=== PATIENT | female | born 1945 | race Caucasian/White ===

== ENCOUNTER 2019-05-21 12:37 | Outpatient (CLI) | payer MEDICARE, SELFPAY ==
--- NOTE | ~2019-05-21 | MMUS_ITS ---
EXAMINATION: MM diagnostic sera RT w ravin, US breast RT limited HISTORY: Right breast mass follow-up, ultrasound guided biopsy performed on 02/16/2019 demonstrated an intraductal papilloma of the right breast. TECHNIQUE: Craniocaudal, mediolateral, and mediolateral oblique 3-D tomosynthesis images of the right breast were performed and synthetic 2-D images were generated. CAD analysis was submitted and interp reted. High resolution limited right breast ultrasound was performed. COMPARISON: 02/04/2019, 01/07/2018, 01/01/2018, 12/31/2016 BREAST PARENCHYMAL COMPOSITION: The breasts are almost entirely fatty. FINDINGS: MAMMOGRAPHIC FINDINGS: There is a stable 6 mm round, circumscribed, equal density mass in the anterior third of the breast a t the 3:00 location 7 cm from the nipple with an associated biopsy marker. There has been no suspicio us interval change. ULTRASOUND: There is a stable 6 mm round, hypoechoic, circumscribed mass with internal vascularity and no posteri or features corresponding to the mammographic finding. IMPRESSION: 1. Stable right breast mass corresponding to the previously biopsied intraductal papilloma. 2. Recommend routine screening mammography and appropriate clinical follow-up. BI-RADS Category 2: Benign finding(s). Reviewed, dictated and finalized at location A. IMPRESSION: 1. Stable right breast mass corresponding to the previously biopsied intraducta l papilloma. 2. Recommend routine screening mammography and appropriate clinical follow-up. BI-RADS Category 2: Benign finding(s).
--- NOTE | ~2019-05-21 | DEXA_ITS ---
Bone Density Report Name: Yokasta Clinton Age: 73 Sex: Female Ethnicity: White Date of : 1945 Indication: postmenopausal; height loss; Referring Provider: Bushra Poole Study: Bone densitometry was performed. Exam Date: May 21, 2019 Accession number: [id number] Bone Density: Region BMD T-score Z-score Classification AP Spine (L1, L2) 1.025 0.4 2.7 Normal World Health Organization criteria for BMD impression classify patients as: Normal (T-score at or above -1.0), Osteopenia (T-score between -1.0 and -2.5), or Osteoporosis (T-score at or below -2.5). Clinical Information Provided by Patient: Has used the following medications: Vitamin D Patient maximum height was 65.5 Menopause Age: 52 Drinks caffeinated beverages Onset of menses at age 10 Number of children 0 Impression: The patient has normal bone mass. Discussion: LOW RISK OF FRACTURE; BONE DENSITY IS WELL ABOVE THE MINIMUM DESIRABLE LEVEL AND ABOVE AVERAGE FOR AGE AND SEX AT ALL SKELETAL SITES TESTED. This person's bone density is above expected limits for age and sex. This is rarely clinically significant, but should be pursued if there are significant musculoskeletal complaints. The patient should follow a healthful lifestyle (good nutrition with adequate calcium and vitamin D, and appropriate weight-bearing exercise). Follow-Up: Consider repeating this study in 5 years or sooner if there is some new clinical indication. Reported by: [facility] on 05/21/2019 1:25:00 PM. Reviewed, dictated and finalized at location ALinda NELSON
== END 2019-05-21 12:38 | disposition home or self-care (01) ==
PROVIDERS: PCP Family Medicine; Visit Provider Family Medicine
DX: R92.8 Other abnormal and inconclusive findings on diagnostic imaging of breast (principal); Z78.0 Asymptomatic menopausal state
CPT/HCPCS: 76642; 77061; 77065; 77080; G0279

== ENCOUNTER 2019-11-10 12:32 | Outpatient (CLI) | payer MEDICARE, SELFPAY ==
--- NOTE | ~2019-11-10 | XR_ITS ---
EXAMINATION: XR lg joint inject/asp w image DATE: 11/10/2019 13:46 INDICATION: Left shoulder pain. TECHNIQUE: A time-out was performed to verify the patient's name, date of , and procedure to b e performed. The procedure including the risks, benefits, and alternatives was discussed with the pat ient. Risks discussed included bleeding and infection. The patient understood the risks and agreed to proceed. The skin overlying the left glenohumeral joint was prepped and draped in usual sterile fas hion. Anesthetic was administered with 1% lidocaine subcutaneously. A 22 G needle was advanced unde r fluoroscopic guidance into the joint. Injection of 1 mL of Omnipaque 240 confirmed intra-articular position of the needle. Subsequently, injectate consisting of 3 mL 0.25% bupivacaine and 1.5 mL 10 mg/mL Kenalog was instilled. The needle was removed and the entry site was cleaned and dressed. The re were no immediate complications. Fluoroscopy exposure time was 0.1 minutes. The total number of im ages was 2. FINDINGS: Real-time fluoroscopy demonstrates the needle in the left glenohumeral joint. Patient's cruz n prior to procedure:05/18. Patient's pain following the procedure: 03/20. IMPRESSION: 1. Left glenohumeral joint injection of local anesthetic and steroid with decrease in the patient's p resenting pain. Reviewed, dictated and finalized at location A. IMPRESSION: 1. Left glenohumeral joint injection of local anesthetic and steroid with decre ase in the patient's presenting pain.
--- NOTE | ~2019-11-10 | XR_ITS ---
EXAMINATION: XR lumbar spine 2-3V DATE: 11/10/2019 13:44 INDICATION: Lumbar radiculopathy. TECHNIQUE: 3 views of lumbar spine were obtained. COMPARISON: None. FINDINGS: There is 10 degrees levoscoliosis of lumbar spine. Vertebral body heights are normal. There is moderately decreased disc height at T12-L1, L1-L2, and L4-L5 and severely decreased disc height a t L2-L3, L3-L4, and L5-S1. There is multilevel severe facet joint osteoarthritis. There are bilateral total hip arthroplasties. Surgical clips in the right upper quadrant are likely from cholecystectomy . IMPRESSION: 1. Severe lumbar spondylosis. 2. Lumbar levoscoliosis. Reviewed, dictated and finalized at location A.
== END 2019-11-10 12:33 | disposition home or self-care (01) ==
PROVIDERS: PCP Family Medicine; Visit Provider Orthopaedic Surgery
DX: M25.512 Pain in left shoulder (principal); M47.896 Other spondylosis, lumbar region
CPT/HCPCS: 20610; 72100; 77002; J3301; Q9966

== ENCOUNTER 2019-11-18 13:16 | Outpatient (CLI) | payer MEDICARE, SELFPAY ==
--- NOTE | ~2019-11-18 | CT_ITS ---
EXAMINATION: CT lumbar spine wo [facility] EXAM DATE: 11/18/2019 14:04 INDICATION: Lumbar radiculopathy. TECHNIQUE: Spiral CT of the lumbar spine was performed without contrast. Axial, coronal and sagittal images were reviewed. The dose-length product (DLP) for this examination was 1250.67 mGy-cm. The exposure was tailored according to patient size (auto mA exposure control), and iterative reconstruct ion (ASIR) was used as additional dose reduction technique. Correlation was made with lumbar spine MR I from 11/04/2009. FINDINGS: There is mild lumbar levoscoliosis. Moderate to severe disc disease L1-L4 and at L5-S1, wit h vacuum disc phenomenon at these levels. There is mild to moderate L4-5 disc disease with 3 mm anter olisthesis. The vertebral bodies are otherwise aligned. No spondylolysis. There are no osteoblastic o r osteolytic lesions identified. No evidence of sacral insufficiency fracture. Bilateral hip replacem ents. There is right adrenal gland 12 mm adenoma. Level by level evaluation: T12-L1: There is a mild diffuse disc bulge. Facet arthropathy: None. Neural foraminal stenosis: Mild to moderate left. Central canal stenosis: No stenosis. L1-L2: There is a mild to moderate diffuse disc bulge. Facet arthropathy: Mild. Neural foraminal stenosis: Mild to moderate bilateral. Central canal stenosis: Mild to moderate. L2-L3: There is a moderate diffuse disc bulge. Facet arthropathy: Mild to moderate. Neural foraminal stenosis: Moderate right, mild left. Central canal stenosis: Moderate. L3-L4: There is a moderate diffuse disc bulge. Facet arthropathy: Mild to moderate. Neural foraminal stenosis: Moderate right, mild left. Central canal stenosis: Moderate. L4-L5: There is a mild diffuse disc bulge. Facet arthropathy: Severe. Neural foraminal stenosis: Mild bilateral. Central canal stenosis: Mild to moderate. L5-S1: There is a mild to moderate diffuse disc bulge. Facet arthropathy: Severe left, mild to moderate right. Neural foraminal stenosis: Moderate to severe left, moderate right. Central canal stenosis: Mild. Correlating with MRI from 2009, there is been significant interval progression in spondylosis. IMPRESSION: 1. Moderate to severe lumbar disc disease. 2. Multilevel neural foraminal stenosis, left L5-S1 level probably most narrowed on exam followed by right L2-3 and L3-4 Reviewed, dictated and finalized at location A. IMPRESSION: 1. Moderate to severe lumbar disc disease. 2. Multilevel neural foraminal stenosis, left L5-S1 level probably most narrow ed on exam followed by right L2-3 and L3-4
== END 2019-11-18 13:17 | disposition home or self-care (01) ==
PROVIDERS: PCP Family Medicine; Visit Provider Family Medicine
DX: M48.061 Spinal stenosis, lumbar region without neurogenic claudication (principal)
CPT/HCPCS: 72131

== ENCOUNTER 2019-11-23 11:44 | Outpatient (CLI) | payer MEDICARE, SELFPAY ==
[2019-11-23 12:04] LABS: Basophils Percent Auto 0.2 % (0.2-1.2); Eosinophils Absolute Auto 0.1 K/mm3 (0-0.3); Eosinophils Percent Auto 1.7 % (0-4.4); Hematocrit 48.6 % (37.0-47.0); Hemoglobin 14.8 g/dL (12.0-15.0); Immature Granulocyte Absolute 0.01 K/mm3 (0.00-0.031); Immature Granulocyte Percent A 0.2 % (0-0.5); Lymphocytes Percent Auto 19.7 % (18.3-44.2); Mean Corpuscular HGB Conc 30.5 g/dl (32-36); Mean Corpuscular Hemoglobin 30.2 pg (26-34); Mean Corpuscular Volume 99.2 fl (80-100); Mean Platelet Volume 10.5 fl (7.4-10.4); Monocytes Absolute Auto 0.5 K/mm3 (0.1-0.6); Neutrophils Absolute Auto 4.6 K/mm3 (1.3-6.7); Neutrophils Percent Auto 70.2 % (45.5-73.1); Platelet Count Result 222 k/mm3 (150-375); White Blood Count 6.6 K/mm3 (4.5-10.0)
[2019-11-23 12:15] LABS: Alanine Aminotransferase 16 U/L (4-35); Alkaline Phosphatase 67 U/L (38-126); Anion Gap 3 mmol/L (8-16); Aspartate Amino Transferase 21 U/L (14-36); Bilirubin,Total 0.4 mg/dL (0.2-1.3); Blood Urea Nitrogen 14 mg/dL (7-17); Calcium 9.3 mg/dL (8.4-10.2); Carbon Dioxide 34 mmol/L (22-30); Chloride 102 mmol/L (98-107); Cholesterol 240 mg/dL (0-200); Estimated Glomerular Filt Rate > 60; Glucose 95 mg/dL (65-105); HDL Direct 52 mg/dL; Potassium 4.2 mmol/L (3.4-5.0); Sodium 139 mmol/L (137-145); Triglycerides 176 mg/dL (<150)
[2019-11-23 12:26] LABS: LDL Cholesterol Direct 148 mg/dL
[2019-11-23 12:42] LABS: Thyroid Stimulating Hormone 0.659 uIU/mL (0.465-4.680)
== END 2019-11-23 11:45 | disposition home or self-care (01) ==
PROVIDERS: PCP Family Medicine; Visit Provider Family Medicine
DX: E78.5 Hyperlipidemia, unspecified (principal); I10 Essential (primary) hypertension; Z13.0 Encounter for screening for diseases of the blood and blood-forming organs and certain disorders involving the immune mechanism
CPT/HCPCS: 36415; 80053; 80061; 84443; 85025

== ENCOUNTER 2019-12-22 14:37 | Outpatient (CLI) | payer MEDICARE, SELFPAY ==
--- NOTE | ~2019-12-22 | CT_ITS ---
EXAMINATION: CT abdomen pelvis wo con DATE: 12/22/2019 15:00 INDICATION: Abdominal wall hernia TECHNIQUE: Computed tomography (CT) of the abdomen and pelvis was performed without intravenous contr ast. The dose-length product (DLP) was 1482.35 mGy-cm. Automated exposure control and iterative recon struction technique were employed. COMPARISON: 01/25/2012 FINDINGS: Minimal dependent atelectasis is present in the lung bases. The heart size is normal. The g allbladder is surgically absent. The liver, spleen, and pancreas are normal. There are stable bilater al adrenal masses, consistent with adenomas. Peripelvic cysts are noted in the otherwise normal kidne ys. No pathologically enlarged abdominal or pelvic lymph nodes are identified. There is no free intra peritoneal gas or evidence of bowel obstruction. The appendix is normal. There are changes of bilater al hip arthroplasty. There is a large umbilical hernia containing fat. There is a moderate-sized epig astric hernia just to the right of midline located approximately 15 cm above the umbilicus and 8.5 cm below the xiphoid. A second smaller epigastric hernia containing fat is seen approximately 3 cm caud al to the larger hernia. There is severe lumbar spondylosis. IMPRESSION: 1. Fat-containing epigastric and umbilical hernias as described above. Reviewed, dictated and finalized at location A.
== END 2019-12-22 14:38 | disposition home or self-care (01) ==
PROVIDERS: PCP Family Medicine; Visit Provider Surgery
DX: K42.9 Umbilical hernia without obstruction or gangrene (principal)
CPT/HCPCS: 74176

== ENCOUNTER 2020-06-21 13:32 | Outpatient (CLI) | payer MEDICARE, SELFPAY ==
[2020-06-21 14:11] LABS: Alveolar/Arterial O2 Gradient 24.6 mmHg; Base Excess ABG 4.8 mEq/l (+/-2.0); Carboxyhemoglobin 0.3 % THb (0-2.0); Fractional Inspired Oxygen 21 %; Methemoglobin ABG 0.1 %THb (0-1.5); Oxygen Content ABG 15.4 %vol (16.0-22.0); Oxygen Saturation ABG 91.1 % (95.0-100.0); Oxyhemoglobin 90.5 % THb (90.0-100.0); PCO2 ABG 52.8 mmHg (35.0-45.0); PO2 ABG 61.9 mmHg (80.0-100.0); PO2 FiO2 Ratio Arterial Blood 2.95 %; Reduced Hemoglobin 9.1 %THb (0-5.0); Total Hemoglobin 12.1 g/dL (12.0-18.0); pH ABG 7.386 (7.350-7.450)
[2020-06-21 14:12] LABS: Device ROOM AIR; Modified Allen's Test Pass; Site Drawn LEFT RADIAL
[2020-06-21 14:30] VITALS: O2SAT 93
[2020-06-21 14:35] VITALS: O2SAT 87
[2020-06-21 14:36] VITALS: O2SAT 87
[2020-06-21 14:38] VITALS: O2SAT 93
[2020-06-21 14:45] VITALS: O2SAT 95
--- NOTE | 2020-06-21 15:05 | HOMEO2EVAL ---
Evaluation was performed at [facility] Home Oxygen Evaluation RC: Home Oxygen (O2) Evaluation Start: 06/21/20 15:02 Freq: Status: Active Protocol: RPE Activity Type Activity Date Activity User E-Sign Co-Sign Detail Recorded Client Recorded Date Recorded By Document 06/21/20 14:30 RENATO [email or web address] 06/21/20 15:04 RENATO Document 06/21/20 14:35 RENATO [email or web address] 06/21/20 15:04 RENATO Document 06/21/20 14:36 RENATO [email or web address] 06/21/20 15:04 RENATO Document 06/21/20 14:38 RENATO [email or web address] 06/21/20 15:04 RENATO Document 06/21/20 14:45 RENATO [email or web address] 06/21/20 15:04 RENATO 06/21/20 06/21/20 06/21/20 14:30 14:35 14:36 Home O2 Evaluation Test Phase Resting Exercise Exercise Oxygen Delivery Room Air Room Air Nasal Cannula Oxygen Flow Rate (L/min) 1 Pulse Oximetry (90-100 %) 93 87 L 87 L Ambulation Distance (feet) Home Oxygen Evaluation Comments Treatment Charges O2 Evaluation - Outpatient 06/21/20 06/21/20 14:38 14:45 Home O2 Evaluation Test Phase Exercise Resting Oxygen Delivery Nasal Cannula Room Air Oxygen Flow Rate (L/min) 2 Pulse Oximetry (90-100 %) 93 95 Ambulation Distance (feet) 300 Home Oxygen Evaluation Comments PT WALKED FOR 6 MINUTES. PT REQUIRES 2 L O2 WITH EXERTION. Treatment Charges
--- NOTE | 2020-06-21 15:05 | PCRCNOTE ---
HOME O2 EVAL FAXED TO OFFICE STAFF, INFORMED PT OFFICE WILL CONTACT HER FOR DME/HOME O2 SET UP
--- NOTE | 2020-06-21 16:08 | P.PCNPFT_ITS ---
PFT Interpretation This is a pulmonary function test with pre and post-bronchodilator spirometry, plethysmography and diffusing capacity. The test was performed and results interpreted in accordance with the 2019 and 2005 ATS/ERS Task Force guidelines respectively using the Global Lung Function Initiative-2012 reference equations. Patient demonstrated good effort and c ooperation. Reproducibility criteria were met. The quality of the pre bronchodilator spirometry maneuver was Grade A and post bronchodilator spirometry maneuver was Grade A. Findings: Spirometry: There is decreased maximal expiratory airflow at low lung volumes with a mildly concave expiratory flow tracing. The pre bronchodilator FVC is 2.46 L, 92% predicted. The pre bronchodilator FEV1 is 1.66 L, 81% predicted. The FEV1: FVC ratio is 68%. The post bronchodilator FVC is 2.25 L, representing a 9% decrease. The post bronchodilator FEV1 is 1.67 L, representing 1% increase. Plethysmography: The total lung capacity is 4.02 L, 79% predicted. The functional residual capacity is 2.11 L, 72% predicted. The residual volume is 1.56 L, 68% predicted. Diffusing capacity: The absolute diffusion capacity is 14.4, 72% predicted. The diffusing capacity corrected for alveolar volume is 3.94, 94% predicted. Impression: There is a mild obstructive abnormality with a normal FEV1 and wit hout significant improvement after inhaling a single dose of albuterol. The lung volumes are normal. The diffusing capacity is normal. There are no prior studies for comparison PFT Procedure Performed PFT Procedure Performed Spirometry with Pre/Post Bronchodilator Plethysmography (Lung Vol) Diffusing Cap (DLCO)
== END 2020-06-21 13:33 | disposition home or self-care (01) ==
PROVIDERS: PCP Family Medicine; Visit Provider Nurse Practitioner Family
DX: J44.9 Chronic obstructive pulmonary disease, unspecified (principal)
CPT/HCPCS: 36600; 82375; 82805; 83050; 94060; 94618; 94726; 94729

== ENCOUNTER 2021-08-14 11:53 | Outpatient (CLI) | payer MEDICARE, SELFPAY ==
--- NOTE | ~2021-08-14 | XR_ITS ---
XR shoulder RT min 2V 08/14/2021 14:19 Indication: Right shoulder pain Procedure: 4 views right shoulder Comparison: 10/17/2018 Findings: There has been progression of polyarticular osteoarthritis of the right shoulder, severe at the glenohumeral joint with near complete loss of joint space and prominent marginal osteophytosis. Osteopenia. No acute fracture or traumatic malalignment. No significant soft tissue abnormality. Impression: 1: Progression of polyarticular osteoarthritis of the right shoulder. Reviewed, dictated and finalized at location B. Impression: 1: Progression of polyarticular osteoarthritis of the right shoulder.
--- NOTE | ~2021-08-14 | XR_ITS ---
XR shoulder LT min 2V 08/14/2021 14:18 Indication: Left shoulder pain Procedure: 4 views left shoulder Comparison: 10/17/2018 Findings: There is is polyarticular osteoarthritis, severe at the glenohumeral joint. No acute fractu re or traumatic malalignment. Surrounding osseous structures and soft tissues are unremarkable. No fo reign bodies. Impression: 1: Progression of polyarticular osteoarthritis of the left shoulder, severe at the glenohumeral joint . Reviewed, dictated and finalized at location B. Impression: 1: Progression of polyarticular osteoarthritis of the left shoulder, severe at the glenohumeral joint.
[2021-08-14 13:26] LABS: Hematocrit 44.2 % (37.0-47.0); Hemoglobin 12.6 g/dL (12.0-15.0); Mean Corpuscular HGB Conc 28.5 g/dl (32-36); Mean Corpuscular Hemoglobin 28.8 pg (26-34); Mean Corpuscular Volume 101.1 fl (80-100); Mean Platelet Volume 10.2 fl (7.4-10.4); Platelet Count Result 225 k/mm3 (150-375); Red Blood Count 4.37 M/mm3 (4.2-5.4); Red Cell Distribution Width 15.7 % (11.5-14.5); White Blood Count 6.1 K/mm3 (4.5-10.0)
[2021-08-14 13:42] LABS: Alanine Aminotransferase 13 U/L (6-35); Alkaline Phosphatase 69 U/L (38-126); Anion Gap 1 mmol/L (8-16); Aspartate Amino Transferase 19 U/L (14-36); Bilirubin,Total 0.5 mg/dL (0.2-1.3); Blood Urea Nitrogen 19 mg/dL (7-17); Calcium 9.2 mg/dL (8.4-10.2); Carbon Dioxide 37 mmol/L (22-30); Chloride 100 mmol/L (98-107); Cholesterol 146 mg/dL (0-200); Estimated Glomerular Filt Rate > 60; Glucose 84 mg/dL (65-110); HDL Direct 53 mg/dL; Potassium 4.6 mmol/L (3.4-5.0); Sodium 138 mmol/L (137-145); Triglycerides 158 mg/dL (<150)
[2021-08-14 13:45] LABS: Hemoglobin A1C 5.4 % (<5.7)
[2021-08-14 13:53] LABS: LDL Cholesterol Direct 66 mg/dL
[2021-08-14 14:20] LABS: Thyroid Stimulating Hormone Reflex 0.859 uIU/mL (0.465-4.68)
== END 2021-08-14 11:54 | disposition home or self-care (01) ==
PROVIDERS: PCP Family Medicine; Visit Provider Family Medicine
DX: E78.5 Hyperlipidemia, unspecified (principal); I10 Essential (primary) hypertension; R73.9 Hyperglycemia, unspecified; J44.9 Chronic obstructive pulmonary disease, unspecified; M19.012 Primary osteoarthritis, left shoulder; M19.011 Primary osteoarthritis, right shoulder
CPT/HCPCS: 36415; 73030; 80053; 80061; 83036; 84443; 85027

== ENCOUNTER 2021-09-27 07:31 | Outpatient (CLI) | payer MEDICARE, SELFPAY ==
--- NOTE | 2021-10-18 11:26 | WPDSLEEPSTUD ---
Sleep Study Date of Study: 09/27/21 Ordering Provider: ERI Sheth Interpreting Physician: Margie Iraheta MD Sleep Study Type: Split Polysomnogram Height: 1.63 m Weight: 108.862 kg Body Mass Index: 41.1 Neck Circumference (inches): 18 [place]: 4 Reason for Sleep Study History of obstructive sleep apnea, had hypoxia after hiatal hernia repair required oxygen and BiPAP * 2016 titration, optimal pressure 18 * January 24, 2012 ApneaLink home sleep test, apnea-hypopnea index 23, snoring, oxygen desaturation index 26 Sleep History Eloisa peterson in her is a 75-year-old woman who has a history of obstructive sleep apnea syndrome and difficulty with PAP therapy in the past. In 2020 she had a hiatal hernia repair with postop hypoxemia requiring oxygen and BiPAP. She had difficulty tolerating the BiPAP. She needs to have a colonoscopy however there was concerns that she needs to have follow-up regarding her shortness of breath, hypoxemia and untreated sleep apnea first. She had a home oxygen evaluation June 2020 showing that she required 2 L with exertion but she never this home. She has COPD, now is being treated. She does not awaken from sleep feeling short of breath. She does not awaken at night with heartburn, belching or coughing. She occasionally snores but not loudly enough that others complain about it she occasionally has trouble sleeping with a cold. She rarely wakes up gasping for breath at night. She frequently has breathing problems at night. She frequently sweats excessively at night. She does not notice her heart pounding or beating irregularly night. She occasionally falls asleep during the day but never involuntarily and never while driving. She does not have loss of muscle tone with strong emotion. She does not have daytime difficulties due to excessive sleepiness. She does not feel paralyzed on waking or falling asleep. She does not have vivid dreamlike scenes upon awakening or falling asleep. She does not feel afraid to go to sleep. She does not have nightmares. She does not remember dreams. She denies having racing thoughts. She does not feel sad, depressed or anxious. She rarely has muscular tension. She occasionally notices parts of her body jerking. She occasionally kicks at night. She occasionally has crawling and aching feelings in her legs. She occasionally has leg pain at night. She does not have morning jaw pain. She does not grind her teeth at night. She frequently has bothered by pain during the day. She occasionally is awakened by pain at night. She occasionally wakes up feeling stiff in the morning with sore achy muscles and pain in the neck and spine. She has fatigue, headaches and dizziness. Normal bedtime is between 11:30 p.m. and midnight, taking 10 minutes to fall asleep, typically waking 2-3 times during the night to urinate. She wakes the morning by 7:00 a.m.. Her weekend schedule is the same. She estimates getting between 6 hours and 8 hours of sleep at night. She takes naps in the afternoon or evening. A short nap lasting 10 or 15 minutes may be refreshing. She is usually drowsy in the morning for 1 hour. Habits: Never smoked tobacco. She consumes caffeine 3 cups a day. She does not use alcohol or recreational drugs. [facility] Past Medical History Medical History Arthritis of shoulder region, left Arthritis of shoulder region, right Complication of surgery Constipation COPD (chronic obstructive pulmonary disease) Diarrhea Essential hypertension FH: bilateral hip replacements FH: cholecystectomy Heart murmur Hernia History of anesthesia problem History of claustrophobia History of dental problems MIKKI (obstructive sleep apnea) Rotator cuff tear arthropathy of left shoulder SOB (shortness of breath) on exertion Umbilical hernia without obstruction and without gangrene Wears glasses Surgical History Surgical His
[2021-10-18 14:33] VITALS: BMI 41.1
== END 2021-09-28 07:36 | disposition home or self-care (01) ==
LOC: ANHCSM 07:32
PROVIDERS: PCP Family Medicine; Visit Provider Physician Assistant
DX: G47.33 Obstructive sleep apnea (adult) (pediatric) (principal)
CPT/HCPCS: 95811

== ENCOUNTER 2021-09-29 12:14 | Outpatient (CLI) | payer MEDICARE, SELFPAY ==
--- NOTE | ~2021-09-29 | XR_ITS ---
XR chest 2V 09/29/2021 13:17 Indication: Dyspnea with exertion Procedure: 2 view chest Comparison: 09/12/2006 Findings: Shallow inspiration.. There is linear bibasilar infiltrates which may represent atelectasis or developing pneumonia. No significant effusion, edema or pneumothorax. There is bilateral osteoart hritis of the glenohumeral joints. No acute osseous abnormality. Impression: 1: Linear bibasilar infiltrates which may represent atelectasis or developing pneumonia. Reviewed, dictated and finalized at location A. Impression: 1: Linear bibasilar infiltrates which may represent atelectasis or developing p neumonia.
[2021-09-29 12:30] VITALS: PULSE 84; O2SAT 90
[2021-09-29 12:35] VITALS: PULSE 94; O2SAT 87
[2021-09-29 12:40] VITALS: PULSE 99; O2SAT 88
[2021-09-29 12:45] VITALS: PULSE 100; O2SAT 91
[2021-09-29 13:00] VITALS: PULSE 85; O2SAT 90
--- NOTE | 2021-09-29 13:04 | HOMEO2EVAL ---
Evaluation was performed at [facility] Home Oxygen Evaluation RC: Home Oxygen (O2) Evaluation Start: 09/29/21 13:02 Freq: Status: Active Protocol: RPE Activity Type Activity Date Activity User E-sign Co-sign Detail Recorded Client Recorded Date Recorded By Document 09/29/21 12:30 DJO [email or web address] 09/29/21 13:04 DJO Document 09/29/21 12:35 DJO [email or web address] 09/29/21 13:04 DJO Document 09/29/21 12:40 DJO [email or web address] 09/29/21 13:04 DJO Document 09/29/21 12:45 DJO [email or web address] 09/29/21 13:04 DJO Document 09/29/21 13:00 DJO [email or web address] 09/29/21 13:04 DJO 09/29/21 09/29/21 09/29/21 12:30 12:35 12:40 Home O2 Evaluation Test Phase Resting Exercise Exercise Oxygen Delivery Room Air Room Air Nasal Cannula Oxygen Flow Rate (L/min) 1 Pulse Oximetry (90-100 %) 90 87 L 88 L Pulse Rate (60-100 beats/min) 84 94 99 Activity Tolerance Ambulation Distance (feet) Ambulation Distance (meters) Treatment Charges O2 Evaluation - Outpatient 09/29/21 09/29/21 12:45 13:00 Home O2 Evaluation Test Phase Exercise Resting Oxygen Delivery Nasal Cannula Room Air Oxygen Flow Rate (L/min) 2 Pulse Oximetry (90-100 %) 91 90 Pulse Rate (60-100 beats/min) 100 85 Activity Tolerance Good Ambulation Distance (feet) 500 Ambulation Distance (meters) 152.39 Treatment Charges
== END 2021-09-29 12:15 | disposition home or self-care (01) ==
PROVIDERS: PCP Family Medicine; Visit Provider Physician Assistant
DX: Z01.818 Encounter for other preprocedural examination (principal); R09.02 Hypoxemia; R06.00 Dyspnea, unspecified
CPT/HCPCS: 71046; 94618

== ENCOUNTER 2021-10-06 15:06 | Outpatient (CLI) | payer MEDICARE, SELFPAY ==
--- NOTE | ~2021-10-06 | MM_ITS ---
EXAMINATION: MM screening sera BI w ravin HISTORY: Screening mammogram TECHNIQUE: Craniocaudal and mediolateral oblique 3-D tomosynthesis images were obtained and synthetic 2-D images were generated. CAD analysis was submitted and interpreted. COMPARISON: 05/21/2019 diagnostic right mammogram and limited right breast ultrasound examination 02/26/2019 ultrasound right breast biopsy 02/04/2019 diagnostic bilateral mammogram and limited right breast ultrasound BREAST PARENCHYMAL COMPOSITION: There are scattered areas of fibroglandular density. FINDINGS: There is a biopsy marker of the anterior lower inner right breast; history of prior reporte dly benign right breast biopsy. Scattered bilateral benign calcifications are noted. Stable asymmetry in the posterior outer mid right breast. There is no evidence of suspicious mass, c alcification, or architectural distortion to suggest malignancy in either breast. There has been no s uspicious interval change. IMPRESSION: 1. No mammographic evidence of malignancy. 2. Recommend routine screening mammography in one year. BI-RADS Category 2: Benign finding(s). Reviewed, dictated and finalized at location B.
== END 2021-10-06 15:07 | disposition home or self-care (01) ==
LOC: ANHIMG 15:08
PROVIDERS: PCP Family Medicine; Visit Provider Family Medicine
DX: Z12.31 Encounter for screening mammogram for malignant neoplasm of breast (principal)
CPT/HCPCS: 77063; 77067

== ENCOUNTER 2022-04-27 12:51 | Inpatient (IN) | payer MEDICARE, SELFPAY ==
[2022-04-27] VITALS (18 sets, daily range): BP systolic 86–125; BP diastolic 52–70; PULSE 99–114; RESP 16–21; TEMP 36.2–36.4; O2SAT 82–98; BMI 38.2
--- NOTE | ~2022-04-27 | CT_ITS ---
EXAMINATION: CT abdomen pelvis w con DATE: 04/27/2022 17:23 INDICATION: GI bleed. Abdominal pain. TECHNIQUE: Computed tomography (CT) of the abdomen and pelvis was performed with 100 cc Omnipaque 350 intravenous contrast. The dose-length product was 1493.34 mGy-cm. Automated exposure control and iterative reconstruction technique were employed. COMPARISON: CT dated 12/22/2019. FINDINGS: There are changes of lower abdominal ventral hernia repair. There is overlying soft tissue infiltration anterior to the lower abdominal musculature, likely sequela of previous surgery. There a re multiple supraumbilical fat-containing hernias. There is bibasilar airspace disease, most likely atelectasis/scarring, although pneumonia not exclude d. Heart size normal. No significant pleural or pericardial effusion. Status post cholecystectomy. The liver, spleen, pancreas, are unremarkable. There are small bilateral low-density nodules of the adrenal glands, largest in the left measuring 2.2 cm, unchanged, most lik timi benign adenomas. There are bilateral parapelvic cysts. Nonobstructive bowel gas pattern. No abnor mal pelvic masses or fluid collections. There are bilateral hip arthroplasties. Severe lumbar spondyl osis. IMPRESSION: 1. Bibasilar airspace disease may represent atelectasis/scarring or pneumonia. 2: There is evidence of lower abdominal wall hernia repair with postoperative change in the overlying subcutaneous tissues. There are multiple supraumbilical fat-containing hernias. Reviewed, dictated and finalized at location A. GE PAINTER HELPER IMPRESSION: 1. Bibasilar airspace disease may represent atelectasis/scarring or pneumonia. 2: There is evidence of lower abdominal wall hernia repair with postoperative c hange in the overlying subcutaneous tissues. There are multiple supraumbilical fat-containing hernias.
--- NOTE | ~2022-04-27 | XR_ITS ---
XR chest 1V portable 04/28/2022 10:55 Indication: Hypoxia. Lethargy. Procedure: AP portable chest Comparison: 09/29/2021 Findings: Shallow inspiration. Stable cardiomediastinal silhouette. Bibasilar infiltrates may represe nt atelectasis and/or pneumonia. No significant effusion or pneumothorax. No acute osseous abnormalit y. Impression: 1: Bibasilar infiltrates may represent atelectasis and/or pneumonia. Reviewed, dictated and finalized at location A. R CONSULTANT Impression: 1: Bibasilar infiltrates may represent atelectasis and/or pneumonia.
[2022-04-27 13:11] LABS: Basophils Percent Auto 0.1 % (0.2-1.2); Eosinophils Percent Auto 0.1 % (0-4.4); Hemoglobin 13.1 g/dL (12.0-15.0); Immature Granulocyte Absolute 0.03 K/mm3 (0.00-0.031); Immature Granulocyte Percent A 0.3 % (0-0.5); Lymphocytes Absolute Auto 1.13 K/mm3 (0.9-3.2); Lymphocytes Percent Auto 11.2 % (18.3-44.2); Mean Corpuscular HGB Conc 29.1 g/dl (32-36); Mean Corpuscular Hemoglobin 29.6 pg (26-34); Mean Corpuscular Volume 101.8 fl (80-100); Mean Platelet Volume 10.8 fl (7.4-10.4); Monocytes Absolute Auto 0.4 K/mm3 (0.1-0.6); Monocytes Percent Auto 3.6 % (2.6-8.5); Neutrophils Absolute Auto 8.5 K/mm3 (1.3-6.7); Neutrophils Percent Auto 84.7 % (45.5-73.1); Platelet Count Result 214 k/mm3 (150-375); Red Blood Count 4.42 M/mm3 (4.2-5.4); Red Cell Distribution Width 14.6 % (11.5-14.5); White Blood Count 10.1 K/mm3 (4.5-10.0)
[2022-04-27 13:20] LABS: Potassium 5.1 mmol/L (3.4-5.0); Prothrombin Time 12.8 Seconds (11.1-14.7)
[2022-04-27 13:21] LABS: Partial Thromboplastin Time 23.8 SECONDS (22.3-36.8)
[2022-04-27 13:24] LABS: Alanine Aminotransferase 17 U/L (6-35); Albumin Level 3.6 g/dL (3.5-5.1); Alkaline Phosphatase 46 U/L (38-126); Anion Gap 1 mmol/L (8-16); Aspartate Amino Transferase 18 U/L (14-36); Bilirubin,Total 0.6 mg/dL (0.2-1.3); Blood Urea Nitrogen 61 mg/dL (7-17); Carbon Dioxide 34 mmol/L (22-30); Chloride 101 mmol/L (98-107); Estimated CRCL calculation 60 ml/min; Estimated Glomerular Filt Rate > 60; Glucose 124 mg/dL (65-110); Sodium 136 mmol/L (137-145)
[2022-04-27] MEDS: ONDANSETRON INJ 4 MG/2 ML VIAL IV PUSH (16:35)
[2022-04-27] MEDS: SODIUM CHLORIDE 0.9% IV 1,000 ML 999 ML IV CONT (16:35)
[2022-04-27] MEDS: PANTOPRAZOLE SODIUM IV 40 MG VIAL 80 MG IV PUSH (16:35)
--- NOTE | 2022-04-27 16:54 | ED.GIBLEED ---
HPI - GI Bleed General Chief complaint: GI Bleed Stated complaint: gi bleed Time Seen by Provider: 04/27/22 15:58 History of Present Illness HPI Narrative: Patient is a 76-year-old female with a history of Related Data Home Medications Medication Instructions Recorded Confirmed acetaminophen 650 mg 650 mg PO Q8H 04/01/19 10/31/21 tablet,extended release (Tylenol 8 Hour) aspirin 81 mg tablet,delayed 81 mg PO DAILY 04/01/19 10/31/21 release pitavastatin calcium 2 mg tablet 2 mg PO QPM 06/30/20 10/31/21 (Livalo) cholecalciferol (vitamin D3) PO DAILY 09/18/21 10/31/21 diphenhydramine HCl 25 mg capsule 25 mg PO QHS PRN 09/18/21 10/31/21 (Benadryl) hydrocodone 5 mg-acetaminophen 325 1 tablet PO Q8H PRN pain 09/18/21 10/31/21 mg tablet Allergies Allergy/AdvReac Type Severity Reaction Status Date / Time pravastatin Allergy Severe Diarrhea Verified 04/16/22 14:36 atorvastatin Allergy Unknown unknown Verified 04/16/22 14:36 inositol Allergy Unknown unkown Verified 04/16/22 14:36 niacin Allergy Unknown Unknown Verified 04/16/22 14:36 niacinamide Allergy Unknown unknown Verified 04/16/22 14:36 NSAIDS (Non-Steroidal Allergy Unknown GI bleed Verified 04/16/22 14:36 Anti-Inflamma PMFSH Past Medical History Medical History Arthritis of shoulder region, left Arthritis of shoulder region, right Cervical arthritis Complication of surgery Constipation COPD (chronic obstructive pulmonary disease) Diarrhea Essential hypertension FH: bilateral hip replacements FH: cholecystectomy Heart murmur Hernia History of anesthesia problem History of claustrophobia History of dental problems Neck pain MIKKI (obstructive sleep apnea) Rotator cuff tear arthropathy of left shoulder SOB (shortness of breath) on exertion Umbilical hernia without obstruction and without gangrene Wears glasses Surgical History Surgical History H/O cosmetic surgery Abdominoplasty Mar 2020 History of hernia surgery x2 Mar 2020 History of hip replacement Left Hip Mar 2001 Right Hip Nov 2005 History of lumpectomy Right breast 1993 Hx of cholecystectomy Nov 2017 Family History Family History Father Heart attack Cancer Sibling Diabetes mellitus Cancer Hypertension Sibling Cancer Brain cancer Other Arthritis Social History Social History Smoking status: Never smoker Second hand tobacco smoke exposure: Yes Alcohol intake: never Substance use: never Substance use type: does not use Living arrangements: alone Occupation/Education: retired Gender identity (if verbalized by the patient): Female Spiritual care concerns: No Agree to blood products: Yes Exam Narrative: GENERAL: Well-appearing, well-nourished, and in no acute distress. HEAD: Normocephalic, atraumatic. EYES: PERRLA and EOMI. ENT: Nares clear, no rhinorrhea or epistaxis. Mucous membranes moist. NECK: Supple. CHEST: Diminished breath sounds bilaterally with mild scattered wheezing HEART: Regular rate and rhythm. ABDOMEN: Soft, nontender, nondistended, normal active bowel sounds. Rectal exam with maroon stool that is Hemoccult positive EXTREMITIES: Normal range of motion. No edema. SKIN: Warm, dry, no rash. NEURO: No focal deficits. Alert and oriented x3. PSYCH: Normal mood and affect. Course Vital Signs Vital signs: Vital Signs Temperature 97.6 F 04/27/22 12:53 Pulse Rate 99 04/27/22 12:53 Respiratory Rate 16 04/27/22 12:53 Blood Pressure 125/60 04/27/22 12:53 Pulse Oximetry 94 04/27/22 12:53 Oxygen Delivery Room Air 04/27/22 12:53 Temperature 97.6 F 04/27/22 12:53 Pulse Rate 106 H 04/27/22 16:49 Respiratory Rate 18 04/27/22 16:49 Blood Pressure 103/65 04/27/22 16:49
[2022-04-27 17:09] LABS: Hematocrit 41.1 % (37.0-47.0); Hemoglobin 12.1 g/dL (12.0-15.0)
--- NOTE | 2022-04-27 18:14 | PM.IMHP ---
H&P: HPI History of Present Illness Date/Time: 04/27/22 18:14 Chief Complaint: GI bleed Narrative: This is a 76-year-old female patient who stated she had been up all night with diarrhea. She stated that initially her stools were a dark color almost black and then she noticed more blood and her stools this morning. She stated she just feels worn out and weak. She does take a daily aspirin but is not on any anticoagulation. Her initial hemoglobin was 13.1 and then it came down to 12.1 and then 12.3. She did complain of some mid abdominal tenderness and a CT was performed. The CT of the abdomen was read asBibasilar airspace disease may represent atelectasis/scarring or pneumonia. 2: There is evidence of lower abdominal wall hernia repair with postoperative change in the overlying subcutaneous tissues. There are multiple supraumbilical fat-containing hernias. GI has been consulted. The patient was given Zofran Protonix and IV fluids in the emergency room. Her sodium was 136 and potassium 5.1. BUN 61. The patient stated that she has oxygen at home but rarely ever uses it. She also has sleep apnea but does not use a CPAP machine. The patient does have a history of COPD. The patient is currently on 3 L per nasal cannula at this time. The patient is being admitted to observation status on the date of service of 04/27/2022 Review of Systems Review of Systems: All systems reviewed & are unremarkable except as noted in HPI and below Constitutional: Constitutional: Reports as per HPI and Reports no additional constitutional complaints Eyes: Eyes: Reports as per HPI and Reports no additional eye complaints ENT: Reports system reviewed and no additional complaints, except as documented and Reports Normal hearing present Cardiovascular: Cardiovascular: Reports no additional cardiovascular complaints Respiratory: Respiratory: Reports no additional respiratory complaints and Reports no additional respiratory complaints Gastrointestinal: Gastrointestinal: Reports as per HPI and Reports no additional gastrointestinal complaints Musculoskeletal: Musculoskeletal: Reports no additional musculoskeletal complaints Integumentary/Breasts: Skin/Breast: Reports system reviewed and no additional complaints, except as docu and Reports as per HPI Neurologic: Reports system reviewed and no additional complaints, except as documented, Reports as per HPI and Reports Normal hearing present Psychiatric: Psychiatric: Reports no additional psychiatric complaints and Reports as per HPI Endocrine: Endocrine: Reports no additional endocrine complaints Hematologic/Lymphatic: Hematologic/Lymphatic: Reports no additional hematologic/lymphatic complaints Allergic/Immunologic: Allergic/Immunologic: Reports no additional allergic/immunologic complaints [facility] Past Medical History Medical History (Updated 04/27/22 @ 22:22 by Starr Lopez NP) Arthritis of shoulder region, left Arthritis of shoulder region, right Cervical arthritis Colon polyps Complication of surgery Constipation COPD (chronic obstructive pulmonary disease) Diarrhea Essential hypertension FH: bilateral hip replacements FH: cholecystectomy Heart murmur Hernia History of anesthesia problem History of claustrophobia History of dental problems Neck pain MIKKI (obstructive sleep apnea) Does not use a CPAP Rotator cuff tear arthropathy of left shoulder SOB (shortness of breath) on exertion Umbilical hernia without obstruction and without gangrene Wears glasses Surgical History Surgical History (Updated 04/27/22 @ 22:22 by Starr Lopez NP) H/O cosmetic surgery Abdominoplasty Mar 2020 H/O rectal polypectomy History of hernia surgery x2 Mar 2020 History of hip replacement Left Hip Mar 2001 Right Hip Nov 2005 History of lumpectomy Right breast 1993 Hx of cholecystectomy Nov 2017 Family History Family History Fath
[2022-04-27 19:53] LABS: Hematocrit 41.8 % (37.0-47.0); Hemoglobin 12.3 g/dL (12.0-15.0)
[2022-04-28] VITALS (22 sets, daily range): BP systolic 102–119; BP diastolic 40–63; PULSE 72–101; RESP 18–28; TEMP 36.6–37.3; O2SAT 91–100
[2022-04-28] MEDS: SODIUM CHLORIDE 0.9% IV 1,000 ML 100 ML IV CONT ×2 (01:43→15:32)
--- NOTE | 2022-04-28 02:45 | PC.NURSE ---
Spoke with Dr. Amaya about patient having urinary frequency and foul urine. New orders received for UA with reflex.
[2022-04-28 03:13] LABS: Appearance Urine Slightly Cloudy (Clear); Bilirubin Urine Negative (Negative); Blood Urine Trace-lysed (Negative); Color Urine Yellow (Yellow); Glucose Urine UA Negative (Negative); Ketones Urine Negative (Negative); Leukocyte Esterase Ur 1+ LEU/UL (Negative); Nitrate Urine Negative (Negative); Protein Urine Negative (Negative); Specific Grav Ur 1.015 (1.001-1.035); Urobilinogen Urine 0.2 mg/dL (<2.0); pH Urine 5.5 (5.0-9.0)
[2022-04-28 03:21] LABS: Mucus Urine Rare /lpf; Squamous Epithelial Cell Urine Few /hpf (Few); WBC Urine 31-50 /hpf
[2022-04-28 03:24] LABS: Add Urine Microscopic? YES
--- NOTE | 2022-04-28 05:43 | PC.NURSE ---
patient c/o nausea. Spoke with Dr. Amaya to switch zofran to PO since patient unable get IV access. Dr. Amaya says okay to order po zofran.
[2022-04-28 05:53] LABS: Basophils Percent Auto 0.1 % (0.2-1.2); Eosinophils Percent Auto 0.1 % (0-4.4); Hematocrit 39.2 % (37.0-47.0); Hemoglobin 11.2 g/dL (12.0-15.0); Immature Granulocyte Absolute 0.04 K/mm3 (0.00-0.031); Immature Granulocyte Percent A 0.4 % (0-0.5); Lymphocytes Absolute Auto 1.29 K/mm3 (0.9-3.2); Mean Corpuscular HGB Conc 28.6 g/dl (32-36); Mean Corpuscular Hemoglobin 29.2 pg (26-34); Mean Corpuscular Volume 102.3 fl (80-100); Mean Platelet Volume 10.4 fl (7.4-10.4); Monocytes Absolute Auto 0.6 K/mm3 (0.1-0.6); Monocytes Percent Auto 6.1 % (2.6-8.5); Neutrophils Percent Auto 80.3 % (45.5-73.1); Platelet Count Result 216 k/mm3 (150-375); Red Blood Count 3.83 M/mm3 (4.2-5.4); Red Cell Distribution Width 14.7 % (11.5-14.5)
[2022-04-28 06:05] LABS: Alanine Aminotransferase 14 U/L (6-35); Albumin Level 3.3 g/dL (3.5-5.1); Alkaline Phosphatase 43 U/L (38-126); Anion Gap -1 mmol/L (8-16); Aspartate Amino Transferase 18 U/L (14-36); Bilirubin,Total 0.4 mg/dL (0.2-1.3); Blood Urea Nitrogen 63 mg/dL (7-17); Calcium 8.9 mg/dL (8.4-10.2); Carbon Dioxide 34 mmol/L (22-30); Chloride 103 mmol/L (98-107); Estimated CRCL calculation 66 ml/min; Estimated Glomerular Filt Rate > 60; Glucose 115 mg/dL (65-110); Magnesium 2.2 mg/dL (1.6-2.3); Potassium 4.7 mmol/L (3.4-5.0); Sodium 136 mmol/L (137-145)
[2022-04-28 06:09] LABS: Lactic Acid Reflex 0.9 mmol/L (0.7-2.0)
[2022-04-28 07:00] LABS: Thyroid Stimulating Hormone Reflex 0.633 uIU/mL (0.465-4.68)
--- NOTE | 2022-04-28 09:15 | WPDGICN ---
Assessment and Plan Assessment and plan (1) GI bleed: Code(s): K92.2 - Gastrointestinal hemorrhage, unspecified Status: Acute Assessment and Plan: she states that the black stools began on . There was a little red mixed with it. She probably has upper gastrointestinal bleed given the fact that she does take meloxicam. Also the BUN was quite elevated at 61. Creatinine 0.7 she has been started on pantoprazole. I will schedule her for EGD and colonoscopy. Hemoglobin has dropped from 13.1-11.2 (2) COPD (chronic obstructive pulmonary disease): Code(s): J44.9 - Chronic obstructive pulmonary disease, unspecified Status: Acute Assessment and Plan: she has chronic lung disease and also MIKKI. She has had CPAP ordered but does not use it. She states that she does not smoke (3) MIKKI (obstructive sleep apnea): Code(s): G47.33 - Obstructive sleep apnea (adult) (pediatric) Status: Acute Assessment and Plan: has CPAP but does not use it. She is breathing fairly comfortable now lying in bed but is sleepy (4) Bilateral shoulder pain: Code(s): M25.511 - Pain in right shoulder; M25.512 - Pain in left shoulder Status: Acute Assessment and Plan: she has arthritis which bothers quite a bit in her shoulders but also in other areas. She is on allopurinol as well as meloxicam (5) BMI 38.0-38.9,adult: Code(s): Z68.38 - Body mass index [BMI] 38.0-38.9, adult Status: Acute (6) Ventral hernia: Code(s): K43.9 - Ventral hernia without obstruction or gangrene Status: Acute Assessment and Plan: small supra umbilical midline hernia, not Plan I will let her eat today and then begin a prep for colonoscopy tomorrow, to do EGD and colonoscopy on Saturday morning. I discussed the procedures with her. Discussed the preps. I explained the risks such as bleeding or perforation or the possible need for surgery to correct complication. I also told her that with her comorbidities that there is a risk of cardiopulmonary complications. GI Consult Note Consult date/time: 04/28/22 09:15 HPI: Sharona Clinton is a 76 year old female present to the emergency room last evening with a history of having had black somewhat tarry stools for the last couple of days. She denies having had abdominal pain but states that she is uncomfortable in the lower left side of her abdomen at this time. With some her stool there was reddish material at the edge. She has never had an ulcer before to her knowledge. She does take meloxicam daily for her arthritis she is also on aspirin 81 mg per day. It appears that she saw a physician in [facility] last year for consideration of a colonoscopy. Was deferred because of her COPD and never did get scheduled. She has a CPAP at home, but does not use it. She is sleepy this morning but states that she is not short of breath. Review of Systems Review of Systems: All systems reviewed & are unremarkable except as noted in HPI and below PMFSH Past Medical History Medical History Arthritis of shoulder region, left Arthritis of shoulder region, right Cervical arthritis Colon polyps Complication of surgery Constipation COPD (chronic obstructive pulmonary disease) Diarrhea Essential hypertension FH: bilateral hip replacements FH: cholecystectomy Heart murmur Hernia History of anesthesia problem History of claustrophobia History of dental problems Neck pain MIKKI (obstructive sleep apnea) Does not use a CPAP Rotator cuff tear arthropathy of left shoulder SOB (shortness of breath) on exertion Umbilical hernia without obstruction and without gangrene Wears glasses Surgical History Surgical History H/O cosmetic surgery Abdominoplasty Mar 2020 H/O rectal polypectomy History of hernia surgery x2 Ja
[2022-04-28] MEDS: PANTOPRAZOLE SODIUM IV 40 MG VIAL IV PUSH (09:55)
--- NOTE | 2022-04-28 10:03 | PC.NURSE ---
no IV access upon shift change, several nurses attempted IV start on machinist 2nd shift, aware, 739 I attempted to start IV access 2 unsuccessful attempts, 949 I was able to obtain IV, IVFs restarted and meds administered as ordered
[2022-04-28] MEDS: UMECLIDINIUM/VILANTEROL 62.5-25 MCG ELLIPTA 1 PUFF INHALATION (10:19)
[2022-04-28 11:12] LABS: Alveolar/Arterial O2 Gradient 43.4 mmHg; Base Excess ABG 3.9 mEq/l (+/-2.0); Fractional Inspired Oxygen 28 %; HCO3 ABG 33.3 mEq/l (22.0-26.0); Oxygen Content ABG 14.9 %vol (16.0-22.0); Oxyhemoglobin 88.9 % THb (90.0-100.0); PO2 ABG 63.6 mmHg (80.0-100.0); PO2 FiO2 Ratio Arterial Blood 2.27 %; Total Hemoglobin 11.9 g/dL (12.0-18.0)
[2022-04-28 11:17] LABS: pH ABG 7.245 (7.350-7.450)
[2022-04-28 11:18] LABS: PCO2 ABG 78.5 mmHg (35.0-45.0)
[2022-04-28 11:19] LABS: Device NASAL CANNULA; Oxygen Saturation ABG 87.5 % (95.0-100.0); Site Drawn LEFT BRACHIAL
--- NOTE | 2022-04-28 11:37 | P.PNIM_ITS ---
Progress Note: A&P Assessment and Plan (1) Acute respiratory failure with hypoxia and hypercapnia: Code(s): J96.01 - Acute respiratory failure with hypoxia; J96.02 - Acute respiratory failure with hypercapnia Status: Acute Assessment and Plan: Patient hypoxic on presentation at 85% and was placed on 3 L supplemental O2 * CT of the abdomen/pelvis demonstrated bibasilar airspace disease which may represent atelectasis versus pneumonia * CXR today also revealed bibasilar infiltrates * patient noted to be extremely lethargic, therefore a stat ABG was completed which demonstrated respiratory acidosis with markedly elevated pCO2 at 78.5 * Suspect patient has degree of chronic hypercapnic respiratory failure secondary to untreated sleep apnea. Review of prior ABG from 06/21/2020 demonstrates pCO2 to be 52.8, this is likely closer to the patient's baseline * Begin BiPAP with setting of 12/6 and rate of 16. Repeat ABG 1 hour after initiation of BiPAP to assess for improvement * patient will be transitioned to IMU * appreciate pulmonology consultation * pneumonia seems less likely at this time. Patient without leukocytosis or fever, no complaints of respiratory symptoms. will hold on antibiotics and continue to monitor respiratory status * no evidence of acute COPD exacerbation * continue with supplemental O2 as needed to maintain adequate O2 sats 92% or above (2) GI bleed: Code(s): K92.2 - Gastrointestinal hemorrhage, unspecified Status: Acute Assessment and Plan: patient presented with dark black stools ongoing for 2 days. BUN elevated to 63 * appreciate gastroenterology consultation * patient does take aspirin and meloxicam daily. Both on hold at this time * continue Protonix 40 mg IV daily * clear liquid diet * planning for EGD and colonoscopy. Will need to hold off until respiratory status is more stable (3) Acute blood loss anemia: Code(s): D62 - Acute posthemorrhagic anemia Status: Acute Assessment and Plan: hemoglobin within normal limits on presentation at 13.1. Declined to 11.2 today * secondary to GI bleeding as above * trend H&H q.6 hours * transfuse as needed to maintain hemoglobin >7 or if patient becomes symptomatic (4) MIKKI (obstructive sleep apnea): Code(s): G47.33 - Obstructive sleep apnea (adult) (pediatric) Status: Chronic Assessment and Plan: untreated sleep apnea * patient refuses CPAP * begin BiPAP as above * when patient is more alert, will need to have a discussion regarding importance of compliance with CPAP (5) COPD (chronic obstructive pulmonary disease): Code(s): J44.9 - Chronic obstructive pulmonary disease, unspecified Status: Chronic Assessment and Plan: does not appear to be in acute exacerbation at this time * continue with maintenance inhalers * albuterol inhaler as needed (6) Essential hypertension: Code(s): I10 - Essential (primary) hypertension Status: Acute Assessment and Plan: blood pressures reviewed and are stable, however soft in the 110s systolic * lisinopril and furosemide on hold at this time * monitor blood pressure trends Plan case discussed with supervising physician Time Spent With Patient Time: 65 minutes Time with patient: Greater than 35 minutes Subjective Date/time seen: 04/28/22 11:37 Interval history: date of service: 04/28/2022 Sharona Clinton is a 76-year-old female with a history of
--- NOTE | 2022-04-28 11:37 | PM.IMPN ---
Progress Note: A&P Assessment and Plan (1) Acute respiratory failure with hypoxia and hypercapnia: Code(s): J96.01 - Acute respiratory failure with hypoxia; J96.02 - Acute respiratory failure with hypercapnia Status: Acute Assessment and Plan: Patient hypoxic on presentation at 85% and was placed on [address] of the abdomen/pelvis demonstrated bibasilar airspace disease which may represent atelectasis versus pneumonia CXR today also revealed bibasilar infiltrates patient noted to be extremely lethargic, therefore a stat ABG was completed which demonstrated respiratory acidosis with markedly elevated pCO2 at 78.5 Suspect patient has degree of chronic hypercapnic respiratory failure secondary to untreated sleep apnea. Review of prior ABG from 06/21/2020 demonstrates pCO2 to be 52.8, this is likely closer to the patient's baseline Begin BiPAP with setting of 12/6 and rate of 16. Repeat ABG 1 hour after initiation of BiPAP to assess for improvement patient will be transitioned to IMU appreciate pulmonology consultation pneumonia seems less likely at this time. Patient without leukocytosis or fever, no complaints of respiratory symptoms. will hold on antibiotics and continue to monitor respiratory status no evidence of acute COPD exacerbation continue with supplemental O2 as needed to maintain adequate O2 sats 92% or above (2) GI bleed: Code(s): K92.2 - Gastrointestinal hemorrhage, unspecified Status: Acute Assessment and Plan: patient presented with dark black stools ongoing for 2 days. BUN elevated to 63 appreciate gastroenterology consultation patient does take aspirin and meloxicam daily. Both on hold at this time continue Protonix 40 mg IV daily clear liquid diet planning for EGD and colonoscopy. Will need to hold off until respiratory status is more stable (3) Acute blood loss anemia: Code(s): D62 - Acute posthemorrhagic anemia Status: Acute Assessment and Plan: hemoglobin within normal limits on presentation at 13.1. Declined to 11.2 today secondary to GI bleeding as above trend H&H q.6 hours transfuse as needed to maintain hemoglobin >7 or if patient becomes symptomatic (4) MIKKI (obstructive sleep apnea): Code(s): G47.33 - Obstructive sleep apnea (adult) (pediatric) Status: Chronic Assessment and Plan: untreated sleep apnea patient refuses CPAP begin BiPAP as above when patient is more alert, will need to have a discussion regarding importance of compliance with CPAP (5) COPD (chronic obstructive pulmonary disease): Code(s): J44.9 - Chronic obstructive pulmonary disease, unspecified Status: Chronic Assessment and Plan: does not appear to be in acute exacerbation at this time continue with maintenance inhalers albuterol inhaler as needed (6) Essential hypertension: Code(s): I10 - Essential (primary) hypertension Status: Acute Assessment and Plan: blood pressures reviewed and are stable, however soft in the 110s systolic lisinopril and furosemide on hold at this time monitor blood pressure trends Plan case discussed with supervising physician Time Spent With Patient Time: 65 minutes Time with patient: Greater than 35 minutes Subjective Date/time seen: 04/28/22 11:37 Interval history: date of service: 04/28/2022 Sharona Clinton is a 76-year-old female with a history of COPD, hypertension, untreated obstructive sleep apnea, and several other comorbidities who is seen in follow-up for acute GI bleed. I received a call from the nurse this morning with concerns the patient was extremely lethargic. I then went to evaluate the patient who was poorly arousable. She would grunt to firm physical stimuli and occasionally to loud verbal stimuli but did not wake up or open her eyes on my evaluation. Ordered stat ABG. At the time
--- NOTE | 2022-04-28 12:20 | PC.NURSE ---
report called to Hollie RN in IMU about pending transfer, reviewed plan of care
--- NOTE | 2022-04-28 12:44 | PC.NURSE ---
pt transferred to IMU via bed, belongings verified with pt, comfortable and awake, reviewed plan of care with pt
[2022-04-28 15:41] LABS: Alveolar/Arterial O2 Gradient 175.6 mmHg; Base Excess ABG 5.8 mEq/l (+/-2.0); Carboxyhemoglobin 0.3 % THb (0-2.0); Fractional Inspired Oxygen 45 %; Methemoglobin ABG 0.2 %THb (0-1.5); Oxygen Content ABG 15.6 %vol (16.0-22.0); Oxygen Saturation ABG 97.1 % (95.0-100.0); Oxyhemoglobin 96.5 % THb (90.0-100.0); PCO2 ABG 47.5 mmHg (35.0-45.0); PO2 ABG 91.2 mmHg (80.0-100.0); PO2 FiO2 Ratio Arterial Blood 2.03 %; Total Hemoglobin 11.4 g/dL (12.0-18.0); pH ABG 7.432 (7.350-7.450)
[2022-04-28 15:42] LABS: Device NON-INVASIVE VENT; Site Drawn LEFT BRACHIAL
[2022-04-28 15:43] LABS: Non-Invasive Expiratory Pressure 6 CMH2O; Non-Invasive Inspiratory Pressure 16 CMH2O; Non-Invasive Vent Rate 20 /MIN
[2022-04-28 22:11] LABS: Hematocrit 33.8 % (37.0-47.0); Hemoglobin 9.8 g/dL (12.0-15.0)
[2022-04-29] VITALS (22 sets, daily range): BP systolic 115–139; BP diastolic 44–66; PULSE 63–80; RESP 16–24; TEMP 36.4–36.9; O2SAT 92–100
[2022-04-29] MEDS: SODIUM CHLORIDE 0.9% IV 1,000 ML 100 ML IV CONT ×2 (00:58→12:14)
[2022-04-29] MEDS: CENTRAL LINE FLUSH 10 ML IV PUSH ×3 (05:32→21:12)
[2022-04-29] MEDS: MENTHOL 10% / METHYL SALICYLATE 15% 57 GM TUBE 1 APPLIC TOPICAL (05:32)
[2022-04-29] MEDS: CENTRAL LINE FLUSH 20 ML IV PUSH (05:32)
[2022-04-29 05:48] LABS: Hematocrit 30.5 % (37.0-47.0); Hemoglobin 8.8 g/dL (12.0-15.0); Mean Corpuscular HGB Conc 28.9 g/dl (32-36); Mean Corpuscular Hemoglobin 29.1 pg (26-34); Mean Platelet Volume 10.2 fl (7.4-10.4); Platelet Count Result 160 k/mm3 (150-375); Red Blood Count 3.02 M/mm3 (4.2-5.4); Red Cell Distribution Width 14.7 % (11.5-14.5); White Blood Count 5.9 K/mm3 (4.5-10.0)
[2022-04-29 06:01] LABS: Potassium 3.8 mmol/L (3.4-5.0)
[2022-04-29 06:13] LABS: Alanine Aminotransferase 13 U/L (6-35); Albumin Level 2.7 g/dL (3.5-5.1); Alkaline Phosphatase 39 U/L (38-126); Anion Gap 1 mmol/L (8-16); Aspartate Amino Transferase 15 U/L (14-36); Bilirubin,Total 0.5 mg/dL (0.2-1.3); Blood Urea Nitrogen 36 mg/dL (7-17); Calcium 8.2 mg/dL (8.4-10.2); Carbon Dioxide 32 mmol/L (22-30); Chloride 108 mmol/L (98-107); Estimated CRCL calculation 76 ml/min; Estimated Glomerular Filt Rate > 60; Glucose 91 mg/dL (65-110); Sodium 141 mmol/L (137-145)
[2022-04-29] MEDS: UMECLIDINIUM/VILANTEROL 62.5-25 MCG ELLIPTA 1 PUFF INHALATION (09:11)
[2022-04-29 10:54] LABS: Hematocrit 30.2 % (37.0-47.0); Hemoglobin 8.7 g/dL (12.0-15.0)
[2022-04-29] MEDS: PANTOPRAZOLE SODIUM IV 40 MG VIAL IV PUSH (12:13)
--- NOTE | 2022-04-29 15:18 | P.PNIM_ITS ---
Progress Note: A&P Assessment and Plan (1) Acute respiratory failure with hypoxia and hypercapnia: Code(s): J96.01 - Acute respiratory failure with hypoxia; J96.02 - Acute respiratory failure with hypercapnia Status: Acute Assessment and Plan: Patient hypoxic on presentation at 85% and was placed on 3 L supplemental O2 * CT of the abdomen/pelvis demonstrated bibasilar airspace disease which may represent atelectasis versus pneumonia which was also evident on CXR * 04/28 patient noted to be extremely lethargic, therefore a stat ABG was completed which demonstrated respiratory acidosis with markedly elevated pCO2 at 78.5 * Suspect patient has degree of chronic hypercapnic respiratory failure secondary to untreated sleep apnea. Review of prior ABG from 06/21/2020 demonstrates pCO2 to be 52.8, this is likely closer to the patient's baseline * patient was started on BiPAP given hypercapnia with significant improvement. Repeat ABG with normalized pH and improved pCO2 to 47.5 * patient currently on Airvo and maintaining adequate O2 sats * wean daytime oxygen as tolerated. Continue with BiPAP for sleep and naps * appreciate pulmonology recommendations * pneumonia seems less likely. Patient without leukocytosis or fever, no complaints of respiratory symptoms. will hold on antibiotics and continue to monitor respiratory status * no evidence of acute COPD exacerbation * continue with supplemental O2 as needed to maintain adequate O2 sats 92% or above * patient does admit that she has home oxygen which she uses as needed, states she is using was add 1-2 L about 1-2 times per week when she feels short of breath (2) GI bleed: Code(s): K92.2 - Gastrointestinal hemorrhage, unspecified Status: Acute Assessment and Plan: patient presented with dark black stools ongoing for 2 days. BUN elevated to 63 * appreciate gastroenterology consultation * patient does take aspirin and meloxicam daily. Both on hold at this time * continue Protonix 40 mg IV daily * clear liquid diet * planning for EGD and colonoscopy. timing will be dependent based on respiratory status (3) Acute blood loss anemia: Code(s): D62 - Acute posthemorrhagic anemia Status: Acute Assessment and Plan: hemoglobin within normal limits on presentation at 13.1 with steady decline, now down to 8.7 today. * secondary to GI bleeding as above * trend H&H q.6 hours * transfuse as needed to maintain hemoglobin >7 or if patient becomes symptomatic (4) MIKKI (obstructive sleep apnea): Code(s): G47.33 - Obstructive sleep apnea (adult) (pediatric) Status: Chronic Assessment and Plan: untreated sleep apnea * patient refuses CPAP * continue BiPAP as above * patient will need to be started on appropriate home treatment for MIKKI in order to prevent persistent hypercapnic respiratory failure (5) COPD (chronic obstructive pulmonary disease): Code(s): J44.9 - Chronic obstructive pulmonary disease, unspecified Status: Chronic Assessment and Plan: does not appear to be in acute exacerbation at this time * continue with maintenance inhalers * albuterol inhaler as needed (6) Essential hypertension: Code(s): I10 - Essential (primary) hypertension Status: Acute Assessment and Plan: blood pressures reviewed and are stable, however soft in the 110s systolic * lisinopril and furosemide on hold at this time * monitor blood pressure trends Subjective Date/time seen:
--- NOTE | 2022-04-29 15:18 | PM.IMPN ---
Progress Note: A&P Assessment and Plan (1) Acute respiratory failure with hypoxia and hypercapnia: Code(s): J96.01 - Acute respiratory failure with hypoxia; J96.02 - Acute respiratory failure with hypercapnia Status: Acute Assessment and Plan: Patient hypoxic on presentation at 85% and was placed on [address] of the abdomen/pelvis demonstrated bibasilar airspace disease which may represent atelectasis versus pneumonia which was also evident on CXR 04/28 patient noted to be extremely lethargic, therefore a stat ABG was completed which demonstrated respiratory acidosis with markedly elevated pCO2 at 78.5 Suspect patient has degree of chronic hypercapnic respiratory failure secondary to untreated sleep apnea. Review of prior ABG from 06/21/2020 demonstrates pCO2 to be 52.8, this is likely closer to the patient's baseline patient was started on BiPAP given hypercapnia with significant improvement. Repeat ABG with normalized pH and improved pCO2 to 47.5 patient currently on Airvo and maintaining adequate O2 sats wean daytime oxygen as tolerated. Continue with BiPAP for sleep and naps appreciate pulmonology recommendations pneumonia seems less likely. Patient without leukocytosis or fever, no complaints of respiratory symptoms. will hold on antibiotics and continue to monitor respiratory status no evidence of acute COPD exacerbation continue with supplemental O2 as needed to maintain adequate O2 sats 92% or above patient does admit that she has home oxygen which she uses as needed, states she is using was add 1-2 L about 1-2 times per week when she feels short of breath (2) GI bleed: Code(s): K92.2 - Gastrointestinal hemorrhage, unspecified Status: Acute Assessment and Plan: patient presented with dark black stools ongoing for 2 days. BUN elevated to 63 appreciate gastroenterology consultation patient does take aspirin and meloxicam daily. Both on hold at this time continue Protonix 40 mg IV daily clear liquid diet planning for EGD and colonoscopy. timing will be dependent based on respiratory status (3) Acute blood loss anemia: Code(s): D62 - Acute posthemorrhagic anemia Status: Acute Assessment and Plan: hemoglobin within normal limits on presentation at 13.1 with steady decline, now down to 8.7 today. secondary to GI bleeding as above trend H&H q.6 hours transfuse as needed to maintain hemoglobin >7 or if patient becomes symptomatic (4) MIKKI (obstructive sleep apnea): Code(s): G47.33 - Obstructive sleep apnea (adult) (pediatric) Status: Chronic Assessment and Plan: untreated sleep apnea patient refuses CPAP continue BiPAP as above patient will need to be started on appropriate home treatment for MIKKI in order to prevent persistent hypercapnic respiratory failure (5) COPD (chronic obstructive pulmonary disease): Code(s): J44.9 - Chronic obstructive pulmonary disease, unspecified Status: Chronic Assessment and Plan: does not appear to be in acute exacerbation at this time continue with maintenance inhalers albuterol inhaler as needed (6) Essential hypertension: Code(s): I10 - Essential (primary) hypertension Status: Acute Assessment and Plan: blood pressures reviewed and are stable, however soft in the 110s systolic lisinopril and furosemide on hold at this time monitor blood pressure trends Subjective Date/time seen: 04/29/22 15:18 Interval history: date of service: 04/29/2022 Sharona Clinton is a 76-year-old female with a history of COPD, hypertension, untreated obstructive sleep apnea, and several other comorbidities who is seen in follow-up for acute GI bleed acute hypoxic and hypercapnic respiratory failure. Patient is much more alert today and able to participate in conversation. She denies shortness of breath. No wheezing.
[2022-04-29 18:48] LABS: Hematocrit 30.1 % (37.0-47.0); Hemoglobin 8.7 g/dL (12.0-15.0)
[2022-04-29 23:42] LABS: Hematocrit 31.2 % (37.0-47.0)
[2022-04-30] VITALS (16 sets, daily range): BP systolic 122–147; BP diastolic 49–93; PULSE 63–75; RESP 20–24; TEMP 36.4–36.8; O2SAT 91–100
[2022-04-30] MEDS: CENTRAL LINE FLUSH 10 ML IV PUSH ×3 (04:23→20:51)
[2022-04-30 05:37] LABS: Anion Gap -2 mmol/L (8-16); Blood Urea Nitrogen 15 mg/dL (7-17); Calcium 8.4 mg/dL (8.4-10.2); Carbon Dioxide 34 mmol/L (22-30); Chloride 105 mmol/L (98-107); Estimated CRCL calculation 89 ml/min; Estimated Glomerular Filt Rate > 60; Glucose 91 mg/dL (65-110); Potassium 3.7 mmol/L (3.4-5.0); Sodium 137 mmol/L (137-145)
[2022-04-30 05:41] LABS: Hemoglobin 9.5 g/dL (12.0-15.0); Mean Corpuscular HGB Conc 28.8 g/dl (32-36); Mean Corpuscular Volume 104.1 fl (80-100); Mean Platelet Volume 10.6 fl (7.4-10.4); Platelet Count Result 154 k/mm3 (150-375); Red Blood Count 3.17 M/mm3 (4.2-5.4); Red Cell Distribution Width 14.7 % (11.5-14.5); White Blood Count 5.8 K/mm3 (4.5-10.0)
[2022-04-30] MEDS: MENTHOL 10% / METHYL SALICYLATE 15% 57 GM TUBE 1 APPLIC TOPICAL (08:29)
[2022-04-30] MEDS: PANTOPRAZOLE SODIUM IV 40 MG VIAL IV PUSH (08:29)
[2022-04-30] MEDS: UMECLIDINIUM/VILANTEROL 62.5-25 MCG ELLIPTA 1 PUFF INHALATION (09:16)
--- NOTE | 2022-04-30 13:18 | P.PNIM_ITS ---
Progress Note: A&P Assessment and Plan (1) Acute respiratory failure with hypoxia and hypercapnia: Code(s): J96.01 - Acute respiratory failure with hypoxia; J96.02 - Acute respiratory failure with hypercapnia Status: Acute Assessment and Plan: Patient hypoxic on presentation at 85% and was placed on 3 L supplemental O2 * CT of the abdomen/pelvis demonstrated bibasilar airspace disease which may represent atelectasis versus pneumonia which was also evident on CXR * 04/28 patient noted to be extremely lethargic, therefore a stat ABG was completed which demonstrated respiratory acidosis with markedly elevated pCO2 at 78.5 * Suspect patient has degree of chronic hypercapnic respiratory failure secondary to untreated sleep apnea. Review of prior ABG from 06/21/2020 demonstrates pCO2 to be 52.8, this is likely closer to the patient's baseline * Patient was started on BiPAP on 04/28 given hypercapnia with significant improvement. Repeat ABG with normalized pH and improved pCO2 to 47.5 * Transitioned to Airvo and now maintaining adequate O2 sats on venturi mask at 15L * wean daytime oxygen as tolerated. Continue with BiPAP for sleep and naps * appreciate pulmonology recommendations * pneumonia seems less likely. Patient without leukocytosis or fever, no complaints of respiratory symptoms. will hold on antibiotics and continue to monitor respiratory status * no evidence of acute COPD exacerbation * continue with supplemental O2 as needed to maintain adequate O2 sats 92% or above * patient does admit that she has home oxygen which she uses as needed, states she uses 1-2 L about 1-2 times per week when she feels short of breath (2) GI bleed: Code(s): K92.2 - Gastrointestinal hemorrhage, unspecified Status: Acute Assessment and Plan: patient presented with dark black stools ongoing for 2 days. BUN elevated to 63 * appreciate gastroenterology consultation * patient does take aspirin and meloxicam daily. Both on hold at this time * continue Protonix 40 mg IV daily * regular diet * planning for EGD and colonoscopy. timing will be dependent based on respiratory status. Hopefully given her improvement can proceed in the next couple days (3) Acute blood loss anemia: Code(s): D62 - Acute posthemorrhagic anemia Status: Acute Assessment and Plan: hemoglobin within normal limits on presentation at 13.1 with steady decline down to 8.7 * secondary to GI bleeding as above * H&H remaining stable at this time with hemoglobin 9.5 this morning * Will check repeat H&H this evening to ensure remaining stable * transfuse as needed to maintain hemoglobin >7 or if patient becomes symptomatic (4) MIKKI (obstructive sleep apnea): Code(s): G47.33 - Obstructive sleep apnea (adult) (pediatric) Status: Chronic Assessment and Plan: untreated sleep apnea * patient refuses CPAP * continue BiPAP as above * patient will need to be started on appropriate home treatment for MIKKI in order to prevent persistent hypercapnic respiratory failure resulting in mental status changes (5) COPD (chronic obstructive pulmonary disease): Code(s): J44.9 - Chronic obstructive pulmonary disease, unspecified Status: Chronic Assessment and Plan: does not appear to be in acute exacerbation at this time * continue with maintenance inhalers * albuterol inhaler as needed (6) Essential hypertension: Code(s): I10 - Essential (primary) hypertension Status: Acute Assessment and Plan:
--- NOTE | 2022-04-30 13:18 | PM.IMPN ---
Progress Note: A&P Assessment and Plan (1) Acute respiratory failure with hypoxia and hypercapnia: Code(s): J96.01 - Acute respiratory failure with hypoxia; J96.02 - Acute respiratory failure with hypercapnia Status: Acute Assessment and Plan: Patient hypoxic on presentation at 85% and was placed on [address] of the abdomen/pelvis demonstrated bibasilar airspace disease which may represent atelectasis versus pneumonia which was also evident on CXR 04/28 patient noted to be extremely lethargic, therefore a stat ABG was completed which demonstrated respiratory acidosis with markedly elevated pCO2 at 78.5 Suspect patient has degree of chronic hypercapnic respiratory failure secondary to untreated sleep apnea. Review of prior ABG from 06/21/2020 demonstrates pCO2 to be 52.8, this is likely closer to the patient's baseline Patient was started on BiPAP on 04/28 given hypercapnia with significant improvement. Repeat ABG with normalized pH and improved pCO2 to 47.5 Transitioned to Airvo and now maintaining adequate O2 sats on venturi mask at 15L wean daytime oxygen as tolerated. Continue with BiPAP for sleep and naps appreciate pulmonology recommendations pneumonia seems less likely. Patient without leukocytosis or fever, no complaints of respiratory symptoms. will hold on antibiotics and continue to monitor respiratory status no evidence of acute COPD exacerbation continue with supplemental O2 as needed to maintain adequate O2 sats 92% or above patient does admit that she has home oxygen which she uses as needed, states she uses 1-2 L about 1-2 times per week when she feels short of breath (2) GI bleed: Code(s): K92.2 - Gastrointestinal hemorrhage, unspecified Status: Acute Assessment and Plan: patient presented with dark black stools ongoing for 2 days. BUN elevated to 63 appreciate gastroenterology consultation patient does take aspirin and meloxicam daily. Both on hold at this time continue Protonix 40 mg IV daily regular diet planning for EGD and colonoscopy. timing will be dependent based on respiratory status. Hopefully given her improvement can proceed in the next couple days (3) Acute blood loss anemia: Code(s): D62 - Acute posthemorrhagic anemia Status: Acute Assessment and Plan: hemoglobin within normal limits on presentation at 13.1 with steady decline down to 8.7 secondary to GI bleeding as above H&H remaining stable at this time with hemoglobin 9.5 this morning Will check repeat H&H this evening to ensure remaining stable transfuse as needed to maintain hemoglobin >7 or if patient becomes symptomatic (4) MIKKI (obstructive sleep apnea): Code(s): G47.33 - Obstructive sleep apnea (adult) (pediatric) Status: Chronic Assessment and Plan: untreated sleep apnea patient refuses CPAP continue BiPAP as above patient will need to be started on appropriate home treatment for MIKKI in order to prevent persistent hypercapnic respiratory failure resulting in mental status changes (5) COPD (chronic obstructive pulmonary disease): Code(s): J44.9 - Chronic obstructive pulmonary disease, unspecified Status: Chronic Assessment and Plan: does not appear to be in acute exacerbation at this time continue with maintenance inhalers albuterol inhaler as needed (6) Essential hypertension: Code(s): I10 - Essential (primary) hypertension Status: Acute Assessment and Plan: blood pressures reviewed and been somewhat soft. Improving today with last BP 142/64 lisinopril and furosemide on hold due to soft BP. Resume when appropriate monitor blood pressure trends Subjective Date/time seen: 04/30/22 13:18 Interval history: Date of service: 04/30/2022 Sharona Clinton is a 76-year-old female with a history of COPD, hypertension, untreated obstructive sleep apnea, an
--- NOTE | 2022-04-30 13:24 | PM.CNPUL ---
Assessment and Plan Assessment and plan (1) Acute on chronic respiratory failure with hypoxia and hypercapnia: Code(s): J96.21 - Acute and chronic respiratory failure with hypoxia; J96.22 - Acute and chronic respiratory failure with hypercapnia Status: Acute Assessment and Plan: Initial ABG 04/28 showed acute and chronic hypoxemic hypercapnic respiratory failure with partial metabolic compensation. She had an elevated bicarbonate consistent with a chronic respiratory acidosis and kidneys trying to keep up. She had improved ventilation with BiPAP. She is a candidate for NPPV however she has not wanted to use CPAP or O2 which were prescribed with her split night study September 2021. I am ordering incentive spirometry and Cornet vibratory valve to help with atelectasis and clearing secretions. She may have had some aspiration during the vomiting episode. She reports mild intermittent problems with swallowing liquids over the last several months. (2) [place] (dyspnea on exertion): Code(s): R06.00 - Dyspnea, unspecified Status: Acute Assessment and Plan: She has a long history of dyspnea on exertion, and it is not cardiac by her software manager's notes. Her software manager did encourage her to use O2. She had a pulmonary function study 06/21/2020 with a mild obstructive abnormality with a normal FEV1 and without significant improvement after inhaling a single dose of albuterol. The lung volumes are normal. The diffusing capacity is normal. She has not noticed benefit from albuterol, has used this very few times. Some of her dyspnea may be deconditioning, and she has mild aortic stenosis. She had no pulmonary hypertension on echo in 2020. Might be time to re-evaluate, or see if her software manager has a more current one. (3) MIKKI (obstructive sleep apnea): Code(s): G47.33 - Obstructive sleep apnea (adult) (pediatric) Status: Chronic Assessment and Plan: She has severe obstructive sleep apnea, did not want to use PAP therapy. She has oxygen at home which she also does not want to use. Not using PAP her choice. She has expressed interest in Inspire, hypoglossal nerve stimulator, HNS, which is surgically implanted, an alternative to PAP, and for people who cannot tolerate PAP. The patient really has not failed CPAP because she has never actually used CPAP. Her BMI is 38, and BMI above 35 is an exclusion criteria. She could lose weight to get her BMI below 35, then have an evaluation to see if she has the proper type of airway to benefit from the HNS. This involves having anesthesia to evaluate the airway, to exclude complete concentric collapse of the at the level of the velopharynx or soft palate. (4) COPD (chronic obstructive pulmonary disease): Code(s): J44.9 - Chronic obstructive pulmonary disease, unspecified Status: Chronic Assessment and Plan: PFT shows a mild obstructive ventilatory defect, mainly in the small airways, no response to bronchodilator. She has a chest CT showing centrilobular emphysema, reported in a note by her primary care doctor at [facility]. Multiple CT scans of Abdomen-pelvis and one CTA here at [place] show Bibasilar atelectasis right greater than left. This is not a new finding. Her hypoxemia is new, or newer. She does have O2 at home, not using it. I agree with Jeronimo, 2 long acting bronchodilators, pulmonary hygiene, Cornet to assist with clearing secretions, incentive spirometry and p.r.n. short-acting bronchodilator. History of Present Illness History of Present Illness Consult date: 04/30/22 Requesting physician: Kenyatta Kimball PA-C Chief complaint: Hypercapnic hypoxemic respiratory monet
--- NOTE | 2022-04-30 17:22 | WPDGIPROGNO ---
Progress Note: A&P Assessment and Plan (1) GI bleed: Code(s): K92.2 - Gastrointestinal hemorrhage, unspecified Status: Acute Assessment and Plan: she states that the black stools began on . There was a little red mixed with it. She probably has upper gastrointestinal bleed given the fact that she does take meloxicam. Also the BUN was quite elevated at 61. Creatinine 0.7 she has been started on pantoprazole. I will schedule her for EGD and colonoscopy. Hemoglobin has dropped from 13.1-11.2 , then 8.7. It is little higher today. There is no evidence here in hospital of bleeding, although she had black stools at home for several days the drop her BUN from 60s to 15 suggest that it was a gastrointestinal bleed (2) COPD (chronic obstructive pulmonary disease): Code(s): J44.9 - Chronic obstructive pulmonary disease, unspecified Status: Chronic Assessment and Plan: she has chronic lung disease and also MIKKI. She has had CPAP ordered but does not use it. She states that she does not smoke her oxygen saturation had dropped to 85%. Today she is at 92% (3) MIKKI (obstructive sleep apnea): Code(s): G47.33 - Obstructive sleep apnea (adult) (pediatric) Status: Chronic Assessment and Plan: has CPAP but does not use it. She is breathing fairly comfortable now lying in bed but is sleepy (4) Bilateral shoulder pain: Code(s): M25.511 - Pain in right shoulder; M25.512 - Pain in left shoulder Status: Acute Assessment and Plan: she has arthritis which bothers quite a bit in her shoulders but also in other areas. She is on allopurinol as well as meloxicam (5) BMI 38.0-38.9,adult: Code(s): Z68.38 - Body mass index [BMI] 38.0-38.9, adult Status: Acute (6) Ventral hernia: Code(s): K43.9 - Ventral hernia without obstruction or gangrene Status: Acute Assessment and Plan: small supra umbilical midline hernia, not Plan I will let her eat today and then begin a prep for colonoscopy tomorrow, to do EGD and colonoscopy on Saturday morning. I discussed the procedures with her. Discussed the preps. I explained the risks such as bleeding or perforation or the possible need for surgery to correct complication. I also told her that with her comorbidities that there is a risk of cardiopulmonary complications. 04/30/2022 it appears that she will be able to proceed with a bowel prep tomorrow. We will wait and see what her pulmonary status is In the morning before actually scheduling it in beginning her prep. discussed her case with Kenyatta Kimball. Subjective Date/time seen: 04/30/22 17:22 she is much more alert today than she was the other day. I believe that she is supposed to be on home O2 but does not use it. She was seen today by Pulmonary. Hopefully we can start her prep tomorrow for colonoscopy and EGD to be done on Saturday. There was concern about possible pneumonia based on CT scan but because there is no fever or leukocytosis she probably does not have active pneumonia. Exam Const: General: alert Nutritional Appearance: obese Orientation/consciousness: patient oriented x3 Resp: Auscultation: clear to auscultation bilaterally Cardio: Rhythm: regular rhythm GI: Inspection: Pannus present and obesity GI Palp: Yes Soft to palpation, No Tenderness to palpation present (GI), Yes No hepatosplenomegaly present and No Ascites present Auscultation: normal bowel sounds Neuro: General: patient oriented x3 Objective Data Vital Signs Vital Signs: Vital Signs - 24 hr 04/29/22 18:00 04/29/22 20:00 04/29/22 20:00 Temperature 36.7 C Pulse Rate 73 73 71 Respiratory Rate 20 Blood Pressure 139/53 L Pulse Oximetry 97 Oxygen Delivery Oxygen Flow Rate Fraction of Inspired Oxygen 04/29/22 20:00 04/29/22 22:00 04/29/22 23:36 Temperature Pulse Rate 71 76 72 Respiratory Rate 20 Blood Pressu
[2022-04-30 18:27] LABS: Hemoglobin 9.7 g/dL (12.0-15.0)
[2022-04-30] MEDS: FLUTICASONE PROPIONATE 0.05% NA SPR 16 GM BTL (*BKC) 1 SPRAY NASAL (20:50)
[2022-05-01] VITALS (18 sets, daily range): BP systolic 116–143; BP diastolic 49–90; PULSE 66–97; RESP 14–26; TEMP 36.3–37.2; O2SAT 90–98
[2022-05-01 05:11] LABS: Hematocrit 32.5 % (37.0-47.0); Hemoglobin 9.5 g/dL (12.0-15.0); Mean Corpuscular HGB Conc 29.2 g/dl (32-36); Mean Corpuscular Hemoglobin 29.2 pg (26-34); Mean Platelet Volume 10.2 fl (7.4-10.4); Platelet Count Result 152 k/mm3 (150-375); Red Blood Count 3.25 M/mm3 (4.2-5.4); Red Cell Distribution Width 14.5 % (11.5-14.5); White Blood Count 5.9 K/mm3 (4.5-10.0)
[2022-05-01] MEDS: CENTRAL LINE FLUSH 10 ML IV PUSH ×3 (05:23→20:10)
[2022-05-01 05:30] LABS: Anion Gap -3 mmol/L (8-16); Blood Urea Nitrogen 10 mg/dL (7-17); Calcium 8.6 mg/dL (8.4-10.2); Carbon Dioxide 37 mmol/L (22-30); Chloride 106 mmol/L (98-107); Estimated CRCL calculation 89 ml/min; Estimated Glomerular Filt Rate > 60; Glucose 97 mg/dL (65-110); Potassium 3.7 mmol/L (3.4-5.0); Sodium 140 mmol/L (137-145)
[2022-05-01] MEDS: UMECLIDINIUM/VILANTEROL 62.5-25 MCG ELLIPTA 1 PUFF INHALATION (08:24)
[2022-05-01] MEDS: LORATADINE 10 MG TABLET PO (09:42)
[2022-05-01] MEDS: PANTOPRAZOLE SODIUM IV 40 MG VIAL IV PUSH (09:42)
[2022-05-01] MEDS: FLUTICASONE PROPIONATE 0.05% NA SPR 16 GM BTL (*BKC) 1 SPRAY NASAL ×2 (09:42→20:10)
--- NOTE | 2022-05-01 14:02 | P.PNIM_ITS ---
Progress Note: A&P Assessment and Plan (1) Acute respiratory failure with hypoxia and hypercapnia: Code(s): J96.01 - Acute respiratory failure with hypoxia; J96.02 - Acute respiratory failure with hypercapnia Status: Acute Assessment and Plan: Patient hypoxic on presentation at 85% and was placed on 3 L supplemental O2 * CT of the abdomen/pelvis demonstrated bibasilar airspace disease which may represent atelectasis versus pneumonia which was also evident on CXR * 04/28 patient noted to be extremely lethargic, therefore a stat ABG was completed which demonstrated respiratory acidosis with markedly elevated pCO2 at 78.5 * Suspect patient has degree of chronic hypercapnic respiratory failure secondary to untreated sleep apnea. Review of prior ABG from 06/21/2020 demonstrates pCO2 to be 52.8, this is likely closer to the patient's baseline * Patient was started on BiPAP on 04/28 given hypercapnia with significant improvement. Repeat ABG with normalized pH and improved pCO2 to 47.5 * Transitioned to Airvo and now maintaining adequate O2 sats on venturi mask at 10L * wean daytime oxygen as tolerated. Continue with BiPAP for sleep and naps * appreciate pulmonology recommendations * patient is a candidate for NPPV however patient is hesitant to initiate any of these therapies * continue with incentive spirometry and Cornet valve * no pneumonia or COPD exacerbation * continue with supplemental O2 as needed to maintain adequate O2 sats 92% or above * patient does admit that she has home oxygen which she uses as needed, states she uses 1-2 L about 1-2 times per week when she feels short of breath (2) GI bleed: Code(s): K92.2 - Gastrointestinal hemorrhage, unspecified Status: Acute Assessment and Plan: patient presented with dark black stools ongoing for 2 days. BUN elevated to 63 * appreciate gastroenterology consultation * patient does take aspirin and meloxicam daily. Both on hold at this time * continue Protonix 40 mg IV daily * regular diet * planning for EGD and colonoscopy tomorrow (3) Acute blood loss anemia: Code(s): D62 - Acute posthemorrhagic anemia Status: Acute Assessment and Plan: hemoglobin within normal limits on presentation at 13.1 with steady decline down to 8.7 * secondary to GI bleeding as above * H&H remaining stable at this time with hemoglobin 9.5 this morning * transfuse as needed to maintain hemoglobin >7 or if patient becomes symptomatic (4) MIKKI (obstructive sleep apnea): Code(s): G47.33 - Obstructive sleep apnea (adult) (pediatric) Status: Chronic Assessment and Plan: untreated sleep apnea * patient refuses CPAP * continue BiPAP as above * patient will need to be started on appropriate home treatment for MIKKI in order to prevent persistent hypercapnic respiratory failure resulting in mental status changes (5) COPD (chronic obstructive pulmonary disease): Code(s): J44.9 - Chronic obstructive pulmonary disease, unspecified Status: Chronic Assessment and Plan: not in acute exacerbation * continue with maintenance inhalers * albuterol inhaler as needed (6) Essential hypertension: Code(s): I10 - Essential (primary) hypertension Status: Acute Assessment and Plan: blood pressures reviewed and been somewhat soft. remaining stable at this time. * lisinopril and furosemide on hold due to soft BP. Resume when appropriate * monitor blood pressure trends Subjective Date/time seen:
--- NOTE | 2022-05-01 14:02 | PM.IMPN ---
Progress Note: A&P Assessment and Plan (1) Acute respiratory failure with hypoxia and hypercapnia: Code(s): J96.01 - Acute respiratory failure with hypoxia; J96.02 - Acute respiratory failure with hypercapnia Status: Acute Assessment and Plan: Patient hypoxic on presentation at 85% and was placed on [address] of the abdomen/pelvis demonstrated bibasilar airspace disease which may represent atelectasis versus pneumonia which was also evident on CXR 04/28 patient noted to be extremely lethargic, therefore a stat ABG was completed which demonstrated respiratory acidosis with markedly elevated pCO2 at 78.5 Suspect patient has degree of chronic hypercapnic respiratory failure secondary to untreated sleep apnea. Review of prior ABG from 06/21/2020 demonstrates pCO2 to be 52.8, this is likely closer to the patient's baseline Patient was started on BiPAP on 04/28 given hypercapnia with significant improvement. Repeat ABG with normalized pH and improved pCO2 to 47.5 Transitioned to Airvo and now maintaining adequate O2 sats on venturi mask at 10L wean daytime oxygen as tolerated. Continue with BiPAP for sleep and naps appreciate pulmonology recommendations patient is a candidate for NPPV however patient is hesitant to initiate any of these therapies continue with incentive spirometry and Cornet valve no pneumonia or COPD exacerbation continue with supplemental O2 as needed to maintain adequate O2 sats 92% or above patient does admit that she has home oxygen which she uses as needed, states she uses 1-2 L about 1-2 times per week when she feels short of breath (2) GI bleed: Code(s): K92.2 - Gastrointestinal hemorrhage, unspecified Status: Acute Assessment and Plan: patient presented with dark black stools ongoing for 2 days. BUN elevated to 63 appreciate gastroenterology consultation patient does take aspirin and meloxicam daily. Both on hold at this time continue Protonix 40 mg IV daily regular diet planning for EGD and colonoscopy tomorrow (3) Acute blood loss anemia: Code(s): D62 - Acute posthemorrhagic anemia Status: Acute Assessment and Plan: hemoglobin within normal limits on presentation at 13.1 with steady decline down to 8.7 secondary to GI bleeding as above H&H remaining stable at this time with hemoglobin 9.5 this morning transfuse as needed to maintain hemoglobin >7 or if patient becomes symptomatic (4) MIKKI (obstructive sleep apnea): Code(s): G47.33 - Obstructive sleep apnea (adult) (pediatric) Status: Chronic Assessment and Plan: untreated sleep apnea patient refuses CPAP continue BiPAP as above patient will need to be started on appropriate home treatment for MIKKI in order to prevent persistent hypercapnic respiratory failure resulting in mental status changes (5) COPD (chronic obstructive pulmonary disease): Code(s): J44.9 - Chronic obstructive pulmonary disease, unspecified Status: Chronic Assessment and Plan: not in acute exacerbation continue with maintenance inhalers albuterol inhaler as needed (6) Essential hypertension: Code(s): I10 - Essential (primary) hypertension Status: Acute Assessment and Plan: blood pressures reviewed and been somewhat soft. remaining stable at this time. lisinopril and furosemide on hold due to soft BP. Resume when appropriate monitor blood pressure trends Subjective Date/time seen: 05/01/22 14:02 Interval history: Date of service: 05/01/2022 Sharona Clinton is a 76-year-old female with a history of COPD, hypertension, untreated obstructive sleep apnea, and several other comorbidities who is seen in follow-up for acute GI bleed and acute hypoxic and hypercapnic respiratory failure. patient is a bit more drowsy today. States that she did not sleep well last night and is feeling tired today. Repor
[2022-05-01] MEDS: polyethylene glycoL 3350 238 GM BOTTLE PO (15:20)
[2022-05-01] MEDS: BISACODYL 5 MG TABLET EC 10 MG PO ×2 (15:20→20:10)
[2022-05-01 23:21] LABS: Glucose Point of Care 105 mg/dl (65-105)
[2022-05-02] VITALS (18 sets, daily range): BP systolic 100–142; BP diastolic 51–81; PULSE 66–82; RESP 16–20; TEMP 36–37; O2SAT 94–98
--- NOTE | 2022-05-02 | ECHO_ITS ---
Patient Info Name: Sharona Clinton Age: 76 years : 1945 Gender: Female Ht: 64 in Wt: 222 lbs BSA: 2.18 m2 HR: 65 bpm BP: 142 / 81 mmHg Heart Rhythm: Sinus Rhythm Technical Quality: Fair Exam Date: 05/02/2022 4:14 PM Exam Location: [facility] Card Pulmonary Patient Status: Inpatient Admit Date: 04/29/2022 Staff Ordering Physician: Adelita James APRN [employer] Associate: Tammy Cooper RDCS Attending Provider: Kenyatta Kimball PA-C Referring Physician: Jacob HYMAN; Exam Type: CA echo doppler color flow Study Info Indications R06.02 - Shortness of breath Complete two-dimensional, color flow and Doppler transthoracic echocardiogram is performed. Summary 1. Complete two-dimensional, color flow and Doppler transthoracic echocardiogram is performed. 2. Left ventricular chamber dimension is normal. 3. Left ventricular systolic function is normal, estimated at 60-65%. 4. The left ventricular diastolic function is abnormal. 5. E/e' 10 is mildly elevated. 6. Left atrial chamber dimension is mildly enlarged. 7. The aortic valve is not well visualized. Cannot determine number of aortic valve leaflets. 8. There is moderate aortic valve sclerosis. 9. There is mild aortic valve stenosis with a peak velocity of 285 cm/s, mean gradient of 20 mmHg, and aortic valve area of 1.9 cm2. 10. The mitral valve has moderately calcified annulus. 11. No pulmonary hypertension, estimated pulmonary arterial systolic pressure is 36 mmHg. 12. There is trivial pericardial effusion. Left Ventricle E/e' 10 is mildly elevated. Left ventricular chamber dimension is normal. Left ventricular systolic function is normal, estimated at 60-65%. The left ventricular diastolic function is abnormal. Right Ventricle Right ventricular systolic function is normal and with normal TAPSE 27 cm. Right ventricular chamber dimension is normal. Left Atria Left atrial chamber dimension is mildly enlarged. Right Atria Right atrial chamber dimension is normal. Aortic Valve The aortic valve is not well visualized. Cannot determine number of aortic valve leaflets. There is moderate aortic valve sclerosis. There is mild aortic valve stenosis with a peak velocity of 285 cm/s, mean gradient of 20 mmHg, and aortic valve area of 1.9 cm2. There is no aortic valve regurgitation. Pulmonic Valve There is no pulmonic regurgitation. Mitral Valve The mitral valve has moderately calcified annulus. There is no mitral valve stenosis. There is no mitral valve regurgitation. Tricuspid Valve There is no tricuspid valve regurgitation. No pulmonary hypertension, estimated pulmonary arterial systolic pressure is 36 mmHg. Pericardium/Pleural There is trivial pericardial effusion. Inferior Vena Cava Normal inferior vena cava with >50% collapse upon inspiration consistent with normal right atrial pressure, 5 mmHg. Aorta The aortic root size at the sinus of Valsalva is normal. Left Ventricular Outflow Tract Name Value Normal LVOT 2D LVOT Diameter 2.0 cm LVOT Doppler LVOT Peak Gradient 9 mmHg LVOT Mean Gradien
[2022-05-02] MEDS: BISACODYL 5 MG TABLET EC 10 MG PO (04:41)
[2022-05-02] MEDS: CENTRAL LINE FLUSH 10 ML IV PUSH ×3 (04:42→21:30)
[2022-05-02 05:09] LABS: Hematocrit 32.8 % (37.0-47.0); Hemoglobin 9.7 g/dL (12.0-15.0); Mean Corpuscular HGB Conc 29.6 g/dl (32-36); Mean Corpuscular Hemoglobin 30.1 pg (26-34); Mean Corpuscular Volume 101.9 fl (80-100); Mean Platelet Volume 10.4 fl (7.4-10.4); Platelet Count Result 173 k/mm3 (150-375); Red Blood Count 3.22 M/mm3 (4.2-5.4); Red Cell Distribution Width 14.5 % (11.5-14.5); White Blood Count 5.7 K/mm3 (4.5-10.0)
[2022-05-02 05:17] LABS: Anion Gap 0 mmol/L (8-16); Blood Urea Nitrogen 7 mg/dL (7-17); Calcium 8.7 mg/dL (8.4-10.2); Carbon Dioxide 37 mmol/L (22-30); Chloride 103 mmol/L (98-107); Estimated CRCL calculation 89 ml/min; Estimated Glomerular Filt Rate > 60; Glucose 96 mg/dL (65-110); Potassium 3.7 mmol/L (3.4-5.0); Sodium 140 mmol/L (137-145)
--- NOTE | 2022-05-02 07:52 | P.PNIM_ITS ---
Progress Note: A&P Assessment and Plan (1) Acute respiratory failure with hypoxia and hypercapnia: Code(s): J96.01 - Acute respiratory failure with hypoxia; J96.02 - Acute respiratory failure with hypercapnia Status: Acute Assessment and Plan: Patient hypoxic on presentation at 85% and was placed on 3 L supplemental O2. Patient reportedly uses 1-2 liters of O2 at home 1-2 times per week prior to admission. * CT of the abdomen/pelvis demonstrated bibasilar airspace disease which may represent atelectasis versus pneumonia which was also evident on CXR * 04/28 patient noted to be extremely lethargic and ABG demonstrated respiratory acidosis with pH 7.2 markedly elevated pCO2 at 78.5, PaO2 63.6, bicarb elevated at 33 suggesting some chronic component to hypercapnia (06/21/2020 pCO2 52.8) * Patient was started on BiPAP on 04/28. Repeat ABG with normalized pH and improved pCO2 to 47.5 * Transitioned to Airvo and titrating supplemental oxygen to SpO2 greater than 90% * Encouraged biPAP for sleep and naps * Pulmonology consulted and appreciate recommendations * Continue with incentive spirometry and Cornet valve * Will check Transthoracic echocardiogram to evaluate for pulmonary hypertension. None noted on 2020 Echo (2) GI bleed: Qualifiers: GI bleed type/associated pathology: unspecified gastrointestinal hemorrhage type Qualified Code(s): K92.2 - Gastrointestinal hemorrhage, unspecified Code(s): K92.2 - Gastrointestinal hemorrhage, unspecified Status: Acute Assessment and Plan: Patient presented with dark black stools ongoing for 2 days prior to admission. BUN elevated to 63 * GI consulted and appreciate recommendations. * Hold aspirin and meloxicam. * Trend H/H. H/H has been stable for the past 48 hours. * continue Protonix 40 mg IV daily * Awaiting EGD and colonoscopy (3) Acute blood loss anemia: Code(s): D62 - Acute posthemorrhagic anemia Status: Acute Assessment and Plan: hemoglobin within normal limits on presentation at 13.1 with steady decline down to 8.7 * secondary to GI bleeding as above * transfuse as needed to maintain hemoglobin >7 or if patient becomes symptomatic (4) MIKKI (obstructive sleep apnea): Code(s): G47.33 - Obstructive sleep apnea (adult) (pediatric) Status: Chronic Assessment and Plan: untreated sleep apnea * patient refuses CPAP * she is intermittently compliant with BiPAP this admission. * She endorses not wearing it last night due to nasal congestion. Start saline nasal spray. (5) COPD (chronic obstructive pulmonary disease): Code(s): J44.9 - Chronic obstructive pulmonary disease, unspecified Status: Chronic Assessment and Plan: not in acute exacerbation. No wheezing noted on exam. * continue Anoro maintenance inhaler for LAMA/LABA coverage. * albuterol inhaler as needed (6) Essential hypertension: Code(s): I10 - Essential (primary) hypertension Status: Acute Assessment and Plan: blood pressures reviewed and SBP 118-142 * Resume lisinopril and furosemide. * Monitor vitals per unit routines. Plan CODE STATUS: DNR Disposition: undetermined. Consult PT/OT and start to mobilize Time Spent With Patient Time: 40 minutes Subjective Date/time seen: 05/02/22 07:52 Patient is 76-year-old female with COPD hypertension, obstructive sleep apnea noncompliant with CPAP, colon polyps and arthritis. She presented to the
--- NOTE | 2022-05-02 07:52 | PM.IMPN ---
Progress Note: A&P Assessment and Plan (1) Acute respiratory failure with hypoxia and hypercapnia: Code(s): J96.01 - Acute respiratory failure with hypoxia; J96.02 - Acute respiratory failure with hypercapnia Status: Acute Assessment and Plan: Patient hypoxic on presentation at 85% and was placed on 3 L supplemental O2. Patient reportedly uses 1-2 liters of O2 at home 1-2 times per week prior to admission. CT of the abdomen/pelvis demonstrated bibasilar airspace disease which may represent atelectasis versus pneumonia which was also evident on CXR 04/28 patient noted to be extremely lethargic and ABG demonstrated respiratory acidosis with pH 7.2 markedly elevated pCO2 at 78.5, PaO2 63.6, bicarb elevated at 33 suggesting some chronic component to hypercapnia (06/21/2020 pCO2 52.8) Patient was started on BiPAP on 04/28. Repeat ABG with normalized pH and improved pCO2 to 47.5 Transitioned to Airvo and titrating supplemental oxygen to SpO2 greater than 90% Encouraged biPAP for sleep and naps Pulmonology consulted and appreciate recommendations Continue with incentive spirometry and Cornet valve Will check Transthoracic echocardiogram to evaluate for pulmonary hypertension. None noted on 2020 Echo (2) GI bleed: Qualifiers: GI bleed type/associated pathology: unspecified gastrointestinal hemorrhage type Qualified Code(s): K92.2 - Gastrointestinal hemorrhage, unspecified Code(s): K92.2 - Gastrointestinal hemorrhage, unspecified Status: Acute Assessment and Plan: Patient presented with dark black stools ongoing for 2 days prior to admission. BUN elevated to 63 GI consulted and appreciate recommendations. Hold aspirin and meloxicam. Trend H/H. H/H has been stable for the past 48 hours. continue Protonix 40 mg IV daily Awaiting EGD and colonoscopy (3) Acute blood loss anemia: Code(s): D62 - Acute posthemorrhagic anemia Status: Acute Assessment and Plan: hemoglobin within normal limits on presentation at 13.1 with steady decline down to 8.7 secondary to GI bleeding as above transfuse as needed to maintain hemoglobin >7 or if patient becomes symptomatic (4) MIKKI (obstructive sleep apnea): Code(s): G47.33 - Obstructive sleep apnea (adult) (pediatric) Status: Chronic Assessment and Plan: untreated sleep apnea patient refuses CPAP she is intermittently compliant with BiPAP this admission. She endorses not wearing it last night due to nasal congestion. Start saline nasal spray. (5) COPD (chronic obstructive pulmonary disease): Code(s): J44.9 - Chronic obstructive pulmonary disease, unspecified Status: Chronic Assessment and Plan: not in acute exacerbation. No wheezing noted on exam. continue Anoro maintenance inhaler for LAMA/LABA coverage. albuterol inhaler as needed (6) Essential hypertension: Code(s): I10 - Essential (primary) hypertension Status: Acute Assessment and Plan: blood pressures reviewed and SBP 118-142 Resume lisinopril and furosemide. Monitor vitals per unit routines. Plan CODE STATUS: DNR Disposition: undetermined. Consult PT/OT and start to mobilize Time Spent With Patient Time: 40 minutes Subjective Date/time seen: 05/02/22 07:52 Patient is 76-year-old female with COPD hypertension, obstructive sleep apnea noncompliant with CPAP, colon polyps and arthritis. She presented to the hospital with complaints of black/bloody loose stool. Hemoglobin was 13.1 on admission when she was admitted for GI evaluation. During her hospital stay patient was noted to have decreased mental status and acute on chronic hypoxic and hypercapnic respiratory failure. Patient found lying in bed. She c/o nasal congestion and reports she did not use NIPPV last night due to this nasal congestion. Stool was not cleared this morning and colonoscopy
[2022-05-02] MEDS: UMECLIDINIUM/VILANTEROL 62.5-25 MCG ELLIPTA 1 PUFF INHALATION (08:41)
[2022-05-02] MEDS: FLUTICASONE PROPIONATE 0.05% NA SPR 16 GM BTL (*BKC) 1 SPRAY NASAL ×2 (09:01→21:30)
[2022-05-02] MEDS: PANTOPRAZOLE SODIUM IV 40 MG VIAL IV PUSH (09:01)
[2022-05-02] MEDS: LORATADINE 10 MG TABLET PO (09:01)
[2022-05-02] MEDS: polyethylene glycoL 3350 238 GM BOTTLE PO (15:03)
[2022-05-03] VITALS (18 sets, daily range): BP systolic 97–138; BP diastolic 40–68; PULSE 54–85; RESP 18–29; TEMP 36–37.7; O2SAT 20–97
[2022-05-03 07:22] LABS: Basophils Percent Auto 0.1 % (0.2-1.2); Eosinophils Absolute Auto 0.2 K/mm3 (0-0.3); Eosinophils Percent Auto 2.3 % (0-4.4); Hematocrit 35.5 % (37.0-47.0); Hemoglobin 10.4 g/dL (12.0-15.0); Immature Granulocyte Absolute 0.02 K/mm3 (0.00-0.031); Immature Granulocyte Percent A 0.3 % (0-0.5); Lymphocytes Absolute Auto 1.03 K/mm3 (0.9-3.2); Lymphocytes Percent Auto 14.2 % (18.3-44.2); Mean Corpuscular HGB Conc 29.3 g/dl (32-36); Mean Corpuscular Hemoglobin 29.7 pg (26-34); Mean Corpuscular Volume 101.4 fl (80-100); Mean Platelet Volume 9.8 fl (7.4-10.4); Monocytes Absolute Auto 0.8 K/mm3 (0.1-0.6); Monocytes Percent Auto 10.6 % (2.6-8.5); Neutrophils Absolute Auto 5.2 K/mm3 (1.3-6.7); Neutrophils Percent Auto 72.5 % (45.5-73.1); Platelet Count Result 191 k/mm3 (150-375); Red Cell Distribution Width 14.6 % (11.5-14.5); White Blood Count 7.2 K/mm3 (4.5-10.0)
[2022-05-03 07:34] LABS: Alanine Aminotransferase 14 U/L (6-35); Albumin Level 3.2 g/dL (3.5-5.1); Alkaline Phosphatase 58 U/L (38-126); Anion Gap -1 mmol/L (8-16); Aspartate Amino Transferase 14 U/L (14-36); Bilirubin,Total 0.4 mg/dL (0.2-1.3); Blood Urea Nitrogen 6 mg/dL (7-17); Calcium 8.9 mg/dL (8.4-10.2); Carbon Dioxide 39 mmol/L (22-30); Chloride 99 mmol/L (98-107); Estimated CRCL calculation 76 ml/min; Estimated Glomerular Filt Rate > 60; Glucose 99 mg/dL (65-110); Potassium 3.5 mmol/L (3.4-5.0); Sodium 137 mmol/L (137-145)
--- NOTE | 2022-05-03 08:27 | P.PNIM_ITS ---
Progress Note: A&P Assessment and Plan (1) Acute respiratory failure with hypoxia and hypercapnia: Code(s): J96.01 - Acute respiratory failure with hypoxia; J96.02 - Acute respiratory failure with hypercapnia Status: Acute Assessment and Plan: Patient hypoxic on presentation at 85% and was placed on 3 L supplemental O2. Patient reportedly uses 1-2 liters of O2 at home 1-2 times per week prior to admission. * CT of the abdomen/pelvis demonstrated bibasilar airspace disease which may represent atelectasis versus pneumonia which was also evident on CXR * 04/28 patient noted to be extremely lethargic and ABG demonstrated respiratory acidosis with pH 7.2 markedly elevated pCO2 at 78.5, PaO2 63.6, bicarb elevated at 33 suggesting some chronic component to hypercapnia (06/21/2020 pCO2 52.8) * Patient was started on BiPAP on 04/28. Repeat ABG with normalized pH and improved pCO2 to 47.5 * Transitioned to Airvo and titrating supplemental oxygen to SpO2 greater than 90% * Encouraged biPAP for sleep and naps * Pulmonology consulted and appreciate recommendations * Continue with incentive spirometry and Cornet valve * Transthoracic echocardiogram without pulmonary hypertension noted. * No leukocytosis or sputum color changes to suggest pneumonia, no wheezing on exam to indicate need for systemic steroids. No overt s/s hypervolemia. (2) GI bleed: Qualifiers: GI bleed type/associated pathology: unspecified gastrointestinal hemorrhage type Qualified Code(s): K92.2 - Gastrointestinal hemorrhage, unspecified Code(s): K92.2 - Gastrointestinal hemorrhage, unspecified Status: Acute Assessment and Plan: Patient presented with dark black stools ongoing for 2 days prior to admission. BUN elevated to 63 * GI consulted and appreciate recommendations. * Hold aspirin and meloxicam. * Trend H/H. H/H has been stable for the past 48 hours. * continue Protonix 40 mg IV daily * 05/03/22 EGD- shows non-erosive reflux disease, single cratered, deep benign ulcer with clean base noted. Biopsy obtained for KORY testing and colonoscopy- shows 6 mm sessile polyp with cold forcep polypectomy performed, small internal hemorrhoids also noted. (3) Acute blood loss anemia: Code(s): D62 - Acute posthemorrhagic anemia Status: Acute Assessment and Plan: hemoglobin within normal limits on presentation at 13.1 with steady decline down to 8.7 * secondary to GI bleeding as above * transfuse as needed to maintain hemoglobin >7 or if patient becomes symptomatic (4) MIKKI (obstructive sleep apnea): Code(s): G47.33 - Obstructive sleep apnea (adult) (pediatric) Status: Chronic Assessment and Plan: untreated sleep apnea * patient continues to refuse CPAP or overnight BiPAP. * She endorses not wearing it last night due to nasal congestion. Started saline nasal spray. * Patient would like to pursue hypoglossal nerve stimulation, which is unavailable at our facility. (5) COPD (chronic obstructive pulmonary disease): Qualifiers: COPD type: unspecified COPD Qualified Code(s): J44.9 - Chronic obstructive pulmonary disease, unspecified Code(s): J44.9 - Chronic obstructive pulmonary disease, unspecified Status: Chronic Assessment and Plan: not in acute exacerbation. No wheezing noted on exam. * continue Anoro maintenance inhaler for LAMA/LABA coverage. * albuterol inhaler as needed (6) Essential hypertension: Code(s): I10 - Essential (primary) hypertension St
--- NOTE | 2022-05-03 08:27 | PM.IMPN ---
Progress Note: A&P Assessment and Plan (1) Acute respiratory failure with hypoxia and hypercapnia: Code(s): J96.01 - Acute respiratory failure with hypoxia; J96.02 - Acute respiratory failure with hypercapnia Status: Acute Assessment and Plan: Patient hypoxic on presentation at 85% and was placed on 3 L supplemental O2. Patient reportedly uses 1-2 liters of O2 at home 1-2 times per week prior to admission. CT of the abdomen/pelvis demonstrated bibasilar airspace disease which may represent atelectasis versus pneumonia which was also evident on CXR 04/28 patient noted to be extremely lethargic and ABG demonstrated respiratory acidosis with pH 7.2 markedly elevated pCO2 at 78.5, PaO2 63.6, bicarb elevated at 33 suggesting some chronic component to hypercapnia (06/21/2020 pCO2 52.8) Patient was started on BiPAP on 04/28. Repeat ABG with normalized pH and improved pCO2 to 47.5 Transitioned to Airvo and titrating supplemental oxygen to SpO2 greater than 90% Encouraged biPAP for sleep and naps Pulmonology consulted and appreciate recommendations Continue with incentive spirometry and Cornet valve Transthoracic echocardiogram without pulmonary hypertension noted. No leukocytosis or sputum color changes to suggest pneumonia, no wheezing on exam to indicate need for systemic steroids. No overt s/s hypervolemia. (2) GI bleed: Qualifiers: GI bleed type/associated pathology: unspecified gastrointestinal hemorrhage type Qualified Code(s): K92.2 - Gastrointestinal hemorrhage, unspecified Code(s): K92.2 - Gastrointestinal hemorrhage, unspecified Status: Acute Assessment and Plan: Patient presented with dark black stools ongoing for 2 days prior to admission. BUN elevated to 63 GI consulted and appreciate recommendations. Hold aspirin and meloxicam. Trend H/H. H/H has been stable for the past 48 hours. continue Protonix 40 mg IV daily 05/03/22 EGD- shows non-erosive reflux disease, single cratered, deep benign ulcer with clean base noted. Biopsy obtained for KORY testing and colonoscopy- shows 6 mm sessile polyp with cold forcep polypectomy performed, small internal hemorrhoids also noted. (3) Acute blood loss anemia: Code(s): D62 - Acute posthemorrhagic anemia Status: Acute Assessment and Plan: hemoglobin within normal limits on presentation at 13.1 with steady decline down to 8.7 secondary to GI bleeding as above transfuse as needed to maintain hemoglobin >7 or if patient becomes symptomatic (4) MIKKI (obstructive sleep apnea): Code(s): G47.33 - Obstructive sleep apnea (adult) (pediatric) Status: Chronic Assessment and Plan: untreated sleep apnea patient continues to refuse CPAP or overnight BiPAP. She endorses not wearing it last night due to nasal congestion. Started saline nasal spray. Patient would like to pursue hypoglossal nerve stimulation, which is unavailable at our facility. (5) COPD (chronic obstructive pulmonary disease): Qualifiers: COPD type: unspecified COPD Qualified Code(s): J44.9 - Chronic obstructive pulmonary disease, unspecified Code(s): J44.9 - Chronic obstructive pulmonary disease, unspecified Status: Chronic Assessment and Plan: not in acute exacerbation. No wheezing noted on exam. continue Anoro maintenance inhaler for LAMA/LABA coverage. albuterol inhaler as needed (6) Essential hypertension: Code(s): I10 - Essential (primary) hypertension Status: Chronic Assessment and Plan: blood pressures reviewed and SBP 118-142 Resume lisinopril and furosemide. Monitor vitals per unit routines. Plan CODE STATUS: DNR Disposition: undetermined. Consult PT/OT and start to mobilize Subjective Date/time seen: 05/03/22 08:27 Interval history: Patient is 76-year-old female with COPD hypertension, obstructive sleep apne
[2022-05-03] MEDS: FLUTICASONE PROPIONATE 0.05% NA SPR 16 GM BTL (*BKC) 1 SPRAY NASAL ×2 (09:14→21:01)
[2022-05-03] MEDS: PANTOPRAZOLE SODIUM IV 40 MG VIAL IV PUSH (09:15)
[2022-05-03] MEDS: lisinopriL 20 MG TABLET 40 MG PO (09:16)
[2022-05-03] MEDS: FUROSEMIDE 20 MG TABLET PO (09:16)
[2022-05-03] MEDS: CENTRAL LINE FLUSH 10 ML IV PUSH ×3 (09:17→21:01)
[2022-05-03] MEDS: UMECLIDINIUM/VILANTEROL 62.5-25 MCG ELLIPTA 1 PUFF INHALATION (10:05)
[2022-05-03] MEDS: LORATADINE 10 MG TABLET PO (12:02)
[2022-05-03] MEDS: LACTATED RINGERS 1,000 ML 150 ML IV CONT (12:33)
--- NOTE | 2022-05-03 13:10 | SUR.OPER ---
EGD start 1305 end 1307 Colon start 1313 end 1329
[2022-05-03] MEDS: SIMETHICONE ORAL SUSPENSION 20 MG/0.3 ML 30 ML BOTTLE 0.6 ML PO (13:25)
[2022-05-03] MEDS: POTASSIUM CHLORIDE 20 MEQ TABLET.ER PO (14:37)
--- NOTE | 2022-05-03 16:41 | PM.PNPUL ---
Progress Note: A&P Assessment and Plan (1) Acute on chronic respiratory failure with hypoxia and hypercapnia: Code(s): J96.21 - Acute and chronic respiratory failure with hypoxia; J96.22 - Acute and chronic respiratory failure with hypercapnia Status: Acute Assessment and Plan: Initial ABG 04/28 showed acute and chronic hypoxemic hypercapnic respiratory failure with partial metabolic compensation. She had an elevated bicarbonate consistent with a chronic respiratory acidosis and kidneys trying to keep up. She had improved ventilation with BiPAP. She is a candidate for NPPV however she has not wanted to use CPAP or O2 which were prescribed with her split night study September 2021. She improved with incentive spirometry and Cornet vibratory valve to help with atelectasis and clearing secretions. She reports mild intermittent problems with swallowing liquids over the last several months. 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 Her [employer] airport did encourage her to use O2. She had a pulmonary function study 06/21/2020 with a mild obstructive abnormality with a normal FEV1 and without significant improvement after inhaling a single dose of albuterol. The lung volumes are normal. The diffusing capacity is normal. She has not noticed benefit from albuterol, has used this very few times. Some of her dyspnea may be deconditioning, and she has mild aortic stenosis. She had no pulmonary hypertension on echo in 2020. Might be time to re-evaluate, or see if her [employer] has a more current one. (3) MIKKI (obstructive sleep apnea): Code(s): G47.33 - Obstructive sleep apnea (adult) (pediatric) Status: Chronic Assessment and Plan: She has severe obstructive sleep apnea, did not want to use PAP therapy. She has oxygen at home which she also does not want to use. Not using PAP her choice. She has expressed interest in Inspire, hypoglossal nerve stimulator, HNS, which is surgically implanted, an alternative to PAP, and for people who cannot tolerate PAP. The patient really has not failed CPAP because she has never actually used CPAP. Her BMI is 38, and BMI above 35 is an exclusion criteria. She could lose weight to get her BMI below 35, then have an evaluation to see if she has the proper type of airway to benefit from the HNS. This involves having anesthesia to evaluate the airway, to exclude complete concentric collapse of the at the level of the velopharynx or soft palate. (4) COPD (chronic obstructive pulmonary disease): Qualifiers: COPD type: unspecified COPD Qualified Code(s): J44.9 - Chronic obstructive pulmonary disease, unspecified Code(s): J44.9 - Chronic obstructive pulmonary disease, unspecified Status: Chronic Assessment and Plan: PFT shows a mild obstructive ventilatory defect, mainly in the small airways, no response to bronchodilator. She has a chest CT showing centrilobular emphysema, reported in a note by her primary care doctor at [facility]. Multiple CT scans of Abdomen-pelvis and one CTA here at [facility] show Bibasilar atelectasis right greater than left. This is not a new finding. Her hypoxemia is new, or newer. She does have O2 at home, not using it. I agree with Jeronimo, 2 long acting bronchodilators, pulmonary hygiene, Cornet to assist with clearing secretions, incentive spirometry and p.r.n. short-acting bronchodilator. Plan She wants to go home, does not want O2
[2022-05-03] MEDS: ACETAMINOPHEN 325 MG TABLET 650 MG PO (21:00)
[2022-05-03] MEDS: TOLNAFTATE 1% POWDER 45 GM BTL 1 APPLIC TOPICAL (21:01)
--- NOTE | 2022-05-03 22:06 | PC.NURSE ---
Pt transferred from IMU to 2nd Medical Room 137 @[id number].
--- NOTE | 2022-05-03 22:06 | PC.NURSE ---
This patient, Sharona Clinton, was transferred to [[id number]] on 05/03/22 at 2145. Personal belongings sent with patient. Report given to [ARTHUR Mcelroy]. Appropriate documentation sent with patient.
[2022-05-04] VITALS (7 sets, daily range): BP systolic 100–120; BP diastolic 44–53; PULSE 69–75; RESP 17–20; TEMP 36.3–36.6; O2SAT 95–100
[2022-05-04] MEDS: ACETAMINOPHEN 325 MG TABLET 650 MG PO ×2 (03:16→09:56)
[2022-05-04] MEDS: CENTRAL LINE FLUSH 10 ML IV PUSH ×3 (05:17→20:37)
[2022-05-04 07:56] LABS: Hematocrit 32.3 % (37.0-47.0); Hemoglobin 9.6 g/dL (12.0-15.0); Mean Corpuscular HGB Conc 29.7 g/dl (32-36); Mean Corpuscular Hemoglobin 30.2 pg (26-34); Mean Corpuscular Volume 101.6 fl (80-100); Mean Platelet Volume 10.3 fl (7.4-10.4); Platelet Count Result 189 k/mm3 (150-375); Red Blood Count 3.18 M/mm3 (4.2-5.4); Red Cell Distribution Width 14.5 % (11.5-14.5); White Blood Count 7.2 K/mm3 (4.5-10.0)
[2022-05-04 08:10] LABS: Blood Urea Nitrogen 11 mg/dL (7-17); Calcium 8.6 mg/dL (8.4-10.2); Carbon Dioxide > 40 mmol/L (22-30); Chloride 97 mmol/L (98-107); Estimated CRCL calculation 89 ml/min; Estimated Glomerular Filt Rate > 60; Glucose 99 mg/dL (65-110); Potassium 3.4 mmol/L (3.4-5.0); Sodium 138 mmol/L (137-145)
[2022-05-04] MEDS: POTASSIUM CHLORIDE 20 MEQ TABLET.ER PO (08:43)
[2022-05-04] MEDS: lisinopriL 20 MG TABLET 40 MG PO (08:44)
[2022-05-04] MEDS: FUROSEMIDE 20 MG TABLET PO (08:44)
[2022-05-04] MEDS: FLUTICASONE PROPIONATE 0.05% NA SPR 16 GM BTL (*BKC) 1 SPRAY NASAL ×2 (08:44→20:36)
[2022-05-04] MEDS: TOLNAFTATE 1% POWDER 45 GM BTL 1 APPLIC TOPICAL ×2 (08:44→20:37)
[2022-05-04] MEDS: PANTOPRAZOLE SODIUM IV 40 MG VIAL IV PUSH (08:45)
[2022-05-04] MEDS: LORATADINE 10 MG TABLET PO (08:58)
[2022-05-04] MEDS: ONDANSETRON INJ 4 MG/2 ML VIAL IV PUSH (11:09)
[2022-05-04] MEDS: MENTHOL 10% / METHYL SALICYLATE 15% 57 GM TUBE 1 APPLIC TOPICAL (11:12)
[2022-05-04] MEDS: UMECLIDINIUM/VILANTEROL 62.5-25 MCG ELLIPTA 1 PUFF INHALATION (13:50)
--- NOTE | 2022-05-04 13:52 | PM.PNPUL ---
Progress Note: A&P Assessment and Plan (1) Acute on chronic respiratory failure with hypoxia and hypercapnia: Code(s): J96.21 - Acute and chronic respiratory failure with hypoxia; J96.22 - Acute and chronic respiratory failure with hypercapnia Status: Acute Assessment and Plan: Initial ABG 04/28 showed acute and chronic hypoxemic hypercapnic respiratory failure with partial metabolic compensation. She had an elevated bicarbonate consistent with a chronic respiratory acidosis and kidneys trying to keep up. She had improved ventilation with BiPAP. She is a candidate for NPPV however she has not wanted to use CPAP or O2 which were prescribed with her split night study September 2021. She improved with incentive spirometry and Cornet vibratory valve to help with atelectasis and clearing secretions. She reports mild intermittent problems with swallowing liquids over the last several months. 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 Her canal tender did encourage her to use O2. She had a pulmonary function study 06/21/2020 with a mild obstructive abnormality with a normal FEV1 and without significant improvement after inhaling a single dose of albuterol. The lung volumes are normal. The diffusing capacity is normal. She has not noticed benefit from albuterol, has used this very few times. Some of her dyspnea may be deconditioning, and she has mild aortic stenosis. She had no pulmonary hypertension on echo in 2020. Might be time to re-evaluate, or see if her canal tender has a more current one. (3) MIKKI (obstructive sleep apnea): Code(s): G47.33 - Obstructive sleep apnea (adult) (pediatric) Status: Chronic Assessment and Plan: She has severe obstructive sleep apnea, did not want to use PAP therapy. She has oxygen at home which she also does not want to use. Not using PAP her choice. She has expressed interest in Inspire, hypoglossal nerve stimulator, HNS, which is surgically implanted, an alternative to PAP, and for people who cannot tolerate PAP. The patient really has not failed CPAP because she has never actually used CPAP. Her BMI is 38, and BMI above 35 is an exclusion criteria. She could lose weight to get her BMI below 35, then have an evaluation to see if she has the proper type of airway to benefit from the HNS. This involves having anesthesia to evaluate the airway, to exclude complete concentric collapse of the at the level of the velopharynx or soft palate. (4) COPD (chronic obstructive pulmonary disease): Qualifiers: COPD type: unspecified COPD Qualified Code(s): J44.9 - Chronic obstructive pulmonary disease, unspecified Code(s): J44.9 - Chronic obstructive pulmonary disease, unspecified Status: Chronic Assessment and Plan: PFT shows a mild obstructive ventilatory defect, mainly in the small airways, no response to bronchodilator. She has a chest CT showing centrilobular emphysema, reported in a note by her primary care doctor at [facility]. Multiple CT scans of Abdomen-pelvis and one CTA here at [place] show Bibasilar atelectasis right greater than left. This is not a new finding. Her hypoxemia is new, or newer. She does have O2 at home, not using it. I agree with Jeronimo, 2 long acting bronchodilators, pulmonary hygiene, Cornet to assist with clearing secretions, incentive spirometry and p.r.n. short-acting bronchodilator. Plan She wants to go home, does not want O2
--- NOTE | 2022-05-04 15:51 | P.PNIM_ITS ---
Progress Note: A&P Assessment and Plan (1) Acute respiratory failure with hypoxia and hypercapnia: Code(s): J96.01 - Acute respiratory failure with hypoxia; J96.02 - Acute respiratory failure with hypercapnia Status: Acute Assessment and Plan: Patient hypoxic on presentation at 85% and was placed on 3 L supplemental O2. Patient reportedly uses 1-2 liters of O2 at home 1-2 times per week prior to admission. * CT of the abdomen/pelvis demonstrated bibasilar airspace disease which may represent atelectasis versus pneumonia which was also evident on CXR * 04/28 patient noted to be extremely lethargic and ABG demonstrated respiratory acidosis with pH 7.2 markedly elevated pCO2 at 78.5, PaO2 63.6, bicarb elevated at 33 suggesting some chronic component to hypercapnia (06/21/2020 pCO2 52.8) * Patient was started on BiPAP on 04/28. Repeat ABG with normalized pH and improved pCO2 to 47.5 * Transitioned to Airvo and titrating supplemental oxygen to SpO2 greater than 90% * Encouraged biPAP for sleep and naps- patient will not wear * Pulmonology consulted and appreciate recommendations * Continue with incentive spirometry and Cornet valve * Transthoracic echocardiogram without pulmonary hypertension noted. * No leukocytosis or sputum color changes to suggest pneumonia, no wheezing on exam to indicate need for systemic steroids. No overt s/s hypervolemia. * Appears at baseline now. (2) GI bleed: Qualifiers: GI bleed type/associated pathology: unspecified gastrointestinal hemorrhage type Qualified Code(s): K92.2 - Gastrointestinal hemorrhage, unspecified Code(s): K92.2 - Gastrointestinal hemorrhage, unspecified Status: Acute Assessment and Plan: Patient presented with dark black stools ongoing for 2 days prior to admission. BUN elevated to 63 * GI consulted and appreciate recommendations. * Hold aspirin and meloxicam. * Trend H/H. H/H has been stable for the past 48 hours. * continue Protonix 40 mg IV daily * 05/03/22 EGD- shows non-erosive reflux disease, single cratered, deep benign ulcer with clean base noted. Biopsy obtained for KORY testing and colonoscopy- shows 6 mm sessile polyp with cold forcep polypectomy performed, small internal hemorrhoids also noted. (3) Acute blood loss anemia: Code(s): D62 - Acute posthemorrhagic anemia Status: Acute Assessment and Plan: hemoglobin within normal limits on presentation at 13.1 with steady decline down to 8.7 * secondary to GI bleeding as above * transfuse as needed to maintain hemoglobin >7 or if patient becomes symptomatic * Stable Hgb 9.6 today. (4) MIKKI (obstructive sleep apnea): Code(s): G47.33 - Obstructive sleep apnea (adult) (pediatric) Status: Chronic Assessment and Plan: untreated sleep apnea * patient continues to refuse CPAP or overnight BiPAP. * She endorses not wearing it last night due to nasal congestion. Started saline nasal spray. * Patient would like to pursue hypoglossal nerve stimulation, which is unavailable at our facility. * Apnea monitor overnight on 6L NC or simple mask (5) COPD (chronic obstructive pulmonary disease): Qualifiers: COPD type: unspecified COPD Qualified Code(s): J44.9 - Chronic obstructive pulmonary disease, unspecified Code(s): J44.9 - Chronic obstructive pulmonary disease, unspecified Status: Chronic Assessment and Plan: not in acute exacerbation. No wheezing noted on exam. * continue Anoro maintenance inhaler for LAMA/LABA coverage. * albuterol
--- NOTE | 2022-05-04 15:51 | PM.IMPN ---
Progress Note: A&P Assessment and Plan (1) Acute respiratory failure with hypoxia and hypercapnia: Code(s): J96.01 - Acute respiratory failure with hypoxia; J96.02 - Acute respiratory failure with hypercapnia Status: Acute Assessment and Plan: Patient hypoxic on presentation at 85% and was placed on 3 L supplemental O2. Patient reportedly uses 1-2 liters of O2 at home 1-2 times per week prior to admission. CT of the abdomen/pelvis demonstrated bibasilar airspace disease which may represent atelectasis versus pneumonia which was also evident on CXR 04/28 patient noted to be extremely lethargic and ABG demonstrated respiratory acidosis with pH 7.2 markedly elevated pCO2 at 78.5, PaO2 63.6, bicarb elevated at 33 suggesting some chronic component to hypercapnia (06/21/2020 pCO2 52.8) Patient was started on BiPAP on 04/28. Repeat ABG with normalized pH and improved pCO2 to 47.5 Transitioned to Airvo and titrating supplemental oxygen to SpO2 greater than 90% Encouraged biPAP for sleep and naps- patient will not wear Pulmonology consulted and appreciate recommendations Continue with incentive spirometry and Cornet valve Transthoracic echocardiogram without pulmonary hypertension noted. No leukocytosis or sputum color changes to suggest pneumonia, no wheezing on exam to indicate need for systemic steroids. No overt s/s hypervolemia. Appears at baseline now. (2) GI bleed: Qualifiers: GI bleed type/associated pathology: unspecified gastrointestinal hemorrhage type Qualified Code(s): K92.2 - Gastrointestinal hemorrhage, unspecified Code(s): K92.2 - Gastrointestinal hemorrhage, unspecified Status: Acute Assessment and Plan: Patient presented with dark black stools ongoing for 2 days prior to admission. BUN elevated to 63 GI consulted and appreciate recommendations. Hold aspirin and meloxicam. Trend H/H. H/H has been stable for the past 48 hours. continue Protonix 40 mg IV daily 05/03/22 EGD- shows non-erosive reflux disease, single cratered, deep benign ulcer with clean base noted. Biopsy obtained for KORY testing and colonoscopy- shows 6 mm sessile polyp with cold forcep polypectomy performed, small internal hemorrhoids also noted. (3) Acute blood loss anemia: Code(s): D62 - Acute posthemorrhagic anemia Status: Acute Assessment and Plan: hemoglobin within normal limits on presentation at 13.1 with steady decline down to 8.7 secondary to GI bleeding as above transfuse as needed to maintain hemoglobin >7 or if patient becomes symptomatic Stable Hgb 9.6 today. (4) MIKKI (obstructive sleep apnea): Code(s): G47.33 - Obstructive sleep apnea (adult) (pediatric) Status: Chronic Assessment and Plan: untreated sleep apnea patient continues to refuse CPAP or overnight BiPAP. She endorses not wearing it last night due to nasal congestion. Started saline nasal spray. Patient would like to pursue hypoglossal nerve stimulation, which is unavailable at our facility. Apnea monitor overnight on 6L NC or simple mask (5) COPD (chronic obstructive pulmonary disease): Qualifiers: COPD type: unspecified COPD Qualified Code(s): J44.9 - Chronic obstructive pulmonary disease, unspecified Code(s): J44.9 - Chronic obstructive pulmonary disease, unspecified Status: Chronic Assessment and Plan: not in acute exacerbation. No wheezing noted on exam. continue Anoro maintenance inhaler for LAMA/LABA coverage. albuterol inhaler as needed (6) Essential hypertension: Code(s): I10 - Essential (primary) hypertension Status: Chronic Assessment and Plan: blood pressures reviewed and SBP 118-142 Resume lisinopril and furosemide. Monitor vitals per unit routines. Plan CODE STATUS: DNR Disposition: Plan to discharge home when respiratory status stable. Subjective Da
--- NOTE | 2022-05-04 17:45 | WPDANESPN ---
Anes - Prog Note Post-Op Date/Time: 05/04/22 17:45 Vital Signs: Last Vital Signs Temp 36.4 C L 05/04/22 14:21 Pulse 73 05/04/22 14:21 Resp 17 05/04/22 14:21 BP 115/48 L 05/04/22 14:21 Pulse Ox 95 05/04/22 14:21 O2 Del Method High Flow Nasal Cannula 05/04/22 13:50 O2 Flow Rate 4 05/04/22 13:50 FiO2 52 05/03/22 20:00 Pain Score (VAS): 0 I/O: Intake & Output 05/04/22 05/04/22 05/04/22 07:59 15:59 23:59 Intake Total 100 720 Balance 100 720 Laboratory Tests 05/04/22 07:42 05/04/22 07:42 05/04/22 05/04/22 07:42 07:42 WBC 7.2 RBC 3.18 L Hgb 9.6 L Hct 32.3 L MCV 101.6 H MCH 30.2 MCHC 29.7 L RDW 14.5 Plt Count 189 MPV 10.3 Sodium 138 Potassium 3.4 Chloride 97 L Carbon Dioxide > 40 H Anion Gap BUN 11 D Creatinine 0.50 L Estim Creat Clear Calc 89 Estimated GFR > 60 Glucose 99 Calcium 8.6 Magnesium 2.0 Patient Feedback: Patient satisfied with anesthetic care.
[2022-05-04] MEDS: PANTOPRAZOLE 40 MG TABLET PO (20:37)
[2022-05-05] MEDS: ACETAMINOPHEN 325 MG TABLET 650 MG PO ×2 (02:27→09:06)
[2022-05-05 03:00] VITALS: O2SAT 94
[2022-05-05 05:43] LABS: Potassium 3.8 mmol/L (3.4-5.0)
[2022-05-05 06:00] VITALS: BP 102/43; PULSE 73; RESP 21; TEMP 36.4; O2SAT 100
[2022-05-05] MEDS: CENTRAL LINE FLUSH 10 ML IV PUSH (06:33)
[2022-05-05 08:00] VITALS: O2SAT 100
[2022-05-05] MEDS: UMECLIDINIUM/VILANTEROL 62.5-25 MCG ELLIPTA 1 PUFF INHALATION (08:12)
--- NOTE | 2022-05-05 08:54 | P.DS_ITS ---
DS: Admitting Diagnosis Discharge Date 05/05/2022 Admitting Diagnosis GI bleed Hyperlipidemia Dyspnea, unspecified Chronic obstructive pulmonary disease, unspecified Essential (primary) hypertension DS: Discharge Diagnosis Discharge Diagnosis (1) Acute on chronic respiratory failure with hypoxia and hypercapnia: Code(s): J96.21 - Acute and chronic respiratory failure with hypoxia; J96.22 - Acute and chronic respiratory failure with hypercapnia Status: Acute Assessment and Plan: Patient hypoxic on presentation at 85% and was placed on 3 L supplemental O2.? Patient reportedly uses 1-2 liters of O2 at home 1-2 times per week prior to admission.? * CT of the abdomen/pelvis demonstrated bibasilar airspace disease which may represent atelectasis versus pneumonia which was also evident on CXR * 04/28 patient noted to be extremely lethargic and ABG demonstrated respiratory acidosis with pH 7.2 markedly elevated pCO2 at 78.5, PaO2 63.6, bicarb elevated at 33 suggesting some chronic component to hypercapnia (06/21/2020 pCO2 52.8) * Patient was started on BiPAP on 04/28.? Repeat ABG with normalized pH and improved pCO2 to 47.5 * Transitioned to Airvo and titrating supplemental oxygen to SpO2 greater than 90% * Encouraged biPAP for sleep and naps- patient will not wear * Pulmonology consulted and appreciate recommendations * Treated with incentive spirometry and Cornet valve * Transthoracic echocardiogram without pulmonary hypertension noted.? * No leukocytosis or sputum color changes to suggest pneumonia, no wheezing on exam to indicate need for systemic steroids. No overt s/s hypervolemia.? * Appears at baseline now.? * Apnea link overnight on 6L NC showed minimal desaturation.? (2) Gastritis: Code(s): K29.70 - Gastritis, unspecified, without bleeding Status: Acute Assessment and Plan: As above. Continued PPI. (3) GI bleed: Qualifiers: GI bleed type/associated pathology: unspecified gastrointestinal hemorrhage type Qualified Code(s): K92.2 - Gastrointestinal hemorrhage, unspecified Code(s): K92.2 - Gastrointestinal hemorrhage, unspecified Status: Acute Assessment and Plan: Patient presented with dark black stools ongoing for 2 days prior to admission. BUN elevated to 63 * GI consulted and appreciate recommendations. * Hold aspirin and meloxicam. * Trend H/H. H/H has been stable for the past 48 hours. * continue Protonix 40 mg IV daily * 05/03/22 EGD- shows non-erosive reflux disease, single cratered, deep benign ulcer with clean base noted. Biopsy obtained for KORY testing and colonoscopy- shows 6 mm sessile polyp with cold forcep polypectomy performed, small internal hemorrhoids also noted. (4) Acute blood loss anemia: Code(s): D62 - Acute posthemorrhagic anemia Status: Acute Assessment and Plan: hemoglobin within normal limits on presentation at 13.1 with steady decline down to 8.7 * secondary to GI bleeding as above * transfuse as needed to maintain hemoglobin >7 or if patient becomes symptomatic * Stable Hgb 9.6 on discharge. (5) MIKKI (obstructive sleep apnea): Code(s): G47.33 - Obstructive sleep apnea (adult) (pediatric) Status: Chronic Assessment and Plan: untreated sleep apnea * patient continues to refuse CPAP or overnight BiPAP. * She endorses not wearing due to nasal congestion initially. Started saline nasal spray. Later continued to report she could not tolerate any type of mask to utilize bipap * Patient would lik
--- NOTE | 2022-05-05 08:54 | PM.DS ---
DS: Admitting Diagnosis Discharge Date 05/05/2022 Admitting Diagnosis GI bleed Hyperlipidemia Dyspnea, unspecified Chronic obstructive pulmonary disease, unspecified Essential (primary) hypertension DS: Discharge Diagnosis Discharge Diagnosis (1) Acute on chronic respiratory failure with hypoxia and hypercapnia: Code(s): J96.21 - Acute and chronic respiratory failure with hypoxia; J96.22 - Acute and chronic respiratory failure with hypercapnia Status: Acute Assessment and Plan: Patient hypoxic on presentation at 85% and was placed on 3 L supplemental O2.? Patient reportedly uses 1-2 liters of O2 at home 1-2 times per week prior to admission.? CT of the abdomen/pelvis demonstrated bibasilar airspace disease which may represent atelectasis versus pneumonia which was also evident on CXR 04/28 patient noted to be extremely lethargic and ABG demonstrated respiratory acidosis with pH 7.2 markedly elevated pCO2 at 78.5, PaO2 63.6, bicarb elevated at 33 suggesting some chronic component to hypercapnia (06/21/2020 pCO2 52.8) Patient was started on BiPAP on 04/28.? Repeat ABG with normalized pH and improved pCO2 to 47.5 Transitioned to Airvo and titrating supplemental oxygen to SpO2 greater than 90% Encouraged biPAP for sleep and naps- patient will not wear Pulmonology consulted and appreciate recommendations Treated with incentive spirometry and Cornet valve Transthoracic echocardiogram without pulmonary hypertension noted.? No leukocytosis or sputum color changes to suggest pneumonia, no wheezing on exam to indicate need for systemic steroids. No overt s/s hypervolemia.? Appears at baseline now.? Apnea link overnight on 6L NC showed minimal desaturation.? (2) Gastritis: Code(s): K29.70 - Gastritis, unspecified, without bleeding Status: Acute Assessment and Plan: As above. Continued PPI. (3) GI bleed: Qualifiers: GI bleed type/associated pathology: unspecified gastrointestinal hemorrhage type Qualified Code(s): K92.2 - Gastrointestinal hemorrhage, unspecified Code(s): K92.2 - Gastrointestinal hemorrhage, unspecified Status: Acute Assessment and Plan: Patient presented with dark black stools ongoing for 2 days prior to admission. BUN elevated to 63 GI consulted and appreciate recommendations. Hold aspirin and meloxicam. Trend H/H. H/H has been stable for the past 48 hours. continue Protonix 40 mg IV daily 05/03/22 EGD- shows non-erosive reflux disease, single cratered, deep benign ulcer with clean base noted. Biopsy obtained for KORY testing and colonoscopy- shows 6 mm sessile polyp with cold forcep polypectomy performed, small internal hemorrhoids also noted. (4) Acute blood loss anemia: Code(s): D62 - Acute posthemorrhagic anemia Status: Acute Assessment and Plan: hemoglobin within normal limits on presentation at 13.1 with steady decline down to 8.7 secondary to GI bleeding as above transfuse as needed to maintain hemoglobin >7 or if patient becomes symptomatic Stable Hgb 9.6 on discharge. (5) MIKKI (obstructive sleep apnea): Code(s): G47.33 - Obstructive sleep apnea (adult) (pediatric) Status: Chronic Assessment and Plan: untreated sleep apnea patient continues to refuse CPAP or overnight BiPAP. She endorses not wearing due to nasal congestion initially. Started saline nasal spray. Later continued to report she could not tolerate any type of mask to utilize bipap Patient would like to pursue hypoglossal nerve stimulation, which is unavailable at our facility. Apnea monitor overnight on 6L NC with minimal desaturation <89% (6) COPD (chronic obstructive pulmonary disease): Qualifiers: COPD type: unspecified COPD Qualified Code(s): J44.9 - Chronic obstructive pulmonary disease, unspecified Code(s): J44.9 - Chronic obstructive pulmonary disease, unspecified
[2022-05-05] MEDS: MENTHOL 10% / METHYL SALICYLATE 15% 57 GM TUBE 1 APPLIC TOPICAL (09:07)
[2022-05-05] MEDS: lisinopriL 20 MG TABLET 40 MG PO (09:08)
[2022-05-05] MEDS: FLUTICASONE PROPIONATE 0.05% NA SPR 16 GM BTL (*BKC) 1 SPRAY NASAL (09:08)
[2022-05-05] MEDS: FUROSEMIDE 20 MG TABLET PO (09:08)
[2022-05-05] MEDS: PANTOPRAZOLE 40 MG TABLET PO (09:08)
[2022-05-05] MEDS: POTASSIUM CHLORIDE 20 MEQ TABLET.ER PO (09:08)
[2022-05-05] MEDS: LORATADINE 10 MG TABLET PO (09:08)
[2022-05-05] MEDS: TOLNAFTATE 1% POWDER 45 GM BTL 1 APPLIC TOPICAL (09:09)
[2022-05-05 09:16] VITALS: PULSE 72; O2SAT 94
== END 2022-05-05 14:48 | disposition home or self-care (01) | DRG 377 ==
LOC: ANHED 16:10 → ANH2MED 20:41 → ANHIMU 04-28 13:43 → ANH2MED 05-03 22:01
PROVIDERS: Emergency Medicine; Internal Medicine; Internal Medicine Gastroenterology; Nurse Practitioner; Physician Assistant; Admitting Provider Internal Medicine; Emergency Provider Emergency Medicine; PCP Family Medicine; Visit Provider Nurse Practitioner Family
PROC: 0DJ08ZZ Inspection of Upper Intestinal Tract, Via Natural or Artificial Opening Endoscopic (ICD-10-PCS; CPT 43235; principal; 2022-05-03 13:30)
DX: K92.1 Melena (principal); J96.21 Acute and chronic respiratory failure with hypoxia; J96.22 Acute and chronic respiratory failure with hypercapnia; D62 Acute posthemorrhagic anemia; D12.8 Benign neoplasm of rectum; K64.8 Other hemorrhoids; K25.9 Gastric ulcer, unspecified as acute or chronic, without hemorrhage or perforation; K57.30 Diverticulosis of large intestine without perforation or abscess without bleeding; K21.9 Gastro-esophageal reflux disease without esophagitis; E78.5 Hyperlipidemia, unspecified; G47.33 Obstructive sleep apnea (adult) (pediatric); I10 Essential (primary) hypertension; J43.2 Centrilobular emphysema; K43.9 Ventral hernia without obstruction or gangrene; M19.012 Primary osteoarthritis, left shoulder; M19.011 Primary osteoarthritis, right shoulder; Z28.21 Immunization not carried out because of patient refusal; Z99.81 Dependence on supplemental oxygen; Z96.643 Presence of artificial hip joint, bilateral; Z90.49 Acquired absence of other specified parts of digestive tract; Z99.89 Dependence on other enabling machines and devices; Z91.199 Patient's noncompliance with other medical treatment and regimen due to unspecified reason; Z79.82 Long term (current) use of aspirin; Z86.010 Personal history of colon polyps
CPT/HCPCS: 36415; 36569; 36600; 71045; 74177; 80048; 80053; 81001; 82375; 82805; 82948; 83050; 83605; 83735; 84132; 84443; 85014; 85018; 85025; 85027; 85610; 85730; 86850; 86900; 86901; 87081; 87086; 87088; 88305; 92610; 93306; 94002; 94003; 94640; 94762; 96361; 96374; 96375; 96376; 97110; 97161; 97165; 97530; 97535; 99285; A9270; C1751; C9113; G0378; J2405; J2704; J7030; J7120; Q9967

== ENCOUNTER 2022-06-27 01:02 | Day surgery (SDC) | payer MEDICARE, SELFPAY ==
[2022-06-14 12:43] VITALS: BMI 37.8
--- NOTE | 2022-06-26 13:26 | PM.HPGS ---
History of Present Illness History of Present Illness Consent: Risks, benefits, and alternatives have been discussed and questions answered. Patient agrees to proceed with procedure. Chief complaint: gastric ulcer Narrative: Sharona Clinton is a 76 year old female who is having follow-up EGD because of a large gastric ulcer found 2 months ago. She was hospitalized April with gastrointestinal blood loss anemia. A deep ulcer 35 mm in length was seen in the gastric antrum. Review of Systems Review of Systems: All systems reviewed & are unremarkable except as noted in HPI and below PMFSH Past Medical History Medical History Arthritis of shoulder region, left Arthritis of shoulder region, right Cervical arthritis Colon polyps Complication of surgery Constipation COPD (chronic obstructive pulmonary disease) Diarrhea Essential hypertension FH: bilateral hip replacements FH: cholecystectomy Heart murmur Hernia History of anesthesia problem History of claustrophobia History of dental problems Hospital discharge follow-up Neck pain MIKKI (obstructive sleep apnea) Does not use a CPAP Rotator cuff tear arthropathy of left shoulder SOB (shortness of breath) on exertion Umbilical hernia without obstruction and without gangrene Wears glasses Surgical History Surgical History H/O cosmetic surgery Abdominoplasty Mar 2020 H/O rectal polypectomy History of hernia surgery x2 Mar 2020 History of hip replacement Left Hip Mar 2001 Right Hip Nov 2005 History of lumpectomy Right breast 1993 Hx of cholecystectomy Nov 2017 Family History Family History Father Heart attack Cancer Sibling Diabetes mellitus Cancer Hypertension Sibling Brain cancer Cancer Mother Hypertension Diabetes mellitus Other Arthritis Social History Social History Social History: She lives alone and has no child. She is single. 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 Code status full code Smoking status: Never smoker Second hand tobacco smoke exposure: Yes Alcohol intake: never Substance use: never Substance use type: does not use Lack of Transportation: No Lack of Food: Never True Current Housing: I Have Housing Concerned About Future Housing: No Difficulty Paying Gas/Electric Bills: No Difficulty Paying for Meds: No Currently Unemployed: No Education: Bachelor's Degree Difficulty w/ Childcare or Family Care: No Living arrangements: alone Occupation/Education: retired Gender identity (if verbalized by the patient): Female Spiritual care concerns: No Agree to blood products: Yes Meds Home Medications and Allergies Home Medications Medication Instructions Recorded Confirmed Type acetaminophen 650 mg 650 mg PO Q8H PRN Pain 04/01/19 06/27/22 History tablet,extended release (Tylenol 8 Hour) aspirin 81 mg tablet,delayed 81 mg PO DAILY 04/01/19 06/27/22 History release pitavastatin calcium 2 mg tablet 2 mg PO QPM 06/30/20 06/27/22 History (Livalo) albuterol sulfate 90 mcg/actuation 2 puff inhalation Q4H PRN 09/14/21 06/27/22 Rx aerosol inhaler (Ventolin HFA) shortness of breath or wheezing #8.5 grams diphenhydramine HCl 25 mg capsule 25 mg PO QHS PRN Allergy Symptoms 09/18/21 06/27/22 History (Benadryl) furosemide 20 mg tablet 20 mg PO DAILY 04/27/22 06/27/22 History allopurinol 300 mg tablet 300 mg PO DAILY #90 tabs 06/01/22 06/27/22 Rx budesonide 160 mcg-glycopyr 9 2 inh inhalation BID #5.9 grams 06/06/22 06/27/22 Rx mcg-formot 4.8 mcg/actuation HFA inhaler (Breztri Aerosphere) lisinopril 40 mg tablet 20 mg PO DAILY 06/14/22 06/27/22 History Allergies Allergy/AdvReac Type Severity Reaction Status Date / Time ator
[2022-06-27 11:03] VITALS: BP 120/65; PULSE 87; RESP 18; TEMP 36.8; O2SAT 96
[2022-06-27] MEDS: LACTATED RINGERS 1,000 ML 150 ML IV CONT (11:05)
--- NOTE | 2022-06-27 11:35 | WPDANESEPPF ---
Anes - Initial Pre Proc Eval Procedure: Operation Date: 06/27/22 12:30 Proposed Procedures p Esophagogastroduodenoscopy - Franklyn Traylor MD Date/Time: 06/27/22 11:35 Surgeon: Franklyn Traylor MD Pre Op Diagnosis: gastric ulcer Patient Data Age: 76 Gender: F Height: 1.63 m Weight: 100.3 kg Last Vital Signs Temp 98.3 F 06/27/22 11:03 Pulse 87 06/27/22 11:03 Resp 18 06/27/22 11:03 BP 120/65 06/27/22 11:03 Pulse Ox 96 06/27/22 11:03 O2 Del Method Room Air 06/27/22 11:03 Allergies Allergy/AdvReac Type Severity Reaction Status Date / Time atorvastatin Allergy Unknown unknown Verified 06/27/22 11:02 niacin Allergy Unknown Unknown Verified 06/27/22 11:02 niacinamide Allergy Unknown unknown Verified 06/27/22 11:02 pravastatin AdvReac Severe Diarrhea Verified 06/27/22 11:02 Home Medications Medication Instructions Recorded Confirmed Type acetaminophen 650 mg 650 mg PO Q8H PRN Pain 04/01/19 06/27/22 History tablet,extended release (Tylenol 8 Hour) aspirin 81 mg tablet,delayed 81 mg PO DAILY 04/01/19 06/27/22 History release pitavastatin calcium 2 mg tablet 2 mg PO QPM 06/30/20 06/27/22 History (Livalo) albuterol sulfate 90 mcg/actuation 2 puff inhalation Q4H PRN 09/14/21 06/27/22 Rx aerosol inhaler (Ventolin HFA) shortness of breath or wheezing #8.5 grams diphenhydramine HCl 25 mg capsule 25 mg PO QHS PRN Allergy Symptoms 09/18/21 06/27/22 History (Benadryl) furosemide 20 mg tablet 20 mg PO DAILY 04/27/22 06/27/22 History allopurinol 300 mg tablet 300 mg PO DAILY #90 tabs 06/01/22 06/27/22 Rx budesonide 160 mcg-glycopyr 9 2 inh inhalation BID #5.9 grams 06/06/22 06/27/22 Rx mcg-formot 4.8 mcg/actuation HFA inhaler (Breztri Aerosphere) lisinopril 40 mg tablet 20 mg PO DAILY 06/14/22 06/27/22 History Patient hx anesthesia problems: none Family hx anesthesia problems: none Results Review: All pre-operative results and documents have been reviewed as part of the pre-operative evaluation. [facility] Past Medical History Medical History (Updated 06/26/22 @ 13:28 by Franklyn Traylor MD) Arthritis of shoulder region, left Arthritis of shoulder region, right Cervical arthritis Colon polyps Complication of surgery Constipation COPD (chronic obstructive pulmonary disease) Diarrhea Essential hypertension FH: bilateral hip replacements FH: cholecystectomy Heart murmur Hernia History of anesthesia problem History of claustrophobia History of dental problems Hospital discharge follow-up Neck pain MIKKI (obstructive sleep apnea) Does not use a CPAP Rotator cuff tear arthropathy of left shoulder SOB (shortness of breath) on exertion Umbilical hernia without obstruction and without gangrene Wears glasses Surgical History Surgical History H/O cosmetic surgery Abdominoplasty Mar 2020 H/O rectal polypectomy History of hernia surgery x2 Mar 2020 History of hip replacement Left Hip Mar 2001 Right Hip Nov 2005 History of lumpectomy Right breast 1993 Hx of cholecystectomy Nov 2017 Family History Family History Father Heart attack Cancer Sibling Diabetes mellitus Cancer Hypertension Sibling Brain cancer Cancer Mother Hypertension Diabetes mellitus Other Arthritis Social History Social History Social History: She lives alone and has no child. She is single. 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 Code status full code Smoking status: Never smoker Second hand tobacco smoke exposure: Yes Alcohol intake: never Substance use: never Substance use type: does not use Lack of Transportation: No Lack of Food: Never True Current Housing: I Have Housing Concerned About Future Housing: No Difficulty Paying Gas/Electric Bills: No Diffi
[2022-06-27] MEDS: BENZOCAINE (*SP) 60 ML SPRAY CAN (HURRICAINE) 1 SPRAY MUCOUS MEM (11:45)
[2022-06-27 11:52] VITALS: BP 106/53; PULSE 74; RESP 24; O2SAT 95
[2022-06-27 12:02] VITALS: BP 116/65; PULSE 76; RESP 22; O2SAT 94
[2022-06-27 12:12] VITALS: BP 122/60; PULSE 69; RESP 21; O2SAT 96
== END 2022-06-27 12:17 | disposition home or self-care (01) ==
PROVIDERS: PCP Family Medicine; Visit Provider Internal Medicine Gastroenterology
PROC: 0DJ08ZZ Inspection of Upper Intestinal Tract, Via Natural or Artificial Opening Endoscopic (ICD-10-PCS; CPT 43235; principal; 2022-06-27 12:30)
DX: K25.9 Gastric ulcer, unspecified as acute or chronic, without hemorrhage or perforation (principal); K29.70 Gastritis, unspecified, without bleeding; K21.9 Gastro-esophageal reflux disease without esophagitis; J44.9 Chronic obstructive pulmonary disease, unspecified; I10 Essential (primary) hypertension; G47.33 Obstructive sleep apnea (adult) (pediatric); E66.9 Obesity, unspecified; Z68.38 Body mass index [BMI] 38.0-38.9, adult; Z79.82 Long term (current) use of aspirin; Z79.51 Long term (current) use of inhaled steroids
CPT/HCPCS: 43235; J2704; J7120

== ENCOUNTER 2022-09-04 16:54 | Observation (INO) | payer MEDICARE, SELFPAY ==
[2022-09-04 17:03] VITALS: BP 151/70
[2022-09-04 17:06] VITALS: BP 139/63; PULSE 87; RESP 16; TEMP 36.8; O2SAT 94
[2022-09-04 17:24] LABS: Basophils Percent Auto 0.1 % (0.2-1.2); Eosinophils Absolute Auto 0.1 K/mm3 (0-0.3); Eosinophils Percent Auto 0.7 % (0-4.4); Hematocrit 44.6 % (37.0-47.0); Immature Granulocyte Absolute 0.02 K/mm3 (0.00-0.031); Immature Granulocyte Percent A 0.3 % (0-0.5); Lymphocytes Absolute Auto 1.22 K/mm3 (0.9-3.2); Lymphocytes Percent Auto 17.9 % (18.3-44.2); Mean Corpuscular HGB Conc 29.1 g/dl (32-36); Mean Corpuscular Hemoglobin 29.1 pg (26-34); Mean Platelet Volume 10.3 fl (7.4-10.4); Monocytes Absolute Auto 0.6 K/mm3 (0.1-0.6); Monocytes Percent Auto 9.1 % (2.6-8.5); Neutrophils Absolute Auto 4.9 K/mm3 (1.3-6.7); Neutrophils Percent Auto 71.9 % (45.5-73.1); Platelet Count Result 240 k/mm3 (150-375); Red Blood Count 4.46 M/mm3 (4.2-5.4); Red Cell Distribution Width 16.1 % (11.5-14.5); White Blood Count 6.8 K/mm3 (4.5-10.0)
[2022-09-04 17:35] LABS: Alanine Aminotransferase 14 U/L (6-35); Albumin Level 4.3 g/dL (3.5-5.1); Alkaline Phosphatase 44 U/L (38-126); Anion Gap 3 mmol/L (8-16); Aspartate Amino Transferase 25 U/L (14-36); Bilirubin,Total 0.7 mg/dL (0.2-1.3); Blood Urea Nitrogen 31 mg/dL (7-17); Calcium 9.1 mg/dL (8.4-10.2); Carbon Dioxide 37 mmol/L (22-30); Chloride 99 mmol/L (98-107); Estimated Glomerular Filt Rate 48; Glucose 92 mg/dL (65-110); Potassium 4.6 mmol/L (3.4-5.0); Sodium 139 mmol/L (137-145)
[2022-09-04 17:42] LABS: INR 0.9; Partial Thromboplastin Time 25.4 SECONDS (22.3-36.8); Prothrombin Time 12.4 Seconds (11.1-14.7)
[2022-09-04 17:58] LABS: Platelet Estimate Adequate (Adequate)
[2022-09-04 17:59] LABS: Anisocytosis 1+ (NORMAL); Hypochromasia 1+ (NORMAL); Schistocytes None Seen (NORMAL)
--- NOTE | 2022-09-04 19:31 | ED.GIBLEED ---
HPI - GI Bleed General Chief complaint: GI Bleed <Suri Aguirre PA-C - Last Filed: 09/05/22 04:12> Stated complaint: black tarry stools <Suri Aguirre PA-C - Last Filed: 09/05/22 04:12> Time Seen by Provider: 09/04/22 18:54 <Suri Aguirre PA-C - Last Filed: 09/05/22 04:12> History of Present Illness HPI Narrative: 76-year-old female with a history of gastric ulcer, GERD, COPD, MIKKI reports for evaluation for melena x1 week. Patient states she has been having approximately 2 episodes of dark tarry stools daily for the past week. States this morning when she was at lunch, she got up to go to the bathroom, had an episode of melena, and then began to feel lightheaded which caused her to come to the ED. She denies bright red blood per rectum. She does report epigastric abdominal pain. Her last meal was at lunch which was fried chicken and [place] fries. Patient was hospitalized in April for a large gastric ulcer found on EGD by Dr. Wu with gastrointestinal blood loss anemia. The deep ulcer was 35 mm in length and was seen in the gastric antrum. Patient was taking 40 mg of Protonix daily, but at the onset of symptoms started taking 40 mg twice daily of Protonix as advised by her PCP. She denies fever, vomiting, syncope, chest pain. She reports shortness of breath with exertion that is unchanged from her baseline. Her last EGD by Dr. Traylor on 06/27 showed a persistent ulcer. Per Dr. Traylor's notes, the patient was not compliant with her pantoprazole for a period of time. <Suri Aguirre PA-C - Last Filed: 09/05/22 04:12> Related Data Home medications: Home Medications Medication Instructions Recorded Confirmed acetaminophen 650 mg 650 mg PO Q8H PRN Pain 04/01/19 09/04/22 tablet,extended release (Tylenol 8 Hour) aspirin 81 mg tablet,delayed 81 mg PO DAILY 04/01/19 09/04/22 release pitavastatin calcium 2 mg tablet 2 mg PO QPM 06/30/20 09/05/22 (Livalo) diphenhydramine HCl 25 mg capsule 25 mg PO QHS PRN Allergy Symptoms 09/18/21 09/05/22 (Benadryl) furosemide 20 mg tablet 20 mg PO DAILY 04/27/22 09/04/22 lisinopril 40 mg tablet 20 mg PO DAILY 06/14/22 09/04/22 fluticasone propionate 50 2 spray intranasal Q12H 09/05/22 09/05/22 mcg/actuation nasal spray,suspension pantoprazole 40 mg tablet,delayed 40 mg PO DAILY 09/05/22 09/05/22 release <Suri Aguirre PA-C - Last Filed: 09/05/22 04:12> Allergies/Adverse reactions: Allergies Allergy/AdvReac Type Severity Reaction Status Date / Time atorvastatin Allergy Unknown unknown Verified 09/04/22 23:49 niacin Allergy Unknown Unknown Verified 09/04/22 23:49 niacinamide Allergy Unknown unknown Verified 09/04/22 23:49 pravastatin AdvReac Severe Diarrhea Verified 09/04/22 23:49 <Suri Aguirre PA-C - Last Filed: 09/05/22 04:12> Review of Systems Review of Systems: CONSTITUTIONAL: Denies fever, chills EYES: Denies visual changes, redness, or discharge. ENT: Denies rhinorrhea, congestion, sore throat, or otalgia. CARDIOVASCULAR: Denies chest pain, palpitations, or edema. RESPIRATORY: Denies cough or dyspnea. GASTROINTESTINAL: See HPI GENITOURINARY: Denies dysuria or hematuria. SKIN: Denies rash or itching. MUSCULOSKELETAL: Denies back pain, joint pain, or myalgia. NEUROLOGIC: Denies headache, numbness, dizziness, or weakness. PSYCHIATRIC: Denies anxiety or depression. <Suri Aguirre PA-C - Last Filed: 09/05/22 04:12> [facility] Past Medical History Medical History: Medical History Arthritis Arthritis of shoulder region, left Arthritis of shoulder region, right Cervical arthritis Colon polyps Complication of surgery Constipation COPD (chronic obstructive pulmonary disease) Diarrhea Essential hypertension FH: bilateral hip replacements FH: cholecystectomy GERD (gastroesophageal reflux disease) Heart murmur Hernia History of anesthesia
[2022-09-04 20:28] LABS: Lipase 62 U/L (23-300)
[2022-09-04 20:41] LABS: Appearance Urine Cloudy (Clear); Bacteria Urine None Seen /hpf; Bilirubin Urine Negative (Negative); Blood Urine Negative (Negative); Color Urine Yellow (Yellow); Glucose Urine UA Negative (Negative); Ketones Urine Trace mg/dL (Negative); Leukocyte Esterase Ur 2+ LEU/UL (Negative); Nitrate Urine Negative (Negative); Protein Urine Negative (Negative); RBC Urine 0-2 /hpf (0-2); Squamous Epithelial Cell Urine Occasional /hpf (Few); WBC Urine 21-50 /hpf
[2022-09-04 20:42] LABS: Add Urine Microscopic? YES
[2022-09-04] MEDS: SODIUM CHLORIDE 0.9% IV 1,000 ML 999 ML IV CONT (21:00)
[2022-09-04] MEDS: PANTOPRAZOLE SODIUM IV 40 MG VIAL IV PUSH (21:01)
[2022-09-04] MEDS: PANTOPRAZOLE SODIUM IV 80 MG in SODIUM CHLORIDE 0.9% IV 500 ML 50 MG IV CONT (21:01)
[2022-09-04 21:05] VITALS: BP 127/57; O2SAT 85
[2022-09-04 21:09] VITALS: BP 127/57; PULSE 76; RESP 18; O2SAT 94
[2022-09-04 22:17] VITALS: O2SAT 85
[2022-09-04 22:58] LABS: Hematocrit 40.8 % (37.0-47.0); Hemoglobin 11.9 g/dL (12.0-15.0)
--- NOTE | 2022-09-04 23:07 | PC.NURSE ---
This RN assumed care of patient.
--- NOTE | 2022-09-04 23:47 | PC.NURSE ---
Patient arrived on 3 Med-Surg at 23:45
[2022-09-05] VITALS (13 sets, daily range): BP systolic 110–156; BP diastolic 51–77; PULSE 72–86; RESP 14–30; TEMP 36.1–36.9; O2SAT 76–99
[2022-09-05] MEDS: SODIUM CHLORIDE 0.9% IV 1,000 ML 125 ML IV CONT ×2 (00:11→08:18)
[2022-09-05 06:27] LABS: Hematocrit 43.3 % (37.0-47.0); Hemoglobin 12.2 g/dL (12.0-15.0); Mean Corpuscular HGB Conc 28.2 g/dl (32-36); Mean Corpuscular Hemoglobin 28.7 pg (26-34); Mean Corpuscular Volume 101.9 fl (80-100); Mean Platelet Volume 10.3 fl (7.4-10.4); Platelet Count Result 212 k/mm3 (150-375); Red Blood Count 4.25 M/mm3 (4.2-5.4); Red Cell Distribution Width 16.4 % (11.5-14.5); White Blood Count 5.9 K/mm3 (4.5-10.0)
[2022-09-05 06:36] LABS: Anion Gap -1 mmol/L (8-16); Blood Urea Nitrogen 23 mg/dL (7-17); Carbon Dioxide 39 mmol/L (22-30); Chloride 103 mmol/L (98-107); Estimated Glomerular Filt Rate > 60; Glucose 89 mg/dL (65-110); Potassium 4.1 mmol/L (3.4-5.0); Sodium 141 mmol/L (137-145)
[2022-09-05] MEDS: PANTOPRAZOLE SODIUM IV 40 MG VIAL IV PUSH (08:19)
[2022-09-05] MEDS: LACTATED RINGERS 1,000 ML 150 ML IV CONT (09:49)
--- NOTE | 2022-09-05 10:28 | WPDANESEPPF ---
Anes - Initial Pre Proc Eval Procedure: Operation Date: 09/05/22 12:30 Proposed Procedures p Esophagogastroduodenoscopy - Kiel Li MD Date/Time: 09/05/22 10:28 Surgeon: Marley Amaya DO Pre Op Diagnosis: Melena Patient Data Age: 76 Gender: F Height: 1.63 m Weight: Last Vital Signs Temp 97.5 F L 09/05/22 09:48 Pulse 79 09/05/22 09:48 Resp 20 09/05/22 09:48 BP 146/58 H 09/05/22 09:48 Pulse Ox 92 09/05/22 09:48 O2 Del Method Room Air 09/05/22 09:48 Allergies Allergy/AdvReac Type Severity Reaction Status Date / Time atorvastatin Allergy Unknown unknown Verified 09/04/22 23:49 niacin Allergy Unknown Unknown Verified 09/04/22 23:49 niacinamide Allergy Unknown unknown Verified 09/04/22 23:49 pravastatin AdvReac Severe Diarrhea Verified 09/04/22 23:49 Home Medications Medication Instructions Recorded Confirmed Type acetaminophen 650 mg 650 mg PO Q8H PRN Pain 04/01/19 09/04/22 History tablet,extended release (Tylenol 8 Hour) aspirin 81 mg tablet,delayed 81 mg PO DAILY 04/01/19 09/04/22 History release pitavastatin calcium 2 mg tablet 2 mg PO QPM 06/30/20 09/05/22 History (Livalo) albuterol sulfate 90 mcg/actuation 2 puff inhalation Q4H PRN 09/14/21 09/04/22 Rx aerosol inhaler (Ventolin HFA) shortness of breath or wheezing #8.5 grams diphenhydramine HCl 25 mg capsule 25 mg PO QHS PRN Allergy Symptoms 09/18/21 09/05/22 History (Benadryl) furosemide 20 mg tablet 20 mg PO DAILY 04/27/22 09/04/22 History allopurinol 300 mg tablet 300 mg PO DAILY #90 tabs 06/01/22 09/04/22 Rx lisinopril 40 mg tablet 20 mg PO DAILY 06/14/22 09/04/22 History ferrous sulfate 325 mg (65 mg 325 mg PO DAILY #90 tabs 08/27/22 09/05/22 Rx iron) tablet fluticasone propionate 50 2 spray intranasal Q12H 09/05/22 09/05/22 History mcg/actuation nasal spray,suspension pantoprazole 40 mg tablet,delayed 40 mg PO DAILY 09/05/22 09/05/22 History release Laboratory Tests 09/04/22 09/04/22 09/04/22 17:06 17:07 20:29 WBC 6.8 K/mm3 (4.5-10.0) RBC 4.46 M/mm3 (4.2-5.4) Hgb 13.0 D g/dL (12.0-15.0) Hct 44.6 % (37.0-47.0) MCV 100.0 fl (80-100) MCH 29.1 pg (26-34) MCHC 29.1 L g/dl (32-36) RDW 16.1 H % (11.5-14.5) Plt Count 240 k/mm3 (150-375) MPV 10.3 fl (7.4-10.4) Immature Gran % (Auto) 0.3 % (0-0.5) Neut % (Auto) 71.9 % (45.5-73.1) Lymph % (Auto) 17.9 L % (18.3-44.2) Bond % (Auto) 9.1 H % (2.6-8.5) Eos % (Auto) 0.7 % (0-4.4) Baso % (Auto) 0.1 L % (0.2-1.2) Lymph # (Auto) 1.22 K/mm3 (0.9-3.2) Bond # (Auto) 0.6 K/mm3 (0.1-0.6) Eos # (Auto) 0.1 K/mm3 (0-0.3) Baso # (Auto) 0.0 K/mm3 (0.0-0.1) Abs Immat Gran (auto) 0.02 K/mm3 (0.00-0.031) Absolute Neuts (auto) 4.9 K/mm3 (1.3-6.7) Absolute Nucleated RBC 0.0 K/mm3 (0.0-0.012) Nucleated RBC % 0.0 % (0.0-0.2) Platelet Estimate Adequate (Adequate) Hypochromasia 1+ (NORMAL) Anisocytosis 1+ (NORMAL) Schistocytes None seen (NORMAL) PT 12.4 Seconds (11.1-14.7) INR 0.9 APTT 25.4 SECONDS (22.3-36.8) Sodium 139 mmol/L (137-145) Potassium 4.6 mmol/L (3.4-5.0) Chloride 99 mmol/L (98-107) Carbon Dioxide 37 H mmol/L (22-30) Anion Gap 3 L mmol/L (8-16) BUN 31 H D mg/dL (7-17) Creatinine 1.10 H mg/dL (0.7-1.0) Estim Creat Clear Calc Not Reportable Estimated GFR 48 L (59 - ) Glucose 92 mg/dL (65-110) Calcium 9.1 mg/dL (8.4-10.2) Total Bilirubin 0.7 mg/dL (0.2-1.3) AST 25 U/L (14-36) ALT 14 U/L (6-35)
--- NOTE | 2022-09-05 10:36 | WPDGICN ---
Assessment and Plan Assessment and plan (1) Melena: Code(s): K92.1 - Melena Status: Acute Assessment and Plan: she is not longer using meloxicam probably cause of persistent ulcer- will proceed with EGD now iv protonix for now probably will need to be back on twice daily and favor alf use if indeed we find ulcer again (2) Gastric ulcer: Code(s): K25.9 - Gastric ulcer, unspecified as acute or chronic, without hemorrhage or perforation Status: Acute Assessment and Plan: ppi more recommendations after egd (3) Essential hypertension: Code(s): I10 - Essential (primary) hypertension Status: Chronic (4) Arthritis: Code(s): M19.90 - Unspecified osteoarthritis, unspecified site Status: Acute (5) NSAID long-term use: Code(s): Z79.1 - intermediate accountant (current) use of non-steroidal anti-inflammatories (NSAID) Status: Acute Assessment and Plan: discontinued GI Consult Note Consult date/time: 09/05/22 10:36 Reason for consult: melena, known history of gastric ulcer HPI: Sharona Clinton is a 76 year old female who had melena 04/2022, EGD showed 3.5 ulcer in antrum, colonoscopy with small polyp (by Dr Traylor), repeat EGD 06/2022 with smaller ulcer. She was taking taking protonix but about 3 weeks ago reduced to once a day, also was still using meloxicam daily because arthritis but just few days ago discontinued. She is here with nausea and dark tarry stools for last week. Also using baby aspirin. Had mild epigastric discomfort but resolved. hgb 12, bun 31 Review of Systems Constitutional: Constitutional: Denies chills Eyes: Eyes: Denies blurry vision ENT: Reports Normal hearing present Cardiovascular: Cardiovascular: Denies chest pain Respiratory: Respiratory: Denies cough Gastrointestinal: Gastrointestinal: Reports abdominal pain, Reports melena and Reports nausea Genitourinary: Genitourinary: Denies hematuria Musculoskeletal: Musculoskeletal: Reports arthralgias Integumentary/Breasts: Skin/Breast: Denies rash Neurologic: Denies confusion Psychiatric: Psychiatric: Denies behavioral changes [facility] Past Medical History Medical History (Updated 09/05/22 @ 10:41 by Kiel Li MD) Arthritis Arthritis of shoulder region, left Arthritis of shoulder region, right Cervical arthritis Colon polyps Complication of surgery Constipation COPD (chronic obstructive pulmonary disease) Diarrhea Essential hypertension FH: bilateral hip replacements FH: cholecystectomy GERD (gastroesophageal reflux disease) Heart murmur Hernia History of anesthesia problem History of claustrophobia History of dental problems Hospital discharge follow-up Melena Neck pain NSAID long-term use MIKKI (obstructive sleep apnea) Does not use a CPAP Rotator cuff tear arthropathy of left shoulder SOB (shortness of breath) on exertion Umbilical hernia without obstruction and without gangrene Wears glasses Surgical History Surgical History H/O cosmetic surgery Abdominoplasty Mar 2020 H/O rectal polypectomy History of hernia surgery x2 Mar 2020 History of hip replacement Left Hip Mar 2001 Right Hip Nov 2005 History of lumpectomy Right breast 1993 Hx of cholecystectomy Nov 2017 Family History Family History (Updated 09/05/22 @ 00:25 by Arnold Galarza RN) Father Heart attack Cancer Sibling Diabetes mellitus Cancer Hypertension Arthritis Sibling Brain cancer Cancer Mother Hypertension Arthritis Social History Social History Social History: She lives alone and has no child. She is single. 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 Code status full code Smoking status: Never smoker Second hand tobacco smoke exposure: Yes Alcohol intake: former Drinks per week: 2 Substance
[2022-09-05] MEDS: BENZOCAINE (*SP) 60 ML SPRAY CAN (HURRICAINE) 1 SPRAY MUCOUS MEM (10:48)
[2022-09-05 11:48] LABS: Hematocrit 40.8 % (37.0-47.0); Hemoglobin 11.6 g/dL (12.0-15.0)
--- NOTE | 2022-09-05 12:42 | PM.IMHP ---
H&P: HPI History of Present Illness Date/Time: 09/05/22 12:42 Chief Complaint: 76-year-old female with a history of gastric ulcer, GERD, COPD, MIKKI reports for evaluation for melena x1 week.? Patient states she has been having approximately 2 episodes of dark tarry stools daily for the past week.? States this morning when she was at lunch, she got up to go to the bathroom, had an episode of melena, and then began to feel lightheaded which caused her to come to the ED.? She denies bright red blood per rectum.? She does report epigastric abdominal pain.? Her last meal was at lunch which was fried chicken and Estonian fries.? Patient was hospitalized in April for a large gastric ulcer found on EGD by Dr. Wu with gastrointestinal blood loss anemia.? The deep ulcer was 35 mm in length and was seen in the gastric antrum.? Patient was taking 40 mg of Protonix daily, but at the onset of symptoms started taking 40 mg twice daily of Protonix as advised by her PCP.? She denies fever, vomiting, syncope, chest pain.? She reports shortness of breath with exertion that is unchanged from her baseline. Her last EGD by Dr. Traylor on 06/27 showed a persistent ulcer. Per Dr. Traylor's notes, the patient was not compliant with her pantoprazole for a period of time. [facility] Past Medical History Medical History Arthritis Arthritis of shoulder region, left Arthritis of shoulder region, right Cervical arthritis Colon polyps Complication of surgery Constipation COPD (chronic obstructive pulmonary disease) Diarrhea Essential hypertension FH: bilateral hip replacements FH: cholecystectomy GERD (gastroesophageal reflux disease) Heart murmur Hernia History of anesthesia problem History of claustrophobia History of dental problems Hospital discharge follow-up Melena Neck pain NSAID long-term use MIKKI (obstructive sleep apnea) Does not use a CPAP Rotator cuff tear arthropathy of left shoulder SOB (shortness of breath) on exertion Umbilical hernia without obstruction and without gangrene Wears glasses Surgical History Surgical History H/O cosmetic surgery Abdominoplasty Mar 2020 H/O rectal polypectomy History of hernia surgery x2 Mar 2020 History of hip replacement Left Hip Mar 2001 Right Hip Nov 2005 History of lumpectomy Right breast 1993 Hx of cholecystectomy Nov 2017 Family History Family History Father Heart attack Cancer Sibling Diabetes mellitus Cancer Hypertension Arthritis Sibling Brain cancer Cancer Mother Hypertension Arthritis Social History Social History Social History: She lives alone and has no child. She is single. 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 Code status full code Smoking status: Never smoker Second hand tobacco smoke exposure: Yes Alcohol intake: former Drinks per week: 2 Substance use: never Substance use type: does not use Lack of Transportation: No Lack of Food: Never True Current Housing: I Have Housing Concerned About Future Housing: No Difficulty Paying Gas/Electric Bills: No Difficulty Paying for Meds: No Currently Unemployed: No Education: Bachelor's Degree Difficulty w/ Childcare or Family Care: No Living arrangements: alone Occupation/Education: retired Gender identity (if verbalized by the patient): Female Spiritual care concerns: No Agree to blood products: Yes Meds Home Medications and Allergies Home Medications Medication Instructions Recorded Confirmed Type acetaminophen 650 mg 650 mg PO Q8H PRN Pain 04/01/19 09/04/22 History tablet,extended release (Tylenol 8 Hour) aspirin 81 mg tablet,delayed 81 mg PO DAILY 04/01/19 09/04/22 History release pitavastatin calcium 2 mg tablet 2 m
--- NOTE | 2022-09-05 14:55 | PCCCNOTE ---
On 09/05/22, the student, [Татьяна Levine], provided care and completed [facility] documentation on this patient. I have reviewed the student's documentation and agree with the findings.
[2022-09-05] MEDS: FLUTICASONE PROPIONATE 0.05% NA SPR 16 GM BTL (*BKC) 2 SPRAY NASAL (22:31)
[2022-09-05] MEDS: diphenhydrAMINE HCl CAP 25 MG CAPSULE PO (22:32)
[2022-09-05] MEDS: PANTOPRAZOLE 40 MG TABLET PO (22:32)
[2022-09-05] MEDS: ACETAMINOPHEN 325 MG TABLET 650 MG PO (22:33)
[2022-09-06 05:58] VITALS: BP 226/138
[2022-09-06 06:00] VITALS: BP 174/80; PULSE 78; RESP 18; TEMP 36.9; O2SAT 88
[2022-09-06] MEDS: hydrALAZINE HCL 20 MG/ML VIAL 10 MG IV PUSH (06:01)
[2022-09-06 06:47] VITALS: BP 172/80
--- NOTE | 2022-09-06 07:31 | WPDANESPN ---
Anes - Prog Note Post-Op Date/Time: 09/06/22 07:31 Cardiovascular status: normal Respiratory status: normal Airway patency: baseline Mental status: baseline Post-Op hydration status: normal Vital Signs: Last Vital Signs Temp 36.9 C 09/06/22 06:00 Pulse 78 09/06/22 06:00 Resp 18 09/06/22 06:00 BP 172/80 H 09/06/22 06:47 Pulse Ox 88 L 09/06/22 06:00 O2 Del Method Room Air 09/05/22 20:00 O2 Flow Rate 2 09/05/22 11:31 Pain Score (VAS): 0/10 I/O: Intake & Output 09/05/22 09/05/22 09/06/22 15:59 23:59 07:59 Intake Total 1770 358 240 Output Total 800 500 200 Balance 970 -142 40 Laboratory Tests 09/05/22 11:43 09/05/22 05:53 09/05/22 11:43 Hgb 11.6 L Hct 40.8 Microbiology 09/04/22 20:29 Urine Clean Catch Urine Culture - Final Post-procedural complaints: none Patient Feedback: Patient satisfied with anesthetic care.
[2022-09-06 08:31] VITALS: PULSE 73; O2SAT 92
[2022-09-06] MEDS: FUROSEMIDE 20 MG TABLET PO (09:35)
[2022-09-06] MEDS: lisinopriL 20 MG TABLET PO (09:35)
[2022-09-06] MEDS: FERROUS SULFATE 324 MG TABLET PO (09:35)
[2022-09-06] MEDS: FLUTICASONE PROPIONATE 0.05% NA SPR 16 GM BTL (*BKC) 2 SPRAY NASAL (09:35)
[2022-09-06] MEDS: allopurinoL 300 MG TABLET PO (09:35)
[2022-09-06] MEDS: diphenhydrAMINE HCl CAP 25 MG CAPSULE PO (09:38)
[2022-09-06 10:52] VITALS: BP 147/50; PULSE 76; RESP 18; TEMP 37; O2SAT 94
[2022-09-06] MEDS: PANTOPRAZOLE 40 MG TABLET PO (11:59)
[2022-09-06 13:43] VITALS: BP 133/83; PULSE 76; RESP 17; TEMP 36.7; O2SAT 90
--- NOTE | 2022-09-06 13:51 | PM.DS ---
DS: Admitting Diagnosis Discharge Date 09/06/22 Admitting Diagnosis melena DS: Discharge Diagnosis Discharge Diagnosis (1) Arthritis: Code(s): M19.90 - Unspecified osteoarthritis, unspecified site Status: Acute (2) Melena: Code(s): K92.1 - Melena Status: Acute Assessment and Plan: appreciate gi input await results of gi procedure monitor hgb (3) GERD (gastroesophageal reflux disease): Code(s): K21.9 - Gastro-esophageal reflux disease without esophagitis Status: Acute (4) Gastric ulcer: Code(s): K25.9 - Gastric ulcer, unspecified as acute or chronic, without hemorrhage or perforation Status: Acute DS: Summary Hospital Course Hospital Course: admitted for melena w hx of gastric ulcer EGD performed gastric eroasion noted w healing ulcer - this was likely source bleeding has stopped ppi on dc ok to dc home Time Spent with Patient Time attestation: Total time spent providing and/or coordinating discharge services: Exam Narrative: General: alert and oriented Psych: appropriate mood nad affect Eyes: PERRLA Neck: Trachea midline, no new lesions Skin: no changes Lungs: CTA Cardiac: Normal S1,S2, no MGR ABD: soft, nd, nt, nbs Ext: no new lesions, no cce Vasc: Pulses intact DS: Data Data Completed and Pending Pending studies at discharge: Pending at discharge 09/05/22 10:58 Surgical [PTH] Routine Discharge Plan Discharge Attending physician on discharge: Joe Ricardo Consulting providers: Suri Aguirre; Kiel Li Discharging Clinician: Joe Ricardo Patient Disposition: Home, Self-Care Activity: as tolerated Diet: as tolerated Patient Instructions: Antibiotic Form, Pantoprazole (By mouth), Gastrointestinal Bleeding (DC) Stand Alone Forms: General Discharge Information Follow-up/Referrals: Kevin Butts MD [Primary Care Provider] - Kiel Li MD [Physician] - Discharge Medications: Continued aspirin 81 mg tablet,delayed release (DR/EC) 81 mg PO DAILY acetaminophen [Tylenol 8 Hour] 650 mg tablet extended release 650 mg PO Q8H PRN (Reason: Pain) Livalo 2 mg tablet 2 mg PO QPM ferrous sulfate 325 mg (65 mg iron) tablet 325 mg PO DAILY Qty: 90 1RF diphenhydramine HCl [Benadryl] 25 mg capsule 25 mg PO QHS PRN (Reason: Allergy Symptoms) Patient Comments: on provided med list albuterol sulfate [Ventolin HFA] 90 mcg/actuation HFA aerosol inhaler 2 puff inhalation Q4H PRN (Reason: shortness of breath or wheezing) Qty: 8.5 3RF furosemide 20 mg tablet 20 mg PO DAILY Rx Instructions: TAKE 1 TABLET BY MOUTH DAILY pantoprazole 40 mg tablet,delayed release (DR/EC) 40 mg PO DAILY fluticasone propionate 50 mcg/actuation spray,suspension 2 spray INTRANASAL Q12H Rx Instructions: 1 spray in each nostril q12h lisinopril 40 mg tablet 20 mg PO DAILY allopurinol 300 mg tablet 300 mg PO DAILY Qty: 90 1RF Rx Instructions: TAKE 1 TABLET BY MOUTH DAILY Date of admission: 09/04/22 22:29 Primary Care Provider: Kevin Butts Admitting Provider: Marley Amaya Attending physician on admission: Marley Amaya Condition: Stable
== END 2022-09-06 14:50 | disposition home or self-care (01) ==
LOC: ANHED 22:28 → ANH3MEDSUR 09-05 07:04
PROVIDERS: Emergency Medicine; Internal Medicine; Internal Medicine Gastroenterology; Admitting Provider Chiropractor; Emergency Provider Physician Assistant; PCP Family Medicine; Visit Provider Chiropractor
PROC: 0DJ08ZZ Inspection of Upper Intestinal Tract, Via Natural or Artificial Opening Endoscopic (ICD-10-PCS; CPT 43235; principal; 2022-09-05 12:30)
DX: K29.70 Gastritis, unspecified, without bleeding (principal); I10 Essential (primary) hypertension; M19.90 Unspecified osteoarthritis, unspecified site; J44.9 Chronic obstructive pulmonary disease, unspecified; R19.5 Other fecal abnormalities; R19.7 Diarrhea, unspecified; K21.9 Gastro-esophageal reflux disease without esophagitis; G47.33 Obstructive sleep apnea (adult) (pediatric); E66.01 Morbid (severe) obesity due to excess calories; Z68.39 Body mass index [BMI] 39.0-39.9, adult; Z99.89 Dependence on other enabling machines and devices; Z87.11 Personal history of peptic ulcer disease; Z79.1 Long term (current) use of non-steroidal anti-inflammatories (NSAID); Z79.82 Long term (current) use of aspirin; Z79.51 Long term (current) use of inhaled steroids; Z79.899 Other long term (current) drug therapy; Z82.49 Family history of ischemic heart disease and other diseases of the circulatory system
CPT/HCPCS: 43239; 36415; 80048; 80053; 81001; 83690; 85014; 85018; 85025; 85027; 85610; 85730; 86850; 86900; 86901; 87086; 87088; 88305; 96361; 96365; 96376; 99285; A9270; C9113; G0378; J0360; J7030; J7040; J7120

== ENCOUNTER 2023-02-02 18:13 | Emergency (ER) | payer MEDICARE, SELFPAY ==
--- NOTE | ~2023-02-02 | XR_ITS ---
EXAMINATION: XR knee RT min 4V DATE: 02/02/2023 22:06 INDICATION: Right knee pain and swelling TECHNIQUE: Four views of the right knee were obtained. COMPARISON: 10/17/2003 FINDINGS: Alignment is normal. There is no fracture. There is moderate tricompartmental osteoarthriti s of the knee. There is a small knee joint effusion. Soft tissues are unremarkable. IMPRESSION: 1. Tricompartmental osteoarthritis without acute osseous abnormality. Reviewed, dictated and finalized at location F. [employer]
[2023-02-02 18:17] VITALS: BP 116/68; PULSE 90; RESP 20; TEMP 36.4; O2SAT 93
[2023-02-02 21:26] VITALS: BP 115/63; PULSE 78; RESP 18; O2SAT 93
--- NOTE | 2023-02-02 21:38 | ED.LOWEXIN ---
HPI - Extremity Injury (Lower) General Chief Complaint: Extremity Injury, Lower Stated Complaint: right leg pain Time Seen by Provider: 02/02/23 21:31 History of Present Illness HPI Narrative: 77-year-old female with a history of lumbar radiculopathy reports for evaluation for right lower extremity pain insert this morning. Patient states she has pain that goes from the outside her thigh and wraps around into her knee and extends into her ankle. States at times it feels like an electric shock. She also states at times, the pain is in her inner thigh, however currently, most of her pain is concentrated to her right knee. She does report knee edema that she noticed today. She denies recent injury or trauma, fever, nausea vomiting, diarrhea, abdominal pain, chest pain or shortness of breath, saddle anesthesia, bowel or bladder incontinence or bladder retention, dysuria or hematuria. She denies recent procedures or surgeries on her back, use of steroids or immunosuppressants, history of cancer. She does note that she had an MRI of her back done a few years ago which showed ?a deteriorated back?. CT of the lumbar spine on file from 11/18/2019 has an impression of moderate to severe lumbar disc disease. There is multilevel neural foraminal stenosis, left L5-S1 level probably most urine exam followed by right L2-3 and L3-4. Related Data Home Medications Medication Instructions Recorded Confirmed acetaminophen 650 mg 650 mg PO Q8H PRN Pain 04/01/19 09/04/22 tablet,extended release (Tylenol 8 Hour) aspirin 81 mg tablet,delayed 81 mg PO DAILY 04/01/19 09/04/22 release pitavastatin calcium 2 mg tablet 2 mg PO QPM 06/30/20 09/05/22 (Livalo) diphenhydramine HCl 25 mg capsule 25 mg PO QHS PRN Allergy Symptoms 09/18/21 09/05/22 (Benadryl) fluticasone propionate 50 2 spray intranasal Q12H 09/05/22 09/05/22 mcg/actuation nasal spray,suspension Allergies Allergy/AdvReac Type Severity Reaction Status Date / Time atorvastatin Allergy Unknown unknown Verified 10/29/22 14:08 niacin Allergy Unknown Unknown Verified 10/29/22 14:08 niacinamide Allergy Unknown unknown Verified 10/29/22 14:08 pravastatin AdvReac Severe Diarrhea Verified 10/29/22 14:08 Review of Systems Review of Systems: CONSTITUTIONAL: Denies fever, chills, or sweats. EYES: Denies visual changes, redness, or discharge. ENT: Denies rhinorrhea, congestion, sore throat, or otalgia. CARDIOVASCULAR: Denies chest pain, palpitations, or edema. RESPIRATORY: Denies cough or dyspnea. GASTROINTESTINAL: Denies abdominal pain, nausea, vomiting, or diarrhea. GENITOURINARY: Denies dysuria or hematuria. SKIN: Denies rash or itching. MUSCULOSKELETAL: See HPI NEUROLOGIC: Denies headache, numbness, or weakness. PSYCHIATRIC: Denies anxiety or depression. [facility] Past Medical History Medical History Arthritis Arthritis of shoulder region, left Arthritis of shoulder region, right Cervical arthritis Colon polyps Complication of surgery Constipation COPD (chronic obstructive pulmonary disease) Diarrhea Essential hypertension FH: bilateral hip replacements FH: cholecystectomy GERD (gastroesophageal reflux disease) Heart murmur Hernia History of anesthesia problem History of claustrophobia History of dental problems Hospital discharge follow-up Melena Neck pain NSAID long-term use MIKKI (obstructive sleep apnea) Does not use a CPAP Rotator cuff tear arthropathy of left shoulder SOB (shortness of breath) on exertion Umbilical hernia without obstruction and without gangrene Wears glasses Surgical History Surgical History H/O cosmetic surgery Abdominoplasty Mar 2020 H/O rectal polypectomy History of hernia surgery x2 Mar 2020 History of hip replacement Left Hip Mar 2001 Right Hip Nov 2005 History of lumpectomy Right breast 1993 Hx of cholecyste
[2023-02-02] MEDS: ACETAMINOPHEN 325 MG TABLET 650 MG PO (22:41)
[2023-02-02] MEDS: LIDOCAINE 5% PATCH 1 PATCH TRANSDERM (22:41)
[2023-02-02] MEDS: CYCLOBENZAPRINE HCL 10 MG TABLET 5 MG PO (22:41)
[2023-02-03 01:32] VITALS: BP 121/67; PULSE 74; RESP 16; O2SAT 94
== END 2023-02-03 01:00 | disposition home or self-care (01) ==
PROVIDERS: Emergency Provider Physician Assistant; PCP Family Medicine
DX: M54.16 Radiculopathy, lumbar region (principal); M25.561 Pain in right knee; J44.9 Chronic obstructive pulmonary disease, unspecified; I10 Essential (primary) hypertension; G47.33 Obstructive sleep apnea (adult) (pediatric); K21.9 Gastro-esophageal reflux disease without esophagitis; M19.012 Primary osteoarthritis, left shoulder; M19.011 Primary osteoarthritis, right shoulder; Z96.643 Presence of artificial hip joint, bilateral; Z87.19 Personal history of other diseases of the digestive system; Z90.49 Acquired absence of other specified parts of digestive tract; Z77.22 Contact with and (suspected) exposure to environmental tobacco smoke (acute) (chronic); Z79.82 Long term (current) use of aspirin
CPT/HCPCS: 73564; 96372; 99283; A9270; J1100

== ENCOUNTER 2023-06-17 17:32 | Emergency (ER) | payer MEDICARE, SELFPAY ==
--- NOTE | ~2023-06-17 | CT_ITS ---
EXAMINATION: CT chest abdomen pelvis w con DATE: 06/17/2023 20:49 INDICATION: TRAUMA, POSSIBLE SPLENIC INJURY, LEFT RIB FRACTUR . TECHNIQUE: Computed tomography (CT) of the chest, abdomen, and pelvis was performed with 100 mL Omnip aque-350 intravenous contrast. Automated exposure control and iterative reconstruction technique were employed. The dose-length product was 1427.16 mGy-cm. COMPARISON: CT abdomen pelvis, 04/27/2022 FINDINGS: CHEST: No thoracic aortic injury. No mediastinal hematoma. Dilated central pulmonary arteries as can be seen with pulmonary arterial hy pertension. No pericardial effusion. Aortic valve, mitral and coronary artery calcifications. No acute lung injury. Bilateral lower lung scarring. No pleural effusion or pneumothorax. ABDOMEN/PELVIS: No solid organ injury. 1.8 cm splenic hemangioma, unchanged. Additional subcentimeter splenic hypoden sities likely represent cysts or hemangiomas. Bilateral adrenal nodules, unchanged, likely adenomas. Bilateral parapelvic cysts. No evidence of bowel or mesenteric injury. Status post cholecystectomy. No free fluid or free air. No retroperitoneal hematoma. Pelvic contents are atraumatic. MUSCULOSKELETAL: Mild angular deformity of the anterior left seventh and eighth ribs. Incompletely visualized, uncompl icated appearing bilateral hip arthroplasty hardware. No fracture or traumatic malalignment of the thoracic or lumbar spine. IMPRESSION: Mild angular deformity of the anterior left seventh and eighth ribs. Otherwise, no acute process detected in the chest, abdomen, or pelvis. Reviewed, dictated and finalized at location K.
--- NOTE | ~2023-06-17 | XR_ITS ---
EXAM: XR shoulder LT min 2V DATE: 06/17/2023 18:01 HISTORY: glf . COMPARISON: None available. FINDINGS: Decreased mineralization. No fracture or dislocation. No lytic or blastic lesion. Mild AC joint and severe glenohumeral joint osteoarthritis. No erosion or periosteal change. Soft tissues wit hin normal limits. IMPRESSION: No acute osseous finding in the left shoulder. Reviewed, dictated and finalized at location K.
--- NOTE | ~2023-06-17 | XR_ITS ---
EXAM: XR ribs LT 2V DATE: 06/17/2023 18:01 HISTORY: glf, BEST OBTAINABLE, PT KEPT MOVING DURING EXAM . COMPARISON: None available. FINDINGS: Decreased mineralization. No fracture or dislocation. No lytic or blastic lesion. Degenera tive changes in the left shoulder and spine. No erosion or periosteal change. Soft tissues within nor mal limits. IMPRESSION: No acute osseous finding in the left ribs. Reviewed, dictated and finalized at location K.
[2023-06-17 17:33] VITALS: BP 163/82; PULSE 84; RESP 19; TEMP 37; O2SAT 91
[2023-06-17 19:43] VITALS: BP 148/87; PULSE 78; RESP 17; O2SAT 94
[2023-06-17] MEDS: SODIUM CHLORIDE 0.9% IV 1,000 ML 999 ML IV CONT (20:26)
[2023-06-17] MEDS: ONDANSETRON INJ 4 MG/2 ML VIAL IV PUSH (20:26)
[2023-06-17] MEDS: HYDROmorphone HCL INJ (*CRX) 1 MG/ML SYR 0.5 MG IV PUSH (20:26)
[2023-06-17 20:34] LABS: Basophils Percent Auto 0.1 % (0.2-1.2); Eosinophils Absolute Auto 0.1 K/mm3 (0-0.3); Eosinophils Percent Auto 0.7 % (0-4.4); Hemoglobin 13.8 g/dL (12.0-15.0); Immature Granulocyte Absolute 0.02 K/mm3 (0.00-0.031); Immature Granulocyte Percent A 0.2 % (0-0.5); Lymphocytes Absolute Auto 1.16 K/mm3 (0.9-3.2); Lymphocytes Percent Auto 14.4 % (18.3-44.2); Mean Corpuscular Hemoglobin 30.9 pg (26-34); Mean Corpuscular Volume 102.9 fl (80-100); Mean Platelet Volume 10.3 fl (7.4-10.4); Monocytes Absolute Auto 0.7 K/mm3 (0.1-0.6); Monocytes Percent Auto 8.3 % (2.6-8.5); Neutrophils Absolute Auto 6.1 K/mm3 (1.3-6.7); Neutrophils Percent Auto 76.3 % (45.5-73.1); Platelet Count Result 167 k/mm3 (150-375); Red Blood Count 4.47 M/mm3 (4.2-5.4); Red Cell Distribution Width 13.3 % (11.5-14.5)
[2023-06-17 20:38] LABS: Estimated CRCL calculation 52 ml/min; Estimated Glomerular Filt Rate 60
[2023-06-17 20:44] LABS: Anion Gap -1 mmol/L (4-12); Blood Urea Nitrogen 24 mg/dL (7-17); Calcium 9.9 mg/dL (8.4-10.2); Carbon Dioxide 38 mmol/L (22-30); Chloride 103 mmol/L (98-107); Estimated CRCL calculation 58 ml/min; Estimated Glomerular Filt Rate > 60; Glucose 102 mg/dL (65-110); Potassium 4.2 mmol/L (3.4-5.0); Sodium 140 mmol/L (137-145)
[2023-06-17 20:48] VITALS: BP 142/64; PULSE 84; RESP 19; O2SAT 91
--- NOTE | 2023-06-17 21:53 | ED.FALL ---
HPI - Fall General Chief Complaint: Fall Stated Complaint: glf, L shoulder pain Time Seen by Provider: 06/17/23 18:28 History of Present Illness HPI Narrative: 77 YEARS OLD WHITE FEMALE CAME TO THE ED BY AMBULANCE AFTER TRIPPING IN HER FLOWER BED AND LANDED ON THE LEFT SIDE OF HER BODY AGAINST ROCKS. COMPLAINING OF SEVERE PAIN AT THE LEFT LOWER RIBS, WORSE WITH BREATHING AND CERTAIN MOVEMENT. AGE SHE DENIES OTHER INJURIES. Related Data Home Medications Medication Instructions Recorded Confirmed acetaminophen 650 mg 650 mg PO Q8H PRN Pain 04/01/19 09/04/22 tablet,extended release (Tylenol 8 Hour) aspirin 81 mg tablet,delayed 81 mg PO DAILY 04/01/19 09/04/22 release pitavastatin calcium 2 mg tablet 2 mg PO QPM 06/30/20 09/05/22 (Livalo) diphenhydramine HCl 25 mg capsule 25 mg PO QHS PRN Allergy Symptoms 09/18/21 09/05/22 (Benadryl) fluticasone propionate 50 2 spray intranasal Q12H 09/05/22 09/05/22 mcg/actuation nasal spray,suspension Allergies Allergy/AdvReac Type Severity Reaction Status Date / Time atorvastatin Allergy Unknown unknown Verified 06/17/23 17:39 niacin Allergy Unknown Unknown Verified 06/17/23 17:39 niacinamide Allergy Unknown unknown Verified 06/17/23 17:39 pravastatin AdvReac Severe Diarrhea Verified 06/17/23 17:39 Review of Systems Review of Systems: All systems reviewed & are unremarkable except as noted in HPI and below PMFSH Past Medical History Medical History Annual physical exam Arthritis Arthritis of shoulder region, left Arthritis of shoulder region, right Cervical arthritis Colon polyps Complication of surgery Constipation COPD (chronic obstructive pulmonary disease) Diarrhea Essential hypertension FH: bilateral hip replacements FH: cholecystectomy GERD (gastroesophageal reflux disease) Heart murmur Hernia History of anesthesia problem History of claustrophobia History of dental problems Hospital discharge follow-up Melena Neck pain NSAID long-term use MIKKI (obstructive sleep apnea) Does not use a CPAP Rotator cuff tear arthropathy of left shoulder SOB (shortness of breath) on exertion Umbilical hernia without obstruction and without gangrene Wears glasses Surgical History Surgical History H/O cosmetic surgery Abdominoplasty Mar 2020 H/O rectal polypectomy History of hernia surgery x2 Mar 2020 History of hip replacement Left Hip Mar 2001 Right Hip Nov 2005 History of lumpectomy Right breast 1993 Hx of cholecystectomy Nov 2017 Family History Family History Father Heart attack Cancer Sibling Diabetes mellitus Cancer Hypertension Arthritis Sibling Brain cancer Cancer Mother Hypertension Arthritis Social History Social History Social History: She lives alone and has no child. She is single. 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 Code status full code Smoking status: Never smoker Second hand tobacco smoke exposure: Yes Alcohol intake: former Drinks per week: 2 Substance use: never Substance use type: does not use Lack of Transportation: No Lack of Food: Never True Current Housing: I Have Housing Concerned About Future Housing: No Difficulty Paying Gas/Electric Bills: No Difficulty Paying for Meds: No Currently Unemployed: No Education: Bachelor's Degree Difficulty w/ Childcare or Family Care: No Living arrangements: alone Occupation/Education: retired Gender identity (if verbalized by the patient): Female Spiritual care concerns: No Agree to blood products: Yes Exam Narrative: GENERAL APPEARANCE: WELL-DEVELOPED, WELL-NOURISHED SKIN: NORMAL COLOR HEAD: NORMOCEPHALIC, NONTRAUMATIC EYES: CLEAR CONJUNCTIVA ENT: OROPHARYNX NORMAL, EARS NORMAL, NO
[2023-06-17 22:03] VITALS: BP 141/88; PULSE 87; RESP 17; O2SAT 93
== END 2023-06-17 22:09 | disposition home or self-care (01) ==
PROVIDERS: Emergency Provider Emergency Medicine; PCP Family Medicine
DX: S20.212A Contusion of left front wall of thorax, initial encounter (principal); I10 Essential (primary) hypertension; J44.9 Chronic obstructive pulmonary disease, unspecified; G47.33 Obstructive sleep apnea (adult) (pediatric); M19.012 Primary osteoarthritis, left shoulder; M19.011 Primary osteoarthritis, right shoulder; M47.812 Spondylosis without myelopathy or radiculopathy, cervical region; K21.9 Gastro-esophageal reflux disease without esophagitis; Z96.643 Presence of artificial hip joint, bilateral; Z87.19 Personal history of other diseases of the digestive system; Z86.010 Personal history of colon polyps; Z90.49 Acquired absence of other specified parts of digestive tract; Z79.82 Long term (current) use of aspirin; W01.0XXA Fall on same level from slipping, tripping and stumbling without subsequent striking against object, initial encounter
CPT/HCPCS: 36415; 71100; 71260; 73030; 74177; 80048; 85025; 96361; 96374; 96375; 99284; J1170; J2405; J7030; Q9967

== ENCOUNTER 2023-09-21 11:36 | Outpatient (CLI) | payer MEDICARE, SELFPAY ==
--- NOTE | ~2023-09-21 | MM_ITS ---
EXAMINATION: MM screening sera BI w ravin HISTORY: Screening TECHNIQUE: Craniocaudal and mediolateral oblique 3-D tomosynthesis images were obtained and synthetic 2-D images were generated. CAD analysis was submitted and interpreted. COMPARISON: Comparison to multiple prior studies sequentially, with oldest reviewed study dated 10/06. BREAST PARENCHYMAL COMPOSITION: Not dense: There are scattered areas of fibroglandular density. FINDINGS: There is a mass in the lower inner quadrant of the left breast anteriorly. The right breast is stable without evidence for malignancy. IMPRESSION: 1. New left breast mass, lower inner quadrant anteriorly. 2. Additional mammographic views and possible breast ultrasound are recommended. BI-RADS Category 0: Incomplete: Needs additional imaging evaluation. Reviewed, dictated and finalized at location B. IMPRESSION: 1. New left breast mass, lower inner quadrant anteriorly. 2. Additional mammographic views and possible breast ultrasound are recommended . BI-RADS Category 0: Incomplete: Needs additional imaging evaluation.
== END 2023-09-21 11:37 | disposition home or self-care (01) ==
LOC: ANHIMG 11:37
PROVIDERS: PCP Nurse Practitioner Family; Visit Provider Family Medicine
DX: Z12.31 Encounter for screening mammogram for malignant neoplasm of breast (principal); R92.8 Other abnormal and inconclusive findings on diagnostic imaging of breast
CPT/HCPCS: 77063; 77067

== ENCOUNTER 2023-10-16 12:39 | Outpatient (CLI) | payer MEDICARE, SELFPAY ==
--- NOTE | ~2023-10-16 | MMUS_ITS ---
EXAMINATION: MM diagnostic sera LT w ravin, US breast LT limited HISTORY: Follow-up left breast mass TECHNIQUE: Additional 3-D tomosynthesis images of the left breast were performed and synthetic 2-D im ages were generated. CAD analysis was submitted and interpreted. High resolution Limited left breast ultrasound was performed. COMPARISON: Comparison to multiple prior studies sequentially, with oldest reviewed study dated 01/10. BREAST PARENCHYMAL COMPOSITION: Not Dense: The breasts are almost entirely fatty. FINDINGS: MAMMOGRAPHIC FINDINGS: There is a small mass in the lower inner quadrant of the left breast anteriorly. There are benign lef t breast calcifications. There are no suspicious areas of architectural distortion. ULTRASOUND: Limited left breast ultrasound: At 6:00, 2 cm from the nipple, there is a 4 mm cyst corresponding to the mammographic finding. No suspicious sonographic abnormalities to suggest malignancy. IMPRESSION: 1. No evidence for malignancy in the left breast. Benign finding. 2. Routine yearly screening mammogram and regular clinical breast examination are recommended. BI-RADS Category 2: Benign finding(s). Reviewed, dictated and finalized at location B. IMPRESSION: 1. No evidence for malignancy in the left breast. Benign finding. 2. Routine yearly screening mammogram and regular clinical breast examination a re recommended. BI-RADS Category 2: Benign finding(s).
== END 2023-10-16 12:40 | disposition home or self-care (01) ==
LOC: ANHIMG 12:41
PROVIDERS: PCP Nurse Practitioner Family; Visit Provider Nurse Practitioner Family
DX: R92.8 Other abnormal and inconclusive findings on diagnostic imaging of breast (principal)
CPT/HCPCS: 76642; 77061; 77065; G0279

== ENCOUNTER 2024-07-27 11:13 | Emergency (ER) | payer MEDICARE, SELFPAY ==
--- NOTE | ~2024-07-27 | CT_ITS ---
EXAMINATION: CT femur RT wo con DATE: 07/27/2024 14:44 INDICATION: Proximal right femoral pain post fall TECHNIQUE: High resolution computed tomography (CT) of the right femur was performed without intraven ous contrast. Additional sagittal and coronal reconstructions were performed. Automated exposure cont rol and iterative reconstruction technique were employed. The dose-length product was 955.52 mGy-cm. COMPARISON: Radiographs dated 07/27/2024 FINDINGS: Bilateral total hip arthroplasties, partially visualized on the left, which appear well seated in jeannie r-anatomic alignment. No fractures identified. Tricompartmental osteoarthritis at the right knee with at least moderate joint space narrowing in the medial lateral compartments which could be underestim ated on nonweightbearing imaging. Small Parker's cyst. No hematomas or other abnormal fluid collection s identified. Bladder, uterus, bilateral adnexa and visualized bowels in the pelvis are unremarkable. No pathologically enlarged right pelvic or inguinal lymphadenopathy. IMPRESSION: 1. Expected appearance during right total hip arthroplasty with no acute osseous abnormality is visua lized pelvis or right lower limb. 2. At least moderate severity tricompartmental osteoarthritis at the right knee with small joint effu belle. Reviewed, dictated and finalized at location A. IMPRESSION: 1. Expected appearance during right total hip arthroplasty with no acute osseou s abnormality is visualized pelvis or right lower limb. 2. At least moderate severity tricompartmental osteoarthritis at the right knee with small joint effusion.
--- NOTE | ~2024-07-27 | XR_ITS ---
EXAMINATION: XR hip RT 2V w AP pelvis DATE: 07/27/2024 13:21 INDICATION: Right hip pain post fall TECHNIQUE: Anteroposterior view of the pelvis and anteroposterior and frog-leg lateral views of the r ight hip were obtained. COMPARISON: None. FINDINGS: Bilateral noncemented total hip arthroplasties which appear well seated in near-anatomic alignment. N o periprosthetic lucency to suggest loosening or infection. No fracture. Severe lumbar spondylosis wi th moderate bilateral sacroiliac osteoarthritis. IMPRESSION: 1. Bilateral total hip arthroplasties. No acute osseous abnormality. Reviewed, dictated and finalized at location A.
--- OUTSIDE RECORDS SUMMARY | 2024-07-27 11:50 | XMS_ITS | Clinical Summary ---
Author Organization [facility] Address [address] [place] [address] Care Team Providers Care It Program Auditor Name Role Phone Kevin Butts MD Primary Care Provider [phone] Source Comments [facility],non-owned Affiliates and Associated Physician Practices is amultiple site organization consisting of ambulatory clinics and hospital sitesin [place], [place], [place] and [place]. This disclosure is being madepursuant to the Care Everywhere program and may not contain all information available regarding this patient. Last updated 17.[facility] Allergies Active Allergy Reactions Criticality Noted Date Comments Hmg-Coa-R Inhibitors 11/28/2009 Niacin 11/28/2009 Medications * Be aware that medications may not be up to date on this document. Alwaysverify current medications with the patient. diclofenac sodium (VOLTAREN) 75 MG tablet Take 1 Tab by mouth 2 times daily. 60 Tab 4 11/28/2009 Active ASA Buff, Mag Carb-Al Glyc, 325 MG TABS Active QUINAPRIL HCL PO Act miracle hydrochlorothiaz jeimy (HYDRODIURIL) 25 MG tablet Active ALLOPURINOL PO Activ e Meloxicam (MOBIC PO) Active Ezetimibe (ZETIA PO) Active DOCUSATE SODIUM PO Active Propoxyphene N-APAP (DARVOCET-N 100 PO) Active Glucosamine-Laureano droitin-MSM (GLUCOSAMINE-CHO NDROITIN DS PO) Acti ve Calcium 1500 MG TABS Active VITAMIN D PO Active Elvaston-3 Fatty Acids (OMEGA 3 PO) Active Active Problems Problem Noted Date Diagnosed Date Degeneration of lumbar or lumbosacral interverte bral disc 11/28/2009 Social History Tobacco Use Types Packs/Day Years Used Date Smoking Tobacco: Never Alcohol Use Standard Drinks/Week Comments No 0 (1 standard drink = 0.6 oz pur e alcohol) Comments Unknown Sex and Gender Information Value Date Recorded Sex Assigned at Not on file Legal Sex Female 9:17 AM PIPING DESIGNER Gender Identity Not on file Sexual Orientation Not on file Last Filed Vital Signs Vital Sign Reading Time Taken Comments Blood Pressure - - Pulse - - Temperature - - Respiratory Rate - - Oxygen Saturation - - Inhaled Oxygen Concentration - - Weight 116.1 kg (256 lb) 11/28/2009 4:39 PM CDT Height 165.1 cm (5' 5 ) 11/28/2009 4:39 PM CDT Body Mass Index 42.6 11/28/2009 4:39 PM CDT Plan of Treatment Health Maintenance Due Date Last Done Comments BONE DENSITY TESTING 1943 DTAP/TDAP/TD VACCINES (1 - Tdap) 11/24/1962 PNEUMOCOCCAL VACCINE 50+ (1 of 1 - PCV) 11/24/1993 ZOSTER VACCINE (1 of 2) 11/24/1993 Respiratory Syncytial Virus (RSV) Vaccine Pt: or over 60 yrs (1 - 1-dose 75+ series) 11/24/2018 COVID-19 VACCINE (1 - 2023-2 5 season) 2023 DEPRESSION SCREENING 03/11/2024 MEDICARE AWV CALENDAR YEAR 2024 INFLUENZA VACCINE (Season Ended) 2024 HEPATITIS B VACCINE Aged Out No longe r eligible based on patient's age to complete this topic HIB VACCINE Aged Out No longer eligi ble based on patient's age to complete this topic HPV VACCINE Aged Out No longer eligi ble based on patient's age to complete this topic MENINGOCOCCAL (Group B) VACC INE SHARED DECISION-MAKING Aged Out No longer eligibl e based on patient's age to complete this topic MENINGOCOCCAL GROUPS A/C/Y/W VACCINE Aged Out No longer eligible b ased on patient's age to complete this topic Insurance [employer] MANAGED MEDICARE ADV [facility] MANAGED MEDICARE ADV MANAGED MEDICARE ADV [facility] MANAGED MEDICARE ADV [facility] MANAGED MEDICARE ADV [employer] MEDICARE ADV Care Teams It Program Auditor Relationship Specialty Start Date End Date Kevin Butts MD [address] [place] [id number] PCP - General 05/18/22
--- OUTSIDE RECORDS SUMMARY | 2024-07-27 14:15 | XMS_ITS | Encounter Summary ---
Author Organization [facility] Address [facility] [place] [address] Care Team Providers Care Gameplay Programmer Name Role Phone Laura Kapoor DO Primary Care Provider [phone] Mike Blake MD Unavailable [phone] Bushra Poole DO Primary Care Provider [phone] Kevin Butts MD Primary Care Provider [phone] Racheal Burnham [facility] Primary Care Provider + Encounter Details Date Type Department Care Team (Late st Contact Info) Description 07/26/2017 Results Notification [facility] [address] [place] [address] Mike Blake MD [facility]. [facility] [address] [place] [address] Social History Tobacco Use Types Packs/Day Years Used Date Smoking Tobacco: Never Smokeless Tobacco: Never Alcohol Use Standard Drinks/Week Comments Yes 0 (1 standard drink = 0.6 oz pur e alcohol) rare Comments Unknown Sex and Gender Information Value Date Recorded Sex Assigned at Female 04/16/2024 11:17 AM YARD MANAGER Legal Sex Female 5:53 PM CDT Gender Identity Not on file Sexual Orientation Not on file documented as of this encounter Plan of Treatment Upcoming Encounters Date Type Department Care Team (Late Contact Info) Description 07/31/2024 12:15 PM CDT [facility] [address] [place] [address] Naty Painting PA [address], [address] [place] [address] documented as of this encounter Visit Diagnoses Not on filedocumented in this encounter Additional Health Concerns Infection Onset Date Last Indicated Resolved Time COVID-19 Rule Out 04/04/2020 04/04/2020 04/05/2020 11:42 PM YARD MANAGER documented as of this encounter Care Teams Gameplay Programmer Relationship Specialty Start Date End Date Laura Kapoor DO [address] [place] [address] [place] [address] PCP - General FAMILY PRACTICE 07/09/17 10/16/18 Bushra Poole DO [facility]. [facility] [address] [place] [address] PCP - General FAMILY PRACTICE 11/09/18 11/08/21 Kevin Butts MD [address] [place] [address] PCP - General FAMILY PRACTICE 11/09/21 12/29/23 Racheal Burnham, [facility]- [address] [place] [address] PCP - General Nurse Practitioner Family 12/30/23 Mike Blake MD [facility]. [facility] [address] [place] [address] [place] Geographic Information System Analyst CARDIOVASCULAR DISEASE 07/15/17 documented as of this encounter
--- OUTSIDE RECORDS SUMMARY | 2024-07-27 14:15 | XMS_ITS | Clinical Summary ---
Author Organization [facility] Address [address] [place] [address] Care Team Providers Care Auto Leasing Manager Name Role Phone Kevin Butts MD Primary Care Provider [phone] Source Comments [facility],non-owned Affiliates and Associated Physician Practices is amultiple site organization consisting of ambulatory clinics and hospital sitesin [place], [place], [place] and [place]. This disclosure is being madepursuant to the Care Everywhere program and may not contain all information available regarding this patient. 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
--- OUTSIDE RECORDS SUMMARY | 2024-07-27 14:15 | XMS_ITS | Clinical Summary ---
Author Organization [facility] Address [address] [place] [address] Care Team Providers Care Bench Molder Name Role Phone Mike Blake MD Unavailable [phone] Racheal Burnham [facility] Primary Care Provider + Allergies Active Allergy Reactions Criticality Noted Date Comments Niacin Other (see comment) 07/19/2017 flushing Pravastatin GI Upset Medium 06/01/2020 Statins Myalgias 07/19/2017 Medications ALLOPURINOL 300 MG tabletIndicatio ns:Gout TAKE 1 TABLET BY MOUTH EVERY DAY 30 tablet 09/25/2018 Active acetaminophen CR 650 MG Tab CR 8 hr tabletIndicatio ns:Pain Take 1 tablet (650 mg total) by mouth 2 (two) times a day. Indications: Pain 11/14/2018 Active aspirin EC 81 MG tabletIndicatio ns:Blood thinner Take 1 tablet (81 mg total) by mouth daily. Indications: Blood thinner 11/14/2018 Active diphenhydrAMINE 25 MG capsule Take 1 capsule (25 mg total) by mouth nightly as needed for Sleep. Active albuterol sulfate HFA 108 (90 Base) MCG/ACT inhaler Inhale 2 puffs into the lungs every 4 (four) hours as needed for Wheezing. 1 Inhaler 04/12/2020 Active ANORO ELLIPTA 62.5-25 MCG/INH inhaler Inhale 1 puff into the lungs daily. 10/04/2021 Active potassium chloride CR (K-TAB) 20 MEQ tablet TAKE 1 TABLET BY MOUTH DAILY AT 8 AM 05/05/2022 Active lisinopril (PRINIVIL) 40 MG tablet Take 1 tablet (40 mg total) by mouth daily. 03/07/2022 Active furosemide (LASIX) 20 MG tabletIndicatio ns:Peripheral edema,Generaliz ed edema Take 1 tablet (20 mg total) by mouth every other day. 12/07/2022 Active rosuvastatin (CRESTOR) 5 MG tablet Take 1 tablet (5 mg total) by mouth nightly at bedtime. 90 tablet 3 12/20/2023 Active Active Problems Problem Noted Date Diagnosed Date Coronary artery calcification 2020 Assessment & Plan (06/29/2023 12:56 PM CDT): She is not having angina. Continue medical management of coronary artery calcification with aspirin, Livalo. Assessment & Plan (03/31/2023 6:58 AM TERMINAL MANAGER): She is not having angina. Continue medical management of coronary artery calcification with aspirin, Livalo. Assessment & Plan (12/01/2021 12:50 PM CDT): She is not having angina. Continue medical management of coronary artery calcification with aspirin, Livalo. Assessment & Plan (05/26/2021 8:23 AM CDT): Continue with livalo and pravastatin Assessment & Plan (2020 11:43 AM CDT): We discussed her shortness of breath. Does not appear to be changing and I do not think that it is related to angina. We discussed repeat stress testing since her last ischemic evaluation was in 2017. We will continue to watch her symptoms at this time. She is not having any chest pain.We will repeat her lipids. Continue atorvastatin. Nonrheumatic aortic valve stenosis 2020 Assessment & Plan (12/20/2023 1:08 PM CDT): Echo was consistent with mild aortic valve stenosis. Can repeat echo in 2 to 3 years. Assessment & Plan (06/29/2023 12:56 PM CDT): She has mild aortic valve stenosis based on her echo from June 2021. Will repeat echo, no change in symptoms. Assessment & Plan (03/31/2023 7:00 AM TERMINAL MANAGER): She has mild aortic valve stenosis based on her echo from June 2021. She can repeat an echo in 1 to 2 years and will continue to monitor for symptoms. Assessment & Plan (12/01/2021 1:01 PM CDT): She has mild aortic valve stenosis based on her echo from June 2021. She can repeat an echo in 1 to 2 years and will continue to monitor for symptoms. Assessment & Plan (05/26/2021 12:24 PM CDT): Last echo 03/2020 - Repeat echo for eval Continue to monitor symptoms euvolemic Assessment & Plan (2020 11:45 AM CDT): She had an echocardiogram earlier in the year that showed mild aortic valve stenosis. We can repeat an echocardiogram in 1 to 2 years. S/P repair of ventral hernia 04/08/2020 Localized, primary osteoarthritis of shoulder re gion 04/07/2020 Class 2 severe obesity due t o excess calories with serious comorbidity and body mass index (BMI) of 37.0 to 37.9 in adult 11/04/2017 Assessment & Plan (12/20/2023 1:09 PM CDT): She is obese with a Body mass index is 37.76 kg/m . She was educated on lifestyle modifications including diet and exercise. Assessment & Plan (06/29/2023 12:59 PM CDT): She is obese with a Body mass index is 38.45 kg/m . She was educated on lifestyle modifications including diet and exercise. Assessment & Plan (03/31/2023 7:00 AM TERMINAL MANAGER): I encouraged lifestyle modifications including diet and exercise. Assessment & Plan (2020 11:44 AM CDT): I encouraged lifestyle modifications including diet and exercise. Centrilobular emphysema ([facility]/HCC [facility]) 2017 Assessment & Plan (12/01/2021 1:01 PM CDT): Given her COPD, I encouraged her to use home oxygen. Breathing-related sleep disorder 09/10/2017 Overview (01/14/2018): Date Onset: 09/10/2017 Cyst of spleen 09/10/2017 Overview (01/14/2018): Date Onset: 09/10/2017 Date Onset: 09/10/2017 History of GI bleed 09/10/2017 Overview (01/14/2018): Note: After colonoscopy with polypectomy Date Onset: 09/10/2017 Aortic valve calcification 07/09/2017 Overview (01/14/2018): Date Onset: 07/09/2017 [place] (dyspnea on exertion) 07/09/2017 Overview (01/14/2018): Date Onset: 07/09/2017 Ejection murmur 07/09/2017 Overview (01/14/2018): Date Onset: 07/09/2017 Family history of CHF (congestive heart failure) 07/09/2017 Overview (01/14/2018): Date Onset: 07/09/2017 Hyperplastic polyps of stomach 07/09/2017 Overview (01/14/2018): Date Onset: 07/09/2017 Peripheral edema 07/09/2017 Overview (01/14/2018): Date Onset: 07/09/2017 Tubular adenoma of colon 07/09/2017 Overview (01/14/2018): Date Onset: 07/09/2017 Increased abdominal girth 12/14/2016 Overview (01/14/2018): Date Onset: 12/14/2016 Urinary incontinence 12/14/2016 Overview (01/14/2018): Date Onset: 12/14/2016 Low back pain 04/27/2014 Overview (01/14/2018): Date Onset: 04/27/2014 Osteoarthrosis 04/27/2014 Overview (01/14/2018): Date Onset: 04/27/2014 Pure hypertriglyceridemia 04/27/2014 Overview (01/14/2018): Date Onset: 01/08/2017 Date Onset: 04/27/2014 Overactive bladder 06/09/2013 Overview (01/14/2018): Date Onset: 06/09/2013 Tinnitus 06/09/2013 Overview (01/14/2018): Date Onset: 06/09/2013 Other specified abnormal findings of blood chemi stry 08/12/2012 Overview (01/14/2018): Note: Positive RA Factor Date Onset: 03/11/2005 Postinflammatory pulmonary fibrosis ([facility] /HCC) 08/12/2012 Overview (01/14/2018): Date Onset: 03/11/2005 Solitary pulmonary nodule 12/10/2011 Diffuse cystic mastopathy 11/09/2011 Overview (01/14/2018): Date Onset: 1992 Edema 11/09/2011 Overview (01/14/2018): Date Onset: 11/09/2011 Family history of diabetes mellitus 11/09/2011 Overview (01/14/2018): Date Onset: 11/09/2011 Hyperuricemia 11/09/2011 Overview (01/14/2018): Date Onset: 10/14 Menopausal syndrome 11/09/2011 Overview (01/14/2018): Note: Post menopousal. Date Onset: 1993 Vitamin D deficiency 11/09/2011 Overview (01/14/2018): Date Onset: 11/09/2011 Hypertension, essential 11/09/2011 Overview (01/14/2018): Date Onset: 12/14/2016 Assessment & Plan (12/20/2023 1:09 PM CDT): Her blood pressure is well-controlled in the office today. Encouraged home blood pressure monitoring. Continue lisinopril and furosemide. Assessment & Plan (06/29/2023 12:58 PM CDT): Her blood pressure is elevated in the office. Encouraged home BP monitoring. Continue lisinopril and furosemide. Assessment & Plan (05/26/2021 12:22 PM CDT): Blood pressure is well controlled with no changes in regimen at this time Encouraged to continue to monitor at home and log and call office with any concerns in future. Assessment & Plan (2020 11:44 AM CDT): Her blood pressure is well controlled. Continue quinapril and furosemide. Degeneration of lumbar or lumbosacral interverte bral disc 11/28/2009 Essential hypertension Assessment & Plan (03/31/2023 7:01 AM TERMINAL MANAGER): She checks her blood pressure at home and typically her systolic blood pressure is between 120-130 mmHg. Encouraged home blood pressure monitoring. Continue quinapril. Assessment & Plan (12/01/2021 12:56 PM CDT): She checks her blood pressure at home and typically her systolic blood pressure is between 120-130 mmHg. Encouraged home blood pressure monitoring. Continue quinapril. Mixed hyperlipidemia Assessment & Plan (12/20/2023 1:08 PM CDT): Her lipids are controlled. Will trial rosuvastatin 5 mg instead of Potaba statin 2 mg daily. Assessment & Plan (06/29/2023 12:57 PM CDT): Her lipids are well controlled. Check lipid panel. Continue pitavastatin. Assessment & Plan (03/31/2023 7:01 AM TERMINAL MANAGER): Her lipids are well controlled. She has a statin intolerance. Assessment & Plan (12/01/2021 1:01 PM CDT): Her lipids are well controlled. She has a statin intolerance. Assessment & Plan (05/26/2021 12:24 PM CDT): STATIN INTOLERANT - due to myalgias - On livalo and tolerating well Ref Range & Units 11/30/20 1158 CHOLESTEROL <200.0 MG/DL 161 TRIGLYCERIDE <150 MG/DL 149 HDL >40.0 MG/DL 59 LDL (CALCULATED) <100 MG/DL 72 NON HDL CHOLESTEROL <130 MG/DL 102 Assessment & Plan (2020 11:43 AM CDT): We will repeat her lipids. Continue potassium statin. 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 Overview (01/14/2018): Date Onset: 09/10/2017 BMI 40.0-44.9, adult 09/10/2017 018 Overview (01/14/2018): Date Onset: 09/10/2017 Encounter for preventive health examination 09/10/2017 11/20/2019 Statin intolerance 07/19/2017 0 Family history of diabetes mellitus 12/14/2016 01/14/2018 Overview (01/14/2018): Date Onset: 12/14/2016 Hypercalcemia 05/26/2013 01/14/2018 Overview (01/14/2018): Date Onset: 05/26/2013 Otitis media 03/17/2013 01/14/2018 Overview (01/14/2018): Date Onset: 03/17/2013 Family history of other condition 08/12/2012 01/14/2018 Overview (01/14/2018): Date Onset: 08/12/2012 History of colonic polyps 08/12/2012 Overview (01/14/2018): Date Onset: 08/12/2012 Morbid obesity 12/10/2011 01/14/2018 Hyperlipidemia 03/29/2011 01/14/2018 Immunizations Immunization Administration Dates Next Due Fluzone High Dose - >Age 65 (Prefilled Syringe) 10/27/2019,01/14/2018,01/27/2016,2014 Influenza (Generic) 12/14/2016, 6,01/26/2015,2012,03/09/2012 Pneumococcal (Generic) 04/27/2014 Pneumococcal (Pneumovax 23) 02/08/2009 Shingrix 12/26/2019,10/27/2019 Tdap (Generic) 01/09/2005 Zoster (Zostavax) 39960 Unt/0.65Ml 02/08/2009 Family History Medical History Relation Comments Heart Attack Father Family history of diabetes Other Relation Status Comments Brother 1 (Age 71) Brother 2 (Age 71) Father (Age 59) Maternal Grandfather Maternal Grandmother Mother (Age 84) Other Paternal Grandfather Paternal Grandmother Sister (Age 84) Social History Tobacco Use Types Packs/Day Years Used Date Smoking Tobacco: Never Smokeless Tobacco: Never Tobacco Cessation:Counseling Given: No Alcohol Use Standard Drinks/Week Comments Yes 0 (1 standard drink = 0.6 oz pur e alcohol) rare Comments No Sex and Gender Information Value Date Recorded Sex Assigned at Female 04/16/2024 11:17 AM TERMINAL MANAGER Legal Sex Female 5:53 PM CDT Gender Identity Not on file Sexual Orientation Not on file Occupation Industry Job Start Date Job End Date Not on file Not on file Not on file Not on file Last Filed Vital Signs Vital Sign Reading Time Taken Comments Blood Pressure 130/70 12/20/2023 12:24 PM CDT Pulse 73 12/20/2023 12:24 PM CDT Temperature 36 C (96.8 F) 08/25/2021 3:01 PM CDT Respiratory Rate 16 08/25/2021 3:01 PM CDT Oxygen Saturation 93% 06/01/2022 9:59 AM CDT Inhaled Oxygen Concentration - - Weight 99.8 kg (220 lb) 12/20/2023 12:24 PM CDT Height 162.6 cm (5' 4 ) 12/20/2023 12:24 PM CDT Body Mass Index 37.76 12/20/2023 12:24 PM CDT Plan of Treatment Upcoming Encounters Date Type Department Care Team (Late st Contact Info) Description 07/31/2024 12:15 PM CDT [facility] [address] [place] [phone] Naty Painting PA [address] [facility], [address] [place] [address] Health Maintenance Due Date Last Done Comments Annual Medicare Wellness Visit 11/24/2008 Dexa Scan (General) 11/24/2008 Pneumococcal Vaccine: 50+ Years (2 of 2 - PCV) 02/08/2010 02/08/2009 DTaP, Tdap and Td Vaccines ( 2 - Td or Tdap) 01/09/2015 01/09/2005 RSV Immunization or 60+ Years (1 - 1-dose 75+ series) 11/24/2018 COVID-19 Vaccine (2023-2 5 season) 2023 Zoster Vaccines Completed 12/26/2019, 10/27/2019, 02/08/2009 Meningococcal B Vaccine Aged Out No l onger eligible based on patient's age to complete this topic Meningococcal Vaccine Aged Out No lalit rohith eligible based on patient's age to complete this topic RSV Immunizations Under 20 Months Aged Out No longer eligible b ased on patient's age to complete this topic Goals Goal Patient Goal Type Associated Problems Recent Progress Patient-Stated? Author Health - patient able to perform ADLs independently General No Terrie Javier, OPERATIONS RESEARCH DIRECTORproperty coordinator Devices Implanted Type Area Academic Associate Device Identifier Shelf Expiration Date Model / Serial / Lot Mesh Ventralex Large [id number] - [id number] Implanted:Qty: 1 on 04/07/2020 by Marcelo Reese MD at [facility] Mesh N/A: Abdomen [employer] 08/05/2020 [id number] / / [id number] Description:Ventral Hernia Mesh Ventralex Large [id number] - [id number] Implanted:Qty: 1 on 04/07/2020 by Marcelo Reese MD at [facility] Mesh N/A: Abdomen [employer] 10/05/2020 [id number] / / [id number] Description:Incisional herni a Insurance [facility] Advance Directives Documents on File Type Date Recorded Patient Marketing Producer Expl anation Advance Directives and Living Will 09/26/2015 12:00 AM ADVANCED DIRECTIVES * Full Code (Latest Code Status on File) Date Activated Date Inactivated Comments 05/09/2020 8:38 PM * Full Code Date Activated Date Inactivated Comments 04/07/2020 6:22 PM 04/12/2020 9:54 PM Care Teams Bench Molder Relationship Specialty Start Date End Date Racheal Burnham, [facility] [place] [address] PCP - General Nurse Practitioner Family 12/30/23 Mike Blake MD [facility] [address] [place] [address] [place] Rotary Swaging Machine Operator CARDIOVASCULAR DISEASE 07/15/17
--- OUTSIDE RECORDS SUMMARY | 2024-07-27 14:15 | XMS_ITS | Encounter Summary ---
Author Organization [facility] Address [facility] [place] [address] Care Team Providers Care Gas Stove Servicer Helper Name Role Phone Mike Blake MD Unavailable [phone] Bushra Poole DO Primary Care Provider [phone] Kevin Butts MD Primary Care Provider [phone] Racheal Burnham [facility] Primary Care Provider + Encounter Details Date Type Department Care Team (Late Contact Info) Description 12/10/2019 Abstract [facility] at [address] [address] Anabel Arnold MA Social History Tobacco Use Types Packs/Day Years Used Date Smoking Tobacco: Never Smokeless Tobacco: Never Alcohol Use Standard Drinks/Week Comments Yes 0 (1 standard drink = 0.6 oz pur e alcohol) rare Comments No Sex and Gender Information Value Date Recorded Sex Assigned at Female 04/16/2024 11:17 AM PLATEN BUILDER UP Legal Sex Female 5:53 PM CDT Gender Identity Not on file Sexual Orientation Not on file Occupation Industry Job Start Date Job End Date Not on file Not on file Not on file Not on file COVID-19 Exposure Response Date Recorded In the last month, have you been in contact with someone who was confirmed or suspected to have Coronavirus / COVID-19? Unable to assess 11/20/2019 12:03 PM CDT documented as of this encounter Plan of Treatment Upcoming Encounters Date Type Department Care Team (Late st Contact Info) Description 07/31/2024 12:15 PM CDT Office Visit [facility] [address] [place] [id number] Naty Painting PA 3 [facility], [address] [place] [address] documented as of this encounter Procedures Procedure Name Priority Date/Time Associated Diagnosis Comments HEMOGLOBIN, GLYCOSYLATED Routine 10/28/2023 COMPREHENSIVE METABOLIC PANEL Routine 10/28/2023 LIPID PANEL Routine 10/28/2023 LIPID PANEL Routine 10/28/2023 CBC, MANUAL DIFF Routine 10/28/2023 THYROID STIM HORMONE TSH Routine 10/28/2023 VITAMIN D, 25 OH Routine 10/28/2023 CBC (OUTSIDE LAB) Routine 11/23/2019 COMPREHENSIVE METABOLIC PANEL Routine 11/23/2019 LIPID PANEL Routine 11/23/2019 THYROID STIM HORMONE TSH Routine 11/23/2019 documented in this encounter Results * VITAMIN D, 25 OH (10/28/2023) VITAMIN D 25 HYDROXY S/P/B 39 10/28/2023 us Default History Genericprovider LABORATORY Final Result * COMPREHENSIVE METABOLIC PANEL (10/28/2023) SODIUM S/P/B 143 GLUCOSE 77 mg/dL AST 14 BUN 17 CREATININE S/P/B 0.68 0.5 - 1.0 CALCIUM S/P/B 9.8 POTASSIUM S/P/B 4.6 CHLORIDE S/P/B 101 ALT 12 GFR ESTIMATE 89 Default History Genericprovider LABORATORY Final Result * LIPID PANEL (10/28/2023) Pathologist [facility] CHOLESTEROL 152 TRIGLYCERIDES 124 HDL 54 LDL (CALCULATED) 77 NON HDL CHOLESTEROL 98 Default History Genericprovider LABORATORY Final Result * CBC, MANUAL DIFF (10/28/2023) Pathologist [facility] WBC 5.6 HGB 14.1 HCT 46 PLT 181 Default History Genericprovider LABORATORY Final Result * HEMOGLOBIN, GLYCOSYLATED (10/28/2023) Pathologist [facility] HGB A1C 5.7 % Default History Genericprovider LABORATORY Final Result * THYROID STIM HORMONE TSH (10/28/2023) Pathologist [facility] TSH 0.48 Default History Genericprovider LABORATORY Final Result * LIPID PANEL (10/28/2023) Pathologist [facility] CHOLESTEROL 154 HDL 58 TRIGLYCERIDES 132 NON HDL CHOLESTEROL 96 LDL (CALCULATED) 74 10/28/2023 Default History Genericprovider LABORATORY Final Result * THYROID STIM HORMONE, TSH (11/23/2019) TSH 0.659 11/23/2019 Doc [facility] Abstract LABORATORY Final Result * LIPID PANEL (11/23/2019) Pathologist [facility] CHOLESTEROL 240 HDL 52 TRIGLYCERIDES 176 DIRECT LDL 148 11/23/2019 [facility] Abstract LABORATORY Final Result * COMPREHENSIVE METABOLIC PANEL (11/23/2019) Pathologist [facility] SODIUM S/P/B 139 POTASSIUM S/P/B 4.2 CO2 34 CHLORIDE S/P/B 102 GLUCOSE 95 mg/dL CALCIUM S/P/B 9.3 BUN 14 CREATININE S/P/B 0.60 0.5 - 1.0 EGFR NON-AFR. AMER. >60 <=90 ALKALINE PHOSPHATASE S/P/B 67 ALT 16 AST 21 BILIRUBIN TOTAL S/P/B 0.4 ALBUMIN S/P/B 4.0 3.5 - 5.0 TOTAL PROTEIN S/P/B 6.0 11/23/2019 us Doc [facility] Abstract LABORATORY Final Result * CBC (OUTSIDE LAB) (11/23/2019) WBC 6.6 HGB 14.8 HCT 48.6 PLT 222 11/23/2019 us Doc [facility] Abstract LAB-OUTSIDE/ABSTRACTED Final Result documented in this encounter Visit Diagnoses Not on filedocumented in this encounter Additional Health Concerns Infection Onset Date Last Indicated Resolved Time COVID-19 Rule Out 04/04/2020 04/04/2020 04/05/2020 11:42 PM PLATEN BUILDER UP documented as of this encounter Care Teams Gas Stove Servicer Helper Relationship Specialty Start Date End Date Bush[facility] Poole DO [facility] [address] [address] PCP - General FAMILY PRACTICE 11/09/18 11/08/21 Kevin Butts MD [address] [place] [id number] PCP - General FAMILY PRACTICE 11/09/21 12/29/23 Racheal Burnham [facility] [address] [place] [id number] PCP - General Nurse Practitioner Family 12/30/23 Mike Blake MD [address] [address] Brunilda 911 Dispatcher CARDIOVASCULAR DISEASE 07/15/17 documented as of this encounter
--- OUTSIDE RECORDS SUMMARY | 2024-07-27 14:15 | XMS_ITS | Encounter Summary ---
Author Organization [facility] Address [facility] [place] [address] Care Team Providers Care Ase Master Mechanic Name Role Phone Laura Kapoor DO Primary Care Provider [phone] Mike Blake MD Unavailable [phone] Bushra Poole DO Primary Care Provider [phone] Kevin Butts MD Primary Care Provider [phone] Racheal Burnham [facility] Primary Care Provider + Encounter Details Date Type Department Care Team (Late st Contact Info) Description 07/23/2017 Abstract [facility] at [facility], [place] [address] [place] [address] Anabel Arnold MA Social History Tobacco Use Types Packs/Day Years Used Date Smoking Tobacco: Never Smokeless Tobacco: Never Alcohol Use Standard Drinks/Week Comments Yes 0 (1 standard drink = 0.6 oz pur e alcohol) rare Comments Unknown Sex and Gender Information Value Date Recorded Sex Assigned at Female 04/16/2024 11:17 AM BOTTLE HOP Legal Sex Female 5:53 PM CDT Gender Identity Not on file Sexual Orientation Not on file documented as of this encounter Plan of Treatment Upcoming Encounters Date Type Department Care Team (Late Contact Info) Description 07/31/2024 12:15 PM CDT [facility] [address] [place] [phone] Naty Painting PA 3 [facility], [address] [place] [address] documented as of this encounter Procedures Procedure Name Priority Date/Time Associated Diagnosis Comments COMPREHENSIVE METABOLIC PANEL Routine 09/05/2022 CBC, MANUAL DIFF Routine 09/05/2022 COMPREHENSIVE METABOLIC PANEL Routine 09/04/2017 CBC (OUTSIDE LAB) Routine 09/03/2017 CBC (OUTSIDE LAB) Routine 12/31/2016 COMPREHENSIVE METABOLIC PANEL Routine 12/31/2016 LIPID PANEL Routine 12/31/2016 HEMOGLOBIN, GLYCOSYLATED Routine 12/31/2016 THYROID STIM HORMONE TSH Routine 12/31/2016 VITAMIN D, 25 OH Routine 12/31/2016 URIC ACID BLOOD Routine 12/31/2016 documented in this encounter Results * COMPREHENSIVE METABOLIC PANEL (09/05/2022) SODIUM S/P/B 141 GLUCOSE 89 mg/dL AST 25 BUN 23 CREATININE S/P/B 0.80 0.5 - 1.0 CALCIUM S/P/B 9.0 POTASSIUM S/P/B 4.1 CHLORIDE S/P/B 103 ALT 14 GFR ESTIMATE 89 Narrative Resulting Agency Comment us Default History Genericprovider LABORATORY Final Result * CBC, MANUAL DIFF (09/05/2022) WBC 5.9 HGB 12.2 HCT 43.3 PLT 212 Narrative Resulting Agency Comment us Default History Genericprovider LABORATORY Final Result * (ABNORMAL) COMPREHENSIVE METABOLIC PANEL (09/04/2017) SODIUM S/P/B 143 POTASSIUM S/P/B 4.0 CO2 36.8 CHLORIDE S/P/B 106 GLUCOSE 103 mg/dL CALCIUM S/P/B 8.6 BUN 12 CREATININE S/P/B 0.70 0.5 - 1.0 EGFR AFR. AMER. >90 <=90 EGFR NON-AFR. AMER. 86 <=90 ALKALINE PHOSPHATASE S/P/B 49 ALT 19 AST 14 BILIRUBIN TOTAL S/P/B 0.2 ALBUMIN S/P/B 3.0(A) 3.5 - 5.0 TOTAL PROTEIN S/P/B 5.7 09/04/2017 us Doc [facility] Abstract LABORATORY Final Result * CBC (OUTSIDE LAB) (09/03/2017) WBC 7.2 HGB 13.7 HCT 44.9 PLT 206 09/03/2017 us Doc [facility] Abstract LAB-OUTSIDE/ABSTRACTED Edite d Result - Final * VITAMIN D, 25 OH (12/31/2016) VITAMIN D 25 HYDROXY S/P/B 60 12/31/2016 us Doc [facility] Abstract LABORATORY Final Result * THYROID STIM HORMONE, TSH (12/31/2016) TSH 1.50 12/31/2016 us Doc [facility] Abstract LABORATORY Final Result * (ABNORMAL) COMPREHENSIVE METABOLIC PANEL (12/31/2016) SODIUM S/P/B 143 POTASSIUM S/P/B 4.7 CO2 37 CHLORIDE S/P/B 98 GLUCOSE 98 mg/dL CALCIUM S/P/B 9.6 BUN 16 CREATININE S/P/B 0.7 0.5 - 1.0 EGFR AFR. AMER. 105(A) <=90 EGFR NON-AFR. AMER. 87 <=90 ALKALINE PHOSPHATASE S/P/B 63 ALT 15 AST 16 BILIRUBIN TOTAL S/P/B 0.3 ALBUMIN S/P/B 4.0 3.5 - 5.0 TOTAL PROTEIN S/P/B 6.7 12/31/2016 us Doc [facility] Abstract LABORATORY Final Result * URIC ACID BLOOD (12/31/2016) URIC ACID 4.0 12/31/2016 us Doc [facility] Abstract LABORATORY Final Result * LIPID PANEL (12/31/2016) CHOLESTEROL 241 HDL 59 TRIGLYCERIDES 196 LDL (CALCULATED) 143 12/31/2016 us Doc [facility] Abstract LABORATORY Final Result * HEMOGLOBIN, GLYCOSYLATED (12/31/2016) HGB A1C 5.5 12/31/2016 us Doc [facility] Abstract LABORATORY Final Result * CBC (OUTSIDE LAB) (12/31/2016) WBC 6.7 HGB 14.8 HCT 48.6 PLT 220 12/31/2016 us Doc [facility] Abstract LAB-OUTSIDE/ABSTRACTED Final Result documented in this encounter Visit Diagnoses Not on filedocumented in this encounter Additional Health Concerns Infection Onset Date Last Indicated Resolved Time COVID-19 Rule Out 04/04/2020 04/04/2020 04/05/2020 11:42 PM BOTTLE HOP documented as of this encounter Care Teams Ase Master Mechanic Relationship Specialty Start Date End Date Laura Kapoor DO [address] [place] [address] [place] [address] PCP - General FAMILY PRACTICE 07/09/17 10/16/18 Bushra Poole DO [facility]. [facility] [address] [place] [address] PCP - General FAMILY PRACTICE 11/09/18 11/08/21 Kvein Butts MD [address] [place] [id number] PCP - General FAMILY PRACTICE 11/09/21 12/29/23 Racheal Burnham, [facility] [address] [place] [id number] PCP - General Nurse Practitioner Family 12/30/23 Mike Blake MD [facility]. [facility] [address] [place] [address] Brunilda Stitching Machine Setter CARDIOVASCULAR DISEASE 07/15/17 documented as of this encounter
--- NOTE | 2024-07-27 14:16 | ED_ITS ---
HPI - Fall General Chief Complaint: Fall Stated Complaint: fall Time Seen by Provider: 07/27/24 13:54 Source: patient and family (Niece, Puneet) Mode of arrival: ambulatory Limitations: no limitations History of Present Illness HPI Narrative: Patient presents with proximal right thigh pain. She initially reported that she fell on and was otherwise okay at that time and had been doing well over the past several days but this morning experienced intense sharp pain in this area to the point where she was unable to bear weight. At baseline she takes Tylenol Arthritis 8 hour daily which she takes b.i.d.. She has not however taking this medication had today. She lives alone (other than her dog). Not on anticoagulation, only 81 mg aspirin. Has not appreciated rash. No paresthesias. At baseline she does not use an assist device but she does note that she has several available to her at house (canes, walkers, Rollator, and even wheelchair). No subsequent trauma/falls since incident. Nurse informs me that patient told her the fall occurred in the setting of a syncopal episode I did clarify with patient who confirms that she was having a bowel movement and lost muscle tone consciousness, become diaphoretic. She felt dizzy around this time but denies any chest pain or shortness of breath. No heart history other than a murmur but her father did a myocardial infarction at approximately 58 years old Related Data Home Medications Medication Instructions Recorded Confirmed Last Taken Type acetaminophen 650 mg 650 mg PO Q8H PRN Pain 04/01/19 05/12/24 04/26/22 21:00 History tablet,extended release (Tylenol 8 Hour) aspirin 81 mg tablet,delayed 81 mg PO DAILY 04/01/19 05/12/24 04/26/22 09:00 History release diphenhydramine HCl 25 mg capsule 25 mg PO QHS PRN Allergy Symptoms 09/18/21 05/12/24 04/26/22 21:00 History (Benadryl) fluticasone propionate 50 2 spray intranasal Q12H 09/05/22 05/12/24 Unknown History mcg/actuation nasal spray,suspension rosuvastatin 20 mg tablet 20 mg PO DAILY 05/12/24 05/12/24 Unknown History Allergies Allergy/AdvReac Type Severity Reaction Status Date / Time atorvastatin Allergy Unknown unknown Verified 11/05/23 12:51 niacin Allergy Unknown Unknown Verified 11/05/23 12:51 niacinamide Allergy Unknown unknown Verified 11/05/23 12:51 pravastatin AdvReac Severe Diarrhea Verified 11/05/23 12:51 PMFSH Past Medical History Medical History Arthritis GERD (gastroesophageal reflux disease) Diarrhea Constipation SOB (shortness of breath) on exertion History of dental problems Wears glasses History of anesthesia problem Complication of surgery History of claustrophobia Rotator cuff tear arthropathy of left shoulder Colon polyps Hernia MIKKI (obstructive sleep apnea) Does not use a CPAP COPD (chronic obstructive pulmonary disease) Essential hypertension Heart murmur FH: cholecystectomy FH: bilateral hip replacements Surgical History Surgical History H/O rectal polypectomy History of hernia surgery x2 Mar 2020 H/O cosmetic surgery Abdominoplasty Mar 2020 Hx of cholecystectomy Nov 2017 History of hip replacement Left Hip Mar 2001 Right Hip Nov 2005 History of lumpectomy Right breast 1993 Family History Family History Father Heart attack, Onset Age: 58 Cancer Sibling Diabetes mellitus Cancer Hypertension Arthritis Sibling Brain cancer Cancer Mother Hypertension Arthritis Social History Social History Social History: Has no child. She is single. Has a niece, Puneet. Code status full code 05/05/24 Patient declined SDOK Smoking status: Never smoker Second hand tobacco smoke exposure: Yes Alcohol intake: former Drinks per week: 2 Substance use: never Substance use type: does not use Do You Feel Safe in your Home?: Yes Lack of Transportation: No Lack of Food: Never True Current Housing: I Have Housing Concerned About Future Housing: No Difficulty Paying Gas/Electric Bills: No Difficulty Paying for Meds: No Currently Unemployed: No Education: Bachelor's Degree Difficulty w/ Childcare or Family Care: No Living arrangements: alone Additional living arrangements comments: (with dog) 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 HEAD: Normocephalic, atraumatic. EYES: Non injected, non icteric ENT: Nares clear, no rhinorrhea or epistaxis. NECK: Supple. CHEST: Speaking in full sentences. No respiratory distress. HEART: Regular rate and rhythm. . ABDOMEN: Soft, nondistended. EXTREMITIES: Near Normal range of motion. Slight limitation in right hip flexion secondary to pain and strength 4/5 but suspect secondary to pain as patient demonstrates ability to engage these muscles. Otherwise 5/5 strength with left hip flexion, bilateral hip abduction adduction, bilateral knee flexion extension, bilateral ankle dorsiflexion plantar flexion. No lower extremity edema. Compartments are soft. SKIN: Warm, dry, no rash. Small firm palpable nodule (feels like fatty deposit) proximal anterior thigh but no overlying rash/lesions/erythema/ecchymosis. No induration or fluctuance. NEURO: No focal deficits. Alert and oriented x3. Sensation intact to gross touch throughout bilateral lower extremities. PSYCH: Normal mood and affect. Course Vital Signs Vital signs: Vital Signs Temperature 97.8 F 07/27/24 14:33 Pulse Rate 79 07/27/24 14:33 Respiratory Rate 18 07/27/24 14:33 Blood Pressure 97/66 L 07/27/24 14:33 Pulse Oximetry 93 07/27/24 14:33 Temperature 97.9 F 07/27/24 17:02 Pulse Rate 76 07/27/24 17:02 Respiratory Rate 16 07/27/24 17:02 Blood Pressure 118/68 07/27/24 17:02 Pulse Oximetry 100 07/27/24 17:02 MDM - Fall [facility] Narrative Medical decision making narrative: Patient presents with complaint of right anterior proximal thigh pain today that is described as sharp. She fall last but felt okay at that time had otherwise been doing fine verbal and has several days. It is later identified that the fall was actually secondary to a syncopal episode. In the emergency department she is afebrile. There was a significant delay and the vital signs being documented. Initial triage vital signs cannot be located and that is approximately 3 hours after patient's arrival when vital signs were performed and documented. They note hypotension though with a mean arterial pressure greater than 75 mm Hg. [place] Syncope Rule: Congestive heart failure history: 0 Hematocrit <30%: 0 EKG abnormal (changed or any non-sinus rhythm):0 SOB symptoms:0 SBP <90mmHg at triage:0 Nurse had assessed patient gait prior to receiving analgesics medication. Patient was somewhat hesitant but was able to ambulate and actually does better when doing so done when lying or seated and performing independent hip flexion movement. Patient does not want an IV is a declines the morphine. Would prefer a pill and [place] is ordered instead. Work up otherwise generally unremarkable. Advised that she can continue taking the Tylenol with right is she has at home we did discuss maximum dosing of both acetaminophen and NSAIDs that she can be taking over the next several days. Advised follow-up with her primary care physician if not improving. She and family member verifies understanding and is in agreement. Differential Diagnosis Differential diagnosis: Likely other (Fracture, occult fracture, hematoma, seroma, muscle sprain/strain/tear; ligamentous/tendon injury; in regards to syncope, considered cardiogenic (tachy dysrhythmia, Maxx), orthostatic, though history appears to coincide with vasovagal ) Lab Data Attestation: I reviewed the patient's lab results. 07/27/24 15:24 07/27/24 15:24 Labs: Lab Results 07/27/24 Range/Units 15:24 WBC 6.9 (4.5-10.0) K/mm3 RBC 4.85 (4.2-5.4) M/mm3 Hgb 14.3 (12.0-15.0) g/dL Hct 49.7 H (37.0-47.0) % MCV 102.5 H (80-100) fl MCH 29.5 (26-34) pg MCHC 28.8 L (32-36) g/dl RDW 13.3 (11.5-14.5) % Plt Count 193 (150-375) k/mm3 MPV 10.0 (7.4-10.4) fl Immature Gran % (Auto) 0.6 H (0-0.5) % Neut % (Auto) 74.1 H (45.5-73.1) % Lymph % (Auto) 17.5 L (18.3-44.2) % Gage % (Auto) 7.3 (2.6-8.5) % Eos % (Auto) 0.4 (0-4.4) % Baso % (Auto) 0.1 L (0.2-1.2) % Lymph # (Auto) 1.20 (0.9-3.2) K/mm3 Gage # (Auto) 0.5 (0.1-0.6) K/mm3 Eos # (Auto) 0.0 (0-0.3) K/mm3 Baso # (Auto) 0.0 (0.0-0.1) K/mm3 Abs Immat Gran (auto) 0.04 H (0.00-0.031) K/mm3 Absolute Neuts (auto) 5.1 (1.3-6.7) K/mm3 Absolute Nucleated RBC 0.000 (0.0-0.012) K/mm3 Band Neutrophils % 0 (0-6) % Nucleated RBC % 0.0 (0.0-0.2) % Platelet Estimate Adequate (Adequate) Hypochromasia 1+ Schistocytes None seen Sodium 137 (137-145) mmol/L Potassium 4.5 (3.4-5.0) mmol/L Chloride 99 (98-107) mmol/L Carbon Dioxide 38 H (22-30) mmol/L Anion Gap 0 L (4-12) mmol/L BUN 18 H (7-17) mg/dL Creatinine 0.79 (0.7-1.0) mg/dL Estim Creat Clear Calc 57 ml/min Estimated GFR > 60 (59 - ) Glucose 89 (65-110) mg/dL Calcium 9.6 (8.4-10.2) mg/dL Troponin I < 0.012 (0.000-0.034) ng/mL NT-Pro-B Natriuret Pep 139 H (19.9-100) pg/mL Imaging Data Radiologist's impression: Impressions Hip/Pelvis X-Ray 07/27/24 13:23 IMPRESSION: 1. Bilateral total hip arthroplasties. No acute osseous abnormality. Femur CT 07/27/24 14:50 IMPRESSION: 1. Expected appearance during right total hip arthroplasty with no acute osseous abnormality is visualized pelvis or right lower limb. 2. At least moderate severity tricompartmental osteoarthritis at the right knee with small joint effusion. ECG Data EKG #1: Attestation: I personally reviewed and interpreted this ECG as follows: ECG completion date: 07/27/24 ECG completion time: 15:15 Interpretation: Normal sinus rhythm at a rate of 74 beats per minute. FL interval 152. QRS 98. QT/QTC 374/417. Good R-wave progression across the precordial leads. No T- wave inversion. Normal ECG Discharge Plan Discharge Clinical Impression: History of bilateral hip arthroplasty, Fall, Syncope, Tricompartment osteoarthritis of right knee, Acute pain of right thigh Patient Disposition: Home Condition: Stable Instructions: Antibiotic Form, Osteoarthritis (ED), Syncope (ED), Fall Prevention for Older Adults (ED), Leg Pain (ED) Additional Instructions: No fracture or obvious other injury on CT scan. You can continue to take the medication you have been taking for pain (in general, it is safe to take up to 4000mg/day acetaminophen/Tylenol and this can be supplemented with NSAIDs - eg ibuprofen 600mg every 8 hours). Follow up with your primary care physician if not improving as you may need physical therapy, additional medication, advanced imaging such as MRI etc. Return to the emergency department with any new or worsening or unmanaged symptoms Patient Language: Kinyarwanda Prescriptions: No Action aspirin 81 mg tablet,delayed release (DR/EC) 81 mg PO DAILY acetaminophen [Tylenol 8 Hour] 650 mg tablet extended release 650 mg PO Q8H PRN (Reason: Pain) diphenhydramine HCl [Benadryl] 25 mg capsule 25 mg PO QHS PRN (Reason: Allergy Symptoms) Patient Comments: on provided med list albuterol sulfate [Ventolin HFA] 90 mcg/actuation HFA aerosol inhaler 2 puff inhalation Q4H PRN (Reason: shortness of breath or wheezing) Qty: 8.5 3RF rosuvastatin 20 mg tablet 20 mg PO DAILY fluticasone propionate 50 mcg/actuation spray,suspension 2 spray INTRANASAL Q12H Rx Instructions: 1 spray in each nostril q12h pantoprazole 40 mg tablet,delayed release (DR/EC) See Rx Instructions .ROUTE .COMPLEX Qty: 180 1RF Dose Instruction: TAKE 1 TABLET BY MOUTH TWICE DAILY Rx Instructions: TAKE 1 TABLET BY MOUTH TWICE DAILY lisinopril 40 mg tablet 40 mg PO DAILY Qty: 90 1RF furosemide 20 mg tablet 20 mg PO DAILY Qty: 90 1RF allopurinol 300 mg tablet 300 mg PO DAILY Qty: 90 1RF Follow-up/Referrals: Racheal Burnham APRN [Primary Care Provider] - Time of Disposition: 16:47
--- NOTE | 2024-07-27 14:27 | ECG_ITS ---
Test Date: 2024-07-27 15:15:16 Measurements Intervals [place] Rate: 74 P: 54 VT: 152 QRS: -10 QRSD: 98 T: 39 QT: 374 QTc: 417 Interpretive Statements SINUS RHYTHM No previous ECG available for comparison Electronically Signed On 07-28-2024 13:24:13 CDT by Remington Evans M.D.
[2024-07-27 14:33] VITALS: BP 97/66; PULSE 79; RESP 18; TEMP 36.6; O2SAT 93
[2024-07-27] MEDS: HYDROcodone/acetaminophen (*CRX) 5-325 MG TABLET 1 TAB PO (14:52)
--- NOTE | 2024-07-27 14:54 | PC.NURSE ---
Addendum entered by Ananya Cuello RN 07/27/24 14:55: wants to orthostatics after pain medication begins to work Original Note: did not want IV and morphine, ERP notified and norco given. Wants to wait for pain to improve with movement after medications starts to work
[2024-07-27 15:19] VITALS: BP 127/67; PULSE 71
[2024-07-27 15:20] VITALS: BP 125/68; PULSE 76
[2024-07-27 15:30] VITALS: BP 124/76; PULSE 78; RESP 16; TEMP 36.6; O2SAT 100
[2024-07-27 15:37] LABS: Basophils Percent Auto 0.1 % (0.2-1.2); Eosinophils Percent Auto 0.4 % (0-4.4); Hematocrit 49.7 % (37.0-47.0); Hemoglobin 14.3 g/dL (12.0-15.0); Immature Granulocyte Absolute 0.04 K/mm3 (0.00-0.031); Immature Granulocyte Percent A 0.6 % (0-0.5); Lymphocytes Percent Auto 17.5 % (18.3-44.2); Mean Corpuscular HGB Conc 28.8 g/dl (32-36); Mean Corpuscular Hemoglobin 29.5 pg (26-34); Mean Corpuscular Volume 102.5 fl (80-100); Monocytes Absolute Auto 0.5 K/mm3 (0.1-0.6); Monocytes Percent Auto 7.3 % (2.6-8.5); Neutrophils Absolute Auto 5.1 K/mm3 (1.3-6.7); Neutrophils Percent Auto 74.1 % (45.5-73.1); Platelet Count Result 193 k/mm3 (150-375); Red Blood Count 4.85 M/mm3 (4.2-5.4); Red Cell Distribution Width 13.3 % (11.5-14.5); White Blood Count 6.9 K/mm3 (4.5-10.0)
[2024-07-27 15:47] LABS: Anion Gap 0 mmol/L (4-12); Blood Urea Nitrogen 18 mg/dL (7-17); Calcium 9.6 mg/dL (8.4-10.2); Carbon Dioxide 38 mmol/L (22-30); Chloride 99 mmol/L (98-107); Estimated CRCL calculation 57 ml/min; Estimated Glomerular Filt Rate > 60; Glucose 89 mg/dL (65-110); Potassium 4.5 mmol/L (3.4-5.0); Sodium 137 mmol/L (137-145)
[2024-07-27 15:59] LABS: NT Pro B Type Natriuretic Pept 139 pg/mL (19.9-100); Troponin I < 0.012 ng/mL (0.000-0.034)
[2024-07-27 16:00] LABS: Hypochromasia 1+; Platelet Estimate Adequate (Adequate); Schistocytes None Seen
[2024-07-27 16:01] LABS: Band Neutrophils Percent 0 % (0-6)
[2024-07-27 17:02] VITALS: BP 118/68; PULSE 76; RESP 16; TEMP 36.6; O2SAT 100
== END 2024-07-27 17:04 | disposition home or self-care (01) ==
PROVIDERS: Emergency Provider Student in an Organized Health Care Education/Training Program; PCP Nurse Practitioner Family
DX: R55 Syncope and collapse (principal); M79.651 Pain in right thigh; M17.11 Unilateral primary osteoarthritis, right knee; Z96.643 Presence of artificial hip joint, bilateral; I10 Essential (primary) hypertension; J44.9 Chronic obstructive pulmonary disease, unspecified; K21.9 Gastro-esophageal reflux disease without esophagitis; M19.90 Unspecified osteoarthritis, unspecified site; G47.33 Obstructive sleep apnea (adult) (pediatric); Z86.0100 Personal history of colon polyps, unspecified; Z90.49 Acquired absence of other specified parts of digestive tract; Z79.82 Long term (current) use of aspirin; Z79.899 Other long term (current) drug therapy; W18.39XA Other fall on same level, initial encounter
CPT/HCPCS: 36415; 73502; 73700; 80048; 83880; 84484; 85025; 93005; 99284; A9270

== ENCOUNTER 2024-12-18 16:04 | Emergency (ER) | payer MEDICARE, SELFPAY ==
--- NOTE | ~2024-12-18 | XR_ITS ---
EXAMINATION: XR ankle RT 2V, 12/18/2024 16:47 CDT HISTORY: trauma COMPARISON: No comparisons available. Findings: Displaced angulated comminuted fracture of the distal fibula. Displaced fracture of the medial malleolus with displacement of the tibia medially with respect to the talus. There is a displaced fracture of the posterior malleolus with intra- articular extension. No significant degenerative changes. Soft tissues unremarkable. Impression: Fractures detailed above Reviewed, dictated and finalized at location P. Impression: Fractures detailed above
--- NOTE | ~2024-12-18 | CT_ITS ---
EXAMINATION: CT brain allan davey, 12/18/2024 16:35 CDT HISTORY: trauma COMPARISON: No comparisons available. Technique: Axial images obtained of the brain without contrast. One or more of the following dose reduction techniques were used: automated exposure control, adjustment of the mA and/or kV according to patient size, use of iterative reconstruction technique. Findings: There is subtle density abutting the falx on the right side, the possibility of a trace subdural hemorrhage is not excluded. No parenchymal hemorrhage or infarct is identified. Mastoid air cells unremarkable. Sinuses and orbits unremarkable. No acute fracture. Left posterior subcutaneous soft tissue swelling with subcutaneous hemorrhage noted. Impression: Trace midline focus of right-sided subdural hemorrhage is suspected. Follow-up recommended to assess Reviewed, dictated and finalized at location P. Impression: Trace midline focus of right-sided subdural hemorrhage is suspected. Follow-up recommended to assess
--- NOTE | ~2024-12-18 | CT_ITS ---
EXAMINATION: CT cervical spine wo con COMPARISON: None HISTORY: trauma TECHNIQUE: Axial images were obtained through the spine without IV contrast. Coronal, sagittal reconstruction images were obtained from the axial views. CT scan performed using dose optimization techniques including the following automated exposure control; adjustment of mA and/or kV; use of iterative reconstruction technique. Automatic exposure control was used to reduce radiation dose. Permanent radiation dose record is archived to PACS. FINDINGS: Grade 1 anterolisthesis of C3 on C4 and C4 on C5, no fracture is identified. There is severe loss of disc height at C3-4, C4-5 C5-6 and C6-7 with moderate to severe canal and foraminal stenosis, outpatient MRI is recommended Soft tissues unremarkable. Impression: No acute abnormality. Reviewed, dictated and finalized at location P. Impression: No acute abnormality.
--- NOTE | ~2024-12-18 | XR_ITS ---
EXAMINATION: XR foot RT 2V DATE: 12/18/2024 16:58 INDICATION: Trauma TECHNIQUE: 2 images of the right foot were obtained. COMPARISON: None. FINDINGS: Bones appear osteopenic. Soft tissue swelling about the right foot. There is a displaced Lisfranc fracture of the base of the second metatarsal. Questionable fractures of the bases of the third and fourth metatarsals. Displaced fractures of the lateral malleolus and medial malleolus. Soft tissue swelling about the right foot and right ankle. Soft tissue swelling about the right foot and right ankle. Bones appear osteopenic. Mild joint space narrowing in the first metatarsophalangeal joint. Toes are curled slightly limits evaluation. Indeterminate bony irregularity along the anterior superior aspect of the talus. IMPRESSION: 1. There is a displaced Lisfranc fracture of the base of the second metatarsal. Questionable fracture of the base of the third and fourth metatarsals. A CT of the right ankle and right foot is recommended for further assessment. 2. Displaced fractures of the lateral malleolus and medial malleolus. Dedicated x-rays of the right ankle recommended. 3. Possible dislocation of the tibiotalar joint. Dedicated x-rays of the right ankle recommended. 4.Indeterminate bony irregularity along the anterior superior aspect of the talus. Attention on follow-up imaging. Reviewed, dictated and finalized at location Q. IMPRESSION: 1. There is a displaced Lisfranc fracture of the base of the second metatarsal. Questionable fracture of the base of the third and fourth metatarsals. A CT of the right ankle and right foot is recommended for further assessment. 2. Displaced fractures of the lateral malleolus and medial malleolus. Dedicated x-rays of the right ankle recommended. 3. Possible dislocation of the tibiotalar joint. Dedicated x-rays of the right ankle recommended. 4.Indeterminate bony irregularity along the anterior superior aspect of the jenn us. Attention on follow-up imaging.
[2024-12-18 16:00] VITALS: BP 104/82; PULSE 92; RESP 20; TEMP 36.6; O2SAT 92
--- NOTE | 2024-12-18 16:21 | ECG_ITS ---
Test Date: 2024-12-18 16:23:26 Measurements Intervals [place] Rate: 90 P: 0 OR: 0 QRS: 17 QRSD: 83 T: 47 QT: 353 QTc: 433 Interpretive Statements SINUS RHYTHM BORDERLINE ST-T WAVE ABNORMALITY- HIGH LATERAL LEADS BASELINE ARTIFACT- I, II, III, AVR, AVL, AVF, V1-V6 BORDERLINE ECG Compared to ECG 07/27/2024 15:15:16 NO SIGNIFICANT CHANGE Electronically Signed On 12-18-2024 18:42:02 CDT by Raúl Loiaza D.O.
--- NOTE | 2024-12-18 16:30 | ED_ITS ---
HPI - General Adult General Chief complaint: Fall Stated complaint: fall Time Seen by Provider: 12/18/24 16:07 History of Present Illness HPI narrative: 79-year-old female presents emergency department for evaluation after having a ground level fall last night in being entrapped on the floor since that time. Patient reports she missed step and stumbled and injured her right ankle. Patient did strike her head. Patient denies a loss of consciousness. Patient does complain of head pain but denies any neck pain. Patient's primary complaint is right ankle and right foot pain. Patient does have significant ecchymosis of the right foot. Patient is not on any blood thinners. Related Data Home Medications ?Medication ?Instructions ?Recorded ?Confirmed ?Last Taken ?Type acetaminophen 650 mg 650 mg PO Q8H PRN Pain 04/0111/12/24 04/26/22 21:00 History tablet,extended release (Tylenol 8 Hour) aspirin 81 mg tablet,delayed 81 mg PO DAILY 04/01/19 0 11/12/24 04/26/22 09:00 History release diphenhydramine HCl 25 mg capsule 25 mg PO QHS PRN All ergy Symptoms 09/18/21 11/12/24 04/26/22 21:00 History (Benadryl) fluticasone propionate 50 2 spray intranasal Q12H 08/1011/12/24 Unknown History mcg/actuation nasal spray,suspension rosuvastatin 5 mg tablet 5 mg PO DAILY 08/04/2411/12 Unknown History Allergies Allergy/AdvReac Type Severity Reaction Status Date / Time atorvastatin Allergy Unknown unknown Verified 11/12/24 11:07 niacin Allergy Unknown Unknown Verified 11/12/24 11:07 niacinamide Allergy Unknown unknown Verified 11/12/24 11:07 pravastatin AdvReac Severe Diarrhea Verified 11/12/24 11:07 Review of Systems 2 Review of Systems: All systems reviewed & are unremarkable except as noted in HPI and below PMFSH Past Medical History Medical History (Reviewed 11/12/24 @ 11:08 by Kenzie Martínez [facility]) Arthritis GERD (gastroesophageal reflux disease) Diarrhea Constipation SOB (shortness of breath) on exertion History of dental problems Wears glasses History of anesthesia problem Complication of surgery History of claustrophobia Rotator cuff tear arthropathy of left shoulder Colon polyps Hernia MIKKI (obstructive sleep apnea) Does not use a CPAP COPD (chronic obstructive pulmonary disease) Essential hypertension Heart murmur FH: cholecystectomy FH: bilateral hip replacements Surgical History Surgical History H/O rectal polypectomy History of hernia surgery x2 Mar 2020 H/O cosmetic surgery Abdominoplasty Mar 2020 Hx of cholecystectomy Nov 2017 History of hip replacement Left Hip Mar 2001 Right Hip Nov 2005 History of lumpectomy Right breast 1993 Family History Family History Father Heart attack, Onset Age: 58 Cancer Sibling Diabetes mellitus Cancer Hypertension Arthritis Sibling Brain cancer Cancer Mother Hypertension Arthritis Social History Social History (Reviewed 11/12/24 @ 11:08 by Kenzie Martínez [facility]) Social History: Has no child. She is single. Has a niece, Puneet. Code status full code 11/05/24 very confident with medical forms Smoking status: Never smoker Second hand tobacco smoke exposure: Yes Alcohol intake: former Drinks per week: 2 Substance use: never Substance use type: does not use Lack of Transportation: No Lack of Food: Never True Current Housing: I Have Housing Concerned About Future Housing: No Difficulty Paying Gas/Electric Bills: No Difficulty Paying for Meds: No Currently Unemployed: Decline to Answer Education: Bachelor's Degree Difficulty w/ Childcare or Family Care: No Living arrangements: alone Additional living arrangements comments: (with dog) 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 HEAD: normocephalic, posterior scalp laceration EYES: PERRLA/EOMI, conjunctivae clear. NOSE: Normal no drainage EARS:TMS clear with good light reflex. THROAT: Pharynx clear, no exudate. NECK: Supple. No adenopathy, no masses. RESPIRATORY: Airway patent, respirations nonlabored. Clear to auscultation bilaterally, no rales, rhonchi, wheezing. CARDIOVASCULAR: Regular rate and rhythm without murmurs rubs or gallops. ABDOMINAL: Soft, nontender, nondistended, normal bowel sounds MUSCULOSKELETAL: Ecchymosis of right lower leg including right ankle and right foot. Neurovascularly intact NEURO: Alert. Cranial nerves II through XII intact. Good gait. Good coordination SKIN: Warm, dry. Normal Color Course Vital Signs Vital signs: Vital Signs Temperature 97.8 F 12/18/24 16:00 Pulse Rate 92 12/18/24 16:00 Respiratory Rate 20 12/18/24 16:00 Blood Pressure 104/82 12/18/24 16:00 Pulse Oximetry 92 12/18/24 16:00 Oxygen Delivery Room Air 12/18/24 16:00 Temperature 97.8 F 12/18/24 16:00 Pulse Rate 95 12/18/24 17:46 Respiratory Rate 20 12/18/24 17:46 Blood Pressure 104/56 L 12/18/24 17:46 Pulse Oximetry 91 12/18/24 17:46 Oxygen Delivery Room Air 12/18/24 16:00 Medical Decision Making MDM Narrative Medical decision making narrative: 79-year-old female presents emergency department for evaluation for right ankle pain and head injury. CT brain did show a small subdural. Case was discussed with [facility] and patient was accepted as a transfer. Right ankle was splinted position. Right foot was neurovascularly intact. Patient was updated the results of the workup and plan for transfer. All questions concerns were addressed. Differential Diagnosis Differential Diagnosis: Subareolar per trauma, subarachnoid hemorrhage, cervical spine fracture, ankle fracture Vital Signs Vital Signs: Vital Signs Temperature 97.8 F 12/18/24 16:00 Pulse Rate 92 12/18/24 16:00 Respiratory Rate 20 12/18/24 16:00 Blood Pressure 104/82 12/18/24 16:00 Pulse Oximetry 92 12/18/24 16:00 Oxygen Delivery Room Air 12/18/24 16:00 Temperature 97.8 F 12/18/24 16:00 Pulse Rate 95 12/18/24 17:46 Respiratory Rate 20 12/18/24 17:46 Blood Pressure 104/56 L 12/18/24 17:46 Pulse Oximetry 91 12/18/24 17:46 Oxygen Delivery Room Air 12/18/24 16:00 Lab Data 12/18/24 17:18 12/18/24 17:18 Labs: Lab Results 12/18/24 12/18/24 Range/Units 17:18 17:35 WBC 15.8 H (4.5-10.0) K/mm3 RBC 4.08 L (4.2-5.4) M/mm3 Hgb 12.4 (12.0-15.0) g/dL Hct 40.5 (37.0-47.0) % MCV 99.3 (80-100) fl MCH 30.4 (26-34) pg MCHC 30.6 L (32-36) g/dl RDW 13.7 (11.5-14.5) % Plt Count 181 (150-375) k/mm3 MPV 10.1 (7.4-10.4) fl Immature Gran % (Auto) 0.5 (0-0.5) % Neut % (Auto) 86.9 H (45.5-73.1) % Lymph % (Auto) 5.6 L (18.3-44.2) % Williams % (Auto) 6.9 (2.6-8.5) % Eos % (Auto) 0.0 (0-4.4) % Baso % (Auto) 0.1 L (0.2-1.2) % Lymph # (Auto) 0.89 L (0.9-3.2) K/mm3 Williams # (Auto) 1.1 H (0.1-0.6) K/mm3 Eos # (Auto) 0.0 (0-0.3) K/mm3 Baso # (Auto) 0.0 (0.0-0.1) K/mm3 Abs Immat Gran (auto) 0.08 H (0.00-0.031) K/mm3 Absolute Neuts (auto) 13.7 H (1.3-6.7) K/mm3 Absolute Nucleated RBC 0.000 (0.0-0.012) K/mm3 Nucleated RBC % 0.0 (0.0-0.2) % PT 12.7 (11.1-14.7) Seconds INR 0.9 APTT 20.7 L (22.3-36.8) Seconds Sodium 140 (137-145) mmol/L Potassium 4.2 (3.4-5.0) mmol/L Chloride 102 (98-107) mmol/L Carbon Dioxide 34 H (22-30) mmol/L Anion Gap 4 (4-12) mmol/L BUN 29 H D (7-17) mg/dL Creatinine 0.70 (0.7-1.0) mg/dL Estim Creat Clear Calc 63 ml/min Estimated GFR > 60 (59 - ) Glucose 111 H (65-110) mg/dL Lactic Acid 2.9 H (0.7-2.0) mmol/L Calcium 9.9 (8.4-10.2) mg/dL Total Bilirubin 0.7 (0.2-1.3) mg/dL AST 38 H (14-36) U/L ALT 22 (6-35) U/L Alkaline Phosphatase 62 (38-126) U/L Total Creatine Kinase 452 H (30-135) U/L Total Protein 5.9 L (6.3-8.2) g/dL Albumin 3.6 (3.5-5.1) g/dL Urine Color Yellow (Yellow) Urine Appearance Cloudy H (Clear) Urine pH 5.0 (5.0-9.0) Ur Specific [place] 1.026 (1.001-1.035) Urine Protein Negative (Negative) mg/dL Urine Glucose (UA) Negative (Negative) mg/dL Urine Ketones Trace H (Negative) mg/dL Ur Blood (Man) Negative (Negative) Urine Nitrate Negative (Negative) Urine Bilirubin Negative (Negative) Urine Urobilinogen 0.2 (<2.0) mg/dL Leukocyte Esterase Rfl Negative (Negative) FREEMAN/UL Urine RBC 0-2 (0-2) /hpf Urine WBC 0-5 (0-3) /hpf Ur Squamous Epith Cells None seen (Few) /hpf Urine Bacteria None seen /hpf Urine Casts 3-5 Discharge Plan Discharge Clinical Impression: Acute subdural hematoma, Ankle fracture Patient Disposition: Acute Care Hospital Condition: Serious Patient Language: Setswana Prescriptions: No Action aspirin 81 mg tablet,delayed release (DR/EC) 81 mg PO DAILY acetaminophen [Tylenol 8 Hour] 650 mg tablet extended release 650 mg PO Q8H PRN (Reason: Pain) diphenhydramine HCl [Benadryl] 25 mg capsule 25 mg PO QHS PRN (Reason: Allergy Symptoms) Patient Comments: on provided med list albuterol sulfate [Ventolin HFA] 90 mcg/actuation HFA aerosol inhaler 2 puff inhalation Q4H PRN (Reason: shortness of breath or wheezing) Qty: 8.5 3RF rosuvastatin 5 mg tablet 5 mg PO DAILY fluticasone propionate 50 mcg/actuation spray,suspension 2 spray INTRANASAL Q12H Rx Instructions: 1 spray in each nostril q12h pantoprazole 40 mg tablet,delayed release (DR/EC) See Rx Instructions .ROUTE .COMPLEX Qty: 180 1RF Dose Instruction: TAKE 1 TABLET BY MOUTH TWICE DAILY Rx Instructions: TAKE 1 TABLET BY MOUTH TWICE DAILY furosemide 20 mg tablet 20 mg PO DAILY Qty: 90 1RF allopurinol 300 mg tablet 300 mg PO DAILY Qty: 90 1RF lisinopril 20 mg tablet 20 mg PO DAILY Qty: 90 1RF Follow-up/Referrals: Racheal Burnham APRN [Primary Care Provider, Family Practice]
[2024-12-18] MEDS: HYDROmorphone HCL INJ (*CRX) 1 MG/ML SYR 0.5 MG IV PUSH (16:37)
[2024-12-18] MEDS: LACTATED RINGERS 1,000 ML 999 ML IV CONT (16:38)
[2024-12-18 17:15] VITALS: PULSE 87; RESP 218; O2SAT 92
[2024-12-18 17:25] LABS: Hematocrit 40.5 % (37.0-47.0); Hemoglobin 12.4 g/dL (12.0-15.0); Immature Granulocyte Percent A 0.5 % (0-0.5); Lymphocytes Absolute Auto 0.89 K/mm3 (0.9-3.2); Mean Corpuscular HGB Conc 30.6 g/dl (32-36); Mean Corpuscular Hemoglobin 30.4 pg (26-34); Mean Corpuscular Volume 99.3 fl (80-100); Nucleated Red Blood Cells Absolute Auto 0.000 K/mm3 (0.0-0.012); Nucleated Red Blood Cells Perc 0.0 % (0.0-0.2); Platelet Count Result 181 k/mm3 (150-375); Red Blood Count 4.08 M/mm3 (4.2-5.4); White Blood Count 15.8 K/mm3 (4.5-10.0)
[2024-12-18 17:41] LABS: INR 0.9; Prothrombin Time 12.7 Seconds (11.1-14.7)
[2024-12-18 17:42] VITALS: PULSE 94; RESP 15; O2SAT 93
[2024-12-18 17:42] LABS: Partial Thromboplastin Time 20.7 Seconds (22.3-36.8)
[2024-12-18 17:43] VITALS: BP 118/61; PULSE 91; RESP 18; O2SAT 95
[2024-12-18 17:45] LABS: Add Urine Microscopic? YES; Appearance Urine Cloudy (Clear); Glucose Urine UA Negative (Negative); Leukocyte Esterase Ur Negative LEU/UL (Negative); Nitrate Urine Negative (Negative); Specific Grav Ur 1.026 (1.001-1.035)
[2024-12-18 17:45] LABS: Alanine Aminotransferase 22 U/L (6-35); Albumin Level 3.6 g/dL (3.5-5.1); Alkaline Phosphatase 62 U/L (38-126); Anion Gap 4 mmol/L (4-12); Aspartate Amino Transferase 38 U/L (14-36); Bilirubin,Total 0.7 mg/dL (0.2-1.3); Blood Urea Nitrogen 29 mg/dL (7-17); Calcium 9.9 mg/dL (8.4-10.2); Carbon Dioxide 34 mmol/L (22-30); Chloride 102 mmol/L (98-107); Creatine Kinase 452 U/L (30-135); Estimated CRCL calculation 63 ml/min; Estimated Glomerular Filt Rate > 60; Glucose 111 mg/dL (65-110); Potassium 4.2 mmol/L (3.4-5.0); Sodium 140 mmol/L (137-145); Total Protein 5.9 g/dL (6.3-8.2)
[2024-12-18 17:46] VITALS: BP 104/56; PULSE 95; RESP 20; O2SAT 91
--- NOTE | 2025-01-01 07:28 | PC.NURSE ---
LATE ENTRY This note is being entered to document information to the patient's record. The following information was omitted on [], by [].ELAINE Leggett right ankle short leg to be applied.
== END 2024-12-18 18:08 | disposition short-term general hospital (02) ==
LOC: ANHED 17:01
PROVIDERS: Emergency Provider Emergency Medicine; PCP Nurse Practitioner Family
DX: S06.5X0A Traumatic subdural hemorrhage without loss of consciousness, initial encounter (principal); S82.841A Displaced bimalleolar fracture of right lower leg, initial encounter for closed fracture; S92.321A Displaced fracture of second metatarsal bone, right foot, initial encounter for closed fracture; I10 Essential (primary) hypertension; J44.9 Chronic obstructive pulmonary disease, unspecified; K21.9 Gastro-esophageal reflux disease without esophagitis; M19.90 Unspecified osteoarthritis, unspecified site; G47.33 Obstructive sleep apnea (adult) (pediatric); Z96.643 Presence of artificial hip joint, bilateral; Z86.0100 Personal history of colon polyps, unspecified; Z90.49 Acquired absence of other specified parts of digestive tract; W10.9XXA Fall (on) (from) unspecified stairs and steps, initial encounter; Z77.22 Contact with and (suspected) exposure to environmental tobacco smoke (acute) (chronic); R94.31 Abnormal electrocardiogram [ECG] [EKG]
CPT/HCPCS: 29515; 36415; 70450; 72125; 73600; 73620; 80053; 81001; 82550; 83605; 85025; 85610; 85730; 93005; 96361; 96374; 99285; J1171; J7120

== ENCOUNTER 2025-03-01 12:08 | Emergency (ER) | payer MEDICARE, SELFPAY ==
[2025-03-01] VITALS (14 sets, daily range): BP systolic 134–142; BP diastolic 60–78; PULSE 71–89; RESP 16–20; TEMP 36.4; O2SAT 85–97
--- NOTE | 2025-03-01 13:17 | ED.RECABL ---
HPI - Recheck/Abnormal Lab/Rx General Chief Complaint: Recheck/Abnormal Lab/Rx Stated Complaint: low oxygen reading at home Time Seen by Provider: 03/01/25 12:27 Source: patient Limitations: no limitations History of Present Illness HPI narrative: This is an 79-year-old female with history of COPD who presents to the ED for oxygen problem. Patient states that she was recently kicked out of her niece's house but did not get her oxygen so she has been without her oxygen for the past week. She tried calling her regular doctor for this with a were unable to get it for her. She reports that she feels better when she is on her oxygen. Denies any recent sick symptoms. Denies any chest pain. Related Data Home Medications ?Medication ?Instructions ?Recorded ?Confirmed ?Last Taken ?Type cholecalciferol (vitamin D3) 25 25 mcg PO DAILY 01/06/25 01/06/25 Unknown History mcg (1,000 unit) tablet sodium chloride 0.65 % nasal spray 1 spray intranasal Q2H PRN not 01/06/25 01/06/25 Unknown History aerosol specified Allergies Allergy/AdvReac Type Severity Reaction Status Date / Time atorvastatin Allergy Unknown Muscle Pain Verified 03/01/25 12:18 niacin Allergy Unknown Itching Verified 03/01/25 12:18 niacinamide Allergy Unknown unknown Verified 03/01/25 12:18 pravastatin AdvReac Severe Diarrhea Verified 03/01/25 12:18 Review of Systems Review of Systems: All systems reviewed & are unremarkable except as noted in HPI and below PMFSH Past Medical History Medical History Arthritis GERD (gastroesophageal reflux disease) Diarrhea Constipation SOB (shortness of breath) on exertion History of dental problems Wears glasses History of anesthesia problem Complication of surgery History of claustrophobia Rotator cuff tear arthropathy of left shoulder Colon polyps Hernia MIKKI (obstructive sleep apnea) Does not use a CPAP COPD (chronic obstructive pulmonary disease) Essential hypertension Heart murmur FH: cholecystectomy FH: bilateral hip replacements Surgical History Surgical History H/O rectal polypectomy History of hernia surgery x2 Mar 2020 H/O cosmetic surgery Abdominoplasty Mar 2020 Hx of cholecystectomy Nov 2017 History of hip replacement Left Hip Mar 2001 Right Hip Nov 2005 History of lumpectomy Right breast 1993 Family History Family History Father Heart attack, Onset Age: 58 Cancer Sibling Diabetes mellitus Cancer Hypertension Arthritis Sibling Brain cancer Cancer Mother Hypertension Arthritis Social History Social History Social History: Has no child. She is single. Has a niece, Puneet. 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 CARDIOVASCULAR: Regular rate and rhythm without murmurs rubs or gallops. ABDOMINAL: Soft, nontender, nondistended, no rebound or guarding MUSCULOSKELETAl: Moves all extremities. No clubbing, cyanosis or edema. Walking boot to right lower extremity NEURO: Awake and alert. Following commands, speech normal, no focal deficits SKIN:: Warm, dry. No rashes lesions or abrasions PSYCHIATRIC: Normal affect/mood, Course Vital Signs Vital signs: Vital Signs Temperature 97.5 F L 03/01/25 12:12 Pulse Rate 78 03/01/25 12:12 Respiratory Rate 16 03/01/25 12:12 Blood Pressure 142/60 H 03/01/25 12:12 Pulse Oximetry 92 03/01/25 12:12 Oxygen Delivery Room Air 03/01/25 12:12 Temperature 97.5 F L 03/01/25 12:12 Pulse Rate 74 03/01/25 16:41 Respiratory Rate 18 03/01/25 16:41 Blood Pressure 134/78 03/01/25 16:41 Pulse Oximetry 97 03/01/25 16:41 Oxygen Delivery Room Air 03/01/25 14:45 Oxygen Flow Rate 2 03/01/25 14:35 MDM MDM Narrative Medical decision making narrative: 79-year-old female Presenting for difficulty with oxygen tank. On initial evaluation patient was in no acute distress afebrile, hemodynamic stable. Differentials include but are not limited to: COPD, acute hypoxic respiratory failure Notable exam findings: Heart and lungs clear Patient has no other symptoms at this time. She was evaluated by respiratory therapy and did qualify for oxygen therapy at home I again. They were able to arrange for an additional oxygen concentrator here to have at home. Patient was deemed appropriate for discharge at this time. She was advised follow-up with her PCP in the next week for re-evaluation. Patient was agreeable to this plan. Given strict return precautions. Differential Diagnosis Differential Diagnosis: COPD, acute hypoxic respiratory failure Discharge Plan Discharge Clinical Impression: COPD (chronic obstructive pulmonary disease) Qualifiers: COPD type: unspecified COPD Qualified Code(s): J44.9 - Chronic obstructive pulmonary disease, unspecified Patient Disposition: Home Condition: Stable Instructions: Antibiotic Form Additional Instructions: Use her oxygen as instructed. Follow-up with your PCP in the next week for re-evaluation. Return to the ED for new or worsening symptoms. Patient Language: Andorran Prescriptions: No Action cholecalciferol (vitamin D3) 25 mcg (1,000 unit) tablet 25 mcg PO DAILY sodium chloride 0.65 % aerosol,spray 1 spray intranasal Q2H PRN (Reason: not specified) guaifenesin [Mucus Relief ER] 600 mg Tablet Extended Release 12hr 600 mg PO Q12HR PRN (Reason: Congestion) Qty: 0 0RF lisinopril 5 mg Tablet 5 mg PO DAILY Qty: 30 0RF loratadine 10 mg Tablet 10 mg PO HS Qty: 0 0RF allopurinol 300 mg tablet 300 mg PO DAILY Qty: 30 0RF furosemide 20 mg tablet 20 mg PO DAILY Qty: 30 0RF gabapentin 100 mg capsule 100 mg PO BID Qty: 60 0RF rosuvastatin 5 mg tablet 5 mg PO DAILY Qty: 30 0RF ramelteon [Rozerem] 8 mg tablet 8 mg PO HS Qty: 30 0RF albuterol sulfate [Ventolin HFA] 90 mcg/actuation HFA aerosol inhaler 2 puff inhalation QID PRN (Reason: shortness of breath or wheezing) Qty: 8.5 0RF Follow-up/Referrals: Racheal Burnham APRN [Primary Care Provider, Family Practice]
--- OUTSIDE RECORDS SUMMARY | 2025-03-01 13:45 | XMS_ITS | Encounter Summary ---
Author Organization [facility] Address [facility] [place] [address] Care Team Providers Care Utilization Reviewer Name Role Phone Laura Kapoor DO Primary Care Provider [phone] Mike Blake MD Unavailable [phone] Bushra Poole DO Primary Care Provider [phone] Kevin Butts MD Primary Care Provider [phone] Racheal Burnham [facility] Primary Care Provider + Encounter Details Date Type Department Care Team (Late st Contact Info) Description 07/23/2017 Abstract [facility] at [facility], [address] [address] Anabel Arnold MA Social History Tobacco Use Types Packs/Day Years Used Date Smoking Tobacco: Never Smokeless Tobacco: Never Alcohol Use Standard Drinks/Week Comments Yes 0 (1 standard drink = 0.6 oz pur e alcohol) rare Comments Unknown Sex and Gender Information Value Date Recorded Sex Assigned at Female 04/16/2024 11:17 AM COMPUTER SYSTEMS DESIGN ANALYST Legal Sex Female 5:53 PM CDT Gender Identity Not on file Sexual Orientation Not on file documented as of this encounter Plan of Treatment Upcoming Encounters Date Type Department Care Team (Late st Contact Info) Description 09/03/2025 12:15 PM CDT Office Visit [facility] [address] [place] [id number] Naty Painting PA [address] [facility], [address] [place] [address] documented as of this encounter Procedures Procedure Name Priority Date/Time Associated Diagnosis Comments COMPREHENSIVE METABOLIC PANEL Routine 09/05/2022 CBC, MANUAL DIFF Routine 09/05/2022 COMPREHENSIVE METABOLIC PANEL Routine 09/04/2017 CBC (OUTSIDE LAB) Routine 09/03/2017 CBC (OUTSIDE LAB) Routine 12/31/2016 COMPREHENSIVE METABOLIC PANEL Routine 12/31/2016 LIPID PANEL Routine 12/31/2016 HEMOGLOBIN GLYCOSYLATED A1C Routine 12/31/2016 THYROID STIM HORMONE TSH Routine [...] 43.3 PLT 212 Narrative Resulting Agency Comment Default History Genericprovider LABORATORY Final Result * [...] - 5.0 TOTAL PROTEIN S/P/B 5.7 09/04/2017 Doc [facility] Abstract LABORATORY Final Result * CBC (OUTSIDE LAB) (09/03/2017) Pathologist [facility] WBC 7.2 HGB 13.7 HCT 44.9 PLT 206 09/03/2017 [facility] Abstract LAB-OUTSIDE/ABSTRACTED Edite d Result - Final * VITAMIN D, 25 OH (12/31/2016) Pathologist [facility] VITAMIN D 25 HYDROXY S/P/B 60 12/31/2016 [facility] LABORATORY Final Result * THYROID STIM HORMONE, TSH (12/31/2016) Pathologist [facility] TSH 1.50 12/31/2016 [facility] LABORATORY Final Result * [...] Final Result * URIC ACID BLOOD (12/31/2016) Pathologist [facility] URIC ACID 4.0 12/31/2016 us Doc [facility] Abstract LABORATORY Final Result * LIPID PANEL (12/31/2016) Pathologist [facility] CHOLESTEROL 241 HDL 59 TRIGLYCERIDES 196 LDL (CALCULATED) 143 12/31/2016 us Doc [facility] LABORATORY Final Result * HEMOGLOBIN, GLYCOSYLATED (12/31/2016) Pathologist [facility] HGB A1C 5.5 12/31/2016 us Doc [facility] Abstract LABORATORY Final Result * CBC (OUTSIDE LAB) (12/31/2016) Pathologist [facility] WBC 6.7 HGB 14.8 HCT 48.6 PLT 220 12/31/2016 us Doc [facility] Abstract LAB-OUTSIDE/ABSTRACTED Final Result documented in this encounter Visit Diagnoses Not on filedocumented in this encounter Additional Health Concerns Infection Onset Date Last Indicated Resolved Time COVID-19 Rule Out 04/04/2020 04/04/2020 04/05/2020 11:42 PM COMPUTER SYSTEMS DESIGN ANALYST Respiratory Rule Out 02/02/2025 02/02/2025 025 10:01 AM COMPUTER SYSTEMS DESIGN ANALYST documented as of this encounter Care Teams Utilization Reviewer Relationship Specialty Start Date End Date Laura Kapoor DO PCP - General FAMILY PRACTICE 07/09/17 10/16/18 Bushra Poole DO [facility]. [address] [place], [place] [id number] PCP - General FAMILY PRACTICE 11/09/18 11/08/21 Kevin Butts MD [address] [place] [address] [id number] PCP - General FAMILY PRACTICE 11/09/21 12/29/23 Racheal Burnham, [facility] [address] [place] [address] [id number] PCP - General Nurse Practitioner Family 12/30/23 Miek Blake MD [address] [address] Brunilda Programmer Analyst [employer] It CARDIOVASCULAR DISEASE 07/15/17 documented as of this encounter
--- OUTSIDE RECORDS SUMMARY | 2025-03-01 13:45 | XMS_ITS | Encounter Summary ---
Author Organization [facility] Address [facility] [place] [address] Care Team Providers Care Rice Dryer Mechanic Name Role Phone Mike Blake MD Unavailable [phone] Bushra Poole DO Primary Care Provider [phone] Kevin Butts MD Primary Care Provider [phone] Racheal Burnham [facility] Primary Care Provider + Encounter Details Date Type Department Care Team (Late st Contact Info) Description 12/10/2019 Abstract [facility] at [facility], [facility] [address] [place] [address] Anabel Arnold MA Social History Tobacco Use Types Packs/Day Years Used Date Smoking Tobacco: Never Smokeless Tobacco: Never Alcohol Use Standard Drinks/Week Comments Yes 0 (1 standard drink = 0.6 oz pur e alcohol) rare Comments No Sex and Gender Information Value Date Recorded Sex Assigned at Female 04/16/2024 11:17 AM PAN TANK WORKER Legal Sex Female 5:53 PM CDT Gender [...] Upcoming Encounters Date Type Department Care Team ([facility] st Contact Info) Description 09/03/2025 12:15 PM CDT Office Visit [facility] [address] [place] [address] Naty Painting PA 3 [facility], [address] [place] [address] documented as of this encounter Procedures Procedure Name Priority Date/Time Associated Diagnosis Comments PRO-BRAIN NATRIURETIC PEPTIDE Routine 07/27/2024 COMPREHENSIVE METABOLIC PANEL Routine 07/27/2024 CBC, MANUAL DIFF Routine 07/27/2024 HEMOGLOBIN, GLYCOSYLATED Routine 10/28/2023 COMPREHENSIVE METABOLIC PANEL Routine 10/28/2023 LIPID PANEL Routine 10/28/2023 LIPID PANEL Routine 10/28/2023 CBC, MANUAL DIFF Routine 10/28/2023 THYROID STIM HORMONE TSH Routine 10/28/2023 VITAMIN D, 25 OH Routine 10/28/2023 CBC (OUTSIDE LAB) Routine 11/23/2019 COMPREHENSIVE METABOLIC PANEL Routine 11/23/2019 LIPID PANEL Routine 11/23/2019 THYROID STIM HORMONE TSH Routine 11/23/2019 documented in this encounter Results * COMPREHENSIVE METABOLIC PANEL (07/27/2024) [facility] SODIUM S/P/B 137 GLUCOSE 89 mg/dL BUN 18 CREATININE S/P/B 0.79 0.5 - 1.0 CALCIUM S/P/B 9.6 POTASSIUM S/P/B 4.5 CHLORIDE S/P/B 99 GFR ESTIMATE >60 Result [facility] History Genericprovider LABORATORY Final Result * PRO-BRAIN NATRIURETIC PEPTIDE (07/27/2024) [facility] PRO-B TYPE NATRIURETIC PEPTIDE 139 Result [facility] Genericprovider LABORATORY Final Result * CBC, MANUAL DIFF (07/27/2024) [facility] WBC 6.9 HGB 14.3 HCT 49.[address] [facility] Final Result * VITAMIN D, 25 OH (10/28/2023) [facility] VITAMIN D 25 HYDROXY S/P/B 39 10/28/2023 Result [facility] Final Result * COMPREHENSIVE METABOLIC PANEL (10/28/2023) [facility] SODIUM S/P/B 143 GLUCOSE 77 mg/dL AST 14 BUN 17 CREATININE S/P/B 0.68 0.5 - 1.0 CALCIUM S/P/B 9.8 POTASSIUM S/P/B 4.6 CHLORIDE S/P/B 101 ALT 12 GFR ESTIMATE 89 Result [facility] Genericprovider LABORATORY Final Result * LIPID PANEL (10/28/2023) [facility] CHOLESTEROL 152 TRIGLYCERIDES 124 HDL 54 LDL (CALCULATED) 77 NON HDL CHOLESTEROL 98 Result [facility] Genericprovider LABORATORY Final Result * CBC, MANUAL DIFF (10/28/2023) [facility] WBC 5.6 HGB 14.1 HCT 46 PLT 181 Result [facility] Genericprovider LABORATORY Final Result * HEMOGLOBIN, GLYCOSYLATED (10/28/2023) [facility] HGB A1C 5.7 % Default History Genericprovider LABORATORY Final Result * THYROID STIM HORMONE TSH (10/28/2023) [facility] TSH 0.48 Default History Genericprovider LABORATORY Final Result * LIPID PANEL (10/28/2023) [facility] CHOLESTEROL 154 HDL 58 TRIGLYCERIDES 132 NON HDL CHOLESTEROL 96 LDL (CALCULATED) 74 10/28/2023 Default History Genericprovider LABORATORY Final Result * THYROID STIM HORMONE, TSH (11/23/2019) [facility] TSH 0.659 11/23/2019 us Doc [facility] Abstract LABORATORY Final Result * LIPID PANEL (11/23/2019) [facility] CHOLESTEROL 240 HDL 52 TRIGLYCERIDES 176 DIRECT LDL 148 11/23/2019 us Doc [facility] Abstract LABORATORY Final Result * COMPREHENSIVE METABOLIC PANEL (11/23/2019) [facility] SODIUM S/P/B 139 POTASSIUM S/P/B 4.2 CO2 [...] Rule Out 04/04/2020 04/04/2020 04/05/2020 11:42 PM PAN TANK WORKER Respiratory Rule Out 02/02/2025 02/02/2025 025 10:01 AM PAN TANK WORKER documented as of this encounter Care Teams Rice Dryer Mechanic Relationship Specialty Start Date End Date Bushra Poole DO [facility]. [address] [place] [address] PCP - General FAMILY PRACTICE 11/09/18 11/08/21 Kevin Butts MD [address] [place] [id number] PCP - General FAMILY PRACTICE 11/09/21 12/29/23 Racheal Burnham [facility] [address] [place] [id number] PCP - General Nurse Practitioner Family 12/30/23 Mike Blake MD [facility]. [address] [place] [address] Brunilda Pipeline Gang Supervisor CARDIOVASCULAR DISEASE 07/15/17 documented as of this encounter
--- OUTSIDE RECORDS SUMMARY | 2025-03-01 13:45 | XMS_ITS | Clinical Summary ---
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 Name Role Phone Mike Blake MD Unavailable [phone] Racheal Burnham [facility] Primary Care Provider + Allergies Active Allergy Reactions Criticality Noted Date Comments Niacin Other (see comment) 07/19/2017 flushing Pravastatin GI Upset Medium 06/01/2020 Statins Myalgias 07/19/2017 Medications ALLOPURINOL 300 MG tabletIndicati ons:Gout TAKE 1 TABLET BY MOUTH EVERY DAY 30 tablet 9 Active Additional Information Patient taking differently: 300 mg Oral Daily, Reported on 02/19/2025 acetaminophen CR 650 MG Tab CR 8 hr tabletIndicati ons:Pain Take 1 tablet (650 mg total) by mouth 2 (two) times a day. Indications: Pain 9 Active albuterol sulfate HFA 108 (90 Base) MCG/ACT inhaler Inhale 2 puffs into the lungs every 4 (four) hours as needed for Wheezing. 1 Inhaler 1 Active furosemide (LASIX) 20 MG tabletIndicati ons:Peripheral edema,Generali zed edema Take 1 tablet (20 mg total) by mouth every other day. 3 Active rosuvastatin (CRESTOR) 5 MG tablet Take 1 tablet (5 mg total) by mouth nightly at bedtime. 90 tablet 3 5 Active cholecalcifero l (VITAMIN D-[address]) 25 mcg Tab tablet Take 1 tablet (1,000 Units total) by mouth daily. 5 026 Active methocarbamol (ROBAXIN) 500 MG tablet Take 1 tablet (500 mg total) by mouth 3 (three) times daily as needed (muscle spasms). 5 Active ramelteon (ROZEREM) 8 MG tablet Take 1 tablet (8 mg total) by mouth nightly as needed for Sleep. 5 Active lisinopril (PRINIVIL) 20 MG tablet Take 1 tablet (20 mg total) by mouth daily. Active cephALEXin (KEFLEX) 500 MG capsule Take 1 capsule (500 mg total) by mouth every 12 (twelve) hours. 120 capsule 1 5 026 Active benzonatate (TESSALON) 100 MG capsule Take 1 capsule (100 mg total) by mouth 3 (three) times daily as needed for Cough. 5 025 Discontinu ed(Therapy completed) guaiFENesin ER (MUCINEX) 600 MG 12 hr tablet Take 1 tablet (600 mg total) by mouth 2 (two) times daily for 10 days. 20 tablet 5 025 Active Problems Problem Noted Date Diagnosed Date Chronic respiratory failure with hypoxia and hyp ercapnia 02/19/2025 Assessment & Plan (02/19/2025 2:22 PM EMPLOYEE BENEFITS DIRECTOR): Recently diagnosed during her fall. Continue supplemental oxygen and BiPAP. Cellulitis of right leg 01/29/2025 LOC (loss of consciousness) 07/31/2024 Assessment & Plan (07/31/2024 12:24 PM CDT): Patient had a recent episode of syncope. Event sounded like a vasovagal syncopal event. Reports to having a bowel movement and straining at that time. Reports a similar episode previously while also having a bowel movement. Advised patient to try stool softeners or laxatives to help avoid straining. Also also advised patient to monitor blood pressure at home and if pressures are consistently low we can decrease lisinopril. Coronary artery calcification 2020 Assessment & Plan (02/19/2025 2:20 PM EMPLOYEE BENEFITS DIRECTOR): She is not having angina. Continue medical management of coronary artery calcification with aspirin, Livalo. Assessment & Plan (07/31/2024 12:20 PM CDT): She denies any recent anginal symptoms. Does report chronic shortness of breath with exertion that has been ongoing for the past few years. No change in symptoms. Offered stress testing but will hold off at this time. Assessment & Plan (06/29/2023 12:56 PM CDT): She is not having angina. Continue medical management of coronary artery calcification with aspirin, Livalo. Assessment & Plan (03/31/2023 6:58 AM EMPLOYEE BENEFITS DIRECTOR): She is not having angina. Continue medical [...] since her last ischemic evaluation was in 2018. We will continue to watch her symptoms at this time. She is not having any chest pain.We will repeat her lipids. Continue atorvastatin. Nonrheumatic aortic valve stenosis 2020 Assessment & Plan (02/19/2025 2:19 PM EMPLOYEE BENEFITS DIRECTOR): Echo was consistent with mild aortic valve stenosis. She recently had an echocardiogram at [facility] that confirmed mild aortic valve stenosis. Can continue to monitor for symptoms. Assessment & Plan (07/31/2024 12:20 PM CDT): Recent echocardiogram showed mild aortic valve stenosis. Repeat echocardiogram in 2 years. Assessment & Plan (12/20/2023 1:08 PM CDT): Echo was consistent with mild aortic valve stenosis. Can repeat echo in 2 to 3 years. Assessment & Plan (06/29/2023 12:56 PM CDT): She has mild aortic valve stenosis based on her echo from June 2021. Will repeat echo, no change in symptoms. Assessment & Plan (03/31/2023 7:00 AM EMPLOYEE BENEFITS DIRECTOR): She has mild aortic valve stenosis based [...] exercise. Assessment & Plan (03/31/2023 7:00 AM EMPLOYEE BENEFITS DIRECTOR): I encouraged lifestyle modifications including diet and exercise. Assessment & Plan (2020 11:44 AM CDT): I encouraged lifestyle modifications including diet and exercise. 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 Date Onset: 1992 Vitamin D deficiency 11/09/2011 Overview (01/14/2018): Date Onset: 11/09/2011 Hypertension, essential 11/09/2011 Overview (01/14/2018): Date Onset: 12/14/2016 Assessment & Plan (07/31/2024 12:21 PM CDT): Her blood pressure is mildly elevated in office today. Reviewed home blood pressures which are 110-120 systolic. There was 1 reading that was 96/44. Advised patient to monitor blood pressures at home if they are consistently low we can decrease lisinopril to 20 mg daily. Assessment & Plan (12/20/2023 1:09 PM CDT): [...] lumbar or lumbosacral interverte bral disc 11/28/2009 Primary hypertension Assessment & Plan (02/19/2025 2:20 PM EMPLOYEE BENEFITS DIRECTOR): Her blood pressure is well-controlled in the office. Continue lisinopril. Assessment & Plan (03/31/2023 7:01 AM EMPLOYEE BENEFITS DIRECTOR): She checks her blood pressure at home and typically her systolic blood pressure is between 120-130 mmHg. Encouraged home blood pressure monitoring. Continue quinapril. Assessment & Plan (12/01/2021 12:56 PM CDT): She checks her blood pressure at home and typically her systolic blood pressure is between 120-130 mmHg. Encouraged home blood pressure monitoring. Continue quinapril. Mixed hyperlipidemia Assessment & Plan (02/19/2025 2:21 PM EMPLOYEE BENEFITS DIRECTOR): Her lipids are controlled. Continue rosuvastatin 5 mg. Assessment & Plan (07/31/2024 12:24 PM CDT): Last lipid panel well-controlled. Continue rosuvastatin. Assessment & Plan (12/20/2023 1:08 PM CDT): Her lipids are controlled. Will trial rosuvastatin 5 mg instead of Potaba statin 2 mg daily. Assessment & Plan (06/29/2023 12:57 PM CDT): Her lipids are well controlled. Check lipid panel. Continue pitavastatin. Assessment & Plan (03/31/2023 7:01 AM EMPLOYEE BENEFITS DIRECTOR): Her lipids are well controlled. She has [...] Morbid obesity 12/10/2011 01/14/2018 Hyperlipidemia 03/29/2011 01/14/2018 Encounters Date Type Department Care Team Description 02/19/2025 1:30 PM EMPLOYEE BENEFITS DIRECTOR Office Visit [facility] [address] [place] [phone] Mike Blake MD Follow Up (Coronary artery calcification); Hypertension; Syncope 02/12/2025 Hospital Follow-up Call [facility] [address] [place] [phone] Joe Winston MD Follow Up Call 02/10/[address] [facility] [address] [place] [phone] Racheal Burnham FLOAT NURSE- Follow Up Call 02/01/2025 Travel 01/29/2025 4:31 PM EMPLOYEE BENEFITS DIRECTOR - 02/09/2025 12:08 PM EMPLOYEE BENEFITS DIRECTOR Hospital Encounter [facility] [address] [place] [address], [place] [address] Asia Vega MD Engele, Christopher, APRN Pulver, Rhonda, PA Wolf, Brittany, PA-C Harris, Michael, MD Wound Discharge Disposition: Home with Home Health Care 01/29/2025 Travel 12/25/2024 Telephone [facility] Management [address] [place] [address] [phone] Sepideh Ma supervisor dehydrogenation (Swing bed referral to [facility] from [facility]/) from Last 3 Months Immunizations Immunization Administration Dates Next Due Fluzone (IIV3, Trivalent, 0. 5 ML Prefilled Syringe) 01/29/2025(Deferred: Other) Fluzone High Dose - >Age 65 (Prefilled Syringe) 10/27/2019,01/14/2018,01/27/2016,2014 Influenza (Generic) 12/14/2016, 6,01/26/2015,2012,03/09/2012 Pneumococcal (Generic) 04/27/2014 Pneumococcal (Pneumovax 23) 02/08/2009 Shingrix 12/26/2019,10/27/2019 Tdap (Generic) 01/09/2005 Zoster (Zostavax) 56271 Unt/0.65Ml 02/08/2009 Family History Medical History Relation [...] = 0.6 oz pur e alcohol) rare Humiliation, Afraid, Rape, and Kick questionnair e Answer Date Recorded Within the last year, have y ou been afraid of your partner or ex-partner? No 01/29/2025 Within the last year, have y ou been humiliated or emotionally abused in other ways by your partner or ex-partner? No Within the last year, have y ou been kicked, hit, slapped, or otherwise physically hurt by your partner or ex-partner? No 01/29/2025 Within the last year, have y ou been raped or forced to have any kind of sexual activity by your partner or ex-partner? No 01/29/2025 Overall Financial Resource Strain (CARDIA) Answe r Date Recorded How hard is it for you to pa y for the very basics like food, housing, medical care, and heating? Not hard at all 01/29/2025 Hunger Vital Sign Answer Date Recorded Within the past 12 months, y ou worried that your food would run out before you got the money to buy more. Never true 01/30/20 25 Within the past 12 months, t he food you bought just didn't last and you didn't have money to get more. Never true 01/29/2025 PRAPARE - Transportation Answer Date Re corded In the past 12 months, has l ack of transportation kept you from medical appointments or from getting medications? No 01/10 In the past 12 months, has l ack of transportation kept you from meetings, work, or from getting things needed for daily living? No 01/29/2025 Housing Stability Vital Sign Answer Ramin e Recorded In the last 12 months, was t here a time when you were not able to pay the mortgage or rent on time? No 01/29/2025 In the past 12 months, how m any times have you moved where you were living? 0 01/29/2025 At any time in the past 12 m [facility], were you homeless or living in a retirement (including now)? No 01/29/2025 [facility] Utilities Answer Date Recorded In the past 12 months has th e electric, gas, oil, or water company threatened to shut off services in your home? No 01/29/2025 Comments No Sex and Gender Information Value Date Recorded Sex Assigned at Female 04/16/2024 11:17 AM EMPLOYEE BENEFITS DIRECTOR Legal Sex Female 5:53 PM CDT Gender Identity Not on file Sexual Orientation Not on file Occupation Industry Job Start Date Job End Date Not on file Not on file Not on file Not on file Last Filed Vital Signs Vital Sign Reading Time Taken Comments Blood Pressure 120/60 02/19/2025 1:41 PM EMPLOYEE BENEFITS DIRECTOR Pulse 68 02/19/2025 1:41 PM EMPLOYEE BENEFITS DIRECTOR Temperature 36.6 C (97.8 F) 02/09/2025 7:53 AM EMPLOYEE BENEFITS DIRECTOR Respiratory Rate 20 02/09/2025 7:53 AM EMPLOYEE BENEFITS DIRECTOR Oxygen Saturation 97% 02/19/2025 1:41 PM EMPLOYEE BENEFITS DIRECTOR Inhaled Oxygen Concentration - - Weight 100.3 kg (221 lb 1.6 oz) 01/29/2025 5:00 PM EMPLOYEE BENEFITS DIRECTOR Height 162.6 cm (5' 4) 02/19/2025 1:41 PM EMPLOYEE BENEFITS DIRECTOR Body Mass Index 37.95 01/29/2025 4:36 PM EMPLOYEE BENEFITS DIRECTOR Plan of Treatment Upcoming Encounters Date Type Department Care Team (Late st Contact Info) Description 09/03/2025 12:15 PM CDT [facility] [address] [place] [phone] Naty Painting PA [address] [facility], [address] [place] [address] Health Maintenance Due Date Last Done Comments Annual Medicare Wellness Visit 11/24/2008 Dexa Scan (General) 11/24/2008 Pneumococcal Vaccine: 50+ Years (2 of 2 - PCV) 02/08/2010 02/08/2009 RSV Immunization or 60+ Years (1 - 1-dose 75+ series) 11/24/2018 COVID-19 Vaccine (3 - season) 2024 06/13/2020, 05/30/2020 Influenza Adult (#1) 2024 10/27/2019, 12/19/2018, 01/14/2018, Additional history exists DTaP, Tdap and Td Vaccines (5 - Td or Tdap) 12/18/2034 12/18/2024, 03/13/2016, 02/06/2005, Additional history exists Zoster Vaccines Completed 12/26/2019, 12/09, 10/27/2019, Additional history exists Hepatitis A Vaccines Aged Out No long er eligible based on patient's age to complete this topic Meningococcal B Vaccine Aged Out No l onger eligible based on patient's age to complete this topic Meningococcal Vaccine Aged Out No lalit rohith eligible based on patient's age to complete this topic RSV Immunizations Under 20 Months Aged Out No longer eligible based on patient's age to complete this topic Goals Goal Patient Goal Type Associated Problems Recent Progress Patient-Stated? Author Health - patient able to perform ADLs independently General No Terrie Javier, PLASTIC TUBING INSULATION SUPERVISORmanager event - family caregiver with be involved in care transitions and discharge planning Lifestyle No Ngozi Murillo, RN Medical Devices Implanted Type Area Oceanographer Assistant Device Identifier Shelf Expiration Date Model / Serial / Lot Mesh Ventralex Large [id number] - [id number] Implanted:Qty: 1 on 04/07/2020 by Marcelo Reese MD at [facility] Mesh N/A: Abdomen [employer] 08/05/2020 [id number] / / [id number] Description:Ventral Hernia Mesh Ventralex Large [id number] - [id number] Implanted:Qty: 1 on 04/07/2020 [facility] Mesh N/A: Abdomen [employer] - [employer] 10/05/2020 [id number] / / [id number] Description:Incisional herni a Procedures Procedure Name Priority Date/Time Associated Diagnosis Comments COMPREHENSIVE METABOLIC PANEL Routine 02/09/2025 4:40 AM EMPLOYEE BENEFITS DIRECTOR HC CBC AUTO W/AUTO DIFF Routine 02/09/2025 4:40 AM EMPLOYEE BENEFITS DIRECTOR BASIC METABOLIC PANEL Routine 02/08/2025 4:30 AM EMPLOYEE BENEFITS DIRECTOR HC CBC AUTO W/AUTO DIFF Routine 02/08/2025 4:30 AM EMPLOYEE BENEFITS DIRECTOR BASIC METABOLIC PANEL Routine 02/07/2025 3:45 AM EMPLOYEE BENEFITS DIRECTOR HC CBC AUTO W/AUTO DIFF Routine 02/07/2025 3:45 AM EMPLOYEE BENEFITS DIRECTOR HC CBC AUTO W/AUTO DIFF Routine 02/06/2025 6:35 AM EMPLOYEE BENEFITS DIRECTOR PROCALCITONIN (PCT) Routine 02/06/2025 6 :35 AM EMPLOYEE BENEFITS DIRECTOR COMPREHENSIVE METABOLIC PANEL Routine 02/06/2025 6:00 AM EMPLOYEE BENEFITS DIRECTOR COMPREHENSIVE METABOLIC PANEL Routine 02/05/2025 4:45 AM EMPLOYEE BENEFITS DIRECTOR HC CBC AUTO W/AUTO DIFF Routine 02/05/2025 4:44 AM EMPLOYEE BENEFITS DIRECTOR PROCALCITONIN (PCT) Routine 02/05/2025 4 :44 AM EMPLOYEE BENEFITS DIRECTOR COMPREHENSIVE METABOLIC PANEL Routine 02/04/2025 5:25 AM EMPLOYEE BENEFITS DIRECTOR HC CBC AUTO W/AUTO DIFF Routine 02/04/2025 5:25 AM EMPLOYEE BENEFITS DIRECTOR PROCALCITONIN (PCT) Routine 02/04/2025 5 :25 AM EMPLOYEE BENEFITS DIRECTOR HC CBC AUTO W/AUTO DIFF Routine 02/03/2025 4:46 AM EMPLOYEE BENEFITS DIRECTOR BASIC METABOLIC PANEL Routine 02/03/2025 4:46 AM EMPLOYEE BENEFITS DIRECTOR PROCALCITONIN (PCT) Routine 02/03/2025 4 :45 AM EMPLOYEE BENEFITS DIRECTOR BLOOD GAS, ARTERIAL LAB Routine 02/02/2025 5:05 PM EMPLOYEE BENEFITS DIRECTOR LEGIONELLA AG URINE Routine 02/02/2025 1 1:11 AM EMPLOYEE BENEFITS DIRECTOR RESPIRATORY PCR PNL LIMITED Routine 02/02/2025 9:13 AM EMPLOYEE BENEFITS DIRECTOR HC MYCOPLASMA AB-90 Routine 02/02/2025 9 :13 AM EMPLOYEE BENEFITS DIRECTOR BLOOD GAS, ARTERIAL LAB TIMED 02/02/2025 8:04 AM EMPLOYEE BENEFITS DIRECTOR PROCALCITONIN (PCT) Routine 02/02/2025 4 :20 AM EMPLOYEE BENEFITS DIRECTOR COMPREHENSIVE METABOLIC PANEL Routine 02/02/2025 4:20 AM EMPLOYEE BENEFITS DIRECTOR HC CBC AUTO W/AUTO DIFF Routine 02/02/2025 4:20 AM EMPLOYEE BENEFITS DIRECTOR BLOOD GAS, ARTERIAL LAB TIMED 02/01/2025 5:50 PM EMPLOYEE BENEFITS DIRECTOR BLOOD GAS, ARTERIAL LAB TIMED 02/01/2025 4:25 PM EMPLOYEE BENEFITS DIRECTOR XR CHEST PORTABLE STAT 02/01/2025 3:2 7 PM EMPLOYEE BENEFITS DIRECTOR INSERT PICC LINE (PICC INSERTION NURSE) Routine 02/01/2025 3:12 PM EMPLOYEE BENEFITS DIRECTOR BLOOD GAS, ARTERIAL LAB TIMED 02/01/2025 2:10 PM EMPLOYEE BENEFITS DIRECTOR NM BONE SCAN 3 PHASE Today 02/01/2025 1:56 PM EMPLOYEE BENEFITS DIRECTOR CTA CHEST PE PROTOCOL Today 02/01/2025 12:[address]EE BEN[address] HEAD WO CON STAT 02/01/2025 12:53 PM EMPLOYEE BENEFITS DIRECTOR LACTIC ACID Routine 02/01/2025 12:32 PM EMPLOYEE BENEFITS DIRECTOR CULTURE, BACTERIA, BLOOD Routine 02/01/2025 12:31 PM EMPLOYEE BENEFITS DIRECTOR PRO-BRAIN NATRIURETIC PEPTIDE Routine 02/01/2025 12:31 PM EMPLOYEE BENEFITS DIRECTOR COMPREHENSIVE METABOLIC PANEL STAT 02/01/2025 12:31 PM EMPLOYEE BENEFITS DIRECTOR HC CBC AUTO W/AUTO DIFF STAT 02/01/2025 12:31 PM EMPLOYEE BENEFITS DIRECTOR TROPONIN, QUANT STAT 02/01/2025 12:31 PM EMPLOYEE BENEFITS DIRECTOR BLOOD GAS, ARTERIAL LAB STAT 02/01/2025 12:27 PM EMPLOYEE BENEFITS DIRECTOR POCT GLUCOSE - DOCKED DEVICE Routine 02/01/2025 12:22 PM EMPLOYEE BENEFITS DIRECTOR ECG 12-LEAD Routine 02/01/2025 12:19 PM EMPLOYEE BENEFITS DIRECTOR COMPREHENSIVE METABOLIC PANEL Routine 02/01/2025 4:25 AM EMPLOYEE BENEFITS DIRECTOR HC CBC AUTO W/AUTO DIFF Routine 02/01/2025 4:24 AM EMPLOYEE BENEFITS DIRECTOR SED RATE, ERYTHROCYTE (ESR) Routine 01/31/2025 4:20 AM EMPLOYEE BENEFITS DIRECTOR VITAMIN D, 25 OH Routine 01/31/2025 4:20 AM EMPLOYEE BENEFITS DIRECTOR COMPREHENSIVE METABOLIC PANEL Routine 01/31/2025 4:20 AM EMPLOYEE BENEFITS DIRECTOR HC CBC AUTO W/AUTO DIFF Routine 01/31/2025 4:20 AM EMPLOYEE BENEFITS DIRECTOR VANCOMYCIN Routine 01/31/2025 4:20 AM EMPLOYEE BENEFITS DIRECTOR BASIC METABOLIC PANEL Routine 01/30/2025 4:43 AM EMPLOYEE BENEFITS DIRECTOR HC CBC AUTO W/AUTO DIFF Routine 01/30/2025 4:43 AM EMPLOYEE BENEFITS DIRECTOR XR FOOT RT 3V STAT 01/29/2025 5:13 PM EMPLOYEE BENEFITS DIRECTOR XR TIBIA+FIBULA RT 2V STAT 01/29/2025 5:13 PM EMPLOYEE BENEFITS DIRECTOR CULTURE, BACTERIA, BLOOD STAT 01/29/2025 4:49 PM EMPLOYEE BENEFITS DIRECTOR C-REACTIVE PROTEIN STAT 01/29/2025 4: 49 PM EMPLOYEE BENEFITS DIRECTOR SED RATE, ERYTHROCYTE (ESR) STAT 01/29/2025 4:49 PM EMPLOYEE BENEFITS DIRECTOR LACTIC ACID STAT 01/29/2025 4:49 PM EMPLOYEE BENEFITS DIRECTOR COMPREHENSIVE METABOLIC PANEL STAT 01/29/2025 4:49 PM EMPLOYEE BENEFITS DIRECTOR HC CBC AUTO W/AUTO DIFF STAT 01/29/2025 4:49 PM EMPLOYEE BENEFITS DIRECTOR CULTURE, BACTERIA, BLOOD STAT 01/29/2025 4:30 PM EMPLOYEE BENEFITS DIRECTOR from Last 3 Months Results * (ABNORMAL) COMPREHENSIVE METABOLIC PANEL (02/09/2025 4:40 AM EMPLOYEE BENEFITS DIRECTOR) Only the most recent of9 resultswithin the time period is included. [facility] GLUCOSE 89 70 - 99 MG/DL 02/09/2025 5:16 AM EMPLOYEE BENEFITS DIRECTOR [facility] BUN 28(H) 7 - 18 MG/DL 02/09/2025 5:16 AM EMPLOYEE BENEFITS DIRECTOR [facility] CREATININE S/P/B 0.90 0.55 - 1.02 MG/DL 02/09/2025 5:16 AM EMPLOYEE BENEFITS DIRECTOR [facility] SODIUM S/P/B 141 136 - 145 MMOL/L 02/09/2025 5:16 AM [facility] POTASSIUM S/P/B 4.4 3.5 - 5.1 MMOL/L 02/09/2025 5:16 AM [facility] CHLORIDE S/P/B 105 100 - 108 MMOL/L 02/09/2025 5:16 AM [facility] CO2 33.2(H) 21 - 32 MMOL/L 02/09/2025 5:16 AM [facility] CALCIUM S/P/B 9.4 8.5 - 10.1 MG/DL 02/09/2025 5:16 AM [facility] BILIRUBIN TOTAL S/P/B 0.2 0.2 - 1.2 MG/DL 02/09/2025 5:16 AM [facility] Comment: THIS ASSAY IS NOT RECOMMENDED FOR PATIENTS UNDERGOING TREATMENT WITH ELTROMBOPAG DUE TO THE POTENTIAL FOR FALSELY ELEVATED RESULTS. TOTAL PROTEIN S/P/B 5.3(L) 6.4 - 8.2 G/DL 02/09/2025 5:16 AM [facility] ALBUMIN S/P/B 2.7(L) 3.4 - 5.0 G/DL 02/09/2025 5:16 AM [facility] AST 12(L) 15 - 37 U/L 02/09/2025 5:16 AM [facility] ALT 9(L) 14 - 55 U/L 02/09/2025 5:16 AM [facility] ALKALINE PHOSPHATASE S/P/B 62 50 - 136 U/L 02/09/2025 5:16 AM [facility] ANION GAP 2.8(L) 5 - 15 MMOL/L 02/09/2025 5:16 AM [facility] BUN CREATININE RATIO 31.1(H) 6 - 26 02/09/2025 5:16 AM [facility] A/G RATIO 1.0 1.0 - 2.0 RATIO 02/09/2025 5:16 AM [facility] GFR ESTIMATE 64(L) >90 ML/MIN/1.7 3 M2 02/09/2025 5:16 AM [facility] Comment: NOTE: eGFR is not calculated for patients <18 years of age. This is an estimated GFR calculation using the new CKD EPI creatinine equation without race and so does not require a correction factor for race. This estimated GFR should not be used for calculating drug doses. BLOOD VENOUS BLOOD SPECIMEN / Unknown 02/09/2025 4:40 AM EMPLOYEE BENEFITS DIRECTOR us Aline Orozco APRN LABORATORY Final Re sult [facility] [address] [place] [address], * (ABNORMAL) CBC W/DIFF (02/09/2025 4:40 AM EMPLOYEE BENEFITS DIRECTOR) Only the most recent of13 resultswithin the time period is included. WBC 4.97 4.50 - 11.00 x10'3/uL 02/09/2025 4:58 AM [facility] RBC 3.02(L) 4.20 - 5.40 x10'6/uL 02/09/2025 4:58 AM [facility] HGB 9.0(L) 12.0 - 16.0 G/DL 02/09/2025 4:58 AM [facility] HCT 30.9(L) 38.0 - 48.0 % 02/09/2025 4:58 AM [facility] MCV 102.3(H) 81.0 - 99.0 FL 02/09/2025 4:58 AM [facility] MCH 29.8 27.0 - 31.0 PG 02/09/2025 4:58 AM [facility] MCHC 29.1(L) 32.0 - 36.0 G/DL 02/09/2025 4:58 AM [facility] RDW 14.5 11.5 - 14.5 % 02/09/2025 4:58 AM [facility] PLT 208 130 - 400 x10'3/uL 02/09/2025 4:58 AM [facility] MPV 10.4 9.3 - 12.2 FL 02/09/2025 4:58 AM [facility] CBC COMMENT AUTOMATED RBC MORPHOLOGY AND PLATELET EVALUATION NORMAL 02/09/2025 4:58 AM [facility] NEUTROPHILS % 56.3 % 02/09/2025 4:58 AM [facility] LYMPHOCYTES % 29.0 % 02/09/2025 4:58 AM [facility] MONOCYTES % 10.9 % 02/09/2025 4:58 AM [facility] EOSINOPHILS 3.0 % 02/09/2025 4:58 AM [facility] BASOPHILS 0.2 % 02/09/2025 4:58 AM [facility] IMMATURE GRANS % 0.6 % 02/10/20 25 4:58 AM [facility] NRBC % 0.0 % 02/09/2025 4:58 AM [facility] ABS. NEUTROPHILS TOTAL 2.80 1.80 - 7.70 x10'3/uL 02/09/2025 4:58 AM [facility] ABS. LYMPHOCYTES 1.44 1.00 - 4.80 x10'3/uL 02/09/2025 4:58 AM [facility] ABS. MONOCYTES 0.54 0.24 - 0.86 x10'3/uL 02/09/2025 4:58 AM EMPLOYEE BENEFITS DIRECTOR [facility] ABS. EOSINOPHILS 0.15 0.04 - 0.36 x10'3/uL 02/09/2025 4:58 AM [facility] ABS. BASOPHILS 0.01 0.01 - 0.08 x10'3/uL 02/09/2025 4:58 AM [facility] ABS. IMMATURE GRANULOCYTES 0.03 0.00 - 0.49 x10'3/uL 02/09/2025 4:58 AM [facility] ABS. NUCLEATED RBC'S 0.00 0.00 - 0.01 x10'3/uL 02/09/2025 4:58 AM [facility] BLOOD VENOUS BLOOD SPECIMEN / Unknown 02/09/2025 4:40 AM EMPLOYEE BENEFITS DIRECTOR us Aline Orozco APRN LABORATORY Final Re sult [facility] [address] [place] [address], * (ABNORMAL) BASIC METABOLIC PANEL (02/08/2025 4:30 AM EMPLOYEE BENEFITS DIRECTOR) Only the most recent of4 resultswithin the time period is included. [facility] GLUCOSE 84 70 - 99 MG/DL 02/08/2025 5:29 AM [facility] BUN 29(H) 7 - 18 MG/DL 02/08/2025 5:29 AM [facility] CREATININE S/P/B 1.00 0.55 - 1.02 MG/DL 02/08/2025 5:29 AM [facility] SODIUM S/P/B 141 136 - 145 MMOL/L 02/08/2025 5:29 AM [facility] POTASSIUM S/P/B 4.6 3.5 - 5.1 MMOL/L 02/08/2025 5:29 AM [facility] CHLORIDE S/P/B 104 100 - 108 MMOL/L 02/08/2025 5:29 AM [facility] CO2 32.9(H) 21 - 32 MMOL/L 02/08/2025 5:29 AM [facility] CALCIUM S/P/B 9.4 8.5 - 10.1 MG/DL 02/08/2025 5:29 AM [facility] ANION GAP 4.1(L) 5 - 15 MMOL/L 02/08/2025 5:29 AM [facility] BUN CREATININE RATIO 29.0(H) 6 - 26 02/08/2025 5:29 AM [facility] GFR ESTIMATE 57(L) >90 ML/MIN/1.7 3 M2 02/08/2025 5:29 AM [facility] Comment: NOTE: eGFR is not calculated for patients <18 years of age. This is an estimated GFR calculation using the new CKD EPI creatinine equation without race and so does not require a correction factor for race. This estimated GFR should not be used for calculating drug doses. BLOOD VENOUS BLOOD SPECIMEN / Unknown 02/08/2025 4:30 AM EMPLOYEE BENEFITS DIRECTOR Shana Cazares PA-C LABORATORY Final Result [facility] [address] [place] [address], * PROCALCITONIN (PCT) (02/06/2025 6:35 AM EMPLOYEE BENEFITS DIRECTOR) Only the most recent of5 resultswithin the time period is included. PROCALCITONIN <0.05 0.00 - 0.25 NG/ML 02/06/2025 4:47 PM EMPLOYEE BENEFITS DIRECTOR [facility] Comment: PROCALCITONIN INTERPRETATION GUIDELINES LOWER RESPIRATORY TRACT INFECTIONS (LRTI): USE OF PCT IN INPATIENT OR EMERGENCY SITUATION INITIATION OF ANTIBIOTICS PCT VALUE INTERPRETATION <0.10 NG/ML ANTIBIOTIC THERAPY STRONGLY DISCOURAGED. 0.10-0.25 NG/ML ANTIBIOTIC THERAPY DISCOURAGED. 0.26-0.50 NG/ML ANTIBIOTIC THERAPY ENCOURAGED. >0.50 NG/ML ANTIBIOTIC THERAPY STRONGLY ENCOURAGED. DISCONTINUE ANTIBIOTICS PCT LESS THAN OR EQUAL TO 0.25 NG/ML OR DELTA PCT >80 PERCENT DELTA PCT= PCT(PEAK)-PCT(CURRENT)/PCT(PEAK)X100% STUDIES HAVE EVALUATED PCT PROTOCOLS IN THESE PATIENTS AND FOUND THAT FOR PATIENTS WHO ARE CLINICALLY STABLE AND ARE TREATED AT THE ED OR ARE HOSPITALIZED, THE INITIATION OF ANTIBIOTIC THERAPY SHOULD BE BASED ON CLINICAL GROUNDS AND A PCT VALUE OF GREATER THAN OR EQUAL TO 0.26 NG/ML. IF PCT REMAINS LOWER, ANTIBIOTICS CAN BE WITHHELD AND PATIENTS CAN BE REASSESSED CLINICALLY WITHOUT SAFETY CONCERNS. IF PATIENTS ARE CLINICALLY STABLE, AN ALTERNATIVE DIAGNOSIS SHOULD BE CONSIDERED. IF PATIENTS ARE UNSTABLE, THEN ANTIBIOTICS MAY BE CONSIDERED. IF PATIENTS DO NOT IMPROVE IN THE SHORT FOLLOW UP PERIOD OF 6 TO 12 HOURS, CLINICAL RE-EVALUATION AND RE-MEASUREMENT OF PCT IS RECOMMENDED. BLOOD VENOUS BLOOD SPECIMEN / Unknown 02/06/2025 6:35 AM EMPLOYEE BENEFITS DIRECTOR us Aline Orozco APRN LABORATORY Final Re sult [facility] [address] [place] [address], * (ABNORMAL) ARTERIAL BLOOD GAS (02/02/2025 5:05 PM EMPLOYEE BENEFITS DIRECTOR) Only the most recent of6 resultswithin the time period is included. PH ARTERIAL 7.45 7.35 - 7.45 02/02/2025 5:20 PM EMPLOYEE BENEFITS DIRECTOR [facility] PCO2 68.0(H) 35 - 45 MMHG 02/02/2025 5:20 PM EMPLOYEE BENEFITS DIRECTOR [facility] PO2 64.0(L) 83 - 108 MMHG 02/02/2025 5:20 PM EMPLOYEE BENEFITS DIRECTOR [facility] TOTAL CO2 ARTERIAL 49.4(H) 19.0 - 24.0 MMOL/L 02/02/2025 5:20 PM [facility] BASE EXCESS 20.5(H) 0.0 - 3.0 MMOL/L 02/02/2025 5:20 PM EMPLOYEE BENEFITS DIRECTOR [facility] O2 SATURATION 93(L) 94.0 - 98.0 % 02/02/2025 5:20 PM [facility] BICARB ARTERIAL 47.3(HH) 21.0 - 28.0 MMOL/L 02/02/2025 5:20 PM [facility] O2 ADMIN ARTERIAL 2 02/02/2025 5:14 PM EMPLOYEE BENEFITS DIRECTOR [facility] DRAW SITE ARTERIAL L BRACH 02/02/2025 5:14 PM EMPLOYEE BENEFITS DIRECTOR [facility] BLOOD ARTERIAL BLOOD SPECIMEN / Unknown 02/02/2025 5:05 PM EMPLOYEE BENEFITS DIRECTOR us Jacy BALLARD LABORATORY Final Result [facility] [address] [place] [address], [place] [phone] * LEGIONELLA AG URINE (02/02/2025 11:11 AM EMPLOYEE BENEFITS DIRECTOR) LEGIONELLA ANTIGEN (URINE) NEGATIVE NEGATIVE 02/02/2025 12:20 PM EMPLOYEE BENEFITS DIRECTOR [facility] URINE URINE SPECIMEN OBTAINED BY CLEAN CATCH PROCEDURE / Unknown 02/02/2025 11:11 AM EMPLOYEE BENEFITS DIRECTOR us Jacy BALLARD MICROBIOLOGY - GENERAL ORDERABL ES Final Result [facility] [address] [place] [address], [place] [phone] * RESPIRATORY PCR PNL LIMITED (FLU A/FLU B/RSV/COVID) (02/02/2025 9:13 AM EMPLOYEE BENEFITS DIRECTOR) SPEC DESCRIPTION NASOPHARYNGEAL SWAB 02/02/2025 8:17 AM EMPLOYEE BENEFITS DIRECTOR [facility] CORONAVIRUS SARS COV 2 PCR (RESP) NEGATIVE NEGATIVE 02/02/2025 10:00 AM EMPLOYEE BENEFITS DIRECTOR [facility] INFLUENZA A PCR (RESP) NEGATIVE NEGATIVE 02/02/2025 10:00 AM EMPLOYEE BENEFITS DIRECTOR [facility] INFLUENZA B PCR (RESP) NEGATIVE NEGATIVE 02/02/2025 10:00 AM EMPLOYEE BENEFITS DIRECTOR [facility] RSV PCR (RESP) NEGATIVE NEGATIVE 02/02/2025 10:00 AM EMPLOYEE BENEFITS DIRECTOR [facility] SWAB NASOPHARYNGEAL STRUCTURE / Unknown 02/02/2025 9:13 AM EMPLOYEE BENEFITS DIRECTOR Jacy BALLARD MICROBIOLOGY - GENERAL ORDERABL ES Final Result [facility] [address] [place] [address], [place] [phone] * MYCOPLASMA PNEUMONIAE AB (02/02/2025 9:13 AM EMPLOYEE BENEFITS DIRECTOR) M. PNEUMONIAE AB IGG <=0.90 <=0.90 02/08/2025 10:04 AM EMPLOYEE BENEFITS DIRECTOR [facility] Comment: Reference Range: <=0.90 Negative 0.91-1.09 Equivocal >=1.10 Positive A positive IgG result indicates that the patient has antibody to Mycoplasma. It does not differentiate between an active or past infection. The clinical diagnosis must be interpreted in conjunction with the clinical signs and symptoms of the patient. M. PNEUMONIAE AB IGM 94 <770 U/mL 02/08/2025 10:04 AM EMPLOYEE BENEFITS DIRECTOR [employer] [facility] Comment: Reference Range: <770 U/ml Negative 770-950 U/mL Low positive >950 U/mL Positive A positive IgM antibody result is consistent with recent infection. However, a negative result does not necessarily rule out recent infection as some individuals may not mount another IgM response, if previously infected. A positive IgM antibody result with or without a positive IgG antibody result, is consistent with recent infection. However, a negative result does not necessarily rule out recent infection as some individuals may not mount another IgM response, if previously infected. A positive IgG antibody result in the absence of a positive IgM antibody result, indicates that the patient has antibody to Mycoplasma. It does not differentiate between an active or past infection. The clinical diagnosis must be interpreted in conjunction with the clinical signs and symptoms of the patient. Test Performed by [facility], [employer] [facility] [place], [address] [place] [address] Nile Goldman M.D., Ph.D., Director of Laboratories , [facility] [id number] BLOOD VENOUS BLOOD SPECIMEN / Unknown 02/02/2025 9:13 AM EMPLOYEE BENEFITS DIRECTOR Jacy BALLARD LABORATORY Final Result [facility] , * XR CHEST PORTABLE (02/01/2025 3:27 PM EMPLOYEE BENEFITS DIRECTOR) Anatomical Region Laterality Modality Chest Radiographic Ellen ging 02/01/2025 3:28 PM EMPLOYEE BENEFITS DIRECTOR Impressions 02/01/2025 3:30 PM EMPLOYEE BENEFITS DIRECTOR =====IMPRESSION:===== 1. Right-sided PICC line with distal tip projecting over the mid SVC. 2. Low inspiratory volumes. Trace right pleural effusion. Mild bibasilar opacities which likely reflect atelectasis with superimposed infection/aspiration. Ordered By: ALINE OROZCO Interpreted By: Mike Infante MD, 02/01/2025 3:28 PM Narrative 02/01/2025 3:30 PM EMPLOYEE BENEFITS DIRECTOR [facility] [address] [place] [address] EXAMINATION: XR CHEST, 1 VIEW Exam date/time: 02/01/2025 3:18 PM Reason For Exam: PICC placement. Comparison: Chest radiograph 04/14/2020. CTA chest 02/01/2025 Technique: Frontal view. Findings: Interval placement of a right PICC line with distal tip projecting over the mid SVC. Low inspiratory volumes. Cardiomediastinal silhouette and pulmonary vasculature are magnified. Linear opacities the bilateral lung bases favored to reflect atelectasis with superimposed infiltrate as seen on same-day CT. Multiple overlying monitoring leads. Trace right pleural effusion. Atherosclerotic calcifications of the thoracic aorta. Procedure Note Mike Infante MD - 02/01/2025 [facility] [address] [place] [address] EXAMINATION: XR CHEST, 1 VIEW Exam date/time: 02/01/2025 3:18 PM Reason For Exam: PICC placement. Comparison: Chest radiograph 04/14/2020. CTA chest 02/01/2025 Technique: Frontal view. Findings: Interval placement of a right PICC line with distal tipprojecting over the mid SVC. Low inspiratory volumes. Cardiomediastinalsilhouette and pulmonary vasculature are magnified. Linear opacities thebilateral lung bases favored to reflect atelectasis with superimposedinfiltrate as seen on same-day CT. Multiple overlying monitoring leads.Trace right pleural effusion. Atherosclerotic calcifications of thethoracic aorta. =====IMPRESSION:===== 1. Right-sided PICC line with distal tip projecting over the mid SVC. 2. Low inspiratory volumes. Trace right pleural effusion. Mild bibasilaropacities which likely reflect atelectasis with superimposedinfection/aspiration. Ordered By: ALINE OROZCO Interpreted By: Mike Infante MD, 02/01/2025 3:28 PM us Aline Orozco CASH POSTING REPRESENTATIVE GENERAL IMAGING Final Re sult * Insert PICC line. Call PICC Insertion Nurse. (02/01/2025 3:12 PM EMPLOYEE BENEFITS DIRECTOR) Joe Cool MD - 02/01/2025 3:12 PM EMPLOYEE BENEFITS DIRECTOR Joe Winston MD 02/01/2025 7:36 PM Indication: IV antibiotics for cellulitis with hardware Procedure: PICC insertion Timeout performed: 02/01/2025 at 2:54 PM Order for PICC line insertion completed. Consent for the procedure was obtained by the RN. Discussed all possible complications and outcomes with patient and they stated understanding and and they wish to proceed. Patient was prepped and draped in sterile fashion. Venous access point was marked and patient was given 3 ml of lidocaine intradermally and subsequently the right basilic vein was cannulated without issue under US guidance. Next, the guidewire was advanced into the vein without difficulty. After guidewire inserted, a small puncture incision was made near the guidewire to allow for insertion of the introducer/dilator. A 4 Fr single lumen PICC line was measured to the appropriate length and was cut at 40 cm and inserted into the introducer and advanced without difficulty with an exterior catheter length of 0 cm. An introducer sheath was removed and PICC line was secured with a StatLock and bio patch. Stat chest x-ray was ordered to confirm placement and patient tolerated the procedure well and without difficulty. ALINE OROZCO APRN 02/01/2025 3:12 PM Aline Orozco APRN IV THERAPY ORDERABLES Fi nal Result * NM BONE SCAN 3 PHASE (02/01/2025 1:56 PM EMPLOYEE BENEFITS DIRECTOR) Anatomical Region Laterality Modality Bone Nuclear Medicine 02/02/2025 8:03 AM EMPLOYEE BENEFITS DIRECTOR Impressions 02/02/2025 8:28 AM EMPLOYEE BENEFITS DIRECTOR IMPRESSION: 1. No scintigraphic evidence of osteomyelitis. 2. Findings of a cellulitis throughout the right midfoot and hindfoot. Ordered By: NAHUN INIGUEZ Interpreted By: Maikel Mosley MD, 02/02/2025 8:03 AM Narrative 02/02/2025 8:28 AM EMPLOYEE BENEFITS DIRECTOR [place] [id number] [place] [address] EXAMINATION: NM BONE SCAN 3 PHASE DATE: 02/01/2025 11:03 AM HISTORY: 79-year-old female with cellulitis and hardware placed 5 weeks prior, rule out osteomyelitis. RADIOPHARMACEUTICAL: 24.7 mCi Tc-99m MDP via intravenous injection. TECHNIQUE: Three phase skeletal scintigraphy with blood flow, blood pool, and delayed acquisitions. Delayed acquisition was not obtained due to patient's unresponsiveness/clinical state. COMPARISON: Right foot radiography 01/29/2025. FINDINGS: There is regional hyperemia to the hindfoot and midfoot on the right. No abnormal focal uptake is demonstrated on blood flow phase imaging. There is similar regionally increased radiotracer uptake throughout the right hindfoot and midfoot on blood pool phase imaging. This regional, diffusely increased radiotracer uptake is in keeping with a cellulitis. Although no delayed phase imaging is performed, lack of focal uptake on the first two phases rules out osteomyelitis. Procedure Note Maikel Mosley MD - 02/02/2025 [facility] [address] [place] [address] EXAMINATION: NM BONE SCAN 3 PHASE DATE: 02/01/2025 11:03 AM HISTORY: 79-year-old female with cellulitis and hardware placed 5 weeksprior, rule out osteomyelitis. RADIOPHARMACEUTICAL: 24.7 mCi Tc-99m MDP via intravenous injection. TECHNIQUE: Three phase skeletal scintigraphy with blood flow, blood pool,and delayed acquisitions. Delayed acquisition was not obtained due topatient's unresponsiveness/clinical state. COMPARISON: Right foot radiography 01/29/2025. FINDINGS: There is regional hyperemia to the hindfoot and midfoot on the right. Noabnormal focal uptake is demonstrated on blood flow phase imaging. There is similar regionally increased radiotracer uptake throughout theright hindfoot and midfoot on blood pool phase imaging. This regional,diffusely increased radiotracer uptake is in keeping with a cellulitis. Although no delayed phase imaging is performed, lack of focal uptake onthe first two phases rules out osteomyelitis. IMPRESSION: 1. No scintigraphic evidence of osteomyelitis. 2. Findings of a cellulitis throughout the right midfoot and hindfoot. Ordered By: NAHUN INIGUEZ Interpreted By: Maikel Mosley MD, 02/02/2025 8:03 AM us Nahun Iniguez MD [facility] Final Result * CTA CHEST PE PROTOCOL (02/01/2025 12:59 PM EMPLOYEE BENEFITS DIRECTOR) Anatomical Region Laterality Modality Chest Computed Tomogra phy 02/01/2025 1:12 PM EMPLOYEE BENEFITS DIRECTOR Impressions 02/01/2025 1:22 PM EMPLOYEE BENEFITS DIRECTOR IMPRESSION: No pulmonary embolism the main pulmonary arteries or segmental branches. Prominence of the pulmonary artery is present. This may relate to pulmonary artery hypertension. Cardiomegaly. Scattered atelectatic changes in the RIGHT and LEFT lung. There are consolidative changes in the RIGHT lower lobe. Small RIGHT pleural effusion. Follow-up chest CT is recommended in approximately 8 weeks to ensure resolution. Underlying mass lesions within the lung can be obscured by consolidations. Referred By: Interpreted By: Franklyn Sahu MD, 02/01/2025 1:12 PM Narrative 02/01/2025 1:22 PM EMPLOYEE BENEFITS DIRECTOR [place] [id number] Procedure(s): CTA CHEST PE PROTOCOL Date of service: 02/01/2025 12:48 PM Provided clinical information: 79 years, Female, LOC change/SOB Procedure and materials: Helical images of the chest are obtained from superior to the thoracic inlet to inferior to the costophrenic angles. Examination is performed after the administration of intravenous contrast. 80 mL Isovue 370 utilized for contrast. Postprocessing was performed. 3-D MIP images obtained. A dose lowering technique was used for this procedure, which may include, but is not limited to, dose reduction technique, automated exposure control, iterative reconstruction, ALARA (As Low As Reasonably Achievable), or Image Gently techniques. Comparison studies: April 08, 2020. Findings: Axillae: No enlarged lymph nodes. Mediastinum/Marie:Cardiomegaly is present. No enlarged mediastinal or hilar lymph nodes are present. No pulmonary embolism in the main pulmonary arteries or segmental branches. There is prominence of the main pulmonary arteries. This could be secondary to pulmonary hypertension. Clinical correlation recommended. Lung Parenchyma:Atelectatic changes are present in the lungs bilaterally, RIGHT greater than LEFT. Mild consolidative changes are present in the RIGHT lower lobe. Follow-up in 8 weeks is recommended to ensure resolution and that an underlying lesion is not present in the RIGHT lower lobe. Small RIGHT pleural effusion. Visualized Upper abdominal structures:Unremarkable. Bone Windows:Diffuse degenerative changes of the thoracic spine. Procedure Note Franklyn Sahu MD - 02/01/2025 [facility] [address] [place] [address] Procedure(s): CTA CHEST PE PROTOCOL Date of service: 02/01/2025 12:48 PM Provided clinical information: 79 years, Female, LOC change/SOB Procedure and materials: Helical images of the chest are obtained fromsuperior to the thoracic inlet to inferior to the costophrenic angles.Examination is performed after the administration of intravenous contrast.80 mL Isovue 370 utilized for contrast. Postprocessing was performed. 3-D MIP images obtained. A dose lowering technique was used for this procedure, which may include,but is not limited to, dose reduction technique, automated exposurecontrol, iterative reconstruction, ALARA (As Low As ReasonablyAchievable), or Image Gently techniques. Comparison studies: April 08, 2020. Findings: Axillae: No enlarged lymph nodes. Mediastinum/Marie:Cardiomegaly is present. No enlarged mediastinal or hilar lymph nodes are present. No pulmonaryembolism in the main pulmonary arteries or segmental branches. There isprominence of the main pulmonary arteries. This could be secondary topulmonary hypertension. Clinical correlation recommended. Lung Parenchyma:Atelectatic changes are present in the lungs bilaterally,RIGHT greater than LEFT. Mild consolidative changes are present in theRIGHT lower lobe. Follow-up in 8 weeks is recommended to ensure resolutionand that an underlying lesion is not present in the RIGHT lower lobe.Small RIGHT pleural effusion. Visualized Upper abdominal structures:Unremarkable. Bone Windows:Diffuse degenerative changes of the thoracic spine. IMPRESSION: No pulmonary embolism the main pulmonary arteries or segmental branches. Prominence of the pulmonary artery is present. This may relate topulmonary artery hypertension. Cardiomegaly. Scattered atelectatic changes in the RIGHT and LEFT lung. There areconsolidative changes in the RIGHT lower lobe. Small RIGHT pleuraleffusion. Follow-up chest CT is recommended in approximately 8 weeks to ensureresolution. Underlying mass lesions within the lung can be obscured byconsolidations. Referred By: Interpreted By: Franklyn Sahu MD, 02/01/2025 1:12 PM Aline Orozco APRN CT Final Re sult * CT HEAD WO CON (02/01/2025 12:53 PM EMPLOYEE BENEFITS DIRECTOR) Anatomical Region Laterality Modality Head Computed Tomogra phy 02/01/2025 1:08 PM EMPLOYEE BENEFITS DIRECTOR Impressions 02/01/2025 1:11 PM EMPLOYEE BENEFITS DIRECTOR IMPRESSION: No acute intracranial abnormality. Soft tissue swelling about the LEFT posterior parietal scalp may relate to a scalp hematoma. Correlation with physical examination recommended. Chronic sinusitis. Referred By: Interpreted By: Franklyn Sahu MD, 02/01/2025 1:08 PM Narrative 02/01/2025 1:11 PM EMPLOYEE BENEFITS DIRECTOR [facility] [address] [place] [address] Procedure(s): CT HEAD WO CON Date of service: 02/01/2025 12:33 PM Provided clinical information: 79 years, Female, LOC change Procedure and materials: Helical images of the head obtained from the base of skull through to the vertex. A dose lowering technique was used for this procedure, which may include, but is not limited to, dose reduction technique, automated exposure control, iterative reconstruction, ALARA (As Low As Reasonably Achievable), or Image Gently techniques. Comparison studies: None. Findings: Mucosal thickening is present in the LEFT maxillary sinus. Mucosal thickening is present in the sphenoid sinus and ethmoid air cells. No air-fluid levels are present in the paranasal sinuses. No depressed fracture of the calvarium. No intracranial hemorrhage, midline shift or mass effect is present. Ventricles and sulci are concordant with patient's age. There is a small area of scalp thickening in the posterior LEFT parietal scalp which may relate to a scalp hematoma. Correlation with physical examination recommended. Procedure Note Franklyn Sahu MD - 02/01/2025 [facility] [address] [place] [address] Procedure(s): CT HEAD WO CON Date of service: 02/01/2025 12:33 PM Provided clinical information: 79 years, Female, LOC change Procedure and materials: Helical images of the head obtained from the baseof skull through to the vertex. A dose lowering technique was used for this procedure, which may include,but is not limited to, dose reduction technique, automated exposurecontrol, iterative reconstruction, ALARA (As Low As ReasonablyAchievable), or Image Gently techniques. Comparison studies: None. Findings: Mucosal thickening is present in the LEFT maxillary sinus. Mucosalthickening is present in the sphenoid sinus and ethmoid air cells. No air-fluid levels are present in the paranasal sinuses. No depressed fracture of the calvarium. No intracranial hemorrhage, midline shift or mass effect is present.Ventricles and sulci are concordant with patient's age. There is a small area of scalp thickening in the posterior LEFT parietalscalp which may relate to a scalp hematoma. Correlation with physicalexamination recommended. IMPRESSION: No acute intracranial abnormality. Soft tissue swelling about the LEFT posterior parietal scalp may relate toa scalp hematoma. Correlation with physical examination recommended. Chronic sinusitis. Referred By: Interpreted By: Franklyn Sahu MD, 02/01/2025 1:08 PM us Aline Orozco APRN CT Final Re sult * (ABNORMAL) LACTIC ACID (02/01/2025 12:32 PM EMPLOYEE BENEFITS DIRECTOR) Only the most recent of2 resultswithin the time period is included. Pathologist [facility] LACTIC ACID VENOUS 0.3(L) 0.4 - 2.0 MMOL/L 02/01/2025 1:02 PM EMPLOYEE BENEFITS DIRECTOR [facility] BLOOD VENOUS BLOOD SPECIMEN / Unknown 02/01/2025 12:32 PM EMPLOYEE BENEFITS DIRECTOR [facility] LABORATORY Final Re sult Performing Organization Address City/[facility]/ZIP Co de Phone Number [facility] [address] [place] [id number], * TROPONIN, QUANT (02/01/2025 12:31 PM EMPLOYEE BENEFITS DIRECTOR) [facility] TROPONIN I HIGH SENSITIVITY 9 0 - 54 ng/L 02/01/2025 1:07 PM EMPLOYEE BENEFITS DIRECTOR [facility] Comment: HIGH DOSES OF BIOTIN, TROPONIN-SPECIFIC AUTOANTIBODIES, AND ANTIBODY THERAPY CONTAINING HAMA MAY INTERFERE WITH THIS TEST RESULT. CORRELATION TO CLINICAL HISTORY AND PRESENTATION RECOMMENDED. BLOOD VENOUS BLOOD SPECIMEN / Unknown 02/01/2025 12:31 PM EMPLOYEE BENEFITS DIRECTOR [facility]3] Dmitri [facility] Final Re sult Performing Organization Address [facility]/ZIP Co de Phone Number [facility] [address] [place] [address], [place] [phone] * CULTURE, BACTERIA, BLOOD (02/01/2025 12:31 PM EMPLOYEE BENEFITS DIRECTOR) Only the most recent of3 resultswithin the time period is included. [facility] SPEC DESCRIPTION BLOOD-VENO US 02/01/2025 12:37 PM EMPLOYEE BENEFITS DIRECTOR [facility] SPECIAL REQUESTS RAC MF 02/02/20 12:37 PM EMPLOYEE BENEFITS DIRECTOR [facility] CULTURE RESULT NO GROWTH 5 DAYS 02/06/2025 10:14 PM EMPLOYEE BENEFITS DIRECTOR [facility] BLOOD VENOUS BLOOD SPECIMEN / Unknown 02/01/2025 12:31 PM EMPLOYEE BENEFITS DIRECTOR 02/01/2025 12:36 PM EMPLOYEE BENEFITS DIRECTOR Aline Orozco APRN MICROBIOLOGY - GENERAL O RDERABLES Final Result Performing Organization Address City/[facility]/ZIP Co de Phone Number [facility] [address] [place] [address], [place] [phone] [facility] [address] [place] [address], [place] [phone] * (ABNORMAL) PRO-BRAIN NATRIURETIC PEPTIDE (02/01/2025 12:31 PM EMPLOYEE BENEFITS DIRECTOR) PRO-BRAIN NATRIURETIC PEPTIDE 688(H) <450 PG/ML 02/01/2025 1:45 PM EMPLOYEE BENEFITS DIRECTOR [facility] Comment: CUT POINTS ESTABLISHED BY [employer]NATIONAL [employer] ON NT PROBNP (ICON) STUDY (2006). AGE INDEPENDENT: <300 PG/ML HAS A 99% NEGATIVE PREDICTIVE VALUE FOR EXCLUDING ACUTE CHF <50 YEARS: >450 PG/ML IS CONSISTENT WITH ACUTE CHF 50-75 YEARS: >900 PG/ML IS CONSISTENT WITH ACUTE CHF >75 YEARS: >1800 PG/ML IS CONSISTENT WITH ACUTE CHF IN PATIENTS WITH RENAL INSUFFICIENCY (GFR <60), >1200 PG/ML YIELDS A DIAGNOSTIC SENSITIVITY AND SPECIFICITY OF 89% AND 72% FOR ACUTE CHF. BLOOD VENOUS BLOOD SPECIMEN / Unknown 02/01/2025 12:31 PM EMPLOYEE BENEFITS DIRECTOR Aline Orozco APRN LABORATORY Final Re sult [facility] [address] [place] [address], [place] [phone] * (ABNORMAL) POCT glucose (02/01/2025 12:22 PM EMPLOYEE BENEFITS DIRECTOR) GLUCOSE POC 122(H) 70 - 99 MG/DL 02/01/2025 12:24 PM EMPLOYEE BENEFITS DIRECTOR [facility] 02/01/2025 12:2 2 PM EMPLOYEE BENEFITS DIRECTOR Aline Orozco APRN POCT ORDERABLES - DEVICE Final Result [facility] [address] [place] [address], * ECG 12 lead (02/01/2025 12:19 PM EMPLOYEE BENEFITS DIRECTOR) ECG QT 331 [facility] ECG QTC 395 [facility] ([facility]) RAD 02/01/2025 12:1 9 PM EMPLOYEE BENEFITS DIRECTOR Narrative 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1945 Requested By: ALINE OROZCO Order Number: [id number] Reading MD: Riky Valle Measurements Intervals [place] Rate: 85 P: 57 LA: 140 QRS: 23 QRSD: 91 T: 59 QT: 331 QTc: 395 Interpretive Statements SINUS RHYTHM POSSIBLE LEFT ATRIAL ENLARGEMENT [-0.1mV P WAVE IN V1/V2] OYEE BENEFITS DIRECTOR Procedure Note Riky Valle MD - 02/02/2025 [facility] Test Date: 2025-02-01 Pat Name: SANDRA CLINTON Department: 80 Room: 131B Gender: Female 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 Co de Phone Number [facility] RAD * VITAMIN D, 25 OH (01/31/2025 4:20 AM EMPLOYEE BENEFITS DIRECTOR) VITAMIN D 25 HYDROXY S/P/B 32 30 - 100 NG/ML 01/31/2025 6:29 AM EMPLOYEE BENEFITS DIRECTOR [facility] Comment: INTERPRETATION DEFICIENT <20 INSUFFICIENT 20-29 SUFFICIENT 30-100 BLOOD VENOUS BLOOD SPECIMEN / Unknown 01/31/2025 4:20 AM EMPLOYEE BENEFITS DIRECTOR Nahun Iniguez MD LABORATORY Final Result Performing Organization Address [facility]/[place] de Phone Number [facility] [address] [place] [address], [place] [phone] * Vancomycin Random Level (01/31/2025 4:20 AM EMPLOYEE BENEFITS DIRECTOR) Pathologist [facility] VANCOMYCIN RANDOM 5.6 MCG/ML 01/31/2025 5:45 AM EMPLOYEE BENEFITS DIRECTOR [facility] Comment: NO THERAPEUTIC RANGE AVAILABLE Toxic Level: >40.0 MCG/ML BLOOD VENOUS BLOOD SPECIMEN / Unknown 01/31/2025 4:20 AM EMPLOYEE BENEFITS DIRECTOR Aline Orozco APRN LABORATORY Final Re sult Performing Organization Address [facility] Co de Phone Number [facility] [address] [place] [address], [place] [phone] * (ABNORMAL) SED RATE, ERYTHROCYTE (ESR) (01/31/2025 4:20 AM EMPLOYEE BENEFITS DIRECTOR) Only the most recent of2 resultswithin the time period is included. ESR 43(H) <30 MM/HR 01/31/2025 5:2 5 AM EMPLOYEE BENEFITS DIRECTOR [facility] BLOOD VENOUS BLOOD SPECIMEN / Unknown 01/31/2025 4:20 AM EMPLOYEE BENEFITS DIRECTOR Nahun Iniguez MD LABORATORY Final Result [facility] [address] [place] [address], [place] [phone] * XR TIBIA+FIBULA RT 2V (01/29/2025 5:13 PM EMPLOYEE BENEFITS DIRECTOR) Anatomical Region Laterality Modality TibFib Radiographic Ellen ging 01/29/2025 5:45 PM EMPLOYEE BENEFITS DIRECTOR Impressions 01/29/2025 5:58 PM EMPLOYEE BENEFITS DIRECTOR IMPRESSION: 1. Diffuse soft tissue abnormalities which are most severe in the foot. 2. Multifocal internal fixation. Referred By: Interpreted By: Eulalio Lemus MD, 01/29/2025 5:45 PM Narrative 01/29/2025 5:58 PM EMPLOYEE BENEFITS DIRECTOR [facility] [address] [place] [address] EXAM: XR TIBIA+FIBULA RT 2V, XR FOOT RT 3V DATE: 01/29/2025 1655 hours No comparison INDICATION: Recent repair of trimalleolar fracture. Cellulitis. TECHNIQUE: 3 views of the right foot. 2 views of the right lower leg, 4 images. FINDINGS: Foot: Fractures at the bases of the first and second metatarsals with screw fixation across the first and second tarsal-metatarsal joints. Hardware appears intact. Previous amputation of the second distal phalanx. Chronic appearing bone density at the distal-lateral corner of the fourth middle phalanx. Diffuse soft tissue fullness with increased density could represent edema and/or infection. Lower leg: There is mild diffuse increased density in the superficial fat of the lower leg. Mild soft tissue fullness extends through the ankle. Long length screw and plate fixation of the distal fibula. Posterior screw and plate fixation of the distal tibia. Oblique bone screws through the medial malleolus. The hardware appears intact. With the multiple bone abnormalities associated with the fractures, no convincing bone destruction. Slight lateral shift of the talus relative to tibia. Healing fracture of the fibular neck consistent with a Maisonneuve fracture. Medial and lateral compartment osteoarthritis at the knee. Procedure Note Eulalio Lemus MD - 01/29/2025 [facility] [address] [place] [address] EXAM: XR TIBIA+FIBULA RT 2V, XR FOOT RT 3V DATE: 01/29/2025 1655 hours No comparison INDICATION: Recent repair of trimalleolar fracture. Cellulitis. TECHNIQUE: 3 views of the right foot. 2 views of the right lower leg, 4images. FINDINGS: Foot: Fractures at the bases of the first and second metatarsals withscrew fixation across the first and second tarsal-metatarsal joints.Hardware appears intact. Previous amputation of the second distalphalanx. Chronic appearing bone density at the distal-lateral corner ofthe fourth middle phalanx. Diffuse soft tissue fullness with increaseddensity could represent edema and/or infection. Lower leg: There is mild diffuse increased density in the superficial fatof the lower leg. Mild soft tissue fullness extends through the ankle.Long length screw and plate fixation of the distal fibula. Posteriorscrew and plate fixation of the distal tibia. Oblique bone screws throughthe medial malleolus. The hardware appears intact. With the multiplebone abnormalities associated with the fractures, no convincing bonedestruction. Slight lateral shift of the talus relative to tibia.Healing fracture of the fibular neck consistent with a Maisonneuvefracture. Medial and lateral compartment osteoarthritis at the knee. IMPRESSION: 1. Diffuse soft tissue abnormalities which are most severe in the foot. 2. Multifocal internal fixation. Referred By: Interpreted By: Eulalio Lemus MD, 01/29/2025 5:45 PM us Asia Vega MD GENERAL IMAGING Final Result * XR FOOT RT 3V (01/29/2025 5:13 PM EMPLOYEE BENEFITS DIRECTOR) Anatomical Region Laterality Modality Foot Radiographic Ellen ging 01/29/2025 5:45 PM EMPLOYEE BENEFITS DIRECTOR Impressions 01/29/2025 5:58 PM EMPLOYEE BENEFITS DIRECTOR IMPRESSION: 1. Diffuse soft tissue abnormalities which are most severe in the foot. 2. Multifocal internal fixation. Referred By: Interpreted By: Eulalio Lemus MD, 01/29/2025 5:45 PM Narrative 01/29/2025 5:58 PM EMPLOYEE BENEFITS DIRECTOR [address] [address] EXAM: XR TIBIA+FIBULA RT 2V, XR FOOT RT 3V DATE: 01/29/2025 1655 hours No comparison INDICATION: Recent repair of trimalleolar fracture. Cellulitis. TECHNIQUE: 3 views of the right foot. 2 views of the right lower leg, 4 images. FINDINGS: Foot: Fractures at the bases of the first and second metatarsals with screw fixation across the first and second tarsal-metatarsal joints. Hardware appears intact. Previous amputation of the second distal phalanx. Chronic appearing bone density at the distal-lateral corner of the fourth middle phalanx. Diffuse soft tissue fullness with increased density could represent edema and/or infection. Lower leg: There is mild diffuse increased density in the superficial fat of the lower leg. Mild soft tissue fullness extends through the ankle. Long length screw and plate fixation of the distal fibula. Posterior screw and plate fixation of the distal tibia. Oblique bone screws through the medial malleolus. The hardware appears intact. With the multiple bone abnormalities associated with the fractures, no convincing bone destruction. Slight lateral shift of the talus relative to tibia. Healing fracture of the fibular neck consistent with a Maisonneuve fracture. Medial and lateral compartment osteoarthritis at the knee. Procedure Note Eulalio Lemus MD - 01/29/2025 [facility] [address] [place] [address] EXAM: XR TIBIA+FIBULA RT 2V, XR FOOT RT 3V DATE: 01/29/2025 1655 hours No comparison INDICATION: Recent repair of trimalleolar fracture. Cellulitis. TECHNIQUE: 3 views of the right foot. 2 views of the right lower leg, 4images. FINDINGS: Foot: Fractures at the bases of the first and second metatarsals withscrew fixation across the first and second tarsal-metatarsal joints.Hardware appears intact. Previous amputation of the second distalphalanx. Chronic appearing bone density at the distal-lateral corner ofthe fourth middle phalanx. Diffuse soft tissue fullness with increaseddensity could represent edema and/or infection. Lower leg: There is mild diffuse increased density in the superficial fatof the lower leg. Mild soft tissue fullness extends through the ankle.Long length screw and plate fixation of the distal fibula. Posteriorscrew and plate fixation of the distal tibia. Oblique bone screws throughthe medial malleolus. The hardware appears intact. With the multiplebone abnormalities associated with the fractures, no convincing bonedestruction. Slight lateral shift of the talus relative to tibia.Healing fracture of the fibular neck consistent with a Maisonneuvefracture. Medial and lateral compartment osteoarthritis at the knee. IMPRESSION: 1. Diffuse soft tissue abnormalities which are most severe in the foot. 2. Multifocal internal fixation. Referred By: Interpreted By: Eulalio Lemus MD, 01/29/2025 5:45 PM Asia Vega MD GENERAL IMAGING Final Result * (ABNORMAL) C-REACTIVE PROTEIN (01/29/2025 4:49 PM EMPLOYEE BENEFITS DIRECTOR) C-REACTIVE PROTEIN 0.60(H) <0.3 mg/dL 01/29/2025 5:39 PM EMPLOYEE BENEFITS DIRECTOR [facility] () [facility] BLOOD VENOUS BLOOD SPECIMEN / Unknown 01/29/2025 4:49 PM EMPLOYEE BENEFITS DIRECTOR Asia Vega MD LABORATORY Final Result [facility] [address] [place] [address], from Last 3 Months Insurance [facility] MEDICARE Advance Directives Documents on File Type Date Recorded 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 Advance Directives and Living Will 02/10/2025 2:20 PM 01/01/2025 POA FOR H C Advance Directives and Living Will 02/10/2025 2:14 PM 01/07/2025 DNR---[address] Advance Directives and Living Will 09/26/2015 12:00 AM ADVANCED DIRECTIVES * DNR (Latest Code Status on File) Date Activated Date Inactivated Comments 02/01/2025 4:06 PM 02/09/2025 2:13 PM * Full Code Date Activated Date Inactivated Comments 01/29/2025 8:47 PM 02/01/2025 4:06 PM * Full Code Date Activated Date Inactivated Comments 05/09/2020 8:38 PM 01/29/2025 4:30 PM * Full Code Date Activated Date Inactivated Comments 04/07/2020 6:22 PM 04/12/2020 9:54 PM Healthcare Agents on File Name Relationship Healthcare Agent Relationshi p Communication Puneet Colby Health Care Agent Karo Malave Nimariel First Alternat e Health Care Agent Elvin Clinton Nephew Second Alternate Health Care Agent Care Teams Mold Maker Plastic Molds Relationship Specialty Start Date End Date Racheal Burnham, [facility] [address] [place] [address] PCP - General Nurse Practitioner Family 12/30/23 Mike Blake MD [facility] [address] [place] [address] [employer] Driller Machine CARDIOVASCULAR DISEASE 07/15/17
--- OUTSIDE RECORDS SUMMARY | 2025-03-01 13:45 | XMS_ITS | Encounter Summary ---
Author Organization [facility] Address [facility] [place] [address] Care Team Providers Care Senior Naval Parachutist Name Role Phone Laura Kapoor Sara RANGEL Primary Care Provider [phone] Mike Blake MD Unavailable [phone] Bushra Poole DO Primary Care Provider [phone] Kevin Butts MD Primary Care Provider + [phone] Racheal Burnham [facility] Primary Care Provider + Encounter Details Date Type Department Care Team (Late st Contact Info) Description 07/26/2017 Results Notification [facility], [facility] [address] [place], [place] [id number] Mike Blake MD [facility]. [facility] [address] [place] [address] Social History Tobacco Use Types Packs/Day Years Used Date Smoking Tobacco: Never Smokeless Tobacco: Never Alcohol Use Standard Drinks/Week Comments Yes 0 (1 standard drink = 0.6 oz pur e alcohol) rare Comments Unknown Sex and Gender Information Value Date Recorded Sex Assigned at Female 04/16/2024 11:17 AM CORPORATE CLAIMS EXAMINER Legal Sex Female 5:53 PM CDT Gender Identity Not on file Sexual Orientation Not on file documented as of this encounter Plan of Treatment Upcoming Encounters Date Type Department Care Team (Late st Contact Info) Description 09/03/2025 12:15 PM CDT Office Visit [facility] [address] [place] [address] Naty Painting PA [address] [facility], [address] [place] [address] documented as of this encounter Visit Diagnoses Not on filedocumented in this encounter Additional Health Concerns Infection Onset Date Last Indicated Resolved Time COVID-19 Rule Out 04/04/2020 04/04/2020 04/05/2020 11:42 PM CORPORATE CLAIMS EXAMINER Respiratory Rule Out 02/02/2025 02/02/2025 025 10:01 AM CORPORATE CLAIMS EXAMINER documented as of this encounter Care Teams Senior Naval Parachutist Relationship Specialty Start Date End Date Laura Kapoor DO PCP - General FAMILY PRACTICE 07/09/17 10/16/18 Bushra Poole DO [facility]. [address] [address] [place] [address] PCP - General FAMILY PRACTICE 11/09/18 11/08/21 Kevin Butts MD [address] [place] [address] PCP - General FAMILY PRACTICE 11/09/21 12/29/23 Racheal Burnham [employer]ING [employer]MER MACHINE- [address] [place] [address] PCP - General Nurse Practitioner Family 12/30/23 Mike Blake MD [facility]. [facility] [address] [place], [place] [phone] [place] Hub Cutter Apprentice CARDIOVASCULAR DISEASE 07/15/17 documented as of this encounter
--- OUTSIDE RECORDS SUMMARY | 2025-03-01 13:46 | XMS_ITS | Clinical Summary ---
Author Organization [facility] Address [address] [place] [address] Care Team Providers Care Street Inspector Name Role Phone Racheal Burnham MOSS PICKER Primary Care Provider + Allergies Active Allergy Reactions Criticality Noted Date Comments Niacin Itching,Other (See comments) Low 11/28/2009 flushing Niacinamide Unknown 01/06/2025 Mplqccv-Fxz-Six Reductase Inhibitors Muscle pain Medium 12/18/2024 Medications allopurinoL (ZYLOPRIM) 300 mg tablet Take 1 tablet (300 mg total) by mouth daily Active furosemide (LASIX) 20 mg tablet Take 1 tablet (20 mg total) by mouth daily Active lisinopriL (PRINIVIL,ZESTR IL) 20 mg tablet Take 1 tablet (20 mg total) by mouth daily Active rosuvastatin (CRESTOR) 5 mg tablet Take 1 tablet (5 mg total) by mouth daily Active cholecalciferol (VITAMIN D-3) 25 mcg (1,000 unit) tablet Take 1 tablet (1,000 Units total) by mouth daily 30 tablet 5 01/07/20 26 Active acetaminophen 500 mg capsuleIndicati ons:Fever,Pain Take 2 capsules (1,000 mg total) by mouth every 6 (six) hours 30 tablet 5 Active benzonatate (TESSALON) 100 mg capsuleIndicati ons:Cough Take 1 capsule (100 mg total) by mouth 3 (three) times a day as needed for cough 5 Active bisacodyL (DULCOLAX) 10 mg suppositoryIndi cations:constip ation Insert 1 suppository (10 mg total) into the rectum daily Active dextromethorpha n-guaiFENesin (ROBITUSSIN-DM) 2-20 mg/mL liquid Take 10 mL by mouth 4 (four) times a day as needed for cough Active gabapentin (NEURONTIN) 100 mg capsule Take 1 capsule (100 mg total) by mouth 2 (two) times a day 01/07/20 Active methocarbamoL (ROBAXIN) 500 mg tablet Take 1 tablet (500 mg total) by mouth 3 (three) times a day as needed for muscle spasms Active polyethylene glycol (MIRALAX) 17 gram/dose bulk powderIndicatio ns:constipation Take 17 g by mouth daily Active ramelteon (ROZEREM) 8 mg tabletIndicatio ns:Sleep-Onset Insomnia Take 1 tablet (8 mg total) by mouth nightly 01/07/20 Active senna (SENOKOT) 8.6 mg tabletIndicatio ns:constipation Take 2 tablets by mouth 2 (two) times a day 01/07/20 Active sodium chloride (OCEAN) 0.65 % nasal spray Administer 1 spray into each nostril every 2 (two) hours as needed for rhinitis 01/07/20 Active ipratropium-alb uteroL (DUO-NEB) 0.5-2.5 mg/3 mL nebulizer solution Take 3 mL by nebulization every 6 (six) hours as needed for wheezing or shortness of breath Active oxyCODONE (ROXICODONE) 5 mg immediate release tabletIndicatio ns:Pain Take 1 tablet (5 mg total) by mouth every 4 (four) hours as needed for pain Active albuterol HFA (PROVENTIL HFA,VENTOLIN HFA,PROAIR HFA) 90 mcg/actuation inhaler Inhale 2 puffs every 4 (four) hours as needed 1 Active aspirin 81 mg capsule Take 1 tablet by mouth daily 5 Active ceFAZolin 10 gram injection 5 Active cephalexin (KEFLEX) 500 mg capsule Take 1 capsule (500 mg total) by mouth 2 (two) times a day [address] (VOLTAREN) 75 mg EC tablet Take 1 tablet (75 mg total) by mouth 2 (two) times a day 0 Active guaiFENesin ER (MUCINEX) 600 mg 12 hr tablet Take 1 tablet (600 mg total) by mouth 5 Active loratadine 10 mg tablet Take 1 tablet (10 mg total) by mouth 5 Active Active Problems Problem Noted Date Diagnosed Date Acute blood loss anemia 02/25/2025 Acute pain 02/25/2025 Acute respiratory failure with hypoxia and hyper capnia 02/25/2025 Anemia 02/25/2025 Ankle fracture 02/25/2025 Colon polyps 02/25/2025 Chest wall contusion 02/25/2025 COPD (chronic obstructive pulmonary disease) Fall with injury 02/25/2025 Gait abnormality 02/25/2025 Heart murmur 02/25/2025 History of bilateral hip arthroplasty 02/25/2025 Mixed hyperlipidemia 02/25/2025 Hyperglycemia 02/25/2025 Hypoventilation associated with obesity syndrome 02/25/2025 Acute pain of right thigh 02/25/2025 Knee pain 02/25/2025 Syncope 02/25/2025 GERD (gastroesophageal reflux disease) Arthritis 02/25/2025 Gastritis 02/25/2025 MIKKI (obstructive sleep apnea) 02/25/2025 Overview (02/25/2025): Does not use a CPAP Lumbar radiculopathy 02/25/2025 Respiratory acidosis 02/25/2025 Respiratory failure 02/25/2025 Rhinovirus 02/25/2025 Rotator cuff tear arthropathy of left shoulder 1 04/28/2024 Tricompartment osteoarthritis of right knee 02/08 Ventral hernia 02/25/2025 Cellulitis of right leg 01/29/2025 Hypersomnia 01/06/2025 Cough 01/05/2025 Assessment & Plan (01/05/2025 3:21 PM CDT): 01/05 Pt endorsed a new cough and chills Afebrile - RVP + for rhinovirus Robitussin prn Class 2 obesity with alveolar hypoventilation in adult 12/29/2024 Assessment & Plan (12/29/2024 12:14 PM CDT): Suspect contributing to persistent hypercapnia Discharge planning issues 12/27/2024 Assessment & Plan (01/05/2025 1:00 PM CDT): 12/27: patient needs to be seen by pulm, planning to see tomorrow, likely need to perform further PFTs for clearance of home CPAP on discharge 12/28: Pending pulm consult 12/29-12/30: Sleep medicine consult 12/31; Pending private room for sleep study 01/01 Private room obtained last night. Pending sleep study (likely Saturday night) 01/04: Pending sleep study. LE duplex negative 01/05. RVP pending. Sleep study pending Treatment note [x] Gout 12/26/2024 Assessment & Plan (12/26/2024 9:02 AM CDT): On home allupurinol Acute on chronic respiratory failure 12/21/2024 Assessment & Plan (12/29/2024 12:13 PM CDT): 79 yo w/ a history of suspected MIKKI, CAD, HTN who presented after a fall while climbing stairs at home c/b RLE fracture. Found to have acute on chronic hypercarbic respiratory failure requiring Bipap. Pulmonary consulted for concern for MIKKI and need for nocturnal bipap. Persistent hypercapnia despite nightly NIPPV in the ICU and on the floor. Remote history of obstructive sleep apnea diagnosed 10 years ago on polysomnogram. Presently on Nightly BIPAP 14/7 FiO2 35% Rate of 16. Given the degree of her underlying hypercapnia and prior MIKKI we favor engaging sleep medicine for an inpatient sleep study evaluation. There may be a concurrent central apnea as well. -Nightly BIPAP 14/7 FiO2 35% Rate of 16 -Avoid sedating medications as much as possible -Consider decreasing methocarbamol and gabapentin dose frequency -Please consult sleep medicine for inpatient sleep study Assessment & Plan (12/25/2024 4:55 PM CDT): Presented with fall and found to have respiratory acidosis, improved with bipap. Now wearing NNIV with good symptomatic improvement. It is possible her chronic respiratory symptoms contributed to her fall. Suspect underlying MIKKI contributing to chronic resp failure, lower concern for COPD/neuromuscular weakness as she does not have know history of lung disease and does not frequently require hospitalization. - Continue bipap 16/8 at night and with naps - minimize sedating medications as able - wean Supplemental O2 as able - to qualify for home device for MIKKI she will need a sleep study documenting MIKKI (reportedly did one in the past) and evidence of hypercarbia on ABG (). Will need to locate outside records of sleep study, if none found or unable to obtain she will require an inpatient sleep study once recovered from acute injury. Alternatively she could be qualified on the basis of hypoventilation noted on her blood gas, if spirometry does not show obstruction (FEV1/FVC>=70% and FEV1>50% predicted) and overnight desat study off BPAP shows O2 sat <88% greater than 5 minutes. Her recovery from surgery and pain medication would confound eval until she is out of the ICU. - We will sign off until she is out of the SICU, please have floor team reach out to pulm consults at that time Assessment & Plan (12/24/2024 6:07 PM CDT): Presented with fall and found to have respiratory acidosis, improved with bipap. Now wearing NNIV with good symptomatic improvement. It is possible her chronic respiratory symptoms contributed to her fall. Suspect underlying MIKKI contributing to chronic resp failure, lower concern for COPD/neuromuscular weakness as she does not have know history of lung disease and does not frequently require hospitalization. - Continue bipap 16/8 at night and with naps - minimize sedating medications as able - wean Supplemental O2 as able - to qualify for home device for MIKKI she will need a sleep study documenting MIKKI (reportedly did one in the past) and evidence of hypercarbia on ABG (). Will need to locate outside records of sleep study, if none found or unable to obtain she will require an inpatient sleep study once recovered from acute injury. Alternatively she could be qualified on the basis of hypoventilation noted on her blood gas, if spirometry does not show obstruction (FEV1/FVC>=70% and FEV1>50% predicted) and overnight desat study off BPAP shows O2 sat <88% greater than 5 minutes. Her recovery from surgery and pain medication would confound eval until she is out of the ICU. Assessment & Plan (12/23/2024 12:02 PM CDT): Presented with fall and found to have respiratory acidosis, improved with bipap. Now wearing NNIV with good symptomatic improvement. It is possible her chronic respiratory symptoms contributed to her fall. Suspect underlying MIKKI contributing to chronic resp failure, lower concern for COPD/neuromuscular weakness as she does not have know history of lung disease and does not frequently require hospitalization. - Continue bipap 16/8 at night and with naps - minimize sedating medications as able - wean Supplemental O2 as able - to qualify for home device for MIKKI she will need a sleep study documenting MIKKI (reportedly did one in the past) and evidence of hypercarbia on ABG (). Will need to locate outside records of sleep study, if none found or unable to obtain she will require an inpatient sleep study once recovered from acute injury Assessment & Plan (01/05/2025 3:21 PM CDT): - Pulmonary consulted, started on PM BIPAP 16/8 and with naps for likely MIKKI contributing to acute on chronic respiratory failure - minimize sedating medications as able - wean Supplemental O2 as able - will need PM bipap on discharge, pending sleep study vs overnight desat study 12/26: did alright with CPAP overnight, sleepy this am. Re-engaged pulm now that patient is out of the ICU as instructed - they will likely see her next on Saturday, will need PFTs when more recovered to help qualify for outpatient machine. Currently pulling about 250 on IS. Pulm hygiene. 12/27: pulm to see tomorrow. Likely PFTs. Pulling almost 1000 on IS. 12/29: Pulm recommends a sleep study before discharge. Sleep medicine consult 12/30: needs private room for sleep study Sleep study pending Assessment & Plan (12/22/2024 10:53 AM CDT): Presented with fall and found to have respiratory acidosis, improved with bipap. Now wearing NNIV with good symptomatic improvement. It is possible her chronic respiratory symptoms contributed to her fall. Suspect underlying MIKKI contributing to chronic resp failure, lower concern for COPD/neuromuscular weakness as she does not have know history of lung disease and does not frequently require hospitalization. - Continue bipap 16/8 at night and with naps - minimize sedating medications as able - wean Supplemental O2 as able Assessment & Plan (12/21/2024 12:24 PM CDT): Presented with fall and found to have respiratory acidosis, improved with bipap. Now wearing NNIV with good symptomatic improvement. It is possible her chronic respiratory symptoms contributed to her fall. Suspect underlying MIKKI contributing to chronic resp failure, lower concern for COPD/neuromuscular weakness as she does not have know history of lung disease and does not frequently require hospitalization. - Continue bipap 16/8 at night and with naps - minimize sedating medications as able - please obtain VBG at night and in the AM - wean Supplemental O2 as able Subdural hemorrhage 12/19/2024 Assessment & Plan (12/25/2024 4:55 PM CDT): - appreciate expert surgical care, s/p OR 12/22 Assessment & Plan (12/24/2024 6:07 PM CDT): - appreciate expert surgical care, s/p OR 12/22 Assessment & Plan (12/23/2024 12:02 PM CDT): - appreciate expert surgical care, s/p OR 12/22 Assessment & Plan (12/22/2024 10:53 AM CDT): - appreciate expert surgical care, plan for OR today Assessment & Plan (12/21/2024 12:24 PM CDT): - appreciate expert surgical care Assessment & Plan (01/01/2025 1:11 PM CDT): #Subfalcine SDH 1.8mm - NSGY c/s: OK for q4h NC, keppra 500 BID, SBP <160, hold AP/AC - Repeat head CT 12/23 stable - No ASA until follow up - Monitor for headaches - Physical medicine and rehab consult - Follow up with NSGY in clinic in 4-[address] scan of the brain without contrast Bimalleolar fracture of right ankle 12/19/2024 Assessment & Plan (12/25/2024 4:55 PM CDT): - appreciate expert surgical care, s/p OR 12/22 Assessment & Plan (12/24/2024 6:07 PM CDT): - appreciate expert surgical care, s/p OR 12/22 Assessment & Plan (12/23/2024 12:02 PM CDT): - appreciate expert surgical care, s/p OR 12/22 Assessment & Plan (12/22/2024 10:53 AM CDT): - appreciate expert surgical care, plan for OR today Assessment & Plan (12/21/2024 12:24 PM CDT): - appreciate expert surgical care Assessment & Plan (01/01/2025 1:10 PM CDT): #R ankle bimalleolar fx #R foot Lisfranc fx #R fibula fx - Ortho c/s: splinted in ED, s/p R ankle ORIF 12/22 - NPO, PT/OT, NWB RLE - Patient has follow up scheduled on with [facility] - 12/31 pt concerned she put weight on RLE and worsening pain. Repeat Xrays without new bony injury. Noted R knee effusion Fall, initial encounter 12/18/2024 Assessment & Plan (12/25/2024 4:55 PM CDT): - appreciate expert surgical care, s/p OR 12/22 Assessment & Plan (12/24/2024 6:07 PM CDT): - appreciate expert surgical care, s/p OR 12/22 Assessment & Plan (12/23/2024 12:02 PM CDT): - appreciate expert surgical care, s/p OR 12/22 Assessment & Plan (12/22/2024 10:53 AM CDT): - appreciate expert surgical care, plan for OR today Assessment & Plan (12/21/2024 12:24 PM CDT): - appreciate expert surgical care Assessment & Plan (12/26/2024 9:04 AM CDT): Possible syncope - Workup with orthostatics - carotid duplex 12/21 <50% stenosis bilaterally - Echo with EF 74%, increased LVOT/AV gradient, cards consulted no further recommendations - holding home lisinopril - on home furosemide and rosuvastatin LOC (loss of consciousness) 07/31/2024 Coronary artery calcification 2020 Nonrheumatic aortic valve stenosis 2020 Localized, primary osteoarthritis of shoulder re gion 04/07/2020 Centrilobular emphysema 11/04/2017 Breathing-related sleep disorder 09/10/2017 Overview (02/25/2025): Date Onset: 09/10/2017 Cyst of spleen 09/10/2017 Overview (02/25/2025): Date Onset: 09/10/2017 Date Onset: 09/10/2017 Aortic valve calcification 07/09/2017 Overview (02/25/2025): Date Onset: 07/09/2017 [place] (dyspnea on exertion) 07/09/2017 Overview (02/25/2025): Date Onset: 07/09/2017 Ejection murmur 07/09/2017 Overview (02/25/2025): Date Onset: 07/09/2017 Hyperplastic polyps of stomach 07/09/2017 Overview (02/25/2025): Date Onset: 07/09/2017 Peripheral edema 07/09/2017 Overview (02/25/2025): Date Onset: 07/09/2017 Tubular adenoma of colon 07/09/2017 Overview (02/25/2025): Date Onset: 07/09/2017 Increased abdominal girth 12/14/2016 Overview (02/25/2025): Date Onset: 12/14/2016 Urinary incontinence 12/14/2016 Overview (02/25/2025): Date Onset: 12/14/2016 Low back pain 04/27/2014 Overview (02/25/2025): Date Onset: 04/27/2014 Osteoarthrosis 04/27/2014 Overview (02/25/2025): Date Onset: 04/27/2014 Pure hypertriglyceridemia 04/27/2014 Overview (02/25/2025): Date Onset: 01/08/2017 Date Onset: 04/27/2014 Overactive bladder 06/09/2013 Overview (02/25/2025): Date Onset: 06/09/2013 Tinnitus 06/09/2013 Overview (02/25/2025): Date Onset: 06/09/2013 Other specified abnormal findings of blood chemi stry 08/12/2012 Overview (02/25/2025): Note: Positive RA Factor Date Onset: 03/11/2005 Postinflammatory pulmonary fibrosis 08/12/2012 Overview (02/25/2025): Date Onset: 03/11/2005 Solitary pulmonary nodule 12/10/2011 Edema 11/09/2011 Overview (02/25/2025): Date Onset: 11/09/2011 Diffuse cystic mastopathy 11/09/2011 Overview (02/25/2025): Date Onset: 1992 Menopausal syndrome 11/09/2011 Overview (02/25/2025): Note: Post menopousal. Date Onset: 1992 Primary hypertension 11/09/2011 Overview (02/25/2025): Date Onset: 12/14/2016 Vitamin D deficiency 11/09/2011 Overview (02/25/2025): Date Onset: 11/09/2011 Degeneration of lumbar or lumbosacral interverte bral disc 11/28/2009 Encounters Date Type Department Care Team Description 02/26/2025 Orders Only [facility] Neurosurgery [address] 6th [place] [address] Kimmy Day RN Subdural hemorrhage (HCC) (Primary Dx) 02/25/2025 1:10 PM SOLE INKER Office Visit [facility] Orthopaedic Surgery [address] [place] [address] 6th [place] [address] [place] [address] Derek Zavala MD Closed fracture of proximal end of right fibula with routine healing, unspecified fracture morphology, subsequent encounter (Primary Dx); Closed bimalleolar fracture of right ankle with routine healing, subsequent encounter; Dislocation of tarsometatarsal joint of right foot, subsequent encounter 02/25/2025 12:30 PM SOLE INKER - 02/25/2025 11:59 PM SOLE INKER Hospital Encounter [facility] [address] [place] [id number] Closed fracture of proximal end of right fibula with routine healing, unspecified fracture morphology, subsequent encounter; Closed bimalleolar fracture of right ankle with routine healing, subsequent encounter; Dislocation of tarsometatarsal joint of right foot, subsequent encounter Discharge Disposition: Discharge to home or self care 01/25/2025 Telephone [facility] Medicine Scheduling [address] [place] [id number] Tammy Zhu 01/14/2025 1:00 PM SOLE INKER Office Visit [facility] Orthopaedic Surgery [address] [place] [address] 6th [place] [address] [place] [address] Derek Zavala MD Closed bimalleolar fracture of right ankle with routine healing, subsequent encounter (Primary Dx) 01/14/2025 Orders Only [facility] Medicine Orthopaedic Surgery [address] [place] [address] Derek Zavala MD Closed bimalleolar fracture of right ankle with routine healing, subsequent encounter (Primary Dx) 01/06/2025 Telephone [facility] Medicine Pulmonary [address] 8th [place] [address] [place] [address] Jesús Rogers CPhT 01/06/2025 Orders Only [facility] Medicine Pulmonary [address] 8th [place] [address] [place] [address] Jesús Rogers CPhT Chronic respiratory failure, unspecified whether with hypoxia or hypercapnia (HCC) (Primary Dx) 01/05/2025 7:00 PM CDT - 01/05/2025 11:59 PM CDT Hospital Encounter [facility] Medicine Neuro Sleep [address] [place] [address] Hypersomnia [G47.10] (Primary Dx) Discharge Disposition: Discharge to home or self care 01/04/2025 12:20 PM CDT Ancillary Procedure [facility] Medicine Vascular Lab IP [address] [facility] [address] [place] [address] 01/04/2025 Telephone [facility] Medicine Neuro Sleep [address] [place] [address] Jaqui Bunch, RN 12/31/2024 Telephone [facility] Medicine Neuro Sleep [address] [place] [address] Jaqui Bunch, RN 12/29/2024 Telephone [facility] Medicine Neuro Sleep [address] [place] [address] Jaqui Bunch, RN sleep consult 12/23/2024 Telephone [facility] Medicine Cardiology [address] 8th [place] [address] [place] [address] Ghislaine Vu 12/22/2024 1:46 PM CDT Anesthesia Event [facility] Operating Room [address] [place] [address] Kacey Edward DO Brake, Barbara E., NP 12/22/2024 1:38 PM CDT - 12/22/2024 5:29 PM CDT Surgery [facility] Operating Room [address] [place] [address] Derek Zavala MD OPEN REDUCTION INTERNAL FIXATION - ANKLE 12/22/2024 Orders Only [facility] Orthopaedic Surgery [address] [facility] 6th [place] [address] [place] [address] Derek Zavala MD Closed trimalleolar fracture of right ankle, initial encounter (Primary Dx) 12/21/2024 8:50 AM CDT Ancillary Procedure [facility] Vascular Lab IP [address] [facility] [address] [place] [address] 12/18/2024 6:54 PM CDT - 01/06/2025 2:12 PM CDT Hospital Encounter [facility] [address] [place] [address] Wilfrido Issa MD Rao, Daniella Nicole, DO Schuerer, Douglas J., MD Fall, initial encounter (Primary Dx); Subdural hematoma (HCC); Closed bimalleolar fracture of right ankle, initial encounter Discharge Disposition: Discharge to an IP Rehab facility from Last 3 Months Immunizations Immunization Administration Dates Next Due Tdap 12/18/2024 Surgical History Surgery Date Site/Laterality Comments PANNICULECTOMY VENTRAL HERNIA REPAIR 03/11/2020 - 04/10/2020 open TOTAL HIP ARTHROPLASTY Bilateral LAPAROSCOPIC CHOLECYSTECTOMY 11/09/2017 - 12/08/2017 Medical History Medical History Date Comments Sleep apnea Hypertension Chronic respiratory failure Hyperlipidemia CAD (coronary artery disease) no n-obstructive GERD (gastroesophageal reflux disease) Mild aortic stenosis COPD (chronic obstructive pulmonary disease) Family History Medical History Relation Name Comments Anesthesia problems Neg Hx Social History Tobacco Use Types Packs/Day Years Used Date Smoking Tobacco: Never Passive Smoke Exposure: Never Tobacco Cessation:Counseling Given: Not Answered Personal Safety Answer Date Recorded Have you ever been in or are you currently in a harmful physical or emotional relationship or is someone making you feel afraid or unsafe? Denies 12/21/2024 Comments Unknown Sex and Gender Information Value Date Recorded Sex Assigned at Not on file Legal Sex Female 8:08 PM SOLE INKER Gender Identity Not on file Sexual Orientation Not on file Last Filed Vital Signs Vital Sign Reading Time Taken Comments Blood Pressure 134/52 01/06/2025 8:33 AM CDT Pulse 85 01/06/2025 9:15 AM CDT Temperature 36.9 C (98.4 F) 01/06/2025 7:58 AM CDT Respiratory Rate 18 01/06/2025 7:58 AM CDT Oxygen Saturation 98% 01/06/2025 8:33 AM CDT Inhaled Oxygen Concentration - - Weight 105.5 kg (232 lb 9.4 oz) 025 12:01 AM CDT Height 162.6 cm (5' 4) 12/19/2024 1:40 AM CDT Body Mass Index 39.92 12/19/2024 1:40 AM CDT Plan of Treatment Health Maintenance Due Date Last Done Comments Depression Screening 1945 Osteoporosis Screening-Bone Density Scan 1945 Hepatitis B Screening 11/24[birth year]1961 Well Visit 65+ 11/24/2008 Covid-19 Vaccine (5 - 2024-2 6 season) 2024 02/03/2023, 01/21/2021, 06/13/2020, Additional history exists Influenza Vaccine (#1) 2024 , 12/31/2022, 02/20/2022, Additional history exists Fall Risk Assessment 01/06/2026 01/06/2025 DTaP/Tdap/Td Vaccine (5 - Td or Tdap) 12/18/2034 12/18/2024, 03/13/2016, 02/06/2005, Additional history exists Pneumococcal vaccine 65+ Completed 04/27/2014, 03/2008 Zoster Vaccine Completed 12/26/2019, 10/09, 02/08/2009 Medical Devices Implanted Type Area Ham Clerk Device Identifier Shelf Expiration Date Model / Serial / Lot Synthes Plate Bone 2.7mm 6h Volt 02527.057 - [id number] Implanted:Qty: 1 on 12/22/2024 by Derek Zavala MD at [facility] [employer] [id number] / / Synthes Screw Bone 2.7x26mm Volt T8 527.326 - [id number] Implanted:Qty: 2 on 12/22/2024 by Derek Zavala MD at [facility] [employer] [id number] / / [employer] Plate Bone 140x2.7mm 20h Volt 527.040 - [id number] Implanted:Qty: 1 on 12/22/2024 by Derek Zavala MD at [facility] [employer] [id number] / / S[employer]s Screw Bone Cortical St Full Thread Lcp 3.5x65mm Ss 204.865 - [id number] Implanted:Qty: 1 on 12/22/2024 by Derek Zavala MD at [facility] [employer] 204.865 / / S[employer]s 3.5mm 6mm 60mm 2.5mm Self Tap Small Hexagonal Socket Low Profile 204.860 - [id number] Implanted:Qty: 1 on 12/22/2024 by Derek Zavala MD at [facility] [employer] 204.860 / / Synthes 3.5mm 6mm 48mm 2.5mm Self Tap Small Hexagonal Socket Low Profile 204.848 - [id number] Implanted:Qty: 2 on 12/22/2024 by Derek Zavala MD at [facility] [employer] 204.848 / / [employer] Screw Bone Cortical St Full Thread Lcp 3.5x42mm Ss 204.842 - [id number] Implanted:Qty: 1 on 12/22/2024 by Derek Zavala MD at [facility] [employer] 204.842 / / [employer] Screw Bone Cortical St Full Thread Lcp 3.5x46mm Ss 204.846 - [id number] Implanted:Qty: 1 on 12/22/2024 by Derek Zavala MD at [facility] [employer] 204.846 / / [employer] Screw Bone 2.7x32mm Volt T8 02.527.132 - [id number] Implanted:Qty: 1 on 12/22/2024 by Derek Zavala MD at [facility] [employer] 02.527.132 / / [employer] Screw Bone 2.7x22mm Volt T8 02.527.122 - [id number] Implanted:Qty: 1 on 12/22/2024 by Derek Zavala MD at [facility] [employer] 02.527.122 / / [employer] Screw Bone 2.7x42mm Volt T8 02.527.142 - [id number] Implanted:Qty: 1 on 12/22/2024 by Derek Zavala MD at [facility] [employer] 02.527.142 / / [employer] Screw Bone 2.7x40mm Volt T8 02.527.140 - [id number] Implanted:Qty: 1 on 12/22/2024 by Derek Zavala MD at [facility] [employer] 02.527.140 / / [employer] Screw Bone 2.7x12mm Volt T8 02.527.112 - [id number] Implanted:Qty: 1 on 12/22/2024 by Derek Zavala MD at [facility] [employer] 02.527.112 / / [employer] Screw Bone 2.7x24mm Volt T8 02.527.324 - [id number] Implanted:Qty: 1 on 12/22/2024 by Derek Zavala MD at [facility] [employer] 02.527.324 / / [employer] Screw Bone 2.7x13mm Volt T8 02.527.113 - [id number] Implanted:Qty: 1 on 12/22/2024 by Derek Zavala MD at [facility] [employer] 02.527.113 / / [employer] Screw Bone 2.7x14mm Volt T8 02.527.114 - [id number] Implanted:Qty: 1 on 12/22/2024 by Derek Zavala MD at [facility] [employer] 02.527.114 / / Procedures Procedure Name Priority Date/Time Associated Diagnosis Comments XR KNEE RIGHT 1 OR 2 VIEWS Schedule Routine, Read Routine (OP Routine) 02/25/2025 1:37 PM SOLE INKER Closed fracture of proximal end of right fibula with routine healing, unspecified fracture morphology, subsequent encounter Closed bimalleolar fracture of right ankle with routine healing, subsequent encounter Dislocation of tarsometatarsal joint of right foot, subsequent encounter XR FOOT RIGHT 3 OR MORE VIEWS Schedule Routine, Read Routine (OP Routine) 02/25/2025 1:37 PM SOLE INKER Closed fracture of proximal end of right fibula with routine healing, unspecified fracture morphology, subsequent encounter Closed bimalleolar fracture of right ankle with routine healing, subsequent encounter Dislocation of tarsometatarsal joint of right foot, subsequent encounter XR ANKLE RIGHT 3 OR MORE VIEWS Schedule Routine, Read Routine (OP Routine) 02/25/2025 1:37 PM SOLE INKER Closed fracture of proximal end of right fibula with routine healing, unspecified fracture morphology, subsequent encounter Closed bimalleolar fracture of right ankle with routine healing, subsequent encounter Dislocation of tarsometatarsal joint of right foot, subsequent encounter PSG (COMPLEX) Routine 01/05/2025 9:00 PM CDT RESPIRATORY PATHOGEN PANEL Routine 01/05/2025 12:01 PM CDT US VEIN DUPLEX LOWER EXTREMITY BILATERAL COMPLETE IP Routine 01/04/2025 1:28 PM CDT BLOOD GAS, VENOUS Routine 01/02/2025 4:42 PM CDT XR KNEE RIGHT 1 OR 2 VIEWS IP Routine 12/31/2024 11:41 AM CDT XR FOOT RIGHT 2 VIEWS ED Urgent/IP Urgent 12/31/2024 11:41 AM CDT XR ANKLE RIGHT 2 VIEWS ED Urgent/IP Urgent 12/31/2024 11:40 AM CDT XR TIBIA FIBULA RIGHT2 VIEWS ED Urgent/IP Urgent 12/31/2024 11:40 AM CDT POTASSIUM, WHOLE BLOOD Routine 10:13 PM CDT EGFR Routine 12/29/2024 10:11 PM CDT BASIC METABOLIC PANEL Routine 12/29/2024 10:11 PM CDT CBC WITHOUT DIFFERENTIAL Routine 12/29/2024 10:11 PM CDT POCT GLUCOSE DEVICE Routine 12/29/2024 3:48 PM CDT POTASSIUM, WHOLE BLOOD Routine 2:15 AM CDT BLOOD GAS, VENOUS Routine 12/29/2024 2:15 AM CDT EGFR Routine 12/28/2024 9:58 PM CDT BASIC METABOLIC PANEL Routine 12/28/2024 9:58 PM CDT CBC WITHOUT DIFFERENTIAL Routine 12/28/2024 9:58 PM CDT POTASSIUM, WHOLE BLOOD Routine 6:42 AM CDT POCT GLUCOSE DEVICE Routine 12/27/2024 11:10 PM CDT EGFR Routine 12/27/2024 9:33 PM CDT BASIC METABOLIC PANEL Routine 12/27/2024 9:33 PM CDT CBC WITHOUT DIFFERENTIAL Routine 12/27/2024 9:33 PM CDT POCT GLUCOSE DEVICE Routine 12/27/2024 9:23 PM CDT EGFR STAT 12/27/2024 6:17 AM CDT BASIC METABOLIC PANEL STAT 12/27/2024 6:17 AM CDT CBC WITHOUT DIFFERENTIAL STAT 12/27/2024 6:17 AM CDT BLOOD GAS, ARTERIAL STAT 12/27/2024 4:53 AM CDT CRITICAL RESULT CALLBACK CHEMISTRY Routine 12/27/2024 3:32 AM CDT BLOOD GAS, VENOUS Routine 12/27/2024 3:32 AM CDT CRITICAL CARE Routine 12/25/2024 12:29 PM CDT Fall, initial encounter BLOOD GAS, VENOUS Routine 12/25/2024 5:24 AM CDT EGFR Routine 12/24/2024 8:24 PM CDT BASIC METABOLIC PANEL Routine 12/24/2024 8:24 PM CDT CBC WITHOUT DIFFERENTIAL Routine 12/24/2024 8:24 PM CDT CRITICAL CARE Routine 12/24/2024 6:18 PM CDT Subdural hematoma (HCC) Closed bimalleolar fracture of right ankle, initial encounter CRITICAL CARE Routine 12/24/2024 8:05 AM CDT Fall, initial encounter Subdural hematoma (HCC) BLOOD GAS, VENOUS Timed 12/24/2024 7:55 AM CDT INFECTION PREVENTION JEREMIE AURIS PCR, SURVEILLANCE Routine 12/24/2024 1:19 AM CDT EGFR Routine 12/23/2024 8:43 PM CDT CRITICAL RESULT CALLBACK CHEMISTRY Timed 12/23/2024 8:43 PM CDT PHOSPHORUS Routine 12/23/2024 8:43 PM CDT MAGNESIUM Routine 12/23/2024 8:43 PM CDT BASIC METABOLIC PANEL Routine 12/23/2024 8:43 PM CDT CBC WITHOUT DIFFERENTIAL Routine 12/23/2024 8:43 PM CDT BLOOD GAS, VENOUS Timed 12/23/2024 8:43 PM CDT CRITICAL CARE Routine 12/23/2024 7:04 PM CDT Subdural hematoma (HCC) Closed bimalleolar fracture of right ankle, initial encounter BLOOD GAS, VENOUS Timed 12/23/2024 7:44 AM CDT CRITICAL CARE Routine 12/23/2024 6:00 AM CDT Subdural hematoma (HCC) CT HEAD WO CONTRAST ED Urgent/IP Urgent 12/23/2024 5:40 AM CDT CRITICAL CARE Routine 12/22/2024 9:52 PM CDT Subdural hematoma (HCC) Closed bimalleolar fracture of right ankle, initial encounter POC BLOOD GAS AND CHEMISTRIES, VENOUS Routine 12/22/2024 9:38 PM CDT EGFR Routine 12/22/2024 9:00 PM CDT PHOSPHORUS Routine 12/22/2024 9:00 PM CDT MAGNESIUM Routine 12/22/2024 9:00 PM CDT BASIC METABOLIC PANEL Routine 12/22/2024 9:00 PM CDT CBC WITHOUT DIFFERENTIAL Routine 12/22/2024 9:00 PM CDT BLOOD GAS, VENOUS Timed 12/22/2024 4:49 PM CDT FL FLUOROSCOPY < 1 HOUR IP Routine 12/23/19 4:35 PM CDT AR AN PROCEDURE PLACEHOLDER Routine 12/22/2024 2:29 PM CDT AR AN ELECTIVE ENDOTRACHEAL AIRWAY Routine 12/22/2024 2:29 PM CDT REPAIR MIDFOOT FRACTURE/DISLOCATION FOOT 12/22/2024 1:57 PM CDT Closed bimalleolar fracture of right ankle, initial encounter Case Notes Rachel [phone] OPEN REDUCTION INTERNAL FIXATION - ANKLE 12/22/2024 1:57 PM CDT Closed bimalleolar fracture of right ankle, initial encounter Case Notes Rachel [phone] TYPE AND SCREEN STAT 12/22/2024 11:18 AM CDT BLOOD GAS, VENOUS Timed 12/22/2024 8:04 AM CDT INFECTION PREVENTION JEREMIE AURIS PCR, SURVEILLANCE Routine 12/22/2024 8:04 AM CDT CRITICAL CARE Routine 12/22/2024 6:55 AM CDT Fall, initial encounter Subdural hematoma (HCC) EGFR Routine 12/21/2024 8:34 PM CDT BLOOD GAS, VENOUS Timed 12/21/2024 8:34 PM CDT PHOSPHORUS Routine 12/21/2024 8:34 PM CDT MAGNESIUM Routine 12/21/2024 8:34 PM CDT BASIC METABOLIC PANEL Routine 12/21/2024 8:34 PM CDT CBC WITHOUT DIFFERENTIAL Routine 12/21/2024 8:34 PM CDT CRITICAL CARE Routine 12/21/2024 6:41 PM CDT Fall, initial encounter URINALYSIS, MICROSCOPIC ONLY Routine 12/21/2024 5:59 PM CDT URINALYSIS AND REFLEX TO MICROSCOPIC Routine 12/21/2024 5:59 PM CDT POCT GLUCOSE DEVICE Routine 12/21/2024 3:05 PM CDT US CAROTIDS DUPLEX BILATERAL IP Routine 12/21/2024 11:49 AM CDT POCT GLUCOSE DEVICE Routine 12/21/2024 11:07 AM CDT POCT GLUCOSE DEVICE Routine 12/21/2024 7:18 AM CDT CRITICAL CARE Routine 12/21/2024 6:50 AM CDT Subdural hematoma (HCC) Closed bimalleolar fracture of right ankle, initial encounter POCT GLUCOSE DEVICE Routine 12/21/2024 3:24 AM CDT POCT GLUCOSE DEVICE Routine 12/20/2024 11:46 PM CDT EGFR Routine 12/20/2024 8:32 PM CDT PHOSPHORUS Routine 12/20/2024 8:32 PM CDT MAGNESIUM Routine 12/20/2024 8:32 PM CDT BASIC METABOLIC PANEL Routine 12/20/2024 8:32 PM CDT CBC WITHOUT DIFFERENTIAL Routine 12/20/2024 8:32 PM CDT POCT GLUCOSE DEVICE Routine 12/20/2024 7:34 PM CDT CRITICAL CARE Routine 12/20/2024 6:45 PM CDT Fall, initial encounter POCT GLUCOSE DEVICE Routine 12/20/2024 3:24 PM CDT PRO B-TYPE NATRIURETIC PEPTIDE Routine 12/20/2024 2:42 PM CDT POC BLOOD GAS AND CHEMISTRIES, ARTERIAL Routine 12/20/2024 1:23 PM CDT POCT GLUCOSE DEVICE Routine 12/20/2024 11:04 AM CDT XR CHEST 1 VIEW ED Urgent/IP Urgent 12/20/2024 9:45 AM CDT POCT GLUCOSE DEVICE Routine 12/20/2024 7:08 AM CDT CRITICAL CARE Routine 12/20/2024 6:32 AM CDT Fall, initial encounter POC BLOOD GAS AND CHEMISTRIES, VENOUS Routine 12/20/2024 3:58 AM CDT POCT GLUCOSE DEVICE Routine 12/20/2024 3:15 AM CDT POC BLOOD GAS AND CHEMISTRIES, ARTERIAL Routine 12/20/2024 2:26 AM CDT POC BLOOD GAS AND CHEMISTRIES, ARTERIAL Routine 12/20/2024 2:16 AM CDT POCT GLUCOSE DEVICE Routine 12/19/2024 11:47 PM CDT EGFR Routine 12/19/2024 8:21 PM CDT PHOSPHORUS Routine 12/19/2024 8:21 PM CDT MAGNESIUM Routine 12/19/2024 8:21 PM CDT BASIC METABOLIC PANEL Routine 12/19/2024 8:21 PM CDT CBC WITHOUT DIFFERENTIAL Routine 12/19/2024 8:21 PM CDT CRITICAL CARE Routine 12/19/2024 7:27 PM CDT Fall, initial encounter POCT GLUCOSE DEVICE Routine 12/19/2024 7:22 PM CDT POCT GLUCOSE DEVICE Routine 12/19/2024 3:13 PM CDT POCT GLUCOSE DEVICE Routine 12/19/2024 11:19 AM CDT TRANSTHORACIC ECHO (TTE) COMPLETE W DOPPLER/CF W CONTRAST STAT 12/19/2024 10:22 AM CDT POCT GLUCOSE DEVICE Routine 12/19/2024 7:09 AM CDT CRITICAL CARE Routine 12/19/2024 6:45 AM CDT Fall, initial encounter POCT GLUCOSE DEVICE Routine 12/19/2024 4:[address] FOOT RIGHT WO CONTRAST ED Urgent/IP Urgent 12/19/2024 3:[address] HEAD WO CONTRAST Timed 12/19/2024 3:21 AM CDT POTASSIUM, WHOLE BLOOD Routine 1:48 AM CDT LACTATE, WHOLE BLOOD Routine 12/19/2024 1:48 AM CDT CREATINE KINASE (CK), TOTAL Routine 12/19/2024 1:48 AM CDT CBC WITHOUT DIFFERENTIAL Routine 12/19/2024 1:48 AM CDT EGFR Routine 12/19/2024 1:44 AM CDT BASIC METABOLIC PANEL Routine 12/19/2024 1:44 AM CDT POCT GLUCOSE DEVICE Routine 12/19/2024 1:18 AM CDT CRITICAL CARE Routine 12/19/2024 1:[address] ANKLE RIGHT WO CONTRAST ED Urgent/IP Urgent 12/19/2024 12:47 AM CDT XR FOOT RIGHT 3 OR MORE VIEWS ED 12/18/2024 11:37 PM CDT XR ANKLE RIGHT 2 VIEWS ED 11:37 PM CDT XR KNEE RIGHT 1 OR 2 VIEWS ED 12/18/2024 9:36 PM CDT XR TIBIA FIBULA RIGHT2 VIEWS ED 12/18/2024 9:35 PM CDT XR FOOT RIGHT 3 OR MORE VIEWS ED 12/18/2024 9:35 PM CDT XR ANKLE RIGHT 3 OR MORE VIEWS ED 12/18/2024 9:[address] HEAD AND CERVICAL SPINE WO CONTRAST ED 12/18/2024 9:06 PM CDT POCT CREATININE - DEVICE Routine 12/18/2024 7:30 PM CDT B CHECK SAMPLE STAT 12/18/2024 7:30 PM CDT POCT GLUCOSE DEVICE Routine 12/18/2024 7:29 PM CDT THROMBOELASTOMETRY PANEL - INTRINSIC Routine 12/18/2024 7:11 PM CDT THROMBOELASTOMETRY PANEL - HEPARIN Routine 12/18/2024 7:11 PM CDT THROMBOELASTOMETRY PANEL - EXTRINSIC Routine 12/18/2024 7:11 PM CDT THROMBOELASTOMETRY PANEL - FIBRINOGEN Routine 12/18/2024 7:11 PM CDT CREATINE KINASE (CK), TOTAL Routine 12/18/2024 7:11 PM CDT DIFFERENTIAL AUTO Routine 12/18/2024 7:11 PM CDT THROMBOELASTOMETRY PANEL Routine 12/18/2024 7:11 PM CDT PROTIME-INR Routine 12/18/2024 7:11 PM CDT APTT Routine 12/18/2024 7:11 PM CDT ETHANOL Routine 12/18/2024 7:11 PM CDT CBC WITH AUTO DIFFERENTIAL Routine 12/18/2024 7:11 PM CDT TYPE AND SCREEN Timed 12/18/2024 7:11 PM CDT XR PELVIS 1 OR 2 VIEWS ED 7:10 PM CDT XR CHEST 1 VIEW ED 12/18/2024 7:10 PM CDT POC BLOOD GAS AND CHEMISTRIES, VENOUS Routine 12/18/2024 7:03 PM CDT AR CRITICAL CARE ILL/INJURED PATIENT INIT 30-74 MIN Routine 12/18/2024 6:58 PM CDT from Last 3 Months Results * XR Foot Right 3 or More Views (02/25/2025 1:37 PM SOLE INKER) Anatomical Region Laterality Modality Lower Extremities, Foot Right Computed Radiography 02/25/2025 2:42 PM SOLE INKER Impressions 02/25/2025 2:42 PM SOLE INKER 1. Healing nondisplaced proximal right fibular neck fracture in unchanged alignment. 2. Unchanged reduced and internally fixated trimalleolar right ankle and Lisfranc fracture dislocation in expected position. Electronically signed by: Sg Landin 02/25/2025 2:42 PM SOLE INKER XR ANKLE RIGHT 3 OR MORE VIEWS, XR FOOT RIGHT 3 OR MORE VIEWS, XR KNEE RIGHT 1 OR 2 VIEWS HISTORY: Fracture follow-up. FINDINGS: 2 views of the right knee and 3 nonweightbearing views each of the right ankle and foot are obtained and compared with 12/31/2024. Right knee: There is healing nondisplaced proximal fibular neck fracture. There is no new acute fracture or dislocation. 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 Meniscal chondrocalcinosis is present. There is a small joint effusion. Right ankle and foot: There is redemonstrated reduced and internally fixated trimalleolar right ankle fracture with medial malleolar screws and fibular and posterior malleolus plate and screw constructs. There is additional internal fixation of Lisfranc fracture dislocation with 4 screws. Hardware is intact. The talar dome is intact. Diffuse disuse osteopenia. There is moderate soft tissue swelling about the ankle and foot. Procedure Note Chente Hugo MD - 02/25/2025 XR ANKLE RIGHT 3 OR MORE VIEWS, XR FOOT RIGHT 3 OR MORE VIEWS, XR KNEE RIGHT 1 OR 2 VIEWS HISTORY: Fracture follow-up. FINDINGS: 2 views of the right knee and 3 nonweightbearing views each of the right ankle and foot are obtained and compared with 12/31/2024. Right knee: There is healing nondisplaced proximal fibular neck fracture. There is no new acute fracture or dislocation. 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 Meniscal chondrocalcinosis is present. There is a small joint effusion. Right ankle and foot: There is redemonstrated reduced and internally fixated trimalleolar right ankle fracture with medial malleolar screws and fibular and posterior malleolus plate and screw constructs. There is additional internal fixation of Lisfranc fracture dislocation with 4 screws. Hardware is intact. The talar dome is intact. Diffuse disuse osteopenia. There is moderate soft tissue swelling about the ankle and foot. IMPRESSION: 1. Healing nondisplaced proximal right fibular neck fracture in unchanged alignment. 2. Unchanged reduced and internally fixated trimalleolar right ankle and Lisfranc fracture dislocation in expected position. Electronically signed by: Chente Hugo M.D. Derek Zavala MD IM XR PROCEDURES Final Result * XR Ankle Right 3 or More Views (02/25/2025 1:37 PM SOLE INKER) Anatomical Region Laterality Modality Lower Extremities, Ankle Right Compute d Radiography 02/25/2025 2:42 PM SOLE INKER Impressions 02/25/2025 2:42 PM SOLE INKER 1. Healing nondisplaced proximal right fibular neck fracture in unchanged alignment. 2. Unchanged reduced and internally fixated trimalleolar right ankle and Lisfranc fracture dislocation in expected position. Electronically signed by: Chente Hugo M.D. Narrative 02/25/2025 2:42 PM SOLE INKER XR ANKLE RIGHT 3 OR MORE VIEWS, XR FOOT RIGHT 3 OR MORE VIEWS, XR KNEE RIGHT 1 OR 2 VIEWS HISTORY: Fracture follow-up. FINDINGS: 2 views of the right knee and 3 nonweightbearing views each of the right ankle and foot are obtained and compared with 12/31/2024. Right knee: There is healing nondisplaced proximal fibular neck fracture. There is no new acute fracture or dislocation. 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 Meniscal chondrocalcinosis is present. There is a small joint effusion. Right ankle and foot: There is redemonstrated reduced and internally fixated trimalleolar right ankle fracture with medial malleolar screws and fibular and posterior malleolus plate and screw constructs. There is additional internal fixation of Lisfranc fracture dislocation with 4 screws. Hardware is intact. The talar dome is intact. Diffuse disuse osteopenia. There is moderate soft tissue swelling about the ankle and foot. Procedure Note Chente Hugo MD - 02/25/2025 XR ANKLE RIGHT 3 OR MORE VIEWS, XR FOOT RIGHT 3 OR MORE VIEWS, XR KNEE RIGHT 1 OR 2 VIEWS HISTORY: Fracture follow-up. FINDINGS: 2 views of the right knee and 3 nonweightbearing views each of the right ankle and foot are obtained and compared with 12/31/2024. Right knee: There is healing nondisplaced proximal fibular neck fracture. There is no new acute fracture or dislocation. 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 Meniscal chondrocalcinosis is present. There is a small joint effusion. Right ankle and foot: There is redemonstrated reduced and internally fixated trimalleolar right ankle fracture with medial malleolar screws and fibular and posterior malleolus plate and screw constructs. There is additional internal fixation of Lisfranc fracture dislocation with 4 screws. Hardware is intact. The talar dome is intact. Diffuse disuse osteopenia. There is moderate soft tissue swelling about the ankle and foot. IMPRESSION: 1. Healing nondisplaced proximal right fibular neck fracture in unchanged alignment. 2. Unchanged reduced and internally fixated trimalleolar right ankle and Lisfranc fracture dislocation in expected position. Electronically signed by: Chente uHgo M.D. Derek Zavala MD IMG XR PROCEDURES Final Result * XR Knee Right 1 or 2 Views (02/25/2025 1:37 PM SOLE INKER) Anatomical Region Laterality Modality Lower Extremities, Knee Right Computed Radiography 02/25/2025 2:42 PM SOLE INKER Impressions 02/25/2025 2:42 PM SOLE INKER 1. Healing nondisplaced proximal right fibular neck fracture in unchanged alignment. 2. Unchanged reduced and internally fixated trimalleolar right ankle and Lisfranc fracture dislocation in expected position. Electronically signed by: Chente Hugo M.D. Narrative 02/25/2025 2:42 PM SOLE INKER XR ANKLE RIGHT 3 OR MORE VIEWS, XR FOOT RIGHT 3 OR MORE VIEWS, XR KNEE RIGHT 1 OR 2 VIEWS HISTORY: Fracture follow-up. FINDINGS: 2 views of the right knee and 3 nonweightbearing views each of the right ankle and foot are obtained and compared with 12/31/2024. Right knee: There is healing nondisplaced proximal fibular neck fracture. There is no new acute fracture or dislocation. 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 Meniscal chondrocalcinosis is present. There is a small joint effusion. Right ankle and foot: There is redemonstrated reduced and internally fixated trimalleolar right ankle fracture with medial malleolar screws and fibular and posterior malleolus plate and screw constructs. There is additional internal fixation of Lisfranc fracture dislocation with 4 screws. Hardware is intact. The talar dome is intact. Diffuse disuse osteopenia. There is moderate soft tissue swelling about the ankle and foot. Procedure Note Chente Hugo MD - 02/25/2025 XR ANKLE RIGHT 3 OR MORE VIEWS, XR FOOT RIGHT 3 OR MORE VIEWS, XR KNEE RIGHT 1 OR 2 VIEWS HISTORY: Fracture follow-up. FINDINGS: 2 views of the right knee and 3 nonweightbearing views each of the right ankle and foot are obtained and compared with 12/31/2024. Right knee: There is healing nondisplaced proximal fibular neck fracture. There is no new acute fracture or dislocation. 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 Meniscal chondrocalcinosis is present. There is a small joint effusion. Right ankle and foot: There is redemonstrated reduced and internally fixated trimalleolar right ankle fracture with medial malleolar screws and fibular and posterior malleolus plate and screw constructs. There is additional internal fixation of Lisfranc fracture dislocation with 4 screws. Hardware is intact. The talar dome is intact. Diffuse disuse osteopenia. There is moderate soft tissue swelling about the ankle and foot. IMPRESSION: 1. Healing nondisplaced proximal right fibular neck fracture in unchanged alignment. 2. Unchanged reduced and internally fixated trimalleolar right ankle and Lisfranc fracture dislocation in expected position. Electronically signed by: Chente Hugo M.D. Derek Zavala MD IMG XR PROCEDURES Final Result * PSG (COMPLEX) (01/05/2025 9:00 PM CDT) Narrative Neftali Zhong MD - 01/05/2025 9:00 PM CDT Neftali Zhong MD 01/06/2025 9:33 AM PSG-Sleep Provider Use Only Date/Time: 01/05/2025 9:00 PM Performed by: Neftali Zhong MD Authorized by: Neftali Zhong MD us Neftali Robert Zhong MD [facility] ORDERABLES F inal Result * (ABNORMAL) Respiratory pathogen panel Nasopharyngeal (01/05/2025 12:01 PM CDT) Pathologist [facility] Influenza A RNA Not Detected Not Detected Influenza B RNA Not Detected Not Detected [facility] RSV RNA Not Detected Not Detected [facility] COVID-19 RNA Not Detected Not Detected [facility] Coronavirus 229E RNA Not Detected Not Detected [facility] Coronavirus HKU1 RNA Not Detected Not Detected [facility] Coronavirus NL63 RNA Not Detected Not Detected [facility] Coronavirus OC43 RNA Not Detected Not Detected [facility] Adenovirus DNA Not Detected Not Detected [facility] Metapneumovirus RNA Not Detected Not Detected [facility] Rhinovirus/Enterov irus RNA Detected(A) Not Detected [facility] Parainfluenza 1 RNA Not Detected Not Detected [facility] Parainfluenza 2 RNA Not Detected Not Detected [facility] Parainfluenza 3 RNA Not Detected Not Detected [facility] Parainfluenza 4 RNA Not Detected Not Detected [facility] B. pertussis DNA Not Detected Not Detected [facility] B. parapertussis DNA Not Detected Not Detected [facility] C. pneumoniae DNA Not Detected Not Detected [facility] M. pneumoniae DNA Not Detected Not Detected [facility] Nasopharyngeal 01/05/2025 12 :01 PM CDT 01/05/2025 12:19 PM CDT Narrative [facility] - 01/05/2025 1:31 PM CDT Is the Patient experiencing symptoms consistent with COVID?->Yes Surveillance testing for transplant patient?->No Interpretive Data The [employer] FilmArray Respiratory Panel (RP2.1) assay is a multiplexed real-time PCR based nucleic acid test capable of simultaneous qualitative detection and identification of multiple respiratory viral and bacterial nucleic acids, including SARS Coronavirus 2 (the causative agent of COVID-19). The following bacteria, viruses and virus subtypes can be identified using the [employer] RP2.1 assay: Bordetella pertussis, Bordetella parapertussis, Chlamydia pneumoniae, Mycoplasma pneumoniae, Adenovirus, SARS Coronavirus 2, seasonal coronaviruses (Coronavirus HKU1, Coronavirus NL63, Coronavirus 229E, and Coronavirus OC43), Influenza A, Influenza A subtype H1, Influenza A subtype H3, Influenza A subtype 2009 H1, Influenza B, Metapneumovirus, Parainfluenza 1, Parainfluenza 2, Parainfluenza 3, Parainfluenza 4, RSV, Rhinovirus/Enterovirus. Due to the genetic similarity between human Rhinovirus and Enterovirus, the [employer] RP2.1 assay cannot reliably differentiate them. Coronavirus OC43 may cross-react with some isolates of Coronavirus HKU1. A dual positive result may be due to cross-reactivity or may indicate a co- infection. The detection and identification of specific viral and bacterial nucleic acids from individuals exhibiting signs and symptoms of a respiratory infection aids in the diagnosis of respiratory infection if used in conjunction with other clinical and epidemiological information. The results of this test should not be used as the sole basis for diagnosis, treatment, or other management decisions. Negative results in the setting of a respiratory illness may be due to infection with pathogens that are not detected by this test. Positive results do not rule out infection/co-infection with other organisms. The agent(s) detected by the FilmArray RP2.1 may not be the definite cause of disease. Additional testing (lab, imaging, etc.) may be necessary when evaluating a patient with possible respiratory tract infection. The FilmArray RP2.1 assay has FDA clearance for testing of [facility] swabs. The performance of additional specimen types has been assessed by the performing laboratory. The performance characteristics of this assay have been determined by [facility] Infectious Disease Laboratory. Current interpretive data was last revised on 21. Marybeth Ayon [facility] MICROBIOLOGY - [facility] ORDERABLES Final Result [facility] Department [place] [address] * US Vein Duplex Lower Extremity Bilateral Complete (01/04/2025 1:28 PM CDT) Anatomical Region Laterality Modality Vascular Bilateral Ultrasound 01/04/2025 1:08 PM CDT Narrative 01/04/2025 4:19 PM CDT [facility] - Department of Vascular Surgery, Vascular Laboratory [address] [place] [id number] Lower Extremity Venous Ultrasound Report Patient Name: KATIA CLINTON : 1945 (79y 1m) Study Date: 01/04/2025 1:08:46 PM Sex: F Tech: AC Location: [id number] Ref Provider: PAVEL SCOTT Quality: Adequate Order Provider: PAVEL SCOTT PROCEDURES: Vascular Report: Venous Duplex imaging was performed bilaterally in the lower extremities. The common femoral, femoral, popliteal, posterior tibial, peroneal veins were evaluated for patency, spontaneity and phasicity with Doppler, compression and augmentation maneuvers. Great saphenous vein proximal at the junction was evaluated with compression maneuvers. INDICATIONS: erythema and warmth in RLE - FINDINGS: Performing Economics Professor: Zaira Giraldo RVT. Bilateral: Venous Doppler signals in the bilateral lower extremity are within normal limits for spontaneity and phasicity and respond normally to augmentation maneuvers. No evidence of deep vein thrombus by duplex, proximal to the calf. Comments: Unable to assess the right calf due to cast. CONCLUSIONS: 1. There is no evidence of acute deep vein thrombosis in the lower extremities bilaterally. Noninvasive venous studies cannot rule out isolated calf vein obstruction. 2. Unable to assess the right calf due to cast. HISTORY: CAD, COPD, HLD, HTN, Fall. PREVIOUS STUDIES: No previous studies for comparison. DISCLAIMER: The study images and the final report will be retained in the patient chart by the Vascular Laboratory for the legally required time period. This chart constitutes the legal record of any testing performed. ATTESTATION: I have reviewed and interpreted the pertinent images and measurements of this study. I attest to the conclusions in the final report that is provided above. Electronically Signed By: Anurag Gomez MD [facility] [phone] 01/04/2025 3:15:30 PM CDT Procedure Note Anurag Gomez MD - 01/04/2025 [facility] - Department of Vascular Surgery,Vascular Laboratory [address] [place] [address] Lower Extremity Venous Ultrasound Report Patient Name: KATIA CLINTON : 1945 (79y 1m) Study Date: 01/04/2025 1:08:46 PM Sex: F Tech: Location: [id number] Ref Provider: PAVEL SCOTT Quality: Adequate Order Provider: PAVEL SCOTT PROCEDURES: Vascular Report: Venous Duplex imaging was performed bilaterally in the lower extremities.The common femoral, femoral, popliteal, posterior tibial, peroneal veins wereevaluated for patency, spontaneity and phasicity with Doppler, compression and augmentationmaneuvers. Great saphenous vein proximal at the junction was evaluated with compressionmaneuvers. INDICATIONS: erythema and warmth in RLE - FINDINGS: Performing Economics Professor: Zaira Giraldo RVT. Bilateral: Venous Doppler signals in the bilateral lower extremity are within normallimits for spontaneity and phasicity and respond normally to augmentation maneuvers.No evidence of deep vein thrombus by duplex, proximal to the calf. Comments: Unable to assess the right calf due to cast. CONCLUSIONS: 1. There is no evidence of acute deep vein thrombosis in the lowerextremities bilaterally. Noninvasive venous studies cannot rule out isolated calf veinobstruction. 2. Unable to assess the right calf due to cast. HISTORY: CAD, COPD, HLD, HTN, Fall. PREVIOUS STUDIES: No previous studies for comparison. DISCLAIMER: The study images and the final report will be retained in the patientchart by the Vascular Laboratory for the legally required time period. This chartconstitutes the legal record of any testing performed. ATTESTATION: I have reviewed and interpreted the pertinent images and measurements ofthis study. I attest to the conclusions in the final report that is provided above. Electronically Signed By: Anurag Gomez MD [facility] [phone] 01/04/2025 3:15:30 PM CDT us Pavel Scott MD [facility] [place] PROCEDURES Final R esult * (ABNORMAL) Blood gas, venous (01/02/2025 4:42 PM CDT) pH, Venous 7.41 7.32 - 7.43 PCO2, Venous 60(H) 40 - 50 mmHg [facility] PO2, Venous 64 mmHg [facility] Comment: Interpretive Data No Reference Range Established Current Interpretive Data was last revised on 2017. HCO3 Venous, Calculated 38(H) 20 - 30 mmol/L [facility] BE, venous 12 mmol/L [facility] Comment: Interpretive Data No Reference Range Established Current Interpretive Data was last revised on 2017. Blood 01/02/2025 4:42 PM CDT 01/02/2025 4:58 PM CDT us Pavle Scott MD LAB BLOOD ORDERABLES Latonya soto Result [facility] Department [place] [address] * XR Foot Right 2 Views (12/31/2024 11:41 AM CDT) Anatomical Region Laterality Modality Lower Extremities, Foot Right Digital Radiography 12/31/2024 11:5 2 AM CDT Impressions 12/31/2024 11:52 AM CDT 1. Unchanged, mildly displaced fibular neck fracture in unchanged alignment. 2. Interval reduced and internally fixated right ankle trimalleolar fracture. 3. Interval reduced and internally fixated right Lisfranc fracture. Electronically signed by: Karen Aguila MD Narrative 12/31/2024 11:52 AM CDT EXAMINATION: XR TIBIA FIBULA RIGHT2 VIEWS, XR ANKLE RIGHT 2 VIEWS, XR FOOT RIGHT 2 VIEWS, XR KNEE RIGHT 1 OR 2 VIEWS HISTORY: Fracture. FINDINGS: Comparison to 12/18/2024. Right knee: Unchanged comminuted mildly displaced fibular neck fracture in unchanged alignment. Severe medial prominent tricompartmental right knee osteoarthritis. Small to moderate right knee effusion. No dislocation. Right tibia/fibula, foot, and ankle: Patient is imaged in a splint. Interval reduced and internally fixated right ankle trimalleolar fracture with multiple planes through constructs as well as medial malleolus fully threaded screws. Hardware is intact. Interval reduced and internally fixated right foot Lisfranc fracture dislocation with instrumented 1st and 2nd tarsometatarsal arthrodeses and screw along the Lisfranc interval. Hardware is intact. Known talar head, cuneiforms, 3rd and 4th metatarsal base, and cuboid fractures are better appreciated on prior CT. Mild midfoot and hindfoot osteoarthritis. Mild 1st metatarsophalangeal osteoarthritis. Moderate soft tissue swelling about the foot and ankle. Procedure Note Karen Aguila MD - 12/31/2024 EXAMINATION: XR TIBIA FIBULA RIGHT2 VIEWS, XR ANKLE RIGHT 2 VIEWS, XR FOOT RIGHT 2 VIEWS, XR KNEE RIGHT 1 OR 2 VIEWS HISTORY: Fracture. FINDINGS: Comparison to 12/18/2024. Right knee: Unchanged comminuted mildly displaced fibular neck fracture in unchanged alignment. Severe medial prominent tricompartmental right knee osteoarthritis. Small to moderate right knee effusion. No dislocation. Right tibia/fibula, foot, and ankle: Patient is imaged in a splint. Interval reduced and internally fixated right ankle trimalleolar fracture with multiple planes through constructs as well as medial malleolus fully threaded screws. Hardware is intact. Interval reduced and internally fixated right foot Lisfranc fracture dislocation with instrumented 1st and 2nd tarsometatarsal arthrodeses and screw along the Lisfranc interval. Hardware is intact. Known talar head, cuneiforms, 3rd and 4th metatarsal base, and cuboid fractures are better appreciated on prior CT. Mild midfoot and hindfoot osteoarthritis. Mild 1st metatarsophalangeal osteoarthritis. Moderate soft tissue swelling about the foot and ankle. IMPRESSION: 1. Unchanged, mildly displaced fibular neck fracture in unchanged alignment. 2. Interval reduced and internally fixated right ankle trimalleolar fracture. 3. Interval reduced and internally fixated right Lisfranc fracture. Electronically signed by: Karen Aguila MD Marybeth Ayon NP IMG XR PROCEDURES Final Result * XR Knee Right 1 or 2 Views (12/31/2024 11:41 AM CDT) Anatomical Region Laterality Modality Lower Extremities, Knee Right Digital Radiography 12/31/2024 11:5 2 AM CDT Impressions 12/31/2024 11:52 AM CDT 1. Unchanged, mildly displaced fibular neck fracture in unchanged alignment. 2. Interval reduced and internally fixated right ankle trimalleolar fracture. 3. Interval reduced and internally fixated right Lisfranc fracture. Electronically signed by: Karen Aguila MD Narrative 12/31/2024 11:52 AM CDT EXAMINATION: XR TIBIA FIBULA RIGHT2 VIEWS, XR ANKLE RIGHT 2 VIEWS, XR FOOT RIGHT 2 VIEWS, XR KNEE RIGHT 1 OR 2 VIEWS HISTORY: Fracture. FINDINGS: Comparison to 12/18/2024. Right knee: Unchanged comminuted mildly displaced fibular neck fracture in unchanged alignment. Severe medial prominent tricompartmental right knee osteoarthritis. Small to moderate right knee effusion. No dislocation. Right tibia/fibula, foot, and ankle: Patient is imaged in a splint. Interval reduced and internally fixated right ankle trimalleolar fracture with multiple planes through constructs as well as medial malleolus fully threaded screws. Hardware is intact. Interval reduced and internally fixated right foot Lisfranc fracture dislocation with instrumented 1st and 2nd tarsometatarsal arthrodeses and screw along the Lisfranc interval. Hardware is intact. Known talar head, cuneiforms, 3rd and 4th metatarsal base, and cuboid fractures are better appreciated on prior CT. Mild midfoot and hindfoot osteoarthritis. Mild 1st metatarsophalangeal osteoarthritis. Moderate soft tissue swelling about the foot and ankle. Procedure Note Karen Aguila MD - 12/31/2024 EXAMINATION: XR TIBIA FIBULA RIGHT2 VIEWS, XR ANKLE RIGHT 2 VIEWS, XR FOOT RIGHT 2 VIEWS, XR KNEE RIGHT 1 OR 2 VIEWS HISTORY: Fracture. FINDINGS: Comparison to 12/18/2024. Right knee: Unchanged comminuted mildly displaced fibular neck fracture in unchanged alignment. Severe medial prominent tricompartmental right knee osteoarthritis. Small to moderate right knee effusion. No dislocation. Right tibia/fibula, foot, and ankle: Patient is imaged in a splint. Interval reduced and internally fixated right ankle trimalleolar fracture with multiple planes through constructs as well as medial malleolus fully threaded screws. Hardware is intact. Interval reduced and internally fixated right foot Lisfranc fracture dislocation with instrumented 1st and 2nd tarsometatarsal arthrodeses and screw along the Lisfranc interval. Hardware is intact. Known talar head, cuneiforms, 3rd and 4th metatarsal base, and cuboid fractures are better appreciated on prior CT. Mild midfoot and hindfoot osteoarthritis. Mild 1st metatarsophalangeal osteoarthritis. Moderate soft tissue swelling about the foot and ankle. IMPRESSION: 1. Unchanged, mildly displaced fibular neck fracture in unchanged alignment. 2. Interval reduced and internally fixated right ankle trimalleolar fracture. 3. Interval reduced and internally fixated right Lisfranc fracture. Electronically signed by: Karen Aguila MD us Marybeth Lilibethdaniel Ayon [facility] IMG XR PROCEDURES Final Result * XR Ankle Right 2 Views (12/31/2024 11:40 AM CDT) Anatomical Region Laterality Modality Lower Extremities, Ankle Right Digital Radiography 12/31/2024 11:5 2 AM CDT Impressions 12/31/2024 11:52 AM CDT 1. Unchanged, mildly displaced fibular neck fracture in unchanged alignment. 2. Interval reduced and internally fixated right ankle trimalleolar fracture. 3. Interval reduced and internally fixated right Lisfranc fracture. Electronically signed by: Karen Aguila MD Narrative 12/31/2024 11:52 AM CDT EXAMINATION: XR TIBIA FIBULA RIGHT2 VIEWS, XR ANKLE RIGHT 2 VIEWS, XR FOOT RIGHT 2 VIEWS, XR KNEE RIGHT 1 OR 2 VIEWS HISTORY: Fracture. FINDINGS: Comparison to 12/18/2024. Right knee: Unchanged comminuted mildly displaced fibular neck fracture in unchanged alignment. Severe medial prominent tricompartmental right knee osteoarthritis. Small to moderate right knee effusion. No dislocation. Right tibia/fibula, foot, and ankle: Patient is imaged in a splint. Interval reduced and internally fixated right ankle trimalleolar fracture with multiple planes through constructs as well as medial malleolus fully threaded screws. Hardware is intact. Interval reduced and internally fixated right foot Lisfranc fracture dislocation with instrumented 1st and 2nd tarsometatarsal arthrodeses and screw along the Lisfranc interval. Hardware is intact. Known talar head, cuneiforms, 3rd and 4th metatarsal base, and cuboid fractures are better appreciated on prior CT. Mild midfoot and hindfoot osteoarthritis. Mild 1st metatarsophalangeal osteoarthritis. Moderate soft tissue swelling about the foot and ankle. Procedure Note Karen Aguila MD - 12/31/2024 EXAMINATION: XR TIBIA FIBULA RIGHT2 VIEWS, XR ANKLE RIGHT 2 VIEWS, XR FOOT RIGHT 2 VIEWS, XR KNEE RIGHT 1 OR 2 VIEWS HISTORY: Fracture. FINDINGS: Comparison to 12/18/2024. Right knee: Unchanged comminuted mildly displaced fibular neck fracture in unchanged alignment. Severe medial prominent tricompartmental right knee osteoarthritis. Small to moderate right knee effusion. No dislocation. Right tibia/fibula, foot, and ankle: Patient is imaged in a splint. Interval reduced and internally fixated right ankle trimalleolar fracture with multiple planes through constructs as well as medial malleolus fully threaded screws. Hardware is intact. Interval reduced and internally fixated right foot Lisfranc fracture dislocation with instrumented 1st and 2nd tarsometatarsal arthrodeses and screw along the Lisfranc interval. Hardware is intact. Known talar head, cuneiforms, 3rd and 4th metatarsal base, and cuboid fractures are better appreciated on prior CT. Mild midfoot and hindfoot osteoarthritis. Mild 1st metatarsophalangeal osteoarthritis. Moderate soft tissue swelling about the foot and ankle. IMPRESSION: 1. Unchanged, mildly displaced fibular neck fracture in unchanged alignment. 2. Interval reduced and internally fixated right ankle trimalleolar fracture. 3. Interval reduced and internally fixated right Lisfranc fracture. Electronically signed by: Karen Aguila MD Marybeth Ayon [facility] IMG XR PROCEDURES Final Result * XR Tibia Fibula Right 2 Views (12/31/2024 11:40 AM CDT) Anatomical Region Laterality Modality Lower Extremities, Lower Leg Right Dig ital Radiography 12/31/2024 11:5 2 AM CDT Impressions 12/31/2024 11:52 AM CDT 1. Unchanged, mildly displaced fibular neck fracture in unchanged alignment. 2. Interval reduced and internally fixated right ankle trimalleolar fracture. 3. Interval reduced and internally fixated right Lisfranc fracture. Electronically signed by: Karen Aguila MD Narrative 12/31/2024 11:52 AM CDT EXAMINATION: XR TIBIA FIBULA RIGHT2 VIEWS, XR ANKLE RIGHT 2 VIEWS, XR FOOT RIGHT 2 VIEWS, XR KNEE RIGHT 1 OR 2 VIEWS HISTORY: Fracture. FINDINGS: Comparison to 12/18/2024. Right knee: Unchanged comminuted mildly displaced fibular neck fracture in unchanged alignment. Severe medial prominent tricompartmental right knee osteoarthritis. Small to moderate right knee effusion. No dislocation. Right tibia/fibula, foot, and ankle: Patient is imaged in a splint. Interval reduced and internally fixated right ankle trimalleolar fracture with multiple planes through constructs as well as medial malleolus fully threaded screws. Hardware is intact. Interval reduced and internally fixated right foot Lisfranc fracture dislocation with instrumented 1st and 2nd tarsometatarsal arthrodeses and screw along the Lisfranc interval. Hardware is intact. Known talar head, cuneiforms, 3rd and 4th metatarsal base, and cuboid fractures are better appreciated on prior CT. Mild midfoot and hindfoot osteoarthritis. Mild 1st metatarsophalangeal osteoarthritis. Moderate soft tissue swelling about the foot and ankle. Procedure Note Karen Aguila MD - 12/31/2024 EXAMINATION: XR TIBIA FIBULA RIGHT2 VIEWS, XR ANKLE RIGHT 2 VIEWS, XR FOOT RIGHT 2 VIEWS, XR KNEE RIGHT 1 OR 2 VIEWS HISTORY: Fracture. FINDINGS: Comparison to 12/18/2024. Right knee: Unchanged comminuted mildly displaced fibular neck fracture in unchanged alignment. Severe medial prominent tricompartmental right knee osteoarthritis. Small to moderate right knee effusion. No dislocation. Right tibia/fibula, foot, and ankle: Patient is imaged in a splint. Interval reduced and internally fixated right ankle trimalleolar fracture with multiple planes through constructs as well as medial malleolus fully threaded screws. Hardware is intact. Interval reduced and internally fixated right foot Lisfranc fracture dislocation with instrumented 1st and 2nd tarsometatarsal arthrodeses and screw along the Lisfranc interval. Hardware is intact. Known talar head, cuneiforms, 3rd and 4th metatarsal base, and cuboid fractures are better appreciated on prior CT. Mild midfoot and hindfoot osteoarthritis. Mild 1st metatarsophalangeal osteoarthritis. Moderate soft tissue swelling about the foot and ankle. IMPRESSION: 1. Unchanged, mildly displaced fibular neck fracture in unchanged alignment. 2. Interval reduced and internally fixated right ankle trimalleolar fracture. 3. Interval reduced and internally fixated right Lisfranc fracture. Electronically signed by: Karen Aguila MD Marybeth Ayon [facility] IMG XR PROCEDURES Final Result * Potassium, whole blood (12/29/2024 10:13 PM CDT) Potassium, bld 4.9 3.3 - 4.9 mmol/L Blood 12/29/2024 10:1 3 PM CDT 12/29/2024 10:51 PM CDT Pavel Scott MD LAB BLOOD ORDERABLES Latonya l Result Performing Organization Address City/[facility]/ZIP Co de Phone Number [facility] Department [place] [address] * eGFR (12/29/2024 10:11 PM CDT) [facility] eGFR 63 >=60 mL/min/1. 73 m2 Comment: Interpretive Data Reference Interval Normal >/= 90 mL/min/1.73m2 Mildly decreased* 60 - 89 mL/min/1.73m2 Mildly to moderately decreased 45 - 59 mL/min/1.73m2 Moderately to severely decreased 30 - 44 mL/min/1.73m2 Severely decreased 15 - 29 mL/min/1.73m2 Kidney Failure < 15 mL/min/1.73m2 *Relative to young adult level Estimated glomerular filtration rate is determined by the 2020 CKD-EPI equation recommended by the National Kid[employer] (A Unifying Approach to GFR Estimation: Recommendations of the NKF-ASK Task Force on Reassessing the Inclusion of Race in Diagnosing Kidney Disease, JASN 2020). The CKD-EPI equation should not be used for patients with unstable renal function and has not been validated in children and those over 70. Current interpretive data was last reviewed 2021. Blood 12/29/2024 10:1 1 PM CDT 12/29/2024 11:00 PM CDT Pavel Scott MD LAB BLOOD ORDERABLES Latonya l Result Performing Organization Address City/[facility]/ZIP [facility] Number [facility] [place] [address] * (ABNORMAL) CBC without differential (12/29/2024 10:11 PM CDT) Pathologist [facility] WBC 7.90 3.80 - 9.90 K/cumm Hgb 9.9(L) 11.9 - 15.5 g/dL [facility] Hct 32.9(L) 35.6 - 45.5 % [facility] Plt 328 150 - 400 K/cumm [facility] MPV 10.2 9.1 - 12.3 fL [facility] RBC 3.32(L) 3.90 - 5.20 M/cumm [facility] MCV 99.1(H) 81.3 - 96.4 fL [facility] MCH 29.8 27.1 - 33.3 pg [facility] MCHC 30.1(L) 32.3 - 35.7 g/dL [facility] RDW CV 13.2 11.1 - 14.9 % [facility] RDW SD 47.8 35.7 - 48.1 fL [facility] NRBC abs 0.00 0.00 - 0.01 K/cumm [facility] Blood 12/29/2024 10:1 1 PM CDT 12/29/2024 11:00 PM CDT us Pavel Scott MD LAB BLOOD ORDERABLES Latonya soto Result [facility] Department [place] [address] * (ABNORMAL) Basic metabolic panel (12/29/2024 10:11 PM CDT) [facility] Sodium 140 135 - 145 mmol/L Potassium, pl 5.0(H) 3.3 - 4.9 mmol/L [facility] Chloride 97 97 - 110 mmol/L [facility] CO2 36(H) 22 - 32 mmol/L [facility] Anion gap 7 2 - 15 mmol/L [facility] BUN 25 6 - 25 mg/dL [facility] Creatinine 0.91 0.60 - 1.10 mg/dL [facility] Glucose 121 70 - 199 mg/dL [facility] Comment: Interpretive Data Fasting glucose >/= 126 mg/dl is diagnostic for diabetes. Fasting is defined as no caloric intake for at least 8 hours. Fasting glucose between 100 mg/dl to 125 mg/dl is diagnostic of prediabetes. In a patient with classic symptoms of hyperglycemia or hyperglycemic crisis, a random glucose >/= 200 mg/dl is diagnostic for diabetes. In the absence of unequivocal hyperglycemia, results should be confirmed by repeat testing. The classification and Diagnosis of Diabetes Diabetes Care 2021; 46: S19-S40. Current interpretive data was last revised 2022. Calcium 10.2 8.5 - 10.3 mg/dL [facility] Blood 12/29/2024 10:1 1 PM CDT 12/29/2024 11:00 PM CDT us Pavel Scott MD LAB BLOOD ORDERABLES Latonya l Result Performing Organization Address [facility] de Phone Number [facility] Department [place] [address] * POCT glucose (12/29/2024 3:48 PM CDT) Glucose, POC 165 70 - 199 mg/dL Blood 12/29/2024 3:48 PM CDT 12/29/2024 3:48 PM CDT us Pavel Scott MD LAB POCT ORDERABLES - DEV ICE Final Result Performing Organization Address [facility] de Phone Number [facility] Department [place] [address] * (ABNORMAL) Potassium, whole blood (12/29/2024 2:15 AM CDT) Potassium, bld 5.2(H) 3.3 - 4.9 mmol/L Blood 12/29/2024 2:15 AM CDT 12/29/2024 2:22 AM CDT us Pavel Scott MD LAB BLOOD ORDERABLES Latonya l Result Performing Organization Address [facility] de Phone Number [facility] [place] [address] * (ABNORMAL) Blood gas, venous (12/29/2024 2:15 AM CDT) pH, Venous 7.35 7.32 - 7.43 PCO2, Venous 74(H) 40 - 50 mmHg [facility] PO2, Venous 33 mmHg [facility] Comment: Interpretive Data No Reference Range Established Current Interpretive Data was last revised on 2017. HCO3 Venous, Calculated 40(H) 20 - 30 mmol/L [facility] BE, venous 13 mmol/L [facility] Comment: Interpretive Data No Reference Range Established Current Interpretive Data was last revised on 2017. Blood 12/29/2024 2:15 AM CDT 12/29/2024 2:22 AM CDT us Pavel Scott MD LAB BLOOD ORDERABLES Latonya l Result Performing Organization Address [facility] de Phone Number [facility] [place] [address] * eGFR (12/28/2024 9:58 PM CDT) eGFR 88 >=60 mL/min/1. 73 m2 Comment: Interpretive Data Reference Interval Normal >/= 90 mL/min/1.73m2 Mildly decreased* 60 - 89 mL/min/1.73m2 Mildly to moderately decreased 45 - 59 mL/min/1.73m2 Moderately to severely decreased 30 - 44 mL/min/1.73m2 Severely decreased 15 - 29 mL/min/1.73m2 Kidney Failure < 15 mL/min/1.73m2 *Relative to young adult level Estimated glomerular filtration rate is determined by the 2020 CKD-EPI equation recommended by the National Kidney Foundation (A Unifying Approach to GFR Estimation: Recommendations of the NKF-ASK Task Force on Reassessing the Inclusion of Race in Diagnosing Kidney Disease, JASN 2020). The CKD-EPI equation should not be used for patients with unstable renal function and has not been validated in children and those over 70. Current interpretive data was last reviewed 2021. Blood 12/28/2024 9:58 PM CDT 12/28/2024 11:00 PM CDT Pavel Scott MD LAB BLOOD ORDERABLES Latonya l Result Performing Organization Address [facility] Co de Phone Number [facility] Department [address] [place] [address] * (ABNORMAL) CBC without differential (12/28/2024 9:58 PM CDT) WBC 6.89 3.80 - 9.90 K/cumm Hgb 9.6(L) 11.9 - 15.5 g/dL [facility] Hct 30.9(L) 35.6 - 45.5 % [facility] Plt 275 150 - 400 K/cumm [facility] MPV 10.0 9.1 - 12.3 fL [facility] RBC 3.11(L) 3.90 - 5.20 M/cumm [facility] MCV 99.4(H) 81.3 - 96.4 fL [facility] MCH 30.9 27.1 - 33.3 pg [facility] MCHC 31.1(L) 32.3 - 35.7 g/dL [facility] RDW CV 13.2 11.1 - 14.9 % [facility] RDW SD 48.1 35.7 - 48.1 fL [facility] NRBC abs 0.00 0.00 - 0.01 K/cumm [facility] Blood 12/28/2024 9:58 PM CDT 12/28/2024 11:00 PM CDT Pavel Scott MD LAB BLOOD ORDERABLES Latonya l Result Performing Organization Address [facility]/ZIP Co de Phone Number [facility] Department of [address] [place], [place] [id number] * (ABNORMAL) Basic metabolic panel (12/28/2024 9:58 PM CDT) Pathologist [facility] Sodium 143 135 - 145 mmol/L Potassium, pl 5.3(H) 3.3 - 4.9 mmol/L [facility] Chloride 97 97 - 110 mmol/L [facility] CO2 38(H) 22 - 32 mmol/L [facility] Anion gap 8 2 - 15 mmol/L [facility] BUN 21 6 - 25 mg/dL [facility] Creatinine 0.67 0.60 - 1.10 mg/dL [facility] Glucose 101 70 - 199 mg/dL [facility] Comment: Interpretive Data Fasting glucose >/= 126 mg/dl is diagnostic for diabetes. Fasting is defined as no caloric intake for at least 8 hours. Fasting glucose between 100 mg/dl to 125 mg/dl is diagnostic of prediabetes. In a patient with classic symptoms of hyperglycemia or hyperglycemic crisis, a random glucose >/= 200 mg/dl is diagnostic for diabetes. In the absence of unequivocal hyperglycemia, results should be confirmed by repeat testing. The classification and Diagnosis of Diabetes Diabetes Care 2021; 46: S19-S40. Current interpretive data was last revised 2022. Calcium 10.0 8.5 - 10.3 mg/dL [facility] Blood 12/28/2024 9:58 PM CDT 12/28/2024 11:00 PM CDT Pavel Scott MD LAB BLOOD ORDERABLES Latonya l Result [facility] Department [place] [address] * Potassium, whole blood (12/28/2024 6:42 AM CDT) Pathologist [facility] Potassium, bld 4.7 3.3 - 4.9 mmol/L Blood 12/28/2024 6:42 AM CDT 12/28/2024 6:51 AM CDT us Pavel Scott MD LAB BLOOD ORDERABLES Latonya l Result Performing Organization Address City/[facility]/ZIP Co de Phone Number TITO [facility] [place] [address] * POCT glucose (12/27/2024 11:10 PM CDT) Glucose, POC 159 70 - 199 mg/dL Blood 12/27/2024 11:1 0 PM CDT 12/27/2024 11:10 PM CDT Pavel Scott MD LAB POCT ORDERABLES - DEV ICE Final Result Performing Organization Address [facility] Co de Phone Number [facility] [place] [address] * eGFR (12/27/2024 9:33 PM CDT) eGFR 81 >=60 mL/min/1. 73 m2 Comment: Interpretive Data Reference Interval Normal >/= 90 mL/min/1.73m2 Mildly decreased* 60 - 89 mL/min/1.73m2 Mildly to moderately decreased 45 - 59 mL/min/1.73m2 Moderately to severely decreased 30 - 44 mL/min/1.73m2 Severely decreased 15 - 29 mL/min/1.73m2 Kidney Failure < 15 mL/min/1.73m2 *Relative to young adult level Estimated glomerular filtration rate is determined by the 2020 CKD-EPI equation recommended by the National Kidney Foundation (A Unifying Approach to GFR Estimation: Recommendations of the NKF-ASK Task Force on Reassessing the Inclusion of Race in Diagnosing Kidney Disease, JASN 2020). The CKD-EPI equation should not be used for patients with unstable renal function and has not been validated in children and those over 70. Current interpretive data was last reviewed 2021. Blood 12/27/2024 9:33 PM CDT 12/27/2024 9:59 PM CDT us Pavel Scott MD LAB BLOOD ORDERABLES Latonya l Result Performing Organization Address [facility] de Phone Number [facility] Department [place] [address] * (ABNORMAL) CBC without differential (12/27/2024 9:33 PM CDT) [facility] WBC 6.77 3.80 - 9.90 K/cumm Hgb 9.0(L) 11.9 - 15.5 g/dL [facility] Hct 29.9(L) 35.6 - 45.5 % [facility] Plt 251 150 - 400 K/cumm [facility] MPV 10.2 9.1 - 12.3 fL [facility] RBC 2.99(L) 3.90 - 5.20 M/cumm [facility] MCV 100.0(H) 81.3 - 96.4 fL [facility] MCH 30.1 27.1 - 33.3 pg [facility] MCHC 30.1(L) 32.3 - 35.7 g/dL [facility] RDW CV 13.1 11.1 - 14.9 % [facility] RDW SD 48.2(H) 35.7 - 48.1 fL [facility] NRBC abs 0.00 0.00 - 0.01 K/cumm [facility] Blood 12/27/2024 9:33 PM CDT 12/27/2024 9:59 PM CDT Pavel Scott MD LAB BLOOD ORDERABLES Latonya l Result Performing Organization Address [facility] Co de Phone Number [facility] Department [place] [address] * (ABNORMAL) Basic metabolic panel (12/27/2024 9:33 PM CDT) [facility] Sodium 143 135 - 145 mmol/L Potassium, pl 5.0(H) 3.3 - 4.9 mmol/L [facility] Chloride 100 97 - 110 mmol/L [facility] CO2 39(H) 22 - 32 mmol/L [facility] Anion gap 4 2 - 15 mmol/L [facility] BUN 23 6 - 25 mg/dL [facility] Creatinine 0.74 0.60 - 1.10 mg/dL [facility] Glucose 104 70 - 199 mg/dL [facility] Comment: Interpretive Data Fasting glucose >/= 126 mg/dl is diagnostic for diabetes. Fasting is defined as no caloric intake for at least 8 hours. Fasting glucose between 100 mg/dl to 125 mg/dl is diagnostic of prediabetes. In a patient with classic symptoms of hyperglycemia or hyperglycemic crisis, a random glucose >/= 200 mg/dl is diagnostic for diabetes. In the absence of unequivocal hyperglycemia, results should be confirmed by repeat testing. The classification and Diagnosis of Diabetes Diabetes Care 202; 46: S19-S40. Current interpretive data was last revised 2022. Calcium 10.8(H) 8.5 - 10.3 mg/dL [facility] Blood 12/27/2024 9:33 PM CDT 12/27/2024 9:59 PM CDT Pavel Scott MD LAB BLOOD ORDERABLES Latonya l Result [facility] [place] [address] * POCT glucose (12/27/2024 9:23 PM CDT) Glucose, POC 121 70 - 199 mg/dL Blood 12/27/2024 9:23 PM CDT 12/27/2024 9:23 PM CDT Pavel Scott MD LAB POCT ORDERABLES - DEV ICE Final Result [facility] [place] [address] * eGFR (12/27/2024 6:17 AM CDT) eGFR 90 >=60 mL/min/1. 73 m2 Comment: Interpretive Data Reference Interval Normal >/= 90 mL/min/1.73m2 Mildly decreased* 60 - 89 mL/min/1.73m2 Mildly to moderately decreased 45 - 59 mL/min/1.73m2 Moderately to severely decreased 30 - 44 mL/min/1.73m2 Severely decreased 15 - 29 mL/min/1.73m2 Kidney Failure < 15 mL/min/1.73m2 *Relative to young adult level Estimated glomerular filtration rate is determined by the 2020 CKD-EPI equation recommended by the National Kidney Foundation (A Unifying Approach to GFR Estimation: Recommendations of the NKF-ASK Task Force on Reassessing the Inclusion of Race in Diagnosing Kidney Disease, JASN 2020). The CKD-EPI equation should not be used for patients with unstable renal function and has not been validated in children and those over 70. Current interpretive data was last reviewed 2021. Blood 12/27/2024 6:17 AM CDT 12/27/2024 6:39 AM CDT us Pavel Scott MD LAB BLOOD ORDERABLES Latonya soto Result [facility] Department [place] [address] * (ABNORMAL) CBC without differential (12/27/2024 6:17 AM CDT) WBC 6.13 3.80 - 9.90 K/cumm Hgb 8.6(L) 11.9 - 15.5 g/dL [facility] Hct 28.4(L) 35.6 - 45.5 % [facility] Plt 228 150 - 400 K/cumm [facility] MPV 10.0 9.1 - 12.3 fL [facility] RBC 2.83(L) 3.90 - 5.20 M/cumm [facility] MCV 100.4(H) 81.3 - 96.4 fL [facility] MCH 30.4 27.1 - 33.3 pg [facility] MCHC 30.3(L) 32.3 - 35.7 g/dL [facility] RDW CV 13.0 11.1 - 14.9 % [facility] RDW SD 46.9 35.7 - 48.1 fL [facility] NRBC abs 0.00 0.00 - 0.01 K/cumm [facility] Blood 12/27/2024 6:17 AM CDT 12/27/2024 6:40 AM CDT Pavel Scott MD LAB BLOOD ORDERABLES Latonya soto Result [facility] Department [place] [address] * (ABNORMAL) Basic metabolic panel (12/27/2024 6:17 AM CDT) Sodium 142 135 - 145 mmol/L Potassium, pl 4.5 3.3 - 4.9 mmol/L [facility] Chloride 97 97 - 110 mmol/L [facility] CO2 40(H) 22 - 32 mmol/L [facility] Anion gap 5 2 - 15 mmol/L [facility] BUN 18 6 - 25 mg/dL [facility] Creatinine 0.60 0.60 - 1.10 mg/dL [facility] Glucose 104 70 - 199 mg/dL [facility] Comment: Interpretive Data Fasting glucose >/= 126 mg/dl is diagnostic for diabetes. Fasting is defined as no caloric intake for at least 8 hours. Fasting glucose between 100 mg/dl to 125 mg/dl is diagnostic of prediabetes. In a patient with classic symptoms of hyperglycemia or hyperglycemic crisis, a random glucose >/= 200 mg/dl is diagnostic for diabetes. In the absence of unequivocal hyperglycemia, results should be confirmed by repeat testing. The classification and Diagnosis of Diabetes Diabetes Care 202; 46: S19-S40. Current interpretive data was last revised 2022. Calcium 10.7(H) 8.5 - 10.3 mg/dL [facility] Blood 12/27/2024 6:17 AM CDT 12/27/2024 6:39 AM CDT Pavel Scott MD LAB BLOOD ORDERABLES Latonya l Result Performing Organization Address City/[facility]/ZIP Co de Phone Number [facility] [place] [address] * (ABNORMAL) Blood gas, arterial (12/27/2024 4:53 AM CDT) pH, Art 7.37 7.35 - 7.45 PCO2, Arterial 72(H) 35 - 45 mmHg [facility] PO2, Arterial 80(L) 83 - 108 mmHg [facility] HCO3 Art (Calculated) 41(H) 20 - 30 mmol/L [facility] BE, art 14 mmol/L [facility] Comment: Interpretive Data No Reference Range Established Current Interpretive Data was last revised on 2017 O2 Sat Art (Measured) 96(H) 90 - 95 % [facility] Blood 12/27/2024 4:53 AM CDT 12/27/2024 5:19 AM CDT Pavel Scott MD LAB BLOOD ORDERABLES Latonya l Result Performing Organization Address City/[facility] Co de Phone Number [facility] [place] [address] * Critical Result Callback Chemistry (12/27/2024 3:32 AM CDT) Date Notified 20241227 Time Notified 408 [facility] TestName pCO2 [facility] Called/Read Back Yosvany FRANCIS [facility] Credentials RN TITO [facility] Called By [place] FRANCIS [facility] Blood 12/27/2024 3:32 AM CDT 12/27/2024 3:52 AM CDT Pavel Scott MD LAB BLOOD ORDERABLES Latonya l Result Performing Organization Address City/[facility]/ZIP Co de Phone Number [facility] [place] [address] * (ABNORMAL) Blood gas, venous (12/27/2024 3:32 AM CDT) pH, Venous 7.37 7.32 - 7.43 PCO2, Venous 75(C) 40 - 50 mmHg [facility] PO2, Venous 121 mmHg [facility] Comment: Interpretive Data No Reference Range Established Current Interpretive Data was last revised on 2017. HCO3 Venous, Calculated 43(H) 20 - 30 mmol/L [facility] BE, venous 15 mmol/L [facility] Comment: Interpretive Data No Reference Range Established Current Interpretive Data was last revised on 2017. Blood 12/27/2024 3:32 AM CDT 12/27/2024 3:52 AM CDT us Pavel Sctot MD LAB BLOOD ORDERABLES Latonya l Result [facility] Department [place] [address] * Critical Care (12/25/2024 12:29 PM CDT) Narrative Ari Ferguson MD - 12/25/2024 12:29 PM CDT Ari Ferguson MD 12/26/2024 10:07 AM Critical Care Performed by: Ryan Burciaga NP Authorized by: Ryan Burciaga NP CRITICAL CARE: Team: SICU BLUE Shift: AM Level of Billing: Subsequent Hospital Visit Level 3 My time spent with this patient was 60 minutes: Critical Provider Statement: I have seen and examined the patient on this day of service. I have reviewed and confirmed the history, physical exam, laboratory, and radiographic data as documented in the ICU note. I have reviewed and discussed my treatment plan with the patient's team and other medical/statistical consultant staff. This time was in addition to and separate from care provided by other practitioners on this day of service. us Ryan Burciaga NP IN CLINIC/BEDSIDE ORD ERABLES Final Result * (ABNORMAL) Blood gas, venous (12/25/2024 5:24 AM CDT) pH, Venous 7.38 7.32 - 7.43 PCO2, Venous 69(H) 40 - 50 mmHg [facility] PO2, Venous 63 mmHg [facility] Comment: Interpretive Data No Reference Range Established Current Interpretive Data was last revised on 2017. HCO3 Venous, Calculated 40(H) 20 - 30 mmol/L [facility] BE, venous 13 mmol/L [facility] Comment: Interpretive Data No Reference Range Established Current Interpretive Data was last revised on 2017. Blood 12/25/2024 5:24 AM CDT 12/25/2024 5:29 AM CDT us Naty BALLARD LAB BLOOD ORDERABLES Final Resu lt [facility] Department [place] [address] * eGFR (12/24/2024 8:24 PM CDT) eGFR 87 >=60 mL/min/1. 73 m2 Comment: Interpretive Data Reference Interval Normal >/= 90 mL/min/1.73m2 Mildly decreased* 60 - 89 mL/min/1.73m2 Mildly to moderately decreased 45 - 59 mL/min/1.73m2 Moderately to severely decreased 30 - 44 mL/min/1.73m2 Severely decreased 15 - 29 mL/min/1.73m2 Kidney Failure < 15 mL/min/1.73m2 *Relative to young adult level Estimated glomerular filtration rate is determined by the 2020 CKD-EPI equation recommended by the National Kidney Foundation (A Unifying Approach to GFR Estimation: Recommendations of the NKF-ASK Task Force on Reassessing the Inclusion of Race in Diagnosing Kidney Disease, JASN 2020). The CKD-EPI equation should not be used for patients with unstable renal function and has not been validated in children and those over 70. Current interpretive data was last reviewed 2021. Blood 12/24/2024 8:24 PM CDT 12/24/2024 10:40 PM CDT Pavel Scott MD LAB BLOOD ORDERABLES Latonya charles Result Performing Organization Address [facility]/ZIP Co de Phone Number [facility] Department [place] [address] * (ABNORMAL) CBC without differential (12/24/2024 8:24 PM CDT) Pathologist [facility] WBC 6.62 3.80 - 9.90 K/cumm Hgb 8.7(L) 11.9 - 15.5 g/dL [facility] Hct 29.0(L) 35.6 - 45.5 % [facility] Plt 170 150 - 400 K/cumm [facility] MPV 10.8 9.1 - 12.3 fL [facility] RBC 2.85(L) 3.90 - 5.20 M/cumm [facility] MCV 101.8(H) 81.3 - 96.4 fL [facility] MCH 30.5 27.1 - 33.3 pg [facility] MCHC 30.0(L) 32.3 - 35.7 g/dL [facility] RDW CV 13.1 11.1 - 14.9 % [facility] RDW SD 48.2(H) 35.7 - 48.1 fL [facility] NRBC abs 0.00 0.00 - 0.01 K/cumm [facility] Blood 12/24/2024 8:24 PM CDT 12/24/2024 10:44 PM CDT Pavel Scott MD LAB BLOOD ORDERABLES Latonya soto Result [facility] Department [place] [address] * (ABNORMAL) Basic metabolic panel (12/24/2024 8:24 PM CDT) Pathologist [facility] Sodium 141 135 - 145 mmol/L Potassium, pl 4.3 3.3 - 4.9 mmol/L [facility] Chloride 98 97 - 110 mmol/L [facility] CO2 38(H) 22 - 32 mmol/L [facility] Anion gap 5 2 - 15 mmol/L [facility] BUN 14 6 - 25 mg/dL [facility] Creatinine 0.70 0.60 - 1.10 mg/dL [facility] Glucose 117 70 - 199 mg/dL [facility] Comment: Interpretive Data Fasting glucose >/= 126 mg/dl is diagnostic for diabetes. Fasting is defined as no caloric intake for at least 8 hours. Fasting glucose between 100 mg/dl to 125 mg/dl is diagnostic of prediabetes. In a patient with classic symptoms of hyperglycemia or hyperglycemic crisis, a random glucose >/= 200 mg/dl is diagnostic for diabetes. In the absence of unequivocal hyperglycemia, results should be confirmed by repeat testing. The classification and Diagnosis of Diabetes Diabetes Care 2021; 46: S19-S40. Current interpretive data was last revised 2022. Calcium 9.6 8.5 - 10.3 mg/dL [facility] Blood 12/24/2024 8:24 PM CDT 12/24/2024 10:40 PM CDT Pavel Scott MD LAB BLOOD ORDERABLES Latoyna soto Result [facility] Department [place] [address] * Critical Care (12/24/2024 6:18 PM CDT) Narrative Kana Gauthier MD - 12/24/2024 6:18 PM CDT Kana Gauthier MD 01/21/2025 5:47 PM Critical Care Performed by: Kana Gauthier MD Authorized by: Kana Gauthier MD CRITICAL CARE: Team: SICU BLUE Shift: PM Level of Billing: Critical Care My time spent with this patient was 30 minutes: Critical Provider Statement: I have seen and examined the patient on this day of service. I have reviewed and confirmed the history, physical exam, laboratory and radiologic data as documented in the signed ICU note. I have reviewed and discussed my treatment plan with the ICU team and other medical/statistical consultant staff, making frequent assessments and decisions regarding this patient's complex medical care. Critical Care time was exclusive of time spent performing separately billed procedures, treating other patients, and teaching. This time was in addition to and separate from critical care provided by other practitioners in my group on this day of service. Critical Care was necessary to treat or prevent imminent or life-threatening deterioration of the following conditions: Acute pain/acute postoperative pain Acute hypercarbic respiratory failure Traumatic brain injury and Severe long-bone fracture This time was spent by me doing the following: Serial bedside patient exams and Serial laboratory checks Acute pain control and Frequent neurologic exams Active and frequent reassessment of respiratory status and oxygen requirements, Non-invasive positive pressure ventilator management and Incentive spirometry, pulmonary toilet I spent time reviewing and interpreting data from bedside monitors, laboratory results, and imaging, I spent time discussing the management of this critically ill patient with consultants and the medical staff and I spent time documenting in the medical record Kana Gauthier MD IN CLINIC/BEDSIDE ORDERABLES Fi nal Result * Critical Care (12/24/2024 8:05 AM CDT) Narrative Ari Ferguson MD - 12/24/2024 8:05 AM CDT Ari Ferguson MD 12/24/2024 4:47 PM Critical Care Performed by: Naty Merino PA Authorized by: Naty Merino PA CRITICAL CARE: Team: SICU BLUE Shift: AM Level of Billing: Subsequent Hospital Visit Level 3 My time spent with this patient was 80 minutes: Critical Provider Statement: I have seen and examined the patient on this day of service. I have reviewed and confirmed the history, physical exam, laboratory, and radiographic data as documented in the ICU note. I have reviewed and discussed my treatment plan with the patient's team and other medical/statistical consultant staff. This time was in addition to and separate from care provided by other practitioners on this day of service. us Naty BALLARD IN CLINIC/BEDSIDE ORDERABLES Fi nal Result * (ABNORMAL) Blood gas, venous (12/24/2024 7:55 AM CDT) pH, Venous 7.36 7.32 - 7.43 PCO2, Venous 71(H) 40 - 50 mmHg [facility] PO2, Venous 111 mmHg [facility] Comment: Interpretive Data No Reference Range Established Current Interpretive Data was last revised on 2017. HCO3 Venous, Calculated 39(H) 20 - 30 mmol/L [facility] BE, venous 12 mmol/L [facility] Comment: Interpretive Data No Reference Range Established Current Interpretive Data was last revised on 2017. Blood 12/24/2024 7:55 AM CDT 12/24/2024 8:02 AM CDT Jose Potter PA LAB BLOOD ORDERABLE S Final Result Performing Organization Address City/[facility]/ZIP Co de Phone Number [facility] Department [place] [address] * Infection Prevention Jeremie auris PCR, surveillance Axilla/Groin (12/24/2024 1:19 AM CDT) [facility] Jeremie auris DNA Not Detected Not Detected [facility] Comment: Interpretive Data Testing performed by [facility] Infectious Disease [facility] using the Lilly harjinder [id number] Jeremie auris assay. This assay detects DNA from Jeremie auris using Real-Time PCR. This assay is laboratory developed and is not cleared by the [place] Food and Drug Administration. The performance characteristics have been verified by the [facility]ious Disease [facility]. Axilla/Groin 12/24/2024 1:19 AM CDT 12/24/2024 2:34 AM CDT Narrative [facility] - 12/24/2024 12:57 PM CDT Order placed by [facility] due to ring surveillance. Instant Order Generic Provider LAB MICROBIOLOGY - GENERAL ORDERABLES Final Result Performing Organization Address [facility]/ZIP Co de Phone Number [facility] [place] [address] [facility] * eGFR (12/23/2024 8:43 PM CDT) eGFR 80 >=60 mL/min/1. 73 m2 Comment: Interpretive Data Reference Interval Normal >/= 90 mL/min/1.73m2 Mildly decreased* 60 - 89 mL/min/1.73m2 Mildly to moderately decreased 45 - 59 mL/min/1.73m2 Moderately to severely decreased 30 - 44 mL/min/1.73m2 Severely decreased 15 - 29 mL/min/1.73m2 Kidney Failure < 15 mL/min/1.73m2 *Relative to young adult level Estimated glomerular filtration rate is determined by the 2020 CKD-EPI equation recommended by the National Kidney Foundation (A Unifying Approach to GFR Estimation: Recommendations of the NKF-ASK Task Force on Reassessing the Inclusion of Race in Diagnosing Kidney Disease, JASN 2020). The CKD-EPI equation should not be used for patients with unstable renal function and has not been validated in children and those over 70. Current interpretive data was last reviewed 2021. Blood 12/23/2024 8:43 PM CDT 12/23/2024 9:38 PM CDT us Adam Castañeda DNP LAB BLOOD ORDERABLES F inal Result [facility] Department [address] [place] [address] * Critical Result Callback Chemistry (12/23/2024 8:43 PM CDT) Date Notified 20241223 Time Notified 2140 TITO [facility] TestName Víctor FRANCIS [facility] Called/Read Back Nicole GARCIA Credentials ARTHUR GARCIA Called By ANDRE GARCIA Blood 12/23/2024 8:43 PM CDT 12/23/2024 9:35 PM CDT us Jose Potter PA LAB BLOOD ORDERABLE S Final Result [facility] [place] [address] * (ABNORMAL) CBC without differential (12/23/2024 8:43 PM CDT) [facility] WBC 6.67 3.80 - 9.90 K/cumm Hgb 8.8(L) 11.9 - 15.5 g/dL [facility] Hct 29.2(L) 35.6 - 45.5 % [facility] Plt 168 150 - 400 K/cumm [facility] MPV 10.9 9.1 - 12.3 fL [facility] RBC 2.90(L) 3.90 - 5.20 M/cumm [facility] MCV 100.7(H) 81.3 - 96.4 fL [facility] MCH 30.3 27.1 - 33.3 pg [facility] MCHC 30.1(L) 32.3 - 35.7 g/dL [facility] RDW CV 13.1 11.1 - 14.9 % [facility] RDW SD 47.9 35.7 - 48.1 fL [facility] NRBC abs 0.00 0.00 - 0.01 K/cumm [facility] Blood 12/23/2024 8:43 PM CDT 12/23/2024 9:38 PM CDT Pavel Scott MD LAB BLOOD ORDERABLES Latonya l Result Performing Organization Address [facility] Co de Phone Number [facility] [place] [address] * Phosphorus (12/23/2024 8:43 PM CDT) [facility] Phosphorus, pl 2.7 2.3 - 4.5 mg/dL Blood 12/23/2024 8:43 PM CDT 12/23/2024 9:38 PM CDT Pavel Scott MD LAB BLOOD ORDERABLES Latonya l Result Performing Organization Address [facility] Co de Phone Number [facility] Department [place] [address] * Magnesium (12/23/2024 8:43 PM CDT) Pathologist [facility] Magnesium 2.1 1.4 - 2.5 mg/dL Blood 12/23/2024 8:43 PM CDT 12/23/2024 9:38 PM CDT Pavel Scott MD LAB BLOOD ORDERABLES Latonya l Result [facility] Department [place] [address] * (ABNORMAL) Blood gas, venous (12/23/2024 8:43 PM CDT) Pathologist [facility] pH, Venous 7.30(L) 7.32 - 7.43 PCO2, Venous 79(C) 40 - 50 mmHg [facility] PO2, Venous 26 mmHg [facility] Comment: Interpretive Data No Reference Range Established Current Interpretive Data was last revised on 2017. HCO3 Venous, Calculated 38(H) 20 - 30 mmol/L [facility] BE, venous 10 mmol/L [facility] Comment: Interpretive Data No Reference Range Established Current Interpretive Data was last revised on 2017. Blood 12/23/2024 8:43 PM CDT 12/23/2024 9:35 PM CDT Jose BALLARD LAB BLOOD ORDERABLE S Final Result [facility] Department [place] [address] * (ABNORMAL) Basic metabolic panel (12/23/2024 8:43 PM CDT) Pathologist [facility] Sodium 140 135 - 145 mmol/L Potassium, pl 4.3 3.3 - 4.9 mmol/L [facility] Chloride 98 97 - 110 mmol/L [facility] CO2 39(H) 22 - 32 mmol/L [facility] Anion gap 3 2 - 15 mmol/L [facility] BUN 14 6 - 25 mg/dL [facility] Creatinine 0.75 0.60 - 1.10 mg/dL [facility] Glucose 144 70 - 199 mg/dL [facility] Comment: Interpretive Data Fasting glucose >/= 126 mg/dl is diagnostic for diabetes. Fasting is defined as no caloric intake for at least 8 hours. Fasting glucose between 100 mg/dl to 125 mg/dl is diagnostic of prediabetes. In a patient with classic symptoms of hyperglycemia or hyperglycemic crisis, a random glucose >/= 200 mg/dl is diagnostic for diabetes. In the absence of unequivocal hyperglycemia, results should be confirmed by repeat testing. The classification and Diagnosis of Diabetes Diabetes Care 2021; 46: S19-S40. Current interpretive data was last revised 2022. Calcium 9.1 8.5 - 10.3 mg/dL [facility] Blood 12/23/2024 8:43 PM CDT 12/23/2024 9:38 PM CDT us Pavel Scott MD LAB BLOOD ORDERABLES Latonya l Result [facility] Department [place] [address] * Critical Care (12/23/2024 7:04 PM CDT) Narrative Kana Gauthier MD - 12/23/2024 7:04 PM CDT Kana Gauthier MD 01/21/2025 5:44 PM Critical Care Performed by: Kana Gauthier MD Authorized by: Kana Gauthier MD CRITICAL CARE: Team: SICU BLUE Shift: PM Level of Billing: Critical Care My time spent with this patient was 30 minutes: Critical Provider Statement: I have seen and examined the patient on this day of service. I have reviewed and confirmed the history, physical exam, laboratory and radiologic data as documented in the signed ICU note. I have reviewed and discussed my treatment plan with the ICU team and other medical/statistical consultant staff, making frequent assessments and decisions regarding this patient's complex medical care. Critical Care time was exclusive of time spent performing separately billed procedures, treating other patients, and teaching. This time was in addition to and separate from critical care provided by other practitioners in my group on this day of service. Critical Care was necessary to treat or prevent imminent or life-threatening deterioration of the following conditions: Acute pain/acute postoperative pain Acute hypercarbic respiratory failure Traumatic brain injury and Severe long-bone fracture This time was spent by me doing the following: Serial bedside patient exams and Serial laboratory checks Acute pain control and Frequent neurologic exams Active and frequent reassessment of respiratory status and oxygen requirements, Non-invasive positive pressure ventilator management and Incentive spirometry, pulmonary toilet I spent time reviewing and interpreting data from bedside monitors, laboratory results, and imaging, I spent time discussing the management of this critically ill patient with consultants and the medical staff and I spent time documenting in the medical record us Kana Gauthier MD IN CLINIC/BEDSIDE ORDERABLES Fi nal Result * (ABNORMAL) Blood gas, venous (12/23/2024 7:44 AM CDT) pH, Venous 7.29(L) 7.32 - 7.43 PCO2, Venous 74(H) 40 - 50 mmHg [facility] PO2, Venous 51 mmHg [facility] Comment: Interpretive Data No Reference Range Established Current Interpretive Data was last revised on 2017. HCO3 Venous, Calculated 34(H) 20 - 30 mmol/L [facility] BE, venous 7 mmol/L [facility] Comment: Interpretive Data No Reference Range Established Current Interpretive Data was last revised on 2017. Blood 12/23/2024 7:44 AM CDT 12/23/2024 7:49 AM CDT us Jose BALLARD LAB BLOOD ORDERABLE S Final Result [facility] Department [place] [address] * Critical Care (12/23/2024 6:00 AM CDT) Narrative Ari Ferguson MD - 12/23/2024 6:00 AM CDT Ari Ferguson MD 12/24/2024 4:47 PM Critical Care Performed by: Lupe Solitario NP Authorized by: Lupe Solitario NP CRITICAL CARE: Team: SICU BLUE Shift: AM Level of Billing: Subsequent Hospital Visit Level 3 My time spent with this patient was 80 minutes: Critical Provider Statement: I have seen and examined the patient on this day of service. I have reviewed and confirmed the history, physical exam, laboratory, and radiographic data as documented in the ICU note. I have reviewed and discussed my treatment plan with the patient's team and other medical/statistical consultant staff. This time was in addition to and separate from care provided by other practitioners on this day of service. I spent time reviewing and interpreting data from bedside monitors, laboratory results, and imaging, I spent time discussing the management of this critically ill patient with consultants and the medical staff and I spent time documenting in the medical record Lupe Solitario NP IN CLINIC/BEDSIDE BONIFACIO KATZ Final Result * CT Head WO Contrast (12/23/2024 5:40 AM CDT) Anatomical Region Laterality Modality Head and Neck N/A Computed Tomogra phy 12/23/2024 5:54 AM CDT Impressions 12/23/2024 9:15 AM CDT Stable trace subdural blood products along the posterior interhemispheric falx. Stable scalp hematoma. No new intracranial hemorrhage, mass effect, or midline shift. Dictated by: Marybeth Bee M.D. The radiology attending physician has personally reviewed this study, and had reviewed and/or edited this written report and agrees with it. Electronically signed by: Shobha Yadav M.D. Narrative 12/23/2024 9:15 AM CDT EXAMINATION: CT head without contrast HISTORY: 79 years-old Female with subdural hematoma follow-up TECHNIQUE: CT of the head was performed with images acquired from skull base to vertex without intravenous contrast. COMPARISON: 12/19/2024 FINDINGS: There is asymmetric thickening along the right aspect of the parietal interhemispheric falx, consistent with subdural blood products which measures 2 to 3 mm, unchanged from prior. There is a left parietal soft tissue contusion. There are scattered dural lipomas. Chronic right basal ganglia lacunar infarct. Scattered ill-defined hypodensities in the periventricular and subcortical white matter are likely sequela of chronic small vessel ischemic change. There is parenchymal volume loss. There are atherosclerotic calcifications of the intracranial vessels. Ventricles are of normal size and morphology. No mass effect or midline shift is present. The visualized portions of the orbits are normal. No acute fractures are identified. Chronic right nasal bone fracture. There is hyperostosis frontalis. There are bilateral mastoid effusions. There is a mucous retention cyst in the left sphenoid sinus. Procedure Note Shobha Ospina MD - 12/23/2024 EXAMINATION: CT head without contrast HISTORY: 79 years-old Female with subdural hematoma follow-up TECHNIQUE: CT of the head was performed with images acquired from skull base to vertex without intravenous contrast. COMPARISON: 12/19/2024 FINDINGS: There is asymmetric thickening along the right aspect of the parietal interhemispheric falx, consistent with subdural blood products which measures 2 to 3 mm, unchanged from prior. There is a left parietal soft tissue contusion. There are scattered dural lipomas. Chronic right basal ganglia lacunar infarct. Scattered ill-defined hypodensities in the periventricular and subcortical white matter are likely sequela of chronic small vessel ischemic change. There is parenchymal volume loss. There are atherosclerotic calcifications of the intracranial vessels. Ventricles are of normal size and morphology. No mass effect or midline shift is present. The visualized portions of the orbits are normal. No acute fractures are identified. Chronic right nasal bone fracture. There is hyperostosis frontalis. There are bilateral mastoid effusions. There is a mucous retention cyst in the left sphenoid sinus. IMPRESSION: Stable trace subdural blood products along the posterior interhemispheric falx. Stable scalp hematoma. No new intracranial hemorrhage, mass effect, or midline shift. Dictated by: Marybeth Bee M.D. The radiology attending physician has personally reviewed this study, and had reviewed and/or edited this written report and agrees with it. Electronically signed by: Shobha Yadav M.D. us Pavel Scott MD IMG CT PROCEDURES Final R esult * Critical Care (12/22/2024 9:52 PM CDT) Narrative Kana Gauthier MD - 12/22/2024 9:52 PM CDT Kana Gauthier MD 01/21/2025 5:43 PM Critical Care Performed by: Kana Gauthier MD Authorized by: Kana Gauthier MD CRITICAL CARE: Team: SICU BLUE Shift: PM Level of Billing: Critical Care My time spent with this patient was 30 minutes: Critical Provider Statement: I have seen and examined the patient on this day of service. I have reviewed and confirmed the history, physical exam, laboratory and radiologic data as documented in the signed ICU note. I have reviewed and discussed my treatment plan with the ICU team and other medical/statistical consultant staff, making frequent assessments and decisions regarding this patient's complex medical care. Critical Care time was exclusive of time spent performing separately billed procedures, treating other patients, and teaching. This time was in addition to and separate from critical care provided by other practitioners in my group on this day of service. Critical Care was necessary to treat or prevent imminent or life-threatening deterioration of the following conditions: Acute pain/acute postoperative pain Acute hypercarbic respiratory failure Traumatic brain injury and Severe long-bone fracture This time was spent by me doing the following: Serial bedside patient exams and Serial laboratory checks Acute pain control and Frequent neurologic exams Active and frequent reassessment of respiratory status and oxygen requirements, Non-invasive positive pressure ventilator management and Incentive spirometry, pulmonary toilet I spent time reviewing and interpreting data from bedside monitors, laboratory results, and imaging, I spent time discussing the management of this critically ill patient with consultants and the medical staff and I spent time documenting in the medical record Kana Gauthier MD IN CLINIC/BEDSIDE ORDERABLES Fi nal Result * (ABNORMAL) POC Blood Gas and Chemistries, Venous - (12/22/2024 9:38 PM CDT) [facility] Signature pH, Hguo POC 7.31(L) 7.32 - 7.43 pCO2, hugo POC 84(C) 40 - 50 mmHg [facility] pO2, hugo POC 47 mmHg [facility] Na, POC 139 135 - 145 mmol/L [facility] K POC 4.5 3.3 - 4.9 mmol/L [facility] Comment: Interpretive Data Not all point of care methods assess for hemolysis. Confirm with instrument and retest K+ if not consistent with clinical signs and symptoms. Current Interpretive Data was last revised on 2023. Cl, POC 99 97 - 110 mmol/L [facility] Ionized Ca, POC 5.32(H) 4.50 - 5.10 mg/dL [facility] Glucose, POC 132 70 - 199 mg/dL [facility] Lactate POC 1.1 0.7 - 2.0 mmol/L [facility] O2 Sat, Hugo POC (Aly) 77 % [facility] Base excess, POC 13.0 mmol/L [facility] HCO3, Hugo POC 42(H) 20 - 30 mmol/L [facility] Hct, POC 33.0(L) 36.3 - 45.3 % [facility] Total Hb, POC 11.0(L) 11.9 - 15.5 g/dL [facility] Blood 12/22/2024 9:38 PM CDT 12/22/2024 9:38 PM CDT us Pavel Scott MD LAB POCT ORDERABLES - DEV ICE Final Result [facility] Department [place] [address] * eGFR (12/22/2024 9:00 PM CDT) eGFR 89 >=60 mL/min/1. 73 m2 Comment: Interpretive Data Reference Interval Normal >/= 90 mL/min/1.73m2 Mildly decreased* 60 - 89 mL/min/1.73m2 Mildly to moderately decreased 45 - 59 mL/min/1.73m2 Moderately to severely decreased 30 - 44 mL/min/1.73m2 Severely decreased 15 - 29 mL/min/1.73m2 Kidney Failure < 15 mL/min/1.73m2 *Relative to young adult level Estimated glomerular filtration rate is determined by the 2020 CKD-EPI equation recommended by the National Kidney [employer] (A Unifying Approach to GFR Estimation: Recommendations of the NKF-ASK Task Force on Reassessing the Inclusion of Race in Diagnosing Kidney Disease, JASN 2020). The CKD-EPI equation should not be used for patients with unstable renal function and has not been validated in children and those over 70. Current interpretive data was last reviewed 2021. Blood 12/22/2024 9:00 PM CDT 12/22/2024 5:54 PM CDT Adam Castañeda DNP LAB BLOOD ORDERABLES F inal Result [facility] Department [place] [address] * (ABNORMAL) CBC without differential (12/22/2024 9:00 PM CDT) WBC 7.77 3.80 - 9.90 K/cumm Hgb 8.9(L) 11.9 - 15.5 g/dL [facility] Hct 30.0(L) 35.6 - 45.5 % [facility] Plt 145(L) 150 - 400 K/cumm [facility] MPV 11.0 9.1 - 12.3 fL [facility] RBC 2.92(L) 3.90 - 5.20 M/cumm [facility] MCV 102.7(H) 81.3 - 96.4 fL [facility] MCH 30.5 27.1 - 33.3 pg [facility] MCHC 29.7(L) 32.3 - 35.7 g/dL [facility] RDW CV 13.0 11.1 - 14.9 % [facility] RDW SD 48.6(H) 35.7 - 48.1 fL [facility] NRBC abs 0.00 0.00 - 0.01 K/cumm [facility] Blood 12/22/2024 9:00 PM CDT 12/22/2024 5:54 PM CDT Pavel Scott MD LAB BLOOD ORDERABLES Latonya l Result Performing Organization Address [facility] [place] [place] [address] * Phosphorus (12/22/2024 9:00 PM CDT) [facility] Phosphorus, pl 2.6 2.3 - 4.5 mg/dL Blood 12/22/2024 9:00 PM CDT 12/22/2024 5:54 PM CDT Pavel Scott MD LAB BLOOD ORDERABLES Latonya l Result Performing Organization Address [facility] Co de Phone Number [facility] [place] [address] * Magnesium (12/22/2024 9:00 PM CDT) [facility] Magnesium 2.1 1.4 - 2.5 mg/dL Blood 12/22/2024 9:00 PM CDT 12/22/2024 5:54 PM CDT Pavel Scott MD LAB BLOOD ORDERABLES Latonya l Result Performing Organization Address [facility] [place] [place] [address] * Basic metabolic panel (12/22/2024 9:00 PM CDT) [facility] Sodium 139 135 - 145 mmol/L Potassium, pl 3.9 3.3 - 4.9 mmol/L [facility] Chloride 100 97 - 110 mmol/L [facility] CO2 31 22 - 32 mmol/L [facility] Anion gap 8 2 - 15 mmol/L [facility] BUN 15 6 - 25 mg/dL [facility] Creatinine 0.62 0.60 - 1.10 mg/dL [facility] Glucose 108 70 - 199 mg/dL [facility] Comment: Interpretive Data Fasting glucose >/= 126 mg/dl is diagnostic for diabetes. Fasting is defined as no caloric intake for at least 8 hours. Fasting glucose between 100 mg/dl to 125 mg/dl is diagnostic of prediabetes. In a patient with classic symptoms of hyperglycemia or hyperglycemic crisis, a random glucose >/= 200 mg/dl is diagnostic for diabetes. In the absence of unequivocal hyperglycemia, results should be confirmed by repeat testing. The classification and Diagnosis of Diabetes Diabetes Care 202; 46: S19-S40. Current interpretive data was last revised 2022. Calcium 8.6 8.5 - 10.3 mg/dL [facility] Blood 12/22/2024 9:00 PM CDT 12/22/2024 5:54 PM CDT Pavel Scott MD LAB BLOOD ORDERABLES Latonya l Result Performing Organization Address [facility] Co de Phone Number [facility] [place] [address] * (ABNORMAL) Blood gas, venous (12/22/2024 4:49 PM CDT) pH, Venous 7.30(L) 7.32 - 7.43 PCO2, Venous 66(H) 40 - 50 mmHg [facility] PO2, Venous 23 mmHg [facility] Comment: Interpretive Data No Reference Range Established Current Interpretive Data was last revised on 2017. HCO3 Venous, Calculated 32(H) 20 - 30 mmol/L [facility] BE, venous 5 mmol/L [facility] Comment: Interpretive Data No Reference Range Established Current Interpretive Data was last revised on 2017. Blood 12/22/2024 4:49 PM CDT 12/22/2024 5:52 PM CDT Jose BALLARD LAB BLOOD ORDERABLE S Final Result Performing Organization Address [facility] Co de Phone Number [facility] [place] [address] * FL Fluoroscopy < 1 Hour (12/22/2024 4:35 PM CDT) Narrative MAX_BJRubia - 12/22/2024 4:36 PM CDT The images from this study are not interpreted by Radiology. Please refer to the physician's procedure / OR operative note. Derek Zavala MD IMG FLUOROSCOPY AR OCEDURES Final Result [email or web address] * AR AN ELECTIVE ENDOTRACHEAL AIRWAY, AR AN PROCEDURE PLACEHOLDER (12/22/2024 2:29 PM CDT) Narrative Kimberly Torres CRNA - 12/22/2024 2:29 PM CDT Kimberly Torres CRNA 12/22/2024 2:30 PM Airway Patient location: OR Urgency: elective Date/time: 12/22/2024 2:06 PM Indications for airway management: anesthesia Difficult airway: no Staff: Placed by: STONEMASON SUPERVISOR: Kimberly Torres CRNA Emergent airway documentation: Risks and benefits discussed: yes Consent obtained: yes Consent given by: patient Airway prep: Preoxygenated: yes Patient position: sniffing Mask difficulty assessment: 2 - vent by mask + OA or adjuvant Spontaneous ventilation during airway: absent Sedation level during airway: GA Final airway details: Final airway type: endotracheal airway Tube type: ETT ETT size: 7.5 mm Cuffed: yes Technique used for successful ETT placement: video laryngoscopy Devices/Methods used in placement: stylet Insertion site: oral Blade type: Linsey Video blade type: Pradhan Blade size: 3 Cormack-Lehane (video): grade I - full view of glottis Cuff inflated with: air ETT to lips: 22 cm Placement verified by: auscultation and CO2 detection Airway secured with: prone view tape Number of attempts: 1 Additional comments: Lips and dentition unchanged from preop assessment Kacey Edward DO ANESTHESIA ORDERABLES Final Result * Type and screen (12/22/2024 11:18 AM CDT) Jose Martin, indirect Negative ABO Rh A Positive [facility] Blood 12/22/2024 11:1 8 AM CDT 12/22/2024 11:25 AM CDT Narrative TITO GARCIA - 12/22/2024 12:19 PM CDT Pre-op d/t low hgb Has the patient had Daratumumab or Isatuximab in the past 6 months?->Unknown Salma Cutler [facility] LAB BLOOD BANK TEST ORDERAB LES Final Result Performing Organization Address City/[facility]/ZIP Co de Phone Number [facility] Department [place] [address] * Infection Prevention Jeremie auris PCR, surveillance Axilla/Groin (12/22/2024 8:04 AM CDT) Jeremie auris DNA Invalid Not Detected [facility] Comment: Unable to analyze due to the possible presence of inhibitory substances. Recommend submission of a second separately collected sample if clinically indicated. Credited, charge error. 12/22/2024 23:54:11 CDT Interpretive Data Testing performed by [facility] using the Lilly harjinder 6800 Jeremie auris assay. This assay detects DNA from Jeremie auris using Real-Time PCR. This assay is laboratory developed and is not cleared by the [place] Food and Drug Administration. The performance characteristics have been verified by the [facility]. Axilla/Groin 12/22/2024 8:04 AM CDT 12/22/2024 9:39 AM CDT Narrative TITO [facility] - 12/22/2024 11:54 PM CDT Order placed by [facility] due to ring surveillance. us Instant Order Generic Provider LAB MICROBIOLOGY - GENERAL ORDERABLES Final Result Performing Organization Address City/[facility]/ZIP [facility] [place] [address] [facility] * (ABNORMAL) Blood gas, venous (12/22/2024 8:04 AM CDT) pH, Venous 7.33 7.32 - 7.43 PCO2, Venous 66(H) 40 - 50 mmHg [facility] PO2, Venous 29 mmHg [facility] Comment: Interpretive Data No Reference Range Established Current Interpretive Data was last revised on 2017. HCO3 Venous, Calculated 34(H) 20 - 30 mmol/L [facility] BE, venous 7 mmol/L [facility] Comment: Interpretive Data No Reference Range Established Current Interpretive Data was last revised on 2017. Blood 12/22/2024 8:04 AM CDT 12/22/2024 8:10 AM CDT Jose BALLARD LAB BLOOD ORDERABLE S Final Result [facility] Department [place] [address] * Critical Care (12/22/2024 6:55 AM CDT) Narrative Ari Ferguson MD - 12/22/2024 6:55 AM CDT Ari Ferguson MD 12/24/2024 4:47 PM Critical Care Performed by: Parrish Robert NP Authorized by: Parrish Robert NP CRITICAL CARE: Team: SICU BLUE Shift: AM Level of Billing: Subsequent Hospital Visit Level 3 My time spent with this patient was 65 minutes: Critical Provider Statement: I have seen and examined the patient on this day of service. I have reviewed and confirmed the history, physical exam, laboratory, and radiographic data as documented in the ICU note. I have reviewed and discussed my treatment plan with the patient's team and other medical/statistical consultant staff. This time was in addition to and separate from care provided by other practitioners on this day of service. I spent time reviewing and interpreting data from bedside monitors, laboratory results, and imaging and I spent time documenting in the medical record us Parrish Robert [facility] IN CLINIC/BEDSIDE ORDERABLES Final Result * eGFR (12/21/2024 8:34 PM CDT) eGFR 71 >=60 mL/min/1. 73 m2 Comment: Interpretive Data Reference Interval Normal >/= 90 mL/min/1.73m2 Mildly decreased* 60 - 89 mL/min/1.73m2 Mildly to moderately decreased 45 - 59 mL/min/1.73m2 Moderately to severely decreased 30 - 44 mL/min/1.73m2 Severely decreased 15 - 29 mL/min/1.73m2 Kidney Failure < 15 mL/min/1.73m2 *Relative to young adult level Estimated glomerular filtration rate is determined by the 2020 CKD-EPI equation recommended by the National Kidney Foundation (A Unifying Approach to GFR Estimation: Recommendations of the NKF-ASK Task Force on Reassessing the Inclusion of Race in Diagnosing Kidney Disease, JASN 2020). The CKD-EPI equation should not be used for patients with unstable renal function and has not been validated in children and those over 70. Current interpretive data was last reviewed 2021. Blood 12/21/2024 8:34 PM CDT 12/21/2024 8:50 PM CDT Adam Castañeda [facility] LAB BLOOD ORDERABLES F inal Result [facility] Department [place] [address] * (ABNORMAL) CBC without differential (12/21/2024 8:34 PM CDT) WBC 7.17 3.80 - 9.90 K/cumm Hgb 9.0(L) 11.9 - 15.5 g/dL [facility] Hct 30.1(L) 35.6 - 45.5 % [facility] Plt 150 150 - 400 K/cumm [facility] MPV 11.2 9.1 - 12.3 fL [facility] RBC 2.95(L) 3.90 - 5.20 M/cumm [facility] MCV 102.0(H) 81.3 - 96.4 fL [facility] MCH 30.5 27.1 - 33.3 pg [facility] MCHC 29.9(L) 32.3 - 35.7 g/dL [facility] RDW CV 13.2 11.1 - 14.9 % [facility] RDW SD 49.3(H) 35.7 - 48.1 fL [facility] NRBC abs 0.00 0.00 - 0.01 K/cumm [facility] Blood 12/21/2024 8:34 PM CDT 12/21/2024 8:51 PM CDT Pavel Scott MD LAB BLOOD ORDERABLES Latonya l Result Performing Organization Address City/State/[facility] Co de Phone Number [facility] [place] [address] * Phosphorus (12/21/2024 8:34 PM CDT) Pathologist [facility] Phosphorus, pl 2.3 2.3 - 4.5 mg/dL Blood 12/21/2024 8:34 PM CDT 12/21/2024 8:50 PM CDT Pavel Scott MD LAB BLOOD ORDERABLES Latonya l Result Performing Organization Address City/[facility] Co de Phone Number [facility] Department [place] [address] * Magnesium (12/21/2024 8:34 PM CDT) [facility] Magnesium 1.8 1.4 - 2.5 mg/dL Blood 12/21/2024 8:34 PM CDT 12/21/2024 8:50 PM CDT Pavel Scott MD LAB BLOOD ORDERABLES Latonya l Result Performing Organization Address City/[facility] Co de Phone Number [facility] [place] [address] * (ABNORMAL) Blood gas, venous (12/21/2024 8:34 PM CDT) pH, Venous 7.36 7.32 - 7.43 PCO2, Venous 68(H) 40 - 50 mmHg [facility] PO2, Venous 57 mmHg [facility] Comment: Interpretive Data No Reference Range Established Current Interpretive Data was last revised on 2017. HCO3 Venous, Calculated 37(H) 20 - 30 mmol/L [facility] BE, venous 10 mmol/L [facility] Comment: Interpretive Data No Reference Range Established Current Interpretive Data was last revised on 2017. Blood 12/21/2024 8:34 PM CDT 12/21/2024 8:43 PM CDT us Jose BALLARD LAB BLOOD ORDERABLE S Final Result [facility] Department [place] [address] * (ABNORMAL) Basic metabolic panel (12/21/2024 8:34 PM CDT) Sodium 141 135 - 145 mmol/L Potassium, pl 4.3 3.3 - 4.9 mmol/L [facility] Chloride 101 97 - 110 mmol/L [facility] CO2 35(H) 22 - 32 mmol/L [facility] Anion gap 5 2 - 15 mmol/L [facility] BUN 22 6 - 25 mg/dL [facility] Creatinine 0.83 0.60 - 1.10 mg/dL [facility] Glucose 92 70 - 199 mg/dL [facility] Comment: Interpretive Data Fasting glucose >/= 126 mg/dl is diagnostic for diabetes. Fasting is defined as no caloric intake for at least 8 hours. Fasting glucose between 100 mg/dl to 125 mg/dl is diagnostic of prediabetes. In a patient with classic symptoms of hyperglycemia or hyperglycemic crisis, a random glucose >/= 200 mg/dl is diagnostic for diabetes. In the absence of unequivocal hyperglycemia, results should be confirmed by repeat testing. The classification and Diagnosis of Diabetes Diabetes Care 202; 46: S19-S40. Current interpretive data was last revised 2022. Calcium 9.1 8.5 - 10.3 mg/dL [facility] Blood 12/21/2024 8:34 PM CDT 12/21/2024 8:50 PM CDT Pavel Scott MD LAB BLOOD ORDERABLES Latonya soto Result [facility] Department [place] [address] * Critical Care (12/21/2024 6:41 PM CDT) Narrative Kana Gauthier MD - 12/21/2024 6:41 PM CDT Kana Gauthier MD 12/23/2024 5:35 AM Critical Care Performed by: Adam Castañeda DNP Authorized by: Adam Castañeda DNP CRITICAL CARE: Team: SICU BLUE Shift: PM Level of Billing: Critical Care My time spent with this patient was 30 minutes: Critical Provider Statement: I have seen and examined the patient on this day of service. I have reviewed and confirmed the history, physical exam, laboratory and radiologic data as documented in the signed ICU note. I have reviewed and discussed my treatment plan with the ICU team and other medical/statistical consultant staff, making frequent assessments and decisions regarding this patient's complex medical care. Critical Care time was exclusive of time spent performing separately billed procedures, treating other patients, and teaching. This time was in addition to and separate from critical care provided by other practitioners in my group on this day of service. Critical Care was necessary to treat or prevent imminent or life-threatening deterioration of the following conditions: I spent time discussing the management of this critically ill patient with consultants and the medical staff, I spent time reviewing and interpreting data from bedside monitors, laboratory results, and imaging and I spent time documenting in the medical record Adam Castañeda DNP IN CLINIC/BEDSIDE BONIFACIO KATZ Final Result * (ABNORMAL) Urinalysis reflex to microscopic (12/21/2024 5:59 PM CDT) Color, ur Straw Yellow Clarity, ur Clear Clear CERYUNG GARCIA Specific gravity, ur 1.013 1.003 - 1.030 [facility] pH, urine 6.0 [facility] Comment: Interpretive Data U rine pH is affected by diet, medications, systemic acid-base disturbances, and renal tubular function. pH may affect urinary stone formation. For example, urine pH below 6.0 may help reduce the tendency for calcium phosphate stones and pH greater than 6.0 may reduce the tendency for uric acid stone formation. Source: [facility] Current Interpretive Data was last revised on 2017 Protein, ur ql Negative Negative [facility] Glucose, ur ql Negative Negative [facility] Ketones, ur Negative Negative [facility] Bilirubin, ur Negative Negative [facility] Blood, ur 2+(A) Negative [facility] Urobilinogen, ur <2.0 <2.0 mg/dL [facility] Nitrite, ur Negative Negative [facility] Leukocyte esterase, ur Trace(A) Negative [facility] UA reflex comment Reflex to microscopic UA will be performed. [facility] Urine 12/21/2024 5:59 PM CDT 12/21/2024 6:24 PM CDT us Jose BALLARD LAB URINE ORDERABLE S Final Result Performing Organization Address City/[facility]/ZIP Co de Phone Number [facility] Department [place] [address] * (ABNORMAL) Urinalysis, microscopic only (12/21/2024 5:59 PM CDT) WBC, ur 0-5 0 - 5 /HPF RBC, ur 11-20(A) 0 - 2 /HPF [facility] Mucous, ur Present(A) [facility] Hyaline casts, ur 11-20(A) 0 - 10 /LPF [facility] Urine 12/21/2024 5:59 PM CDT 12/21/2024 6:24 PM CDT Jose BALLARD LAB URINE ORDERABLE S Final Result Performing Organization Address City/[facility]/ZIP Co de Phone Number [facility] Department [place] [address] * POCT glucose (12/21/2024 3:05 PM CDT) Glucose, POC 145 70 - 199 mg/dL Blood 12/21/2024 3:05 PM CDT 12/21/2024 3:05 PM CDT us Pavel Scott MD LAB POCT ORDERABLES - DEV ICE Final Result [facility] Department [place] [address] * US Carotids Duplex Bilateral (12/21/2024 11:49 AM CDT) Anatomical Region Laterality Modality Vascular Bilateral Ultrasound 12/21/2024 10:4 3 AM CDT Narrative 12/21/2024 2:53 PM CDT [facility] Department of Vascular Surgery, Vascular Laboratory [address] [place] [address] Carotid Duplex Ultrasound Report Patient Name: KATIA CLINTON : 1945 (79y ) Study Date: 12/21/2024 10:43:05 AM Sex: F Tech: Location: [id number] Ref Provider: ADAM CASTAÑEDA Quality: Adequate Order Provider: ADAM CASTAÑEDA PROCEDURES: Carotid Report: Carotid duplex examination of the extracranial arteries was performed using 2D, color and spectral Doppler. INDICATIONS: Syncope and Collapse. MEASUREMENTS: Right Value Units Left Value Units RT Prox CCA PSV 144 cm/sec LT Prox CCA PSV 187 cm/sec RT Prox CCA EDV 25 cm/sec LT Prox CCA EDV 24 cm/sec RT Distal CCA PSV 120 cm/sec LT Distal CCA PSV 160 cm/sec RT Distal CCA EDV 27 cm/sec LT Distal CCA EDV 33 cm/sec RT Prox ICA PSV 167 cm/sec LT Prox ICA PSV 136 cm/sec RT Prox ICA EDV 35 cm/sec LT Prox ICA EDV 34 cm/sec RT Mid ICA PSV 136 cm/sec LT Mid ICA PSV 162 cm/sec RT Mid ICA EDV 32 cm/sec LT Mid ICA EDV 54 cm/sec RT Distal ICA PSV 138 cm/sec LT Distal ICA PSV 114 cm/sec RT Distal ICA EDV 48 cm/sec LT Distal ICA EDV 46 cm/sec RT ECA Prx PSV 136 cm/sec LT ECA Prx PSV 125 cm/sec RT ICA/CCA 1.15 ratio LT ICA/CCA 1.01 ratio RT VERT PSV 96 cm/sec LT VERT PSV 103 cm/sec FINDINGS: Performing Economics Professor: Kevin Heller NVS, RVT. Rt Common Carotid Artery: Duplex imaging of the right common carotid artery is within normal limits without evidence of atherosclerotic disease. Elevated right common carotid artery velocity as noted above with no evidence of significant atherosclerosis disease. Rt Internal Carotid Artery: The plaque in the right internal carotid artery appears to be heterogeneous and irregular. Atherosclerotic changes of the right internal carotid artery without hemodynamically significant Doppler findings. <50% stenosis. Rt External Carotid Artery: The right external carotid artery is patent without evidence of atherosclerotic plaque. Rt Vertebral Artery: The right vertebral artery is patent with antegrade flow. Lt Common Carotid Artery: Duplex imaging of the left common carotid artery is within normal limits without evidence of atherosclerotic disease. Elevated left common carotid artery velocity as noted above with no evidence of significant atherosclerosis disease. Lt Internal Carotid Artery: The plaque in the left internal carotid artery appears to be homogenous and smooth. Atherosclerotic changes of the left internal carotid artery without hemodynamically significant Doppler findings. <50% stenosis. Lt External Carotid Artery: The left external carotid artery is patent without evidence of atherosclerotic plaque. Lt Vertebral Artery: The left vertebral artery is patent with antegrade flow. CONCLUSIONS: 1. The right internal carotid artery disease is consistent with a less than 50% stenosis. 2. The left internal carotid artery disease is consistent with a less than 50% stenosis. 3. No evidence of hemodynamically significant stenosis in the common carotid artery bilaterally. 4. Normal, antegrade flow is noted in bilateral vertebral arteries. HISTORY: 79 y.o. female PMH COPD, MIKKI, HTN, presenting with mechanical fall one step down, found to have R trimal fx/dsl, rupal neuve, lis franc, trace SDH, NVI. Ortho, trauma . PREVIOUS STUDIES: No previous studies for comparison. DISCLAIMER: The study images and the final report will be retained in the patient chart by the Vascular Laboratory for the legally required time period. This chart constitutes the legal record of any testing performed. ATTESTATION: I have reviewed and interpreted the pertinent images and measurements of this study. I attest to the conclusions in the final report that is provided above. Electronically Signed By: Nile Dasilva MD FACS 12/21/2024 2:45:18 PM CDT Procedure Note Nile Dasilva MD - 12/21/2024 [facility] - Department of Vascular Surgery,Vascular Laboratory [address] [place] [address] Carotid Duplex Ultrasound Report Patient Name: KATIA CLINTON : 1945 (79y ) Study Date: 12/21/2024 10:43:05 AM Sex: F Tech: Location: [id number] Ref Provider: ADAM CASTAÑEDA Quality: Adequate Order Provider: ADAM CASTAÑEDA PROCEDURES: Carotid Report: Carotid duplex examination of the extracranial arterieswas performed using 2D, color and spectral Doppler. INDICATIONS: Syncope and Collapse. MEASUREMENTS: Right Value Units Left Value Units RT Prox CCA PSV 144 cm/sec LT Prox CCA PSV 187 cm/sec RT Prox CCA EDV 25 cm/sec LT Prox CCA EDV 24 cm/sec RT Distal CCA PSV 120 cm/sec LT Distal CCA PSV 160 cm/sec RT Distal CCA EDV 27 cm/sec LT Distal CCA EDV 33 cm/sec RT Prox ICA PSV 167 cm/sec LT Prox ICA PSV 136 cm/sec RT Prox ICA EDV 35 cm/sec LT Prox ICA EDV 34 cm/sec RT Mid ICA PSV 136 cm/sec LT Mid ICA PSV 162 cm/sec RT Mid ICA EDV 32 cm/sec LT Mid ICA EDV 54 cm/sec RT Distal ICA PSV 138 cm/sec LT Distal ICA PSV 114 cm/sec RT Distal ICA EDV 48 cm/sec LT Distal ICA EDV 46 cm/sec RT ECA Prx PSV 136 cm/sec LT ECA Prx PSV 125 cm/sec RT ICA/CCA 1.15 ratio LT ICA/CCA 1.01 ratio RT VERT PSV 96 cm/sec LT VERT PSV 103 cm/sec FINDINGS: Performing Economics Professor: Kevin Heller NVS, RVT. Rt Common Carotid Artery: Duplex imaging of the right common carotidartery is within normal limits without evidence of atherosclerotic disease. Elevated rightcommon carotid artery velocity as noted above with no evidence of significantatherosclerosis disease. Rt Internal Carotid Artery: The plaque in the right internal carotidartery appears to be heterogeneous and irregular. Atherosclerotic changes of the right internalcarotid artery without hemodynamically significant Doppler findings. <50% stenosis. Rt External Carotid Artery: The right external carotid artery is patentwithout evidence of atherosclerotic plaque. Rt Vertebral Artery: The right vertebral artery is patent with antegradeflow. Lt Common Carotid Artery: Duplex imaging of the left common carotid arteryis within normal limits without evidence of atherosclerotic disease. Elevated leftcommon carotid artery velocity as noted above with no evidence of significantatherosclerosis disease. Lt Internal Carotid Artery: The plaque in the left internal carotid arteryappears to be homogenous and smooth. Atherosclerotic changes of the left internalcarotid artery without hemodynamically significant Doppler findings. <50% stenosis. Lt External Carotid Artery: The left external carotid artery is patentwithout evidence of atherosclerotic plaque. Lt Vertebral Artery: The left vertebral artery is patent with antegradeflow. CONCLUSIONS: 1. The right internal carotid artery disease is consistent with a lessthan 50% stenosis. 2. The left internal carotid artery disease is consistent with a less than50% stenosis. 3. No evidence of hemodynamically significant stenosis in the commoncarotid artery bilaterally. 4. Normal, antegrade flow is noted in bilateral vertebral arteries. HISTORY: 79 y.o. female PMH COPD, MIKKI, HTN, presenting with mechanical fall onestep down, found to have R trimal fx/dsl, rupal neuve, lis franc, trace SDH, NVI. Ortho,trauma . PREVIOUS STUDIES: No previous studies for comparison. DISCLAIMER: The study images and the final report will be retained in the patientchart by the Vascular Laboratory for the legally required time period. This chartconstitutes the legal record of any testing performed. ATTESTATION: I have reviewed and interpreted the pertinent images and measurements ofthis study. I attest to the conclusions in the final report that is provided above. Electronically Signed By: Nile Dasilva MD FACS 12/21/2024 2:45:18 PM CDT Adam Castañeda [facility] IMG US PROCEDURES Latonya l Result * POCT glucose (12/21/2024 11:07 AM CDT) Glucose, POC 100 70 - 199 mg/dL Blood 12/21/2024 11:0 7 AM CDT 12/21/2024 11:07 AM CDT us Pavel Scott MD LAB POCT ORDERABLES - DEV ICE Final Result Performing Organization Address [facility] Co de Phone Number [facility] [place] [address] * POCT glucose (12/21/2024 7:18 AM CDT) Glucose, POC 109 70 - 199 mg/dL Blood 12/21/2024 7:18 AM CDT 12/21/2024 7:18 AM CDT Pavel Scott MD LAB POCT ORDERABLES - DEV ICE Final Result Performing Organization Address [facility] de Phone Number [facility] [place] [address] * Critical Care (12/21/2024 6:50 AM CDT) Narrative Ari Ferguson MD - 12/21/2024 6:50 AM CDT Ari Ferguson MD 12/21/2024 5:51 PM Critical Care Performed by: Jose Potter PA Authorized by: Jose Potter PA CRITICAL CARE: Team: SICU BLUE Shift: AM Level of Billing: Subsequent Hospital Visit Level 3 My time spent with this patient was 80 minutes: Critical Provider Statement: I have seen and examined the patient on this day of service. I have reviewed and confirmed the history, physical exam, laboratory, and radiographic data as documented in the ICU note. I have reviewed and discussed my treatment plan with the patient's team and other medical/statistical consultant staff. This time was in addition to and separate from care provided by other practitioners on this day of service. us Jose BALLARD IN CLINIC/BEDSIDE O RDERABLES Final Result * POCT glucose (12/21/2024 3:24 AM CDT) Glucose, POC 93 70 - 199 mg/dL Blood 12/21/2024 3:24 AM CDT 12/21/2024 3:24 AM CDT Pavel Scott MD LAB POCT ORDERABLES - DEV ICE Final Result Performing Organization Address City/[facility]/ZIP Co de Phone Number [facility] Department [place] [address] * POCT glucose (12/20/2024 11:46 PM CDT) Glucose, POC 101 70 - 199 mg/dL Blood 12/20/2024 11:4 6 PM CDT 12/20/2024 11:46 PM CDT Pavel Scott MD LAB POCT ORDERABLES - DEV ICE Final Result Performing Organization Address City/[facility] Co de Phone Number [facility] [place] [address] * eGFR (12/20/2024 8:32 PM CDT) eGFR 85 >=60 mL/min/1. 73 m2 Comment: Interpretive Data Reference Interval Normal >/= 90 mL/min/1.73m2 Mildly decreased* 60 - 89 mL/min/1.73m2 Mildly to moderately decreased 45 - 59 mL/min/1.73m2 Moderately to severely decreased 30 - 44 mL/min/1.73m2 Severely decreased 15 - 29 mL/min/1.73m2 Kidney Failure < 15 mL/min/1.73m2 *Relative to young adult level Estimated glomerular filtration rate is determined by the 2020 CKD-EPI equation recommended by the National Kidney Foundation (A Unifying Approach to GFR Estimation: Recommendations of the NKF-ASK Task Force on Reassessing the Inclusion of Race in Diagnosing Kidney Disease, JASN 2020). The CKD-EPI equation should not be used for patients with unstable renal function and has not been validated in children and those over 70. Current interpretive data was last reviewed 2021. Blood 12/20/2024 8:32 PM CDT 12/20/2024 9:27 PM CDT Adam Castañeda DNP LAB BLOOD ORDERABLES F inal Result Performing Organization Address [facility] Co de Phone Number [facility] Department [place] [address] * (ABNORMAL) CBC without differential (12/20/2024 8:32 PM CDT) WBC 9.09 3.80 - 9.90 K/cumm Hgb 10.0(L) 11.9 - 15.5 g/dL [facility] Hct 34.4(L) 35.6 - 45.5 % [facility] Plt 131(L) 150 - 400 K/cumm [facility] MPV 11.0 9.1 - 12.3 fL [facility] RBC 3.31(L) 3.90 - 5.20 M/cumm [facility] MCV 103.9(H) 81.3 - 96.4 fL [facility] MCH 30.2 27.1 - 33.3 pg [facility] MCHC 29.1(L) 32.3 - 35.7 g/dL [facility] RDW CV 13.3 11.1 - 14.9 % [facility] RDW SD 51.0(H) 35.7 - 48.1 fL [facility] NRBC abs 0.00 0.00 - 0.01 K/cumm [facility] Blood 12/20/2024 8:32 PM CDT 12/20/2024 9:27 PM CDT Pavel Scott MD LAB BLOOD ORDERABLES Latonya l Result Performing Organization Address [facility]/ZIP Co de Phone Number [facility] Department [place] [address] * Phosphorus (12/20/2024 8:32 PM CDT) [facility] Phosphorus, pl 2.5 2.3 - 4.5 mg/dL Blood 12/20/2024 8:32 PM CDT 12/20/2024 9:27 PM CDT Pavel Scott MD LAB BLOOD ORDERABLES Latonya l Result Performing Organization Address [facility]/[place] [address] * Magnesium (12/20/2024 8:32 PM CDT) [facility] Magnesium 2.1 1.4 - 2.5 mg/dL Blood 12/20/2024 8:32 PM CDT 12/20/2024 9:27 PM CDT Pavel Scott MD LAB BLOOD ORDERABLES Latonya l Result Performing Organization Address [facility] de Phone Number [facility] [place] [address] * (ABNORMAL) Basic metabolic panel (12/20/2024 8:32 PM CDT) [facility] Sodium 143 135 - 145 mmol/L Potassium, pl 4.6 3.3 - 4.9 mmol/L [facility] Chloride 103 97 - 110 mmol/L [facility] CO2 39(H) 22 - 32 mmol/L [facility] Anion gap 1(L) 2 - 15 mmol/L [facility] BUN 17 6 - 25 mg/dL [facility] Creatinine 0.71 0.60 - 1.10 mg/dL [facility] Glucose 117 70 - 199 mg/dL [facility] Comment: Interpretive Data Fasting glucose >/= 126 mg/dl is diagnostic for diabetes. Fasting is defined as no caloric intake for at least 8 hours. Fasting glucose between 100 mg/dl to 125 mg/dl is diagnostic of prediabetes. In a patient with classic symptoms of hyperglycemia or hyperglycemic crisis, a random glucose >/= 200 mg/dl is diagnostic for diabetes. In the absence of unequivocal hyperglycemia, results should be confirmed by repeat testing. The classification and Diagnosis of Diabetes Diabetes Care 2021; 46: S19-S40. Current interpretive data was last revised 2022. Calcium 10.1 8.5 - 10.3 mg/dL [facility] Blood 12/20/2024 8:32 PM CDT 12/20/2024 9:27 PM CDT Pavel Scott MD LAB BLOOD ORDERABLES Latonya l Result Performing Organization Address City/[facility]/ZIP Co de Phone Number [facility] Department [place] [address] * POCT glucose (12/20/2024 7:34 PM CDT) [facility] Signature Glucose, POC 110 70 - 199 mg/dL Blood 12/20/2024 7:34 PM CDT 12/20/2024 7:34 PM CDT Pavel Scott MD LAB POCT ORDERABLES - DEV ICE Final Result Performing Organization Address City/[facility] Co de Phone Number [facility] Department [place] [address] * Critical Care (12/20/2024 6:45 PM CDT) Narrative Adam Castañeda DNP - 12/20/2024 6:45 PM CDT Adam Castañeda DNP 12/30/2024 9:15 PM Critical Care Performed by: Adam Castañeda DNP Authorized by: Adam Castañeda DNP CRITICAL CARE: Team: SICU BLUE Shift: PM Level of Billing: Critical Care My time spent with this patient was 35 minutes: Critical Provider Statement: I have seen and examined the patient on this day of service. I have reviewed and confirmed the history, physical exam, laboratory and radiologic data as documented in the signed ICU note. I have reviewed and discussed my treatment plan with the ICU team and other medical/statistical consultant staff, making frequent assessments and decisions regarding this patient's complex medical care. Critical Care time was exclusive of time spent performing separately billed procedures, treating other patients, and teaching. This time was in addition to and separate from critical care provided by other practitioners in my group on this day of service. Critical Care was necessary to treat or prevent imminent or life-threatening deterioration of the following conditions: I spent time documenting in the medical record, I spent time discussing the management of this critically ill patient with consultants and the medical staff and I spent time reviewing and interpreting data from bedside monitors, laboratory results, and imaging Adam Castañeda DNP IN CLINIC/BEDSIDE BONIFACIO KATZ Edited Result - Final * POCT glucose (12/20/2024 3:24 PM CDT) Glucose, POC 103 70 - 199 mg/dL Blood 12/20/2024 3:24 PM CDT 12/20/2024 3:24 PM CDT Pavel Scott MD LAB POCT ORDERABLES - DEV ICE Final Result [facility] Department [place] [address] * (ABNORMAL) Pro B-type natriuretic peptide (12/20/2024 2:42 PM CDT) NT-proBNP 732(H) <=450 pg/mL Comment: Interpretive Comments: A. Dyspnea in Acute Care Setting All Ages: < 300 pg/ml, acute heart failure unlikely. < 50 yrs: 300 - 450 pg/ml, further investigation warranted. > 450 pg/ml, acute heart failure likely. 50 - 74 yrs: 300 - 900 pg/ml, further investigation warranted. > 900 pg/ml, acute heart failure likely . > or = 75 yrs: 450 - 1800 pg/ml, further investigation warranted. > 1800 pg/ml, acute heart failure likely. B. Non-acute Setting < 75 yrs < 125 pg/ml, rules out heart failure. > or = 125 pg/ml, further investigation warranted. > or = 75 yrs < 450 pg/ml, rules out heart failure. > or = 450 pg/ml, further investigation warranted. - Knowledge of each individual patient's NT-proBNP range may be more useful than using similar cut-points for every patient. Please note that marked elevations in NT-proBNP levels may be observed in state other than Left Ventricular Congestive Failure, including: acute coronary syndromes, right heart strain/failure (including pulmonary embolism and cor pulmonale), critical illness, renal failure, as well as advanced age. - References: 1. Montrell SHEA et.al. Eur Heart J. 2006:27:330-337. 2. Loc SWANN, Migdalia BACON. J. AM Omega Cardiol: Cardiovasc Imag. 2009;2: 216- 225. Interpretive Data Last Revised Date: 2017. Blood 12/20/2024 2:42 PM CDT 12/20/2024 3:06 PM CDT [facility] BALLARD LAB BLOOD ORDERABLES Fin al Result [facility] Department [place] [address] * (ABNORMAL) POC Blood Gas and Chemistries, Arterial - (12/20/2024 1:23 PM CDT) pH, Art POC 7.30(L) 7.35 - 7.45 pCO2, Art POC 83(C) 35 - 45 mmHg [facility] pO2, Art POC 73(L) 83 - 108 mmHg [facility] Na, POC 139 135 - 145 mmol/L [facility] K POC 5.0(H) 3.3 - 4.9 mmol/L [facility] Comment: Interpretive Data Not all point of care methods assess for hemolysis. Confirm with instrument and retest K+ if not consistent with clinical signs and symptoms. Current Interpretive Data was last revised on 2023. Cl, POC 105 97 - 110 mmol/L [facility] Ionized Ca, POC 5.66(H) 4.50 - 5.10 mg/dL [facility] Glucose, POC 105 70 - 199 mg/dL [facility] Lactate POC 0.6(L) 0.7 - 2.0 mmol/L [facility] SO2 (aly) arterial 98(H) 90 - 95 % [facility] Base excess, POC 11.7 mmol/L [facility] HCO3, Art POC 41(H) 20 - 30 mmol/L [facility] Hct, POC 31.0(L) 36.3 - 45.3 % [facility] Total Hb, POC 10.4(L) 11.9 - 15.5 g/dL [facility] Blood 12/20/2024 1:23 PM CDT 12/20/2024 1:23 PM CDT Pavel Scott MD LAB POCT ORDERABLES - DEV ICE Final Result Performing Organization Address City/[facility]/ZIP Co de Phone Number [facility] Department [place] [address] * POCT glucose (12/20/2024 11:04 AM CDT) [facility] Glucose, POC 110 70 - 199 mg/dL Blood 12/20/2024 11:0 4 AM CDT 12/20/2024 11:04 AM CDT Pavel Scott MD LAB POCT ORDERABLES - DEV ICE Final Result Performing Organization Address City/[facility]/ZIP Co de Phone Number [facility] Department [place] [address] * XR Chest 1 View (12/20/2024 9:45 AM CDT) Anatomical Region Laterality Modality Body, Chest N/A Digital Radiogra phy 12/21/2024 9:49 AM CDT Impressions 12/21/2024 2:53 PM CDT The current study is compared with the prior radiograph dated 12/18/2024 at 6:56 PM The heart size is normal and unchanged. Increased linear opacity at the right lung base could represent linear atelectasis or aspiration. No pleural effusion or pneumothorax. Unchanged elevation of the left hemidiaphragm. No pulmonary consolidation. Dictated by: Noé Rivero M.D. The radiology attending physician has personally reviewed this study, and had reviewed and/or edited this written report and agrees with it. Electronically signed by: Terrence Lombardo M.D. Narrative 12/21/2024 2:53 PM CDT EXAMINATION: 1 view chest radiograph Procedure Note Terrence Lombardo MD - 12/21/2024 EXAMINATION: 1 view chest radiograph IMPRESSION: The current study is compared with the prior radiograph dated 12/18/2024 at 6:56 PM The heart size is normal and unchanged. Increased linear opacity at the right lung base could represent linear atelectasis or aspiration. No pleural effusion or pneumothorax. Unchanged elevation of the left hemidiaphragm. No pulmonary consolidation. Dictated by: Noé Rivero M.D. The radiology attending physician has personally reviewed this study, and had reviewed and/or edited this written report and agrees with it. Electronically signed by: Terrence Lombardo M.D. Lex BALLARD IMG XR PROCEDURES Final Result * POCT glucose (12/20/2024 7:08 AM CDT) [facility] Signature Glucose, POC 110 70 - 199 mg/dL Blood 12/20/2024 7:08 AM CDT 12/20/2024 7:08 AM CDT Pavel Scott MD LAB POCT ORDERABLES - DEV ICE Final Result [facility] Department [place] [address] * Critical Care (12/20/2024 6:32 AM CDT) Narrative Ari Ferguson MD - 12/20/2024 6:32 AM CDT Ari Ferguson MD 12/21/2024 5:52 PM Critical Care Performed by: Lex Briggs PA Authorized by: Lex Briggs PA CRITICAL CARE: Team: SICU BLUE Shift: AM Level of Billing: Critical Care My time spent with this patient was 90 minutes: Critical Provider Statement: I have seen and examined the patient on this day of service. I have reviewed and confirmed the history, physical exam, laboratory and radiologic data as documented in the signed ICU note. I have reviewed and discussed my treatment plan with the ICU team and other medical/statistical consultant staff, making frequent assessments and decisions regarding this patient's complex medical care. Critical Care time was exclusive of time spent performing separately billed procedures, treating other patients, and teaching. This time was in addition to and separate from critical care provided by other practitioners in my group on this day of service. Critical Care was necessary to treat or prevent imminent or life-threatening deterioration of the following conditions: I spent time reviewing and interpreting data from bedside monitors, laboratory results, and imaging, I spent time discussing the management of this critically ill patient with consultants and the medical staff and I spent time documenting in the medical record Lex BALLARD IN CLINIC/BEDSIDE ORDERA BLES Final Result * (ABNORMAL) POC Blood Gas and Chemistries, Venous - (12/20/2024 3:58 AM CDT) pH, Hugo POC 7.26(L) 7.32 - 7.43 pCO2, hugo POC 84(C) 40 - 50 mmHg [facility] pO2, hugo POC 44 mmHg [facility] Na, POC 141 135 - 145 mmol/L [facility] K POC 4.8 3.3 - 4.9 mmol/L [facility] Comment: Interpretive Data Not all point of care methods assess for hemolysis. Confirm with instrument and retest K+ if not consistent with clinical signs and symptoms. Current Interpretive Data was last revised on 2023. Cl, POC 105 97 - 110 mmol/L [facility] Ionized Ca, POC 5.61(H) 4.50 - 5.10 mg/dL [facility] Glucose, POC 124 70 - 199 mg/dL [facility] Lactate POC 0.7 0.7 - 2.0 mmol/L [facility] O2 Sat, Hugo POC (Aly) 79 % [facility] Base excess, POC 8.3 mmol/L [facility] HCO3, Hugo POC 38(H) 20 - 30 mmol/L [facility] Hct, POC 32.0(L) 36.3 - 45.3 % [facility] Total Hb, POC 10.5(L) 11.9 - 15.5 g/dL [facility] Blood 12/20/2024 3:58 AM CDT 12/20/2024 3:58 AM CDT us Pavel Scott MD LAB POCT ORDERABLES - DEV ICE Final Result Performing Organization Address [facility] Co de Phone Number [facility] Department [place] [address] * POCT glucose (12/20/2024 3:15 AM CDT) Glucose, POC 110 70 - 199 mg/dL Blood 12/20/2024 3:15 AM CDT 12/20/2024 3:15 AM CDT Pavel Scott MD LAB POCT ORDERABLES - DEV ICE Final Result Performing Organization Address City/[facility]/ZIP Co de Phone Number [facility] Department [place] [address] * (ABNORMAL) POC Blood Gas and Chemistries, Arterial - (12/20/2024 2:26 AM CDT) pH, Art POC 7.22(L) 7.35 - 7.45 pCO2, Art POC 93(C) 35 - 45 mmHg [facility] pO2, Art POC 74(L) 83 - 108 mmHg [facility] Na, POC 140 135 - 145 mmol/L [facility] K POC 4.8 3.3 - 4.9 mmol/L [facility] Comment: Interpretive Data Not all point of care methods assess for hemolysis. Confirm with instrument and retest K+ if not consistent with clinical signs and symptoms. Current Interpretive Data was last revised on 2023. Cl, POC 105 97 - 110 mmol/L [facility] Ionized Ca, POC 5.67(H) 4.50 - 5.10 mg/dL [facility] Glucose, POC 111 70 - 199 mg/dL [facility] Lactate POC 0.6(L) 0.7 - 2.0 mmol/L [facility] SO2 (aly) arterial 97(H) 90 - 95 % [facility] Base excess, POC 7.7 mmol/L [facility] HCO3, Art POC 38(H) 20 - 30 mmol/L [facility] Hct, POC 33.0(L) 36.3 - 45.3 % [facility] Total Hb, POC 10.9(L) 11.9 - 15.5 g/dL [facility] Blood 12/20/2024 2:26 AM CDT 12/20/2024 2:26 AM CDT us Pavel Scott MD LAB POCT ORDERABLES - DEV ICE Final Result [facility] Department [place] [address] * (ABNORMAL) POC Blood Gas and Chemistries, Arterial - (12/20/2024 2:16 AM CDT) pH, Art POC 7.23(L) 7.35 - 7.45 pCO2, Art POC 90(C) 35 - 45 mmHg [facility] pO2, Art POC 65(L) 83 - 108 mmHg [facility] Na, POC 140 135 - 145 mmol/L [facility] K POC 4.7 3.3 - 4.9 mmol/L [facility] Comment: Interpretive Data Not all point of care methods assess for hemolysis. Confirm with instrument and retest K+ if not consistent with clinical signs and symptoms. Current Interpretive Data was last revised on 2023. Cl, POC 104 97 - 110 mmol/L [facility] Ionized Ca, POC 5.66(H) 4.50 - 5.10 mg/dL [facility] Glucose, POC 112 70 - 199 mg/dL [facility] Lactate POC 0.6(L) 0.7 - 2.0 mmol/L [facility] SO2 (aly) arterial 94 90 - 95 % [facility] Base excess, POC 7.5 mmol/L [facility] HCO3, Art POC 38(H) 20 - 30 mmol/L [facility] Hct, POC 33.0(L) 36.3 - 45.3 % [facility] Total Hb, POC 11.1(L) 11.9 - 15.5 g/dL [facility] Blood 12/20/2024 2:16 AM CDT 12/20/2024 2:16 AM CDT Pavel Scott MD LAB POCT ORDERABLES - DEV ICE Final Result Performing Organization Address City/[facility]/ZIP Co de Phone Number [facility] [place] [address] * POCT glucose (12/19/2024 11:47 PM CDT) [facility] Glucose, POC 106 70 - 199 mg/dL Blood 12/19/2024 11:4 7 PM CDT 12/19/2024 11:47 PM CDT Pavel Scott MD LAB POCT ORDERABLES - DEV ICE Final Result [facility] [place] [address] * eGFR (12/19/2024 8:21 PM CDT) [facility] eGFR 73 >=60 mL/min/1. 73 m2 Comment: Interpretive Data Reference Interval Normal >/= 90 mL/min/1.73m2 Mildly decreased* 60 - 89 mL/min/1.73m2 Mildly to moderately decreased 45 - 59 mL/min/1.73m2 Moderately to severely decreased 30 - 44 mL/min/1.73m2 Severely decreased 15 - 29 mL/min/1.73m2 Kidney Failure < 15 mL/min/1.73m2 *Relative to young adult level Estimated glomerular filtration rate is determined by the 2020 CKD-EPI equation recommended by the National Kidney Foundation (A Unifying Approach to GFR Estimation: Recommendations of the NKF-ASK Task Force on Reassessing the Inclusion of Race in Diagnosing Kidney Disease, JASN 202). The CKD-EPI equation should not be used for patients with unstable renal function and has not been validated in children and those over 70. Current interpretive data was last reviewed 2021. Blood 12/19/2024 8:21 PM CDT 12/19/2024 8:29 PM CDT Adam Castañeda [facility] LAB BLOOD ORDERABLES F inal Result [facility] Department [place] [address] * (ABNORMAL) CBC without differential (12/19/2024 8:21 PM CDT) WBC 10.63(H) 3.80 - 9.90 K/cumm Hgb 10.6(L) 11.9 - 15.5 g/dL [facility] Hct 35.3(L) 35.6 - 45.5 % [facility] Plt 141(L) 150 - 400 K/cumm [facility] MPV 10.8 9.1 - 12.3 fL [facility] RBC 3.45(L) 3.90 - 5.20 M/cumm [facility] MCV 102.3(H) 81.3 - 96.4 fL [facility] MCH 30.7 27.1 - 33.3 pg [facility] MCHC 30.0(L) 32.3 - 35.7 g/dL [facility] RDW CV 13.8 11.1 - 14.9 % [facility] RDW SD 51.8(H) 35.7 - 48.1 fL [facility] NRBC abs 0.00 0.00 - 0.01 K/cumm [facility] Blood 12/19/2024 8:21 PM CDT 12/19/2024 8:29 PM CDT Pavel Scott MD LAB BLOOD ORDERABLES Latonya l Result Performing Organization Address City/[facility]/ZIP Co de Phone Number [facility] [place] [address] * Phosphorus (12/19/2024 8:21 PM CDT) Pathologist [facility] Phosphorus, pl 2.7 2.3 - 4.5 mg/dL Blood 12/19/2024 8:21 PM CDT 12/19/2024 8:29 PM CDT Pavel Scott MD LAB BLOOD ORDERABLES Latonya l Result Performing Organization Address City/[facility] Co de Phone Number [facility] [place] [address] * Magnesium (12/19/2024 8:21 PM CDT) [facility] Magnesium 2.3 1.4 - 2.5 mg/dL Blood 12/19/2024 8:21 PM CDT 12/19/2024 8:29 PM CDT Pavel Scott MD LAB BLOOD ORDERABLES Latonya l Result Performing Organization Address City/[facility] [place] [place] [address] * (ABNORMAL) Basic metabolic panel (12/19/2024 8:21 PM CDT) [facility] Sodium 143 135 - 145 mmol/L Potassium, pl 4.4 3.3 - 4.9 mmol/L [facility] Chloride 105 97 - 110 mmol/L [facility] CO2 33(H) 22 - 32 mmol/L [facility] Anion gap 5 2 - 15 mmol/L [facility] BUN 22 6 - 25 mg/dL [facility] Creatinine 0.81 0.60 - 1.10 mg/dL [facility] Glucose 123 70 - 199 mg/dL [facility] Comment: Interpretive Data Fasting glucose >/= 126 mg/dl is diagnostic for diabetes. Fasting is defined as no caloric intake for at least 8 hours. Fasting glucose between 100 mg/dl to 125 mg/dl is diagnostic of prediabetes. In a patient with classic symptoms of hyperglycemia or hyperglycemic crisis, a random glucose >/= 200 mg/dl is diagnostic for diabetes. In the absence of unequivocal hyperglycemia, results should be confirmed by repeat testing. The classification and Diagnosis of Diabetes Diabetes Care 202; 46: S19-S40. Current interpretive data was last revised 2022. Calcium 9.3 8.5 - 10.3 mg/dL [facility] Blood 12/19/2024 8:21 PM CDT 12/19/2024 8:29 PM CDT us Pavel Scott MD LAB BLOOD ORDERABLES Latonya soto Result [facility] Department [place] [address] * Critical Care (12/19/2024 7:27 PM CDT) Narrative Adam Castañeda DNP - 12/19/2024 7:27 PM CDT Adam Castañeda DNP 12/30/2024 9:15 PM Critical Care Performed by: Adam Castañeda DNP Authorized by: Adam Castañeda DNP CRITICAL CARE: Team: SICU BLUE Shift: PM Level of Billing: Critical Care My time spent with this patient was 65 minutes: Critical Provider Statement: I have seen and examined the patient on this day of service. I have reviewed and confirmed the history, physical exam, laboratory and radiologic data as documented in the signed ICU note. I have reviewed and discussed my treatment plan with the ICU team and other medical/statistical consultant staff, making frequent assessments and decisions regarding this patient's complex medical care. Critical Care time was exclusive of time spent performing separately billed procedures, treating other patients, and teaching. This time was in addition to and separate from critical care provided by other practitioners in my group on this day of service. Critical Care was necessary to treat or prevent imminent or life-threatening deterioration of the following conditions: I spent time reviewing and interpreting data from bedside monitors, laboratory results, and imaging, I spent time discussing the management of this critically ill patient with consultants and the medical staff and I spent time documenting in the medical record Adam Castañeda DNP IN CLINIC/BEDSIDE BONIFACIO KATZ Edited Result - Final * POCT glucose (12/19/2024 7:22 PM CDT) Glucose, POC 132 70 - 199 mg/dL Blood 12/19/2024 7:22 PM CDT 12/19/2024 7:22 PM CDT Pavel Scott MD LAB POCT ORDERABLES - DEV ICE Final Result Performing Organization Address City/[facility]/ZIP Co de Phone Number [facility] [place] [address] * POCT glucose (12/19/2024 3:13 PM CDT) Glucose, POC 102 70 - 199 mg/dL Blood 12/19/2024 3:13 PM CDT 12/19/2024 3:13 PM CDT Pavel Scott MD LAB POCT ORDERABLES - DEV ICE Final Result [facility] [place] [address] * POCT glucose (12/19/2024 11:19 AM CDT) Glucose, POC 102 70 - 199 mg/dL Blood 12/19/2024 11:1 9 AM CDT 12/19/2024 11:19 AM CDT us Pavel Scott MD LAB POCT ORDERABLES - DEV ICE Final Result [facility] Department [place] [address] * TRANSTHORACIC ECHO (TTE) COMPLETE W DOPPLER/CF W CONTRAST (12/19/2024 10:22 AM CDT) EF Mod BP 74 % CONS SCIMAGE Anatomical Region Laterality Modality Ultrasound 12/19/2024 8:41 AM CDT Narrative 12/19/2024 11:37 AM CDT [facility] [place] [address] Transthoracic Echocardiographic Report Patient Name: KATIA CLINTON : 1945 (79y ) Sex: F Study Date: 12/19/2024 08:41:12 AM Ht(Inch): 64 Wt(Lb): 231.04 BSA: 2.08 Economics Professor: Joe Charles RDCS Location: [id number] Order Provider: LEX BRIGGS Heart Rate: 89 BMI: 39.65 BP: 158 / 136 Ref Provider: LEX BRIGGS PROCEDURES: Echocardiographic Report: Transthoracic complete echo with strain imaging and contrast, 2D, spectral and tissue Doppler, color flow Doppler, M-mode. Contrast: Contrast Enhancement was Employed: After initial imaging due to sub- optimal quality related to co-morbidity defined by patient's body habitus and due to suboptimal image quality with inadequate visualization of at least 2 of 16 LV wall segments in any view after initial imaging. Perflutren contrast was administered using the volume necessary to obtain adequate images. 0.8 ml Optison Administered, (2.2 ml wasted). Technically difficult study due to: Body habitus. Poor acoustic windows. INDICATIONS: Syncope. CONCLUSIONS: 1. Normal left ventricular size based on volume index. Concentric LV hypertrophy. Normal left ventricular systolic function. The Ejection Fraction (Padilla's) is measured at 74 %. Left ventricular diastolic function is indeterminate due to mitral stenosis. The average global longitudinal strain is normal. 2. Normal right ventricular size. Normal right ventricular systolic function. 3. Mitral valve leaflets appear mildly thickened. Mild calcification. Moderate mitral annular calcification. Mild mitral stenosis. The mean transmitral gradient is: 6 mmHg. at a heart rate of 90 beats per minute. 4. Mildly thickened aortic valve leaflets. Moderately calcified aortic valve leaflets. Moderately restricted aortic cusps. The mean transaortic gradient is 19 mmHg. Increased gradient across LVOT/AV, unable to fully differentiate level of obstruction (AV vs. LVOT vs. hyperdynamic LV function). Consider LISA to further evaluate. COMPARISONS: No previous study available for comparison. RECOMMENDATIONS: Consider LISA if clinically indicated. ATTESTATION: I have personally reviewed and interpreted this study without fellow or resident. DISCLAIMER: The study images and the final report will be retained in the patient chart by the Echo Laboratory for the legally required time period. This chart constitutes the legal record of any testing performed. FINDINGS: Left Ventricle: Normal left ventricular size based on volume index. Concentric LV hypertrophy. Normal left ventricular systolic function. The Ejection Fraction (Padilla's) is measured at 74 %. Left ventricular diastolic function is indeterminate due to mitral stenosis. The average global longitudinal strain is normal. The LV global strain is: -18.1 %. Right Ventricle: Normal right ventricular size. Normal right ventricular systolic function. Left Atrium: Mildly dilated left atrium. Right Atrium: The right atrium is normal in size. Mitral Valve: Mitral valve leaflets appear mildly thickened. Mild calcification. Moderate mitral annular calcification. Mild mitral stenosis. The mean transmitral gradient is: 6 mmHg. at a heart rate of 90 beats per minute. Aortic Valve: Mildly thickened aortic valve leaflets. Moderately calcified aortic valve leaflets. Moderately restricted aortic cusps. The mean transaortic gradient is 19 mmHg. Increased gradient across LVOT/AV, unable to fully differentiate level of obstruction (AV vs. LVOT vs. hyperdynamic LV function). Consider LISA to further evaluate. Tricuspid Valve: Normal tricuspid valve structure. Mild tricuspid regurgitation. Pulmonic Valve: Normal pulmonic valve structure. Pericardium: Normal pericardium without pericardial effusion. Aorta: Mild aortic root dilation at sinuses of Valsalva. Normal aortic root size when indexed. The ascending aorta is normal in size when indexed. IVC: IVC not visualized due to poor acoustic windows. MEASUREMENTS: 2D/MM Value Range Doppler Value Range LVIDd 2D 4.74 cm [ 3.80 - 5.20 ] AV Peak Matty 3.0 m/s [ 1.0 - 1.7 ] LVIDs 2D 2.19 cm [ 2.20 - 3.50 ] AV Peak PG 36.00 mmHg IVSd 2D 1.60 cm [ 0.60 - 0.90 ] AV Mean PG 19 mmHg LVPWd 2D 1.19 cm [ 0.60 - 0.90 ] AV VTI 53.8 cm LV Thickness Ratio 1.3 LVOT Peak Matty 1.8 m/s [ 0.7 - 1.1 ] LV FS 2D 53.87 % [ 27.00 - 45.00 ] LVOT Peak PG 12.96 mmHg LV Mass 2D 270.63 g LVOT Mean PG 6 mmHg LV Mass Index 2D 130.13 g/m2 LVOT VTI 36.2 cm RWT 0.50 LVOT Diam 1.90 cm EDV Mod BP 80.18 ml [ 46.00 - 106.00 ] NUSRAT VTI 1.91 cm2 LV EDV Index 38.55 ml/m2 LVOT/AV VTI 0.67 - Dimensionless index (DVI) ESV Mod BP 21.27 ml [ 14.00 - 42.00 ] MV E Peak Matty 1.5 m/s [ 0.6 - 1.3 ] EF Mod BP 74 % [ 54 - 74 ] MV A Peak Matty 2.3 m/s [ 1.0 - 1.2 ] LV GLS -18.1 % [ -25.0 - -18.0 ] MV E/A 0.7 ratio [ 0.8 - 1.5 ] LA Length 4C 6.46 cm MV Mean PG 6 mmHg LA Length 2C 6.74 cm MV Decel Time 311.06 msec [ 104.00 - 258.00 ] LA Volume BP 86.57 ml Med E` Matty 8.5 cm/sec [ 8.0 - 25.0 ] LA Volume Index 41.63 ml/m2 [ 16.00 - 34.00 ] Lat E` Matyt 9.8 cm/sec [ 10.0 - 25.0 ] RV Base Dimen 2D 2.9 cm [ 2.5 - 4.2 ] Average E/E` 16.39 TAPSE 2.34 cm [ 1.71 - 5.00 ] RV S` 20.85 cm/sec RA Volume 36.35 ml RA Volume Index 17.48 ml/m2 AoR Diam 2D 3.55 cm [ 2.70 - 3.70 ] Ao Root Index 1.71 cm/m2 [ 1.00 - 2.00 ] Asc Ao Diam 2D 3.51 cm Asc Ao Index 1.69 cm/m2 Electronically Signed By: Jluian Hanna MD 12/19/2024 11:37:08 AM CDT Procedure Note Julian Hanna MD - 12/19/2024 [facility] [place] [address] Transthoracic Echocardiographic Report Patient Name: KATIA CLINTON : 1945 (79y ) Sex: F Study Date: 12/19/2024 08:41:12 AM Ht(Inch): 64 Wt(Lb): 231.04 BSA: 2.08 Economics Professor: Joe Charles RDCS Location: [place] [address] Order Provider:LEX BRIGGS Heart Rate: 89 BMI: 39.65 BP: 158 / 136 Ref Provider: LEX BRIGGS PROCEDURES: Echocardiographic Report: Transthoracic complete echo with strain imagingand contrast, 2D, spectral and tissue Doppler, color flow Doppler, M-mode. Contrast: Contrast Enhancement was Employed: After initial imaging due tosub- optimal quality related to co-morbidity defined by patient's body habitus and dueto suboptimal image quality with inadequate visualization of at least 2 of 16 LV wallsegments in any view after initial imaging. Perflutren contrast was administered using thevolume necessary to obtain adequate images. 0.8 ml Optison Administered, (2.2 mlwasted). Technically difficult study due to: Body habitus. Poor acoustic windows. INDICATIONS: Syncope. CONCLUSIONS: 1. Normal left ventricular size based on volume index. Concentric LVhypertrophy. Normal left ventricular systolic function. The Ejection Fraction (Padilla's) ismeasured at 74 %. Left ventricular diastolic function is indeterminate due to mitralstenosis. The average global longitudinal strain is normal. 2. Normal right ventricular size. Normal right ventricular systolicfunction. 3. Mitral valve leaflets appear mildly thickened. Mild calcification.Moderate mitral annular calcification. Mild mitral stenosis. The mean transmitral gradientis: 6 mmHg. at a heart rate of 90 beats per minute. 4. Mildly thickened aortic valve leaflets. Moderately calcified aorticvalve leaflets. Moderately restricted aortic cusps. The mean transaortic gradient is 19mmHg. Increased gradient across LVOT/AV, unable to fully differentiate level ofobstruction (AV vs. LVOT vs. hyperdynamic LV function). Consider LISA to further evaluate. COMPARISONS: No previous study available for comparison. RECOMMENDATIONS: Consider LISA if clinically indicated. ATTESTATION: I have personally reviewed and interpreted this study without fellow orresident. DISCLAIMER: The study images and the final report will be retained in the patientchart by the Echo Laboratory for the legally required time period. This chart constitutesthe legal record of any testing performed. FINDINGS: Left Ventricle: Normal left ventricular size based on volume index.Concentric LV hypertrophy. Normal left ventricular systolic function. The EjectionFraction (Padilla's) is measured at 74 %. Left ventricular diastolic function is indeterminatedue to mitral stenosis. The average global longitudinal strain is normal. The LV globalstrain is: -18.1 %. Right Ventricle: Normal right ventricular size. Normal right ventricularsystolic function. Left Atrium: Mildly dilated left atrium. Right Atrium: The right atrium is normal in size. Mitral Valve: Mitral valve leaflets appear mildly thickened. Mildcalcification. Moderate mitral annular calcification. Mild mitral stenosis. The mean transmitralgradient is: 6 mmHg. at a heart rate of 90 beats per minute. Aortic Valve: Mildly thickened aortic valve leaflets. Moderately calcifiedaortic valve leaflets. Moderately restricted aortic cusps. The mean transaorticgradient is 19 mmHg. Increased gradient across LVOT/AV, unable to fully differentiate level ofobstruction (AV vs. LVOT vs. hyperdynamic LV function). Consider LISA to furtherevaluate. Tricuspid Valve: Normal tricuspid valve structure. Mild tricuspidregurgitation. Pulmonic Valve: Normal pulmonic valve structure. Pericardium: Normal pericardium without pericardial effusion. Aorta: Mild aortic root dilation at sinuses of Valsalva. Normal aorticroot size when indexed. The ascending aorta is normal in size when indexed. IVC: IVC not visualized due to poor acoustic windows. MEASUREMENTS: 2D/MM Value Range DopplerValue Range LVIDd 2D 4.74 cm [ 3.80 - 5.20 ] AV Peak Vel3.0 m/s [ 1.0 - 1.7 ] LVIDs 2D 2.19 cm [ 2.20 - 3.50 ] AV Peak PG36.00 mmHg IVSd 2D 1.60 cm [ 0.60 - 0.90 ] AV Mean PG19 mmHg LVPWd 2D 1.19 cm [ 0.60 - 0.90 ] AV VTI53.8 cm LV Thickness Ratio 1.3 LVOT Peak Vel1.8 m/s [ 0.7 - 1.1 ] LV FS 2D 53.87 % [ 27.00 - 45.00 ] LVOT Peak PG12.96 mmHg LV Mass 2D 270.63 g LVOT Mean PG6 mmHg LV Mass Index 2D 130.13 g/m2 LVOT VTI36.2 cm RWT 0.50 LVOT Diam1.90 cm EDV Mod BP 80.18 ml [ 46.00 - 106.00 ] NUSRAT VTI1.91 cm2 LV EDV Index 38.55 ml/m2 LVOT/AV VTI0.67 - Dimensionless index (DVI) ESV Mod BP 21.27 ml [ 14.00 - 42.00 ] MV E Peak Vel1.5 m/s [ 0.6 - 1.3 ] EF Mod BP 74 % [ 54 - 74 ] MV A Peak Vel2.3 m/s [ 1.0 - 1.2 ] LV GLS -18.1 % [ -25.0 - -18.0 ] MV E/A0.7 ratio [ 0.8 - 1.5 ] LA Length 4C 6.46 cm MV Mean PG6 mmHg LA Length 2C 6.74 cm MV Decel Tdys347.06 msec [ 104.00 - 258.00 ] LA Volume BP 86.57 ml Med E` Vel8.5 cm/sec [ 8.0 - 25.0 ] LA Volume Index 41.63 ml/m2 [ 16.00 - 34.00 ] Lat E` Vel9.8 cm/sec [ 10.0 - 25.0 ] RV Base Dimen 2D 2.9 cm [ 2.5 - 4.2 ] Average E/E`16.39 TAPSE 2.34 cm [ 1.71 - 5.00 ] RV S`20.85 cm/sec RA Ivjxtv98.35 ml RA Volume Index17.48 ml/m2 AoR Diam 2D 3.55 cm [ 2.70 - 3.70 ] Ao Root Index 1.71 cm/m2 [ 1.00 - 2.00 ] Asc Ao Diam 2D3.51 cm Asc Ao Index1.69 cm/m2 Electronically Signed By: Julian Hanna MD 12/19/2024 11:37:08 AM CDT Lex BALLARD CV ECHO PROCEDURES Final Result * POCT glucose (12/19/2024 7:09 AM CDT) Glucose, POC 113 70 - 199 mg/dL Blood 12/19/2024 7:09 AM CDT 12/19/2024 7:09 AM CDT Pavel Scott MD LAB POCT ORDERABLES - DEV ICE Final Result [facility] Department [place] [address] * Critical Care (12/19/2024 6:45 AM CDT) Narrative Ari Ferguson MD - 12/19/2024 6:45 AM CDT Ari Ferguson MD 12/20/2024 2:27 PM Critical Care Performed by: Lex Briggs PA Authorized by: Lex Briggs PA CRITICAL CARE: Team: SICU BLUE Shift: AM Level of Billing: Critical Care My time spent with this patient was 70 minutes: Critical Provider Statement: I have seen and examined the patient on this day of service. I have reviewed and confirmed the history, physical exam, laboratory and radiologic data as documented in the signed ICU note. I have reviewed and discussed my treatment plan with the ICU team and other medical/statistical consultant staff, making frequent assessments and decisions regarding this patient's complex medical care. Critical Care time was exclusive of time spent performing separately billed procedures, treating other patients, and teaching. This time was in addition to and separate from critical care provided by other practitioners in my group on this day of service. Critical Care was necessary to treat or prevent imminent or life-threatening deterioration of the following conditions: I spent time reviewing and interpreting data from bedside monitors, laboratory results, and imaging, I spent time discussing the management of this critically ill patient with consultants and the medical staff and I spent time documenting in the medical record us Lex BALLARD IN CLINIC/BEDSIDE ORDERA BLES Final Result * POCT glucose (12/19/2024 4:04 AM CDT) Glucose, POC 126 70 - 199 mg/dL Blood 12/19/2024 4:04 AM CDT 12/19/2024 4:04 AM CDT us Pavel Scott MD LAB POCT ORDERABLES - DEV ICE Final Result [facility] Department [place] [address] * CT Foot Right WO Contrast (12/19/2024 3:21 AM CDT) Anatomical Region Laterality Modality Lower Extremities Right Computed Tomog ella 12/19/2024 4:45 AM CDT Impressions 12/19/2024 10:10 AM CDT 1. Right foot Lisfranc fracture/dislocation is again seen, with improved alignment when compared to the presenting radiographs. There are fractures of the first through fourth metatarsal bases and small chip fractures of the medial cuneiform and cuboid. 2. Trimalleolar right ankle fracture is better assessed on prior right ankle CT. Dictated by: Amari Price MD The radiology attending physician has personally reviewed this study, and had reviewed and/or edited this written report and agrees with it. Electronically signed by: Ezra Valdez M.D. Narrative 12/19/2024 10:10 AM CDT EXAMINATION: CT FOOT RIGHT WO CONTRAST HISTORY: Right foot fracture TECHNIQUE: Transaxial computed tomographic images of the right foot were obtained without intravenous contrast according to the standard protocol. COMPARISON: Radiographs 12/18/2024 FINDINGS: The known trimalleolar fracture is more completely evaluated on earlier same day right ankle CT. The patient's right foot Lisfranc fracture/dislocation is again seen. There is a chip fracture of the anterior superior aspect of the medial cuneiform, see series 8, image 39. There are fractures of the first through fourth metatarsal bases, also seen on earlier ankle CT. Additionally, there is a likely fracture of the cuboid, see series 8, image 77 and series 5, image 94. There is significant surrounding tissue swelling. Procedure Note Ezra Valdez MD - 12/19/2024 EXAMINATION: CT FOOT RIGHT WO CONTRAST HISTORY: Right foot fracture TECHNIQUE: Transaxial computed tomographic images of the right foot were obtained without intravenous contrast according to the standard protocol. COMPARISON: Radiographs 12/18/2024 FINDINGS: The known trimalleolar fracture is more completely evaluated on earlier same day right ankle CT. The patient's right foot Lisfranc fracture/dislocation is again seen. There is a chip fracture of the anterior superior aspect of the medial cuneiform, see series 8, image 39. There are fractures of the first through fourth metatarsal bases, also seen on earlier ankle CT. Additionally, there is a likely fracture of the cuboid, see series 8, image 77 and series 5, image 94. There is significant surrounding tissue swelling. IMPRESSION: 1. Right foot Lisfranc fracture/dislocation is again seen, with improved alignment when compared to the presenting radiographs. There are fractures of the first through fourth metatarsal bases and small chip fractures of the medial cuneiform and cuboid. 2. Trimalleolar right ankle fracture is better assessed on prior right ankle CT. Dictated by: Amari Price MD The radiology attending physician has personally reviewed this study, and had reviewed and/or edited this written report and agrees with it. Electronically signed by: Ezra Valdez M.D. Pavel Scott MD IM CT PROCEDURES Final R esult * CT Head WO Contrast (12/19/2024 3:21 AM CDT) Anatomical Region Laterality Modality Head and Neck N/A Computed Tomogra phy 12/19/2024 3:40 AM CDT Impressions 12/19/2024 8:37 AM CDT Unchanged mild asymmetric thickening of the interhemispheric falx compatible with trace subdural blood products. No new intracranial hemorrhage, mass effect or midline shift. Dictated by: Gil Valladares MD The radiology attending physician has personally reviewed this study, and had reviewed and/or edited this written report and agrees with it. Electronically signed by: Ramonita Lawson MD Narrative 12/19/2024 8:37 AM CDT EXAMINATION: CT head without contrast HISTORY: Subdural TECHNIQUE: CT of the head was performed with images acquired from skull base to vertex without intravenous contrast. COMPARISON: None Available. FINDINGS: Evaluation is mildly limited by motion artifact. There is persistent asymmetric mild thickening along the right aspect of the parietal interhemispheric falx likely representing small volume subdural blood products measure up to 3 mm. Unchanged large left parietal soft tissue contusion. No mass effect or midline shift. No new intracranial hemorrhage. The ventricles are unchanged in size. The barajas-white matter differentiation is normal. Partially empty sella. The visualized portions of the orbits are normal. The visualized portions of the mastoids are normal. The visualized portions of the paranasal sinuses are normal. No fractures are identified. Procedure Note Ramonita Lawson MD PhD - 12/19/2024 EXAMINATION: CT head without contrast HISTORY: Subdural TECHNIQUE: CT of the head was performed with images acquired from skull base to vertex without intravenous contrast. COMPARISON: None Available. FINDINGS: Evaluation is mildly limited by motion artifact. There is persistent asymmetric mild thickening along the right aspect of the parietal interhemispheric falx likely representing small volume subdural blood products measure up to 3 mm. Unchanged large left parietal soft tissue contusion. No mass effect or midline shift. No new intracranial hemorrhage. The ventricles are unchanged in size. The barajas-white matter differentiation is normal. Partially empty sella. The visualized portions of the orbits are normal. The visualized portions of the mastoids are normal. The visualized portions of the paranasal sinuses are normal. No fractures are identified. IMPRESSION: Unchanged mild asymmetric thickening of the interhemispheric falx compatible with trace subdural blood products. No new intracranial hemorrhage, mass effect or midline shift. Dictated by: Gil Valladares MD The radiology attending physician has personally reviewed this study, and had reviewed and/or edited this written report and agrees with it. Electronically signed by: Ramonita Lawson MD Angela José Beasley MD IM CT PROCEDURES Final Result * Potassium, whole blood (12/19/2024 1:48 AM CDT) [facility] Potassium, bld 4.6 3.3 - 4.9 mmol/L Blood 12/19/2024 1:48 AM CDT 12/19/2024 1:53 AM CDT Pavel Scott MD LAB BLOOD ORDERABLES Latonya l Result Performing Organization Address City/[facility]/ZIP Co de Phone Number [facility] Department [place] [address] * Lactate, whole blood (12/19/2024 1:48 AM CDT) [facility] Lactate, bld 1.6 0.7 - 2.0 mmol/L Blood 12/19/2024 1:48 AM CDT 12/19/2024 1:53 AM CDT Pavel Scott MD LAB BLOOD ORDERABLES Latonya l Result Performing Organization Address [facility] de Phone Number [facility] [place] [address] * (ABNORMAL) CBC without differential (12/19/2024 1:48 AM CDT) [facility] WBC 13.76(H) 3.80 - 9.90 K/cumm Hgb 11.2(L) 11.9 - 15.5 g/dL [facility] Hct 36.4 35.6 - 45.5 % [facility] Plt 167 150 - 400 K/cumm [facility] MPV 10.9 9.1 - 12.3 fL [facility] RBC 3.64(L) 3.90 - 5.20 M/cumm [facility] MCV 100.0(H) 81.3 - 96.4 fL [facility] MCH 30.8 27.1 - 33.3 pg [facility] MCHC 30.8(L) 32.3 - 35.7 g/dL [facility] RDW CV 13.8 11.1 - 14.9 % [facility] RDW SD 50.4(H) 35.7 - 48.1 fL [facility] NRBC abs 0.00 0.00 - 0.01 K/cumm [facility] Blood 12/19/2024 1:48 AM CDT 12/19/2024 1:59 AM CDT Pavel Scott MD LAB BLOOD ORDERABLES Latonya l Result Performing Organization Address City/[facility] Co de Phone Number [facility] Department [place] [address] * (ABNORMAL) Creatine kinase (CK), total (12/19/2024 1:48 AM CDT) CK 430(H) 30 - 200 Units/L Blood 12/19/2024 1:48 AM CDT 12/19/2024 1:59 AM CDT Pavel Scott MD LAB BLOOD ORDERABLES Latonya l Result Performing Organization Address [facility] de Phone Number [facility] [place] [address] * eGFR (12/19/2024 1:44 AM CDT) eGFR 69 >=60 mL/min/1. 73 m2 Comment: Interpretive Data Reference Interval Normal >/= 90 mL/min/1.73m2 Mildly decreased* 60 - 89 mL/min/1.73m2 Mildly to moderately decreased 45 - 59 mL/min/1.73m2 Moderately to severely decreased 30 - 44 mL/min/1.73m2 Severely decreased 15 - 29 mL/min/1.73m2 Kidney Failure < 15 mL/min/1.73m2 *Relative to young adult level Estimated glomerular filtration rate is determined by the 2020 CKD-EPI equation recommended by the National Kidney Foundation (A Unifying Approach to GFR Estimation: Recommendations of the NKF-ASK Task Force on Reassessing the Inclusion of Race in Diagnosing Kidney Disease, JASN 2020). The CKD-EPI equation should not be used for patients with unstable renal function and has not been validated in children and those over 70. Current interpretive data was last reviewed 2021. Blood 12/19/2024 1:44 AM CDT 12/19/2024 1:59 AM CDT Adam Castañeda [facility] LAB BLOOD ORDERABLES F inal Result [facility] Department [place] [address] * (ABNORMAL) Basic metabolic panel (12/19/2024 1:44 AM CDT) Sodium 145 135 - 145 mmol/L Potassium, pl 4.7 3.3 - 4.9 mmol/L [facility] Chloride 106 97 - 110 mmol/L [facility] CO2 33(H) 22 - 32 mmol/L [facility] Anion gap 6 2 - 15 mmol/L [facility] BUN 26(H) 6 - 25 mg/dL [facility] Creatinine 0.85 0.60 - 1.10 mg/dL [facility] Glucose 133 70 - 199 mg/dL [facility] Comment: Interpretive Data Fasting glucose >/= 126 mg/dl is diagnostic for diabetes. Fasting is defined as no caloric intake for at least 8 hours. Fasting glucose between 100 mg/dl to 125 mg/dl is diagnostic of prediabetes. In a patient with classic symptoms of hyperglycemia or hyperglycemic crisis, a random glucose >/= 200 mg/dl is diagnostic for diabetes. In the absence of unequivocal hyperglycemia, results should be confirmed by repeat testing. The classification and Diagnosis of Diabetes Diabetes Care 2021; 46: S19-S40. Current interpretive data was last revised 2022. Calcium 9.9 8.5 - 10.3 mg/dL [facility] Blood 12/19/2024 1:44 AM CDT 12/19/2024 1:59 AM CDT Adam Castañeda DNP LAB BLOOD ORDERABLES F inal Result Performing Organization Address City/[facility]/ZIP Co de Phone Number [facility] [place] [address] * POCT glucose (12/19/2024 1:18 AM CDT) Glucose, POC 130 70 - 199 mg/dL Blood 12/19/2024 1:18 AM CDT 12/19/2024 1:18 AM CDT us Pavel Scott MD LAB POCT ORDERABLES - DEV ICE Final Result Performing Organization Address [facility] Co de Phone Number [facility] Department [place] [address] * Critical Care (12/19/2024 1:14 AM CDT) Narrative Kana Gauthier MD - 12/19/2024 1:14 AM CDT Kana Gauthier MD 12/19/2024 7:13 PM Critical Care Performed by: Adam Castañeda DNP Authorized by: Adam Castañeda DNP CRITICAL CARE: Team: SICU BLUE Shift: PM Level of Billing: Critical Care My time spent with this patient was 120 minutes: Critical Provider Statement: I have seen and examined the patient on this day of service. I have reviewed and confirmed the history, physical exam, laboratory and radiologic data as documented in the signed ICU note. I have reviewed and discussed my treatment plan with the ICU team and other medical/statistical consultant staff, making frequent assessments and decisions regarding this patient's complex medical care. Critical Care time was exclusive of time spent performing separately billed procedures, treating other patients, and teaching. This time was in addition to and separate from critical care provided by other practitioners in my group on this day of service. Critical Care was necessary to treat or prevent imminent or life-threatening deterioration of the following conditions: I spent time reviewing and interpreting data from bedside monitors, laboratory results, and imaging, I spent time discussing the management of this critically ill patient with consultants and the medical staff and I spent time documenting in the medical record Adam Castañeda DNP IN CLINIC/BEDSIDE [facility] Final Result * CT Ankle Right WO Contrast (12/19/2024 12:47 AM CDT) Anatomical Region Laterality Modality Ankle Right Computed Tomogra phy 12/19/2024 1:13 AM CDT Impressions 12/19/2024 10:13 AM CDT 1. Trimalleolar right ankle fracture with improved alignment compared to presenting radiograph. 2. Right foot Lisfranc fracture dislocation with improved alignment compared to presenting radiograph. There are fractures involving the first through fourth metatarsal bases and a small chip fracture of the medial cuneiform. Note that the right foot is only partially imaged. If clinically desired, the entire right foot could be imaged by CT foot. Dictated by: Amari Price MD The radiology attending physician has personally reviewed this study, and had reviewed and/or edited this written report and agrees with it. Electronically signed by: Ezra Valdez M.D. Narrative 12/19/2024 10:13 AM CDT EXAMINATION: CT ANKLE RIGHT WO CONTRAST HISTORY: Right ankle fracture. TECHNIQUE: Transaxial computed tomographic images of the right ankle were obtained without intravenous contrast according to the standard protocol. COMPARISON: 12/18/2024 radiographs FINDINGS: Casting material overlies the right ankle. There is diffuse osseous demineralization. There is a trimalleolar fracture involving the distal right fibula at the level of the syndesmosis. There is a comminuted mildly displaced medial malleolar fracture. There is also a comminuted minimally displaced posterior malleolar fracture. There are numerous tiny ossific fragments either within or near the right ankle joint. The midfoot is only partially imaged. With this limitation, there is somewhat improved alignment of the right foot Lisfranc fracture/dislocation. There is a fracture of the first metatarsal base at the plantar aspect, see series 6, image 29. There is also a small chip fracture of the medial cuneiform, see series 6, image 35. There is a comminuted fracture of the second metatarsal base, see series 6, image 48. There is also a fracture of the third metatarsal base, see series 6, image 66. There is also a fracture of the fourth metatarsal base, see series 3, image 4001 Procedure Note Ezra Valdez MD - 12/19/2024 EXAMINATION: CT ANKLE RIGHT WO CONTRAST HISTORY: Right ankle fracture. TECHNIQUE: Transaxial computed tomographic images of the right ankle were obtained without intravenous contrast according to the standard protocol. COMPARISON: 12/18/2024 radiographs FINDINGS: Casting material overlies the right ankle. There is diffuse osseous demineralization. There is a trimalleolar fracture involving the distal right fibula at the level of the syndesmosis. There is a comminuted mildly displaced medial malleolar fracture. There is also a comminuted minimally displaced posterior malleolar fracture. There are numerous tiny ossific fragments either within or near the right ankle joint. The midfoot is only partially imaged. With this limitation, there is somewhat improved alignment of the right foot Lisfranc fracture/dislocation. There is a fracture of the first metatarsal base at the plantar aspect, see series 6, image 29. There is also a small chip fracture of the medial cuneiform, see series 6, image 35. There is a comminuted fracture of the second metatarsal base, see series 6, image 48. There is also a fracture of the third metatarsal base, see series 6, image 66. There is also a fracture of the fourth metatarsal base, see series 3, image 4001 IMPRESSION: 1. Trimalleolar right ankle fracture with improved alignment compared to presenting radiograph. 2. Right foot Lisfranc fracture dislocation with improved alignment compared to presenting radiograph. There are fractures involving the first through fourth metatarsal bases and a small chip fracture of the medial cuneiform. Note that the right foot is only partially imaged. If clinically desired, the entire right foot could be imaged by CT foot. Dictated by: Amari Price MD The radiology attending physician has personally reviewed this study, and had reviewed and/or edited this written report and agrees with it. Electronically signed by: Ezra Valdez M.D. Angela Beasley MD IMG CT PROCEDURES Final Result * XR Foot Right 3 or More Views (12/18/2024 11:37 PM CDT) Anatomical Region Laterality Modality Lower Extremities, Foot Right Computed Radiography 12/19/2024 12:1 1 AM CDT Impressions 12/19/2024 10:13 AM CDT Comparison is made to earlier same day radiographs. Right ankle and right foot: There is been interval splinting of the right foot and ankle with overlying material obscuring fine osseous details. The right ankle bimalleolar fracture appears in improved alignment. There has been no significant interval change in alignment of the right Lisfranc fracture/dislocation. Dictated by: Amari Price MD The radiology attending physician has personally reviewed this study, and had reviewed and/or edited this written report and agrees with it. Electronically signed by: Ezra Valdez M.D. Narrative 12/19/2024 10:13 AM CDT EXAMINATION: XR ANKLE RIGHT 2 VIEWS, XR FOOT RIGHT 3 OR MORE VIEWS HISTORY: Right ankle fracture and right Lisfranc fracture dislocation status post splinting. Procedure Note Ezra Valdez MD - 12/19/2024 EXAMINATION: XR ANKLE RIGHT 2 VIEWS, XR FOOT RIGHT 3 OR MORE VIEWS HISTORY: Right ankle fracture and right Lisfranc fracture dislocation status post splinting. IMPRESSION: Comparison is made to earlier same day radiographs. Right ankle and right foot: There is been interval splinting of the right foot and ankle with overlying material obscuring fine osseous details. The right ankle bimalleolar fracture appears in improved alignment. There has been no significant interval change in alignment of the right Lisfranc fracture/dislocation. Dictated by: Amari Price MD The radiology attending physician has personally reviewed this study, and had reviewed and/or edited this written report and agrees with it. Electronically signed by: Ezra Valdez M.D. Wilfrido Issa MD IM XR PROCEDURES Final Result * XR Ankle Right 2 Views (12/18/2024 11:37 PM CDT) Anatomical Region Laterality Modality Lower Extremities, Ankle Right Compute d Radiography 12/19/2024 12:1 1 AM CDT Impressions 12/19/2024 10:13 AM CDT Comparison is made to earlier same day radiographs. Right ankle and right foot: There is been interval splinting of the right foot and ankle with overlying material obscuring fine osseous details. The right ankle bimalleolar fracture appears in improved alignment. There has been no significant interval change in alignment of the right Lisfranc fracture/dislocation. Dictated by: Amari Price MD The radiology attending physician has personally reviewed this study, and had reviewed and/or edited this written report and agrees with it. Electronically signed by: Ezra Valdez M.D. Narrative 12/19/2024 10:13 AM CDT EXAMINATION: XR ANKLE RIGHT 2 VIEWS, XR FOOT RIGHT 3 OR MORE VIEWS HISTORY: Right ankle fracture and right Lisfranc fracture dislocation status post splinting. Procedure Note Ezra Valdez MD - 12/19/2024 EXAMINATION: XR ANKLE RIGHT 2 VIEWS, XR FOOT RIGHT 3 OR MORE VIEWS HISTORY: Right ankle fracture and right Lisfranc fracture dislocation status post splinting. IMPRESSION: Comparison is made to earlier same day radiographs. Right ankle and right foot: There is been interval splinting of the right foot and ankle with overlying material obscuring fine osseous details. The right ankle bimalleolar fracture appears in improved alignment. There has been no significant interval change in alignment of the right Lisfranc fracture/dislocation. Dictated by: Amari Price MD The radiology attending physician has personally reviewed this study, and had reviewed and/or edited this written report and agrees with it. Electronically signed by: Ezra Valdez M.D. Wilfrido Issa MD IM XR PROCEDURES Final Result * XR Knee Right 1 or 2 Views (12/18/2024 9:36 PM CDT) Anatomical Region Laterality Modality Lower Extremities, Knee Right Computed Radiography 12/18/2024 10:2 5 PM CDT Impressions 12/19/2024 10:08 AM CDT 1. Right ankle bimalleolar fracture with medial subluxation/dislocation of the distal tibia in relation to the talus. 2. Right foot Lisfranc fracture/dislocation. 3. Mildly displaced and impacted fracture of the proximal fibula, with knee joint effusion. Dictated by: Amari Price MD The radiology attending physician has personally reviewed this study, and had reviewed and/or edited this written report and agrees with it. Electronically signed by: Ezra Valdez M.D. Narrative 12/19/2024 10:08 AM CDT EXAMINATION: XR ANKLE RIGHT 3 OR MORE VIEWS, XR TIBIA FIBULA RIGHT2 VIEWS, XR FOOT RIGHT 3 OR MORE VIEWS, XR KNEE RIGHT 1 OR 2 VIEWS HISTORY: Fall. FINDINGS: No prior comparison radiographs are available. Right knee and tibia-fibula: There is a mildly displaced and impacted fracture of the proximal right fibula, with possible callus formation, suggesting possibly a subacute to chronic fracture. No acute fracture of the proximal tibia or distal femur. Patella appears within normal limits. Large right knee joint effusion. There are distal fractures of the right tibia and fibula, better assessed on subsequent ankle radiographs. Right ankle and foot: There is a bimalleolar fracture of the right ankle involving the lateral and medial malleoli. There is medial subluxation/dislocation of the distal tibia in relation to the talus. Additionally, there is a possible avulsion fragment of the medial talar process, best seen on AP view. There is significant surrounding soft tissue swelling of the right ankle. There is also a Lisfranc fracture/dislocation involving the right foot. There is an intra-articular fracture of the base of the second metatarsal. There is also likely fracture of the third metatarsal base. Procedure Note Ezra Valdez MD - 12/19/2024 EXAMINATION: XR ANKLE RIGHT 3 OR MORE VIEWS, XR TIBIA FIBULA RIGHT2 VIEWS, XR FOOT RIGHT 3 OR MORE VIEWS, XR KNEE RIGHT 1 OR 2 VIEWS HISTORY: Fall. FINDINGS: No prior comparison radiographs are available. Right knee and tibia-fibula: There is a mildly displaced and impacted fracture of the proximal right fibula, with possible callus formation, suggesting possibly a subacute to chronic fracture. No acute fracture of the proximal tibia or distal femur. Patella appears within normal limits. Large right knee joint effusion. There are distal fractures of the right tibia and fibula, better assessed on subsequent ankle radiographs. Right ankle and foot: There is a bimalleolar fracture of the right ankle involving the lateral and medial malleoli. There is medial subluxation/dislocation of the distal tibia in relation to the talus. Additionally, there is a possible avulsion fragment of the medial talar process, best seen on AP view. There is significant surrounding soft tissue swelling of the right ankle. There is also a Lisfranc fracture/dislocation involving the right foot. There is an intra-articular fracture of the base of the second metatarsal. There is also likely fracture of the third metatarsal base. IMPRESSION: 1. Right ankle bimalleolar fracture with medial subluxation/dislocation of the distal tibia in relation to the talus. 2. Right foot Lisfranc fracture/dislocation. 3. Mildly displaced and impacted fracture of the proximal fibula, with knee joint effusion. Dictated by: Amari Price MD The radiology attending physician has personally reviewed this study, and had reviewed and/or edited this written report and agrees with it. Electronically signed by: Ezra Valdez M.D. Catrachita Arellano MD IMG XR PROCEDURES Fin al Result * XR Tibia Fibula Right 2 Views (12/18/2024 9:35 PM CDT) Anatomical Region Laterality Modality Lower Extremities, Lower Leg Right Com puted Radiography 12/18/2024 10:2 5 PM CDT Impressions 12/19/2024 10:08 AM CDT 1. Right ankle bimalleolar fracture with medial subluxation/dislocation of the distal tibia in relation to the talus. 2. Right foot Lisfranc fracture/dislocation. 3. Mildly displaced and impacted fracture of the proximal fibula, with knee joint effusion. Dictated by: Amari Price MD The radiology attending physician has personally reviewed this study, and had reviewed and/or edited this written report and agrees with it. Electronically signed by: Ezra Valdez M.D. Narrative 12/19/2024 10:08 AM CDT EXAMINATION: XR ANKLE RIGHT 3 OR MORE VIEWS, XR TIBIA FIBULA RIGHT2 VIEWS, XR FOOT RIGHT 3 OR MORE VIEWS, XR KNEE RIGHT 1 OR 2 VIEWS HISTORY: Fall. FINDINGS: No prior comparison radiographs are available. Right knee and tibia-fibula: There is a mildly displaced and impacted fracture of the proximal right fibula, with possible callus formation, suggesting possibly a subacute to chronic fracture. No acute fracture of the proximal tibia or distal femur. Patella appears within normal limits. Large right knee joint effusion. There are distal fractures of the right tibia and fibula, better assessed on subsequent ankle radiographs. Right ankle and foot: There is a bimalleolar fracture of the right ankle involving the lateral and medial malleoli. There is medial subluxation/dislocation of the distal tibia in relation to the talus. Additionally, there is a possible avulsion fragment of the medial talar process, best seen on AP view. There is significant surrounding soft tissue swelling of the right ankle. There is also a Lisfranc fracture/dislocation involving the right foot. There is an intra-articular fracture of the base of the second metatarsal. There is also likely fracture of the third metatarsal base. Procedure Note Ezra Valdez MD - 12/19/2024 EXAMINATION: XR ANKLE RIGHT 3 OR MORE VIEWS, XR TIBIA FIBULA RIGHT2 VIEWS, XR FOOT RIGHT 3 OR MORE VIEWS, XR KNEE RIGHT 1 OR 2 VIEWS HISTORY: Fall. FINDINGS: No prior comparison radiographs are available. Right knee and tibia-fibula: There is a mildly displaced and impacted fracture of the proximal right fibula, with possible callus formation, suggesting possibly a subacute to chronic fracture. No acute fracture of the proximal tibia or distal femur. Patella appears within normal limits. Large right knee joint effusion. There are distal fractures of the right tibia and fibula, better assessed on subsequent ankle radiographs. Right ankle and foot: There is a bimalleolar fracture of the right ankle involving the lateral and medial malleoli. There is medial subluxation/dislocation of the distal tibia in relation to the talus. Additionally, there is a possible avulsion fragment of the medial talar process, best seen on AP view. There is significant surrounding soft tissue swelling of the right ankle. There is also a Lisfranc fracture/dislocation involving the right foot. There is an intra-articular fracture of the base of the second metatarsal. There is also likely fracture of the third metatarsal base. IMPRESSION: 1. Right ankle bimalleolar fracture with medial subluxation/dislocation of the distal tibia in relation to the talus. 2. Right foot Lisfranc fracture/dislocation. 3. Mildly displaced and impacted fracture of the proximal fibula, with knee joint effusion. Dictated by: Amari Price MD The radiology attending physician has personally reviewed this study, and had reviewed and/or edited this written report and agrees with it. Electronically signed by: Ezra Valdez M.D. Catrachita Arellano MD IMG XR PROCEDURES Fin al Result * XR Foot Right 3 or More Views (12/18/2024 9:35 PM CDT) Anatomical Region Laterality Modality Lower Extremities, Foot Right Computed Radiography 12/18/2024 10:2 5 PM CDT Impressions 12/19/2024 10:08 AM CDT 1. Right ankle bimalleolar fracture with medial subluxation/dislocation of the distal tibia in relation to the talus. 2. Right foot Lisfranc fracture/dislocation. 3. Mildly displaced and impacted fracture of the proximal fibula, with knee joint effusion. Dictated by: Amari Price MD The radiology attending physician has personally reviewed this study, and had reviewed and/or edited this written report and agrees with it. Electronically signed by: Ezra Valdez M.D. Narrative 12/19/2024 10:08 AM CDT EXAMINATION: XR ANKLE RIGHT 3 OR MORE VIEWS, XR TIBIA FIBULA RIGHT2 VIEWS, XR FOOT RIGHT 3 OR MORE VIEWS, XR KNEE RIGHT 1 OR 2 VIEWS HISTORY: Fall. FINDINGS: No prior comparison radiographs are available. Right knee and tibia-fibula: There is a mildly displaced and impacted fracture of the proximal right fibula, with possible callus formation, suggesting possibly a subacute to chronic fracture. No acute fracture of the proximal tibia or distal femur. Patella appears within normal limits. Large right knee joint effusion. There are distal fractures of the right tibia and fibula, better assessed on subsequent ankle radiographs. Right ankle and foot: There is a bimalleolar fracture of the right ankle involving the lateral and medial malleoli. There is medial subluxation/dislocation of the distal tibia in relation to the talus. Additionally, there is a possible avulsion fragment of the medial talar process, best seen on AP view. There is significant surrounding soft tissue swelling of the right ankle. There is also a Lisfranc fracture/dislocation involving the right foot. There is an intra-articular fracture of the base of the second metatarsal. There is also likely fracture of the third metatarsal base. Procedure Note Ezra Valdez MD - 12/19/2024 EXAMINATION: XR ANKLE RIGHT 3 OR MORE VIEWS, XR TIBIA FIBULA RIGHT2 VIEWS, XR FOOT RIGHT 3 OR MORE VIEWS, XR KNEE RIGHT 1 OR 2 VIEWS HISTORY: Fall. FINDINGS: No prior comparison radiographs are available. Right knee and tibia-fibula: There is a mildly displaced and impacted fracture of the proximal right fibula, with possible callus formation, suggesting possibly a subacute to chronic fracture. No acute fracture of the proximal tibia or distal femur. Patella appears within normal limits. Large right knee joint effusion. There are distal fractures of the right tibia and fibula, better assessed on subsequent ankle radiographs. Right ankle and foot: There is a bimalleolar fracture of the right ankle involving the lateral and medial malleoli. There is medial subluxation/dislocation of the distal tibia in relation to the talus. Additionally, there is a possible avulsion fragment of the medial talar process, best seen on AP view. There is significant surrounding soft tissue swelling of the right ankle. There is also a Lisfranc fracture/dislocation involving the right foot. There is an intra-articular fracture of the base of the second metatarsal. There is also likely fracture of the third metatarsal base. IMPRESSION: 1. Right ankle bimalleolar fracture with medial subluxation/dislocation of the distal tibia in relation to the talus. 2. Right foot Lisfranc fracture/dislocation. 3. Mildly displaced and impacted fracture of the proximal fibula, with knee joint effusion. Dictated by: Amari Price MD The radiology attending physician has personally reviewed this study, and had reviewed and/or edited this written report and agrees with it. Electronically signed by: Ezra Valdez M.D. us Catrachita Arellano MD IMG XR PROCEDURES Fin al Result * XR Ankle Right 3 or More Views (12/18/2024 9:35 PM CDT) Anatomical Region Laterality Modality Lower Extremities, Ankle Right Compute d Radiography 12/18/2024 10:2 5 PM CDT Impressions 12/19/2024 10:08 AM CDT 1. Right ankle bimalleolar fracture with medial subluxation/dislocation of the distal tibia in relation to the talus. 2. Right foot Lisfranc fracture/dislocation. 3. Mildly displaced and impacted fracture of the proximal fibula, with knee joint effusion. Dictated by: Amari Price MD The radiology attending physician has personally reviewed this study, and had reviewed and/or edited this written report and agrees with it. Electronically signed by: Ezra Valdez M.D. Narrative 12/19/2024 10:08 AM CDT EXAMINATION: XR ANKLE RIGHT 3 OR MORE VIEWS, XR TIBIA FIBULA RIGHT2 VIEWS, XR FOOT RIGHT 3 OR MORE VIEWS, XR KNEE RIGHT 1 OR 2 VIEWS HISTORY: Fall. FINDINGS: No prior comparison radiographs are available. Right knee and tibia-fibula: There is a mildly displaced and impacted fracture of the proximal right fibula, with possible callus formation, suggesting possibly a subacute to chronic fracture. No acute fracture of the proximal tibia or distal femur. Patella appears within normal limits. Large right knee joint effusion. There are distal fractures of the right tibia and fibula, better assessed on subsequent ankle radiographs. Right ankle and foot: There is a bimalleolar fracture of the right ankle involving the lateral and medial malleoli. There is medial subluxation/dislocation of the distal tibia in relation to the talus. Additionally, there is a possible avulsion fragment of the medial talar process, best seen on AP view. There is significant surrounding soft tissue swelling of the right ankle. There is also a Lisfranc fracture/dislocation involving the right foot. There is an intra-articular fracture of the base of the second metatarsal. There is also likely fracture of the third metatarsal base. Procedure Note Ezra Valdez MD - 12/19/2024 EXAMINATION: XR ANKLE RIGHT 3 OR MORE VIEWS, XR TIBIA FIBULA RIGHT2 VIEWS, XR FOOT RIGHT 3 OR MORE VIEWS, XR KNEE RIGHT 1 OR 2 VIEWS HISTORY: Fall. FINDINGS: No prior comparison radiographs are available. Right knee and tibia-fibula: There is a mildly displaced and impacted fracture of the proximal right fibula, with possible callus formation, suggesting possibly a subacute to chronic fracture. No acute fracture of the proximal tibia or distal femur. Patella appears within normal limits. Large right knee joint effusion. There are distal fractures of the right tibia and fibula, better assessed on subsequent ankle radiographs. Right ankle and foot: There is a bimalleolar fracture of the right ankle involving the lateral and medial malleoli. There is medial subluxation/dislocation of the distal tibia in relation to the talus. Additionally, there is a possible avulsion fragment of the medial talar process, best seen on AP view. There is significant surrounding soft tissue swelling of the right ankle. There is also a Lisfranc fracture/dislocation involving the right foot. There is an intra-articular fracture of the base of the second metatarsal. There is also likely fracture of the third metatarsal base. IMPRESSION: 1. Right ankle bimalleolar fracture with medial subluxation/dislocation of the distal tibia in relation to the talus. 2. Right foot Lisfranc fracture/dislocation. 3. Mildly displaced and impacted fracture of the proximal fibula, with knee joint effusion. Dictated by: Amari Price MD The radiology attending physician has personally reviewed this study, and had reviewed and/or edited this written report and agrees with it. Electronically signed by: Ezra Valdez M.D. Catrachita Arellano MD IMG XR PROCEDURES Fin al Result * CT Head and Cervical Spine WO Contrast (12/18/2024 9:06 PM CDT) Anatomical Region Laterality Modality Head and Neck N/A Computed Tomogra phy 12/18/2024 9:44 PM CDT Impressions 12/19/2024 8:42 AM CDT 1. Minimal thickening of the interhemispheric falx likely representing trace subdural hematoma. 2. No acute fracture in the cervical spine. Dictated by: Gil Valladares MD The radiology attending physician has personally reviewed this study, and had reviewed and/or edited this written report and agrees with it. Electronically signed by: Ramonita Lawson MD Narrative 12/19/2024 8:42 AM CDT EXAMINATION: 1. CT head without contrast 2. CT of the cervical spine without contrast HISTORY: 79-year-old female, fall TECHNIQUE: CT of the head was performed with images acquired from skull base to vertex without intravenous contrast. CT of the cervical spine was performed according to the standard protocol without intravenous contrast. COMPARISON: None Available. FINDINGS: HEAD: Large left parietal soft tissue contusion. Trace subdural hematoma along the right aspect of the interhemispheric falx measuring up to 2 mm. Scattered ill-defined hypodensities in the periventricular and subcortical white matter are nonspecific, likely on the basis of chronic small vessel ischemic change. There is parenchymal volume loss. There are atherosclerotic calcifications of the intracranial vessels. Small right basal ganglia lacunar infarct. Dural lipoma. Partially empty sella. There is no acute intracranial hemorrhage. Ventricles are of normal size and morphology. No mass effect or midline shift is present. The barajas-white matter differentiation is normal. The visualized portions of the orbits are normal. Partial bilateral mastoid effusions. Mild mucosal thickening of the left aspect of the sphenoid sinus. No fractures are identified. Hyperostosis frontalis. CERVICAL SPINE: Mild stepwise of anterolisthesis of C3 on C4 and C4 on C5. Diffuse osteopenia. Straightening of the cervical spine with reversal of normal cervical lordosis. There is no acute fracture. Vertebral bodies are normal in height without compression fractures. Craniocervical arthropathy. Limited views of the skull base appear normal. The sphenoid sinus is well aerated. No soft tissue abnormality is identified. Multilevel disc height loss greatest at C4-C5 and C5-C6. There is mild multilevel facet arthropathy. There is mild multilevel uncovertebral joint disease. There is no high-grade neuroforaminal stenosis. There is high-grade spinal canal stenosis. Procedure Note Ramonita Lawson MD PhD - 12/19/2024 EXAMINATION: 1. CT head without contrast 2. CT of the cervical spine without contrast HISTORY: 79-year-old female, fall TECHNIQUE: CT of the head was performed with images acquired from skull base to vertex without intravenous contrast. CT of the cervical spine was performed according to the standard protocol without intravenous contrast. COMPARISON: None Available. FINDINGS: HEAD: Large left parietal soft tissue contusion. Trace subdural hematoma along the right aspect of the interhemispheric falx measuring up to 2 mm. Scattered ill-defined hypodensities in the periventricular and subcortical white matter are nonspecific, likely on the basis of chronic small vessel ischemic change. There is parenchymal volume loss. There are atherosclerotic calcifications of the intracranial vessels. Small right basal ganglia lacunar infarct. Dural lipoma. Partially empty sella. There is no acute intracranial hemorrhage. Ventricles are of normal size and morphology. No mass effect or midline shift is present. The barajas-white matter differentiation is normal. The visualized portions of the orbits are normal. Partial bilateral mastoid effusions. Mild mucosal thickening of the left aspect of the sphenoid sinus. No fractures are identified. Hyperostosis frontalis. CERVICAL SPINE: Mild stepwise of anterolisthesis of C3 on C4 and C4 on C5. Diffuse osteopenia. Straightening of the cervical spine with reversal of normal cervical lordosis. There is no acute fracture. Vertebral bodies are normal in height without compression fractures. Craniocervical arthropathy. Limited views of the skull base appear normal. The sphenoid sinus is well aerated. No soft tissue abnormality is identified. Multilevel disc height loss greatest at C4-C5 and C5-C6. There is mild multilevel facet arthropathy. There is mild multilevel uncovertebral joint disease. There is no high-grade neuroforaminal stenosis. There is high-grade spinal canal stenosis. IMPRESSION: 1. Minimal thickening of the interhemispheric falx likely representing trace subdural hematoma. 2. No acute fracture in the cervical spine. Dictated by: Gil Valladares MD The radiology attending physician has personally reviewed this study, and had reviewed and/or edited this written report and agrees with it. Electronically signed by: Ramonita Lawson MD Catrachita Arellano MD IMG CT PROCEDURES Fin al Result * Check Sample (12/18/2024 7:30 PM CDT) ABO Rh A Positive [facility] HCLL OTHER 12/18/2024 7:30 PM CDT 12/18/2024 7:44 PM CDT Wilfrido Issa MD LAB BLOOD ORDERABLES Final Resul t TITO [facility] [place] [address] [facility] * POCT creatinine (12/18/2024 7:30 PM CDT) [facility] Creatinine POC 0.8 0.6 - 1.1 mg/dL Blood 12/18/2024 7:30 PM CDT 12/18/2024 7:30 PM CDT Wilfrido Issa MD LAB POCT ORDERABLES - DEVICE Fin al Result Performing Organization Address [facility] Co de Phone Number [facility] [place] [address] * POCT glucose (12/18/2024 7:29 PM CDT) [facility] Glucose, POC 112 70 - 199 mg/dL Blood 12/18/2024 7:29 PM CDT 12/18/2024 7:29 PM CDT Wilfrido Issa MD LAB POCT ORDERABLES - DEVICE Fin al Result Performing Organization Address [facility] Co de Phone Number [facility] [place] [address] * Thromboelastometry Panel - Heparin (12/18/2024 7:11 PM CDT) [facility] HEPTEM-CT 158 141 - 215 sec HEPTEM-A5 46 33 - 51 mm [facility] HEPT[facility]-A10 57 44 - 61 mm [facility] HEPTEM-A20 63 52 - 67 mm [facility] HEPTEM-MCF 64 54 - 69 mm [facility] Blood 12/18/2024 7:11 PM CDT 12/18/2024 7:20 PM CDT us Wilfrido Issa MD LAB BLOOD ORDERABLES Edited Resu lt - Final TITO [facility] Department [place] [address] * Thromboelastometry Panel - Intrinsic (12/18/2024 7:11 PM CDT) INTEM-CT 160 139 - 205 sec INTEM-A5 47 36 - 54 mm [facility] INTEM-A10 57 46 - 63 mm [facility] INTEM-A20 63 53 - 68 mm [facility] INTEM-MCF 64 55 - 70 mm [facility] INTEM-LI60 96 93 - 100 % [facility] INTEM-ML 6 0 - 7 % [facility] Comment: Interpretive Data Rotational Thromboelastometry (GUILLE) Sigma is a type of viscoelastic testing (VET). GUILLE can rapidly assess hemostasis and guide blood product transfusion in cardiac surgery, liver transplantation, and other bleeding situations. It is not a replacement for conventional coagulation testing (such as PT INR, aPTT and fibrinogen). While anticoagulation medications can impact GUILLE results, GUILLE should not be used to monitor or manage anticoagulation. Standard VET is insensitive to the pharmacological effects of aspirin, thienopyridines, P2Y12 inhibitors and flow-dependent platelet function defects. Literature References 1. Nettie Landon, Rory E. Sensitivity of Viscoelastic Tests to Platelet Function. J Clin Med. 2019 10 9(7) 273. 2. Alix O, Kam CM, Joshua N, Herman EE, Herman HB, Elisha HC, Krishna MARION, Kristian Chung MD, Nathan SS, Pascual Palomino, Fernando ESCAMILLA, Kaye ML, Imer AV, Imer SG, Annabelle L, Aron SmithZ, Karli M, Sandra P, Eleazar D, Roxanne MM. Viscoelastic Hemostatic Assays A Primer on Legacy and New Generation Devices. J Clin Med. 2021Apr 17 11(9) 846. 3. GUILLE Operating Manual. Brianna Schumacher MA. Tyree 13-15. D- [id number] [facility]. Blood 12/18/2024 7:11 PM CDT 12/18/2024 7:20 PM CDT Wilfrido Issa MD LAB BLOOD ORDERABLES Edited Resu lt - Final [facility] [place] [address] * (ABNORMAL) Thromboelastometry Panel - Fibrinogen (12/18/2024 7:11 PM CDT) FIBTEM-A5 18(H) 5 - 16 mm FIBTEM-A10 20(H) 6 - 17 mm [facility] FIBTEM-A20 21(H) 6 - 18 mm [facility] FIBTEM-MCF 22(H) 9 - 19 mm [facility] Blood 12/18/2024 7:11 PM CDT 12/18/2024 7:20 PM CDT Wilfrido Issa MD LAB BLOOD ORDERABLES Edited [facility] Performing Organization Address [facility] Co de Phone Number TITO [facility] [place] [address] * Thromboelastometry Panel - Extrinsic (12/18/2024 7:11 PM CDT) EXTEM-CT 62 51 - 73 sec EXTEM-A5 50 33 - 52 mm [facility] EXTEM-A10 60 45 - 62 mm [facility] EXTEM-A20 66 54 - 69 mm [facility] EXTEM-MCF 67 57 - 72 mm [facility] EXTEM-LI60 97 94 - 100 % [facility] EXTEM-ML 5 0 - 6 % [facility] Blood 12/18/2024 7:11 PM CDT 12/18/2024 7:20 PM CDT Wilfrido Issa MD LAB BLOOD ORDERABLES Edited Resu lt - Final [facility] Department [place] [address] * (ABNORMAL) Differential, auto (12/18/2024 7:11 PM CDT) Neutrophil abs 14.31(H) 1.50 - 6.50 K/cumm Imm gran abs 0.08 0.00 - 0.10 K/cumm [facility] Lymphocyte abs 1.02 0.80 - 3.30 K/cumm [facility] Monocyte abs 1.23(H) 0.20 - 0.80 K/cumm [facility] Eosinophil abs 0.01 0.00 - 0.50 K/cumm [facility] Basophil abs 0.02 0.00 - 0.10 K/cumm [facility] Neutrophil pct 85.8 % [facility] Comment: Interpretive Data Percent cell count reference ranges are not reported, since discordance with absolute values may lead to misinterpretation of CBC data. Current Interpretive Data was last revised on 2017. Imm gran pct 0.5 % [facility] Comment: Interpretive Data Percent cell count reference ranges are not reported, since discordance with absolute values may lead to misinterpretation of CBC data. Current Interpretive Data was last revised on 2017. Lymphocyte pct 6.1 % [facility] Comment: Interpretive Data Percent cell count reference ranges are not reported, since discordance with absolute values may lead to misinterpretation of CBC data. Current Interpretive Data was last revised on 2017. Monocyte pct 7.4 % [facility] Comment: Interpretive Data Percent cell count reference ranges are not reported, since discordance with absolute values may lead to misinterpretation of CBC data. Current Interpretive Data was last revised on 2017. Eosinophil pct 0.1 % [facility] Comment: Interpretive Data Percent cell count reference ranges are not reported, since discordance with absolute values may lead to misinterpretation of CBC data. Current Interpretive Data was last revised on 2017. Basophil pct 0.1 % [facility] Comment: Interpretive Data Percent cell count reference ranges are not reported, since discordance with absolute values may lead to misinterpretation of CBC data. Current Interpretive Data was last revised on 2017. Blood 12/18/2024 7:11 PM CDT 12/18/2024 7:20 PM CDT Wilfrido Issa MD LAB BLOOD ORDERABLES Final Resul t Performing Organization Address [facility] Co de Phone Number [facility] [place] [address] * (ABNORMAL) CBC with auto differential (12/18/2024 7:11 PM CDT) WBC 16.67(H) 3.80 - 9.90 K/cumm Comment:Code Blue Specimen C ode Blue Specimen Hgb 11.8(L) 11.9 - 15.5 g/dL [facility] Hct 38.3 35.6 - 45.5 % [facility] Plt 174 150 - 400 K/cumm [facility] MPV 10.9 9.1 - 12.3 fL [facility] RBC 3.90 3.90 - 5.20 M/cumm [facility] MCV 98.2(H) 81.3 - 96.4 fL [facility] MCH 30.3 27.1 - 33.3 pg [facility] MCHC 30.8(L) 32.3 - 35.7 g/dL [facility] RDW CV 13.8 11.1 - 14.9 % [facility] RDW SD 49.6(H) 35.7 - 48.1 fL [facility] NRBC abs 0.00 0.00 - 0.01 K/cumm [facility] Blood 12/18/2024 7:11 PM CDT 12/18/2024 7:20 PM CDT Wilfrido Issa MD LAB BLOOD ORDERABLES Final Resul t Performing Organization Address [facility] Co de Phone Number [facility] [place] [address] * (ABNORMAL) aPTT (12/18/2024 7:11 PM CDT) aPTT 25(L) 26 - 38 sec Comment: Code Blue Specimen Interpretive Data Heparin therapeutic range: 66.0 - 100.0 seconds. Range based on correlation with therapeutic heparin activity range of 0.3 - 0.7 Units/mL. Current interpretive data was last revised on 2022. Blood 12/18/2024 7:11 PM CDT 12/18/2024 7:20 PM CDT Wilfrido Issa MD LAB BLOOD ORDERABLES Final Resul t Performing Organization Address [facility] Co de Phone Number [facility] [address] [place] [address] * Protime-INR (12/18/2024 7:11 PM CDT) PT 11.7 10.2 - 13.5 sec INR 1.04 0.90 - 1.20 [facility] Comment: Interpretive data Oral anticoagulant therapeutic ranges: Venous thromboembolism prophylaxis or treatment: 2.0-3.0 CARDIOLOGY Standard range: 2.0-3.0 High-intensity range: 2.5-3.5 Refer to indication-specific guidelines for appropriate target ranges for prosthetic heart valve replacement. Current interpretive data was last revised on 2019. Blood 12/18/2024 7:11 PM CDT 12/18/2024 7:20 PM CDT Wilfrido Issa MD LAB BLOOD ORDERABLES Final Resul t Performing Organization Address [facility] Co de Phone Number [facility] [place] [address] * Type and screen (12/18/2024 7:11 PM CDT) Jose Martin, indirect Negative ABO Rh A Positive [facility] Blood 12/18/2024 7:11 PM CDT 12/18/2024 7:24 PM CDT Narrative [facility] - 12/18/2024 8:10 PM CDT Has the patient had Daratumumab or Isatuximab in the past 6 months?->Unknown Result [facility] Wilfrido Issa MD LAB BLOOD BANK TEST ORDERABLES F inal Result Performing Organization Address [facility] Co de Phone Number [facility] [place] [address] * (ABNORMAL) Creatine kinase (CK), total (12/18/2024 7:11 PM CDT) CK 495(H) 30 - 200 Units/L Comment:Code Blue Specimen Blood 12/18/2024 7:11 PM CDT 12/18/2024 7:20 PM CDT Wilfrido Issa MD LAB BLOOD ORDERABLES Final Resul t Performing Organization Address [facility] Co de Phone Number [facility] [place] [address] * Ethanol (12/18/2024 7:11 PM CDT) Ethanol <10 <=10 mg/dL Comment: Code Blue Specimen Interpretive Data Legal limit of intoxication > or = 80 mg/dL Levels > or = 400 mg/dL are potentially TOXIC. Current interpretive data was last revised on 2018. Blood 12/18/2024 7:11 PM CDT 12/18/2024 7:20 PM CDT Wilfrido Issa MD LAB BLOOD ORDERABLES Final Resul t Performing Organization Address [facility] Co de Phone Number [facility] [place] [address] * Pelvis xray, 1 view, portable (12/18/2024 7:10 PM CDT) Anatomical Region Laterality Modality Body, Pelvis N/A Computed Radiogr aphy 12/18/2024 7:48 PM CDT Impressions 12/18/2024 8:34 PM CDT Chest: Low lung volumes cause crowding of the bronchovascular structures the lung bases. Streaky right lung base atelectasis. No pneumothorax, pleural effusion, or focal consolidation. The cardiomediastinal silhouette measures within normal limits. Overlying cardiac monitoring wires and oxygen tubing. Advanced degenerative changes in the bilateral glenohumeral joints. Multilevel degenerative spurring in the imaged spine. 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 Hardware appears intact. No dislocation. No displaced fractures on this single phase image. Degenerative changes of the spine. Dictated by: Marcelo Vazquez M.D. The radiology attending physician has personally reviewed this study, and had reviewed and/or edited this written report and agrees with it. Electronically signed by: Suni Garcia M.D. Narrative 12/18/2024 8:34 PM CDT EXAMINATION: XR CHEST 1 VIEW, XR PELVIS 1 OR 2 VIEWS HISTORY: Trauma activation COMPARISON: None Procedure Note Suni Garcia MD - 12/18/2024 EXAMINATION: XR CHEST 1 VIEW, XR PELVIS 1 OR 2 VIEWS HISTORY: Trauma activation COMPARISON: None IMPRESSION: Chest: Low lung volumes cause crowding of the bronchovascular structures the lung bases. Streaky right lung base atelectasis. No pneumothorax, pleural effusion, or focal consolidation. The cardiomediastinal silhouette measures within normal limits. Overlying cardiac monitoring wires and oxygen tubing. Advanced degenerative changes in the bilateral glenohumeral joints. Multilevel degenerative spurring in the imaged spine. 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 Hardware appears intact. No dislocation. No displaced fractures on this single phase image. Degenerative changes of the spine. Dictated by: Marcelo Vazquez M.D. The radiology attending physician has personally reviewed this study, and had reviewed and/or edited this written report and agrees with it. Electronically signed by: Suni Maxx O'Danni, M.D. us Salman Luis Manuel MD IMG XR PROCEDURES Final Result * Chest xray, 1 view, portable (12/18/2024 7:10 PM CDT) Anatomical Region Laterality Modality Body, Chest N/A Computed Radiogr aphy 12/18/2024 7:48 PM CDT Impressions 12/18/2024 8:34 PM CDT Chest: Low lung volumes cause crowding of the bronchovascular structures the lung bases. Streaky right lung base atelectasis. No pneumothorax, pleural effusion, or focal consolidation. The cardiomediastinal silhouette measures within normal limits. Overlying cardiac monitoring wires and oxygen tubing. Advanced degenerative changes in the bilateral glenohumeral joints. Multilevel degenerative spurring in the imaged spine. 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 Hardware appears intact. No dislocation. No displaced fractures on this single phase image. Degenerative changes of the spine. Dictated by: Marcelo Vazquez M.D. The radiology attending physician has personally reviewed this study, and had reviewed and/or edited this written report and agrees with it. Electronically signed by: Suni Garcia M.D. Narrative 12/18/2024 8:34 PM CDT EXAMINATION: XR CHEST 1 VIEW, XR PELVIS 1 OR 2 VIEWS HISTORY: Trauma activation COMPARISON: None Procedure Note Suni Garcia MD - 12/18/2024 EXAMINATION: XR CHEST 1 VIEW, XR PELVIS 1 OR 2 VIEWS HISTORY: Trauma activation COMPARISON: None IMPRESSION: Chest: Low lung volumes cause crowding of the bronchovascular structures the lung bases. Streaky right lung base atelectasis. No pneumothorax, pleural effusion, or focal consolidation. The cardiomediastinal silhouette measures within normal limits. Overlying cardiac monitoring wires and oxygen tubing. Advanced degenerative changes in the bilateral glenohumeral joints. Multilevel degenerative spurring in the imaged spine. 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 Hardware appears intact. No dislocation. No displaced fractures on this single phase image. Degenerative changes of the spine. Dictated by: Marcelo Naceanceno, M.D. The radiology attending physician has personally reviewed this study, and had reviewed and/or edited this written report and agrees with it. Electronically signed by: Suni Garcia M.D. Wilfrido Issa MD IMG XR PROCEDURES Final Result * (ABNORMAL) POC Blood Gas and Chemistries, Venous - (12/18/2024 7:03 PM CDT) pH, Hugo POC 7.36 7.32 - 7.43 pCO2, hugo POC 61(H) 40 - 50 mmHg [facility] pO2, hugo POC 45 mmHg [facility] Na, POC 141 135 - 145 mmol/L [facility] K POC 4.3 3.3 - 4.9 mmol/L [facility] Comment: Interpretive Data Not all point of care methods assess for hemolysis. Confirm with instrument and retest K+ if not consistent with clinical signs and symptoms. Current Interpretive Data was last revised on 2023. Cl, POC 105 97 - 110 mmol/L [facility] Ionized Ca, POC 5.07 4.50 - 5.10 mg/dL [facility] Glucose, POC 122 70 - 199 mg/dL [facility] Lactate POC 2.0 0.7 - 2.0 mmol/L [facility] MetHb, Hugo POC 0.4 0.0 - 1.9 % [facility] O2 Sat, Hugo POC (Aly) 72 % [facility] Base excess, POC 7.1 mmol/L [facility] HCO3, Hugo POC 34(H) 20 - 30 mmol/L [facility] Hct, POC 38.0 36.3 - 45.3 % [facility] Total Hb, POC 12.7 11.9 - 15.5 g/dL [facility] Blood 12/18/2024 7:03 PM CDT 12/18/2024 7:03 PM CDT Pavel Scott MD LAB POCT ORDERABLES - DEV ICE Final Result [facility] [place] [address] * AR CRITICAL CARE ILL/INJURED PATIENT INIT 30-74 MIN (12/18/2024 6:58 PM CDT) Narrative Wilfrido Issa MD - 12/18/2024 6:58 PM CDT Wilfrido Issa MD 12/18/2024 8:40 PM Critical Care Performed by: Wilfrido Issa MD Authorized by: Wilfrido Issa MD Critical care provider statement: As reflected in the history, physical exam, orders, notes, and/or MDM, I was personally present while the patient was critically ill and provided critical care services for 35 minutes, excluding time involved in separately billable procedures. Critical care was necessary to treat or prevent imminent or life-threatening deterioration of the following condition(s): traumatic brain injury and severe traumatic condition Critical care was time spent by me providing the following: continuous telemetry and continuous pulse oximetry frequent neurologic exams decision regarding NPO status management of limb weight bearing status and acute fracture care acute pain control Wilfrido Issa MD IN CLINIC/BEDSIDE ORDERABLES Fin al Result from Last 3 Months Insurance [employer] MEDICARE ADVANTAGE [employer] MED[employer]ARE [employer]VANTAGE Advance Directives For more information, please contact: [phone] * Full Code (Latest Code Status on File) Date Activated Date Inactivated Comments 12/19/2024 1:04 AM 01/06/2025 6:[address] Inspector Relationship Specialty Start Date End Date Racheal Burnham NP [address] [place] [id number] PCP - General Nurse Practitioner 12/18/24
--- OUTSIDE RECORDS SUMMARY | 2025-03-01 13:46 | XMS_ITS | Clinical Summary ---
Author Organization [facility] Address [address] [place] [address] Care Team Providers Care Customs Guard Name Role Phone Racheal Burnham Sara [facility] AIDES TEACHER Primary Care Provider Source Comments [facility],non-owned Affiliates and Associated Physician Practices is amultiple site organization consisting of ambulatory clinics and hospital sitesin [place], [place], [place] and [place]. This disclosure is being madepursuant to the Care Everywhere program and may not contain all information available regarding this patient. Last updated 17.[facility] Allergies Active Allergy Reactions Criticality Noted Date Comments Hmg-Coa-R Inhibitors 11/28/2009 Niacin 11/28/2009 Medications * Be aware that medications may not be up to date on this document. Alwaysverify current medications with the patient. diclofenac sodium (VOLTAREN) 75 MG tablet [The details of the medication are not available because there are pending changes by a home health clinician.] 60 Tab 4 0 Active Additional Information Patient not taking.Reason: Provider adjusted (list clean up), Informant: Patient, Reported on 02/11/2025 cephalexin (Keflex) 500 MG capsule Take 500 mg by mouth 2 times daily. 5 Active acetaminophen (TYLENOL) 500 MG tablet Take 1-2 tablets by mouth 2 times daily as needed for pain. 5 Active albuterol HFA (Ventolin HFA) 108 (90 Base) MCG/ACT inhaler Inhale 2 puffs by mouth every 4 hours as needed for wheezing. 5 Active benzonatate (Tessalon) 100 MG capsule Take 100 mg by mouth 3 times daily as needed for cough. 5 Active furosemide (Lasix) 20 MG tablet Take 20 mg by mouth every 2 days. 5 Active lisinopril (Prinivil; Zestril) 20 MG tablet Take 20 mg by mouth once daily. 5 Active methocarbamol (Robaxin) 500 MG tablet Take 500 mg by mouth 3 times daily as needed for muscle spasms. 5 Active ramelteon (Rozerem) 8 MG tablet Take 8 mg by mouth nightly as needed for insomnia. 5 Active rosuvastatin (Crestor) 5 MG tablet Take 5 mg by mouth at bedtime. 5 Active Aspirin 81 MG CAPS Take 1 tablet by mouth once daily. 5 Active gabapentin (Neurontin) 100 MG capsule Take 100 mg by mouth 2 times daily. 5 Active Vitamin D, Cholecalcifero l, 25 MCG (1000 UT) Take 1 tablet by mouth once daily. 5 Active ASA Buff, Mag Carb-Al Glyc, 325 MG TABS Discontinu ed(List Clean-Up) QUINAPRIL HCL PO Discontinu ed(List Clean-Up) hydrochlorothi azide (HYDRODIURIL) 25 MG tablet Discontinu ed(List Clean-Up) ALLOPURINOL PO Discontinu ed(List Clean-Up) Meloxicam (MOBIC PO) Discontinu ed(List Clean-Up) Ezetimibe (ZETIA PO) Discontinu ed(List Clean-Up) DOCUSATE SODIUM PO Discontinu ed(List Clean-Up) Propoxyphene N-APAP (DARVOCET-N 100 PO) Discontinu ed(List Clean-Up) Glucosamine-Ch ondroitin-MSM (GLUCOSAMINE-C HONDROITIN DS PO) Discontinu ed(List Clean-Up) Calcium 1500 MG TABS Discontinu ed(List Clean-Up) VITAMIN D PO 025 Discontinu ed(List Clean-Up) [place]-3 Fatty Acids (OMEGA 3 PO) 025 Discontinu ed(List Clean-Up) guaiFENesin ER 12hr (Mucinex) 600 MG tablet Take 600 mg by mouth every 12 hours. 5 025 Active Problems Problem Noted Date Diagnosed Date Degeneration of lumbar or lumbosacral interverte bral disc 11/28/2009 Encounters Date Type Department Care Team Description 02/25/2025 9:00 AM INSPECTOR WEIGHTS AND MEASURES Home Care Visit [facility] [address] [place] [phone] Nikki Spencer, ARTHUR SN HOME VISIT 02/23/2025 Home Care Visit [facility] [address] [place] [address] Checo Blankenship, PT PT OASIS DISCHARGE WITHOUT VISIT 02/22/2025 Telephone [facility] [address] [place] [address] Rachel Cameron RN Coordination Of Care 02/18/2025 2:00 PM INSPECTOR WEIGHTS AND MEASURES Home Care Visit [facility] [address] [place] [phone] Josephine Bhatti, RN DISEASE MANAGEMENT ZZZ_DO NOT USE (RN DISEASE MANAGEMENT HOME VISIT) 02/18/2025 10:30 AM INSPECTOR WEIGHTS AND MEASURES Home Care Visit [facility] [address] [place] [address] Betina Han, OT OT INITIAL EVALUATION 02/18/2025 Home Care Visit [facility] [address] [place] [address] Josephine Bhatti, RN DISEASE MANAGEMENT CASE COMMUNICATION 02/18/2025 Telephone [facility] [address] [place] [address] Reena Romo, RN Supply; Wound Care 02/18/2025 Travel 02/17/2025 Telephone [facility] [address] [place] [address] Karo Vanegas, ARTHUR Coordination Of Care 02/17/2025 Home Care Visit [facility] [address] [place] [phone] Betina Han, OT CASE COMMUNICATION 02/16/2025 10:45 AM INSPECTOR WEIGHTS AND MEASURES Home Care Visit [facility] [address] [place] [phone] Josephine Bhatti, RN DISEASE MANAGEMENT ZZZ_DO NOT USE (RN DISEASE MANAGEMENT HOME VISIT) 02/16/2025 Home Care Visit [facility] [address] [place] [phone] Josephine Bhatti, RN DISEASE MANAGEMENT CASE COMMUNICATION 02/16/2025 Home Care Visit [facility] [address] [place] [phone] Betina Han, OT CASE COMMUNICATION 02/15/2025 9:30 AM INSPECTOR WEIGHTS AND MEASURES Home Care Visit [facility] [address] [place] [phone] Rosario Conrad, ARTHUR SN HOME VISIT 02/15/2025 Home Care Visit [facility] [address] [place] [phone] Betina Han, OT CASE COMMUNICATION 02/15/2025 Home Care Visit [facility] [address] [place] [address] Puneet Hope, ARTHUR CASE COMMUNICATION 02/15/2025 Travel 02/12/2025 12:00 PM INSPECTOR WEIGHTS AND MEASURES Home Care Visit [facility] [address] [place] [phone] Checo Blankenship, PT PT INITIAL EVALUATION 02/12/2025 Travel 02/12/2025 Home Care Visit [facility] [address] [place] [address] Binta Hitchcock, ARTHUR CASE COMMUNICATION 02/11/2025 10:00 AM INSPECTOR WEIGHTS AND MEASURES Home Care Visit [facility] [address] [place] [address] Sindy Goldberg, RN SN OASIS START OF CARE 02/11/2025 Home Care Visit [facility] [address] [place] [address] Binta Hitchcock, ARTHUR CASE COMMUNICATION 02/11/2025 Plan of Care Documentation [facility] [address] [place] [address] 02/01/2025 Transcribe Orders [facility] [address] [place] [address] Tamica Rodriguez Cellulitis of right leg 01/30/2025 Home Care Visit [facility] [address] [place] [address] Rosario Conrad RN SN NON ADMIT 01/30/2025 Home Care Visit [facility] [address] [place] [address] Sindy Goldberg, RN CASE COMMUNICATION 01/28/2025 Home Care Visit [facility] [address] [place] [address] Alicia Kelley, ARTHUR CASE COMMUNICATION 01/26/2025 Home Care Visit [facility] [address] [place] [address] Nikki Spencer, ARTHUR CASE COMMUNICATION 01/18/2025 Orders Only [facility] [address] [place] [address] Mi Baron MD Closed bimalleolar fracture of right ankle, initial encounter ; Subdural hemorrhage (HCC) from Last 3 Months Social History Tobacco Use Types Packs/Day Years Used Date Smoking Tobacco: Never Alcohol Use Standard Drinks/Week Comments No 0 (1 standard drink = 0.6 oz pur e alcohol) OASIS D0700: Social Isolation Answer Da te Recorded Frequency of experiencing loneliness or isolatio n Never 02/23/2025 OASIS A1250: Transportation Answer Date Recorded Lack of Transportation (Medical) No 02/23/2025 Lack of Transportation (Non-Medical) No 02/23/2025 Patient Unable or Declines to Respond No 02/23/2025 Comments Unknown Sex and Gender Information Value Date Recorded Sex Assigned at Not on file Legal Sex Female 9:17 AM INSPECTOR WEIGHTS AND MEASURES Gender Identity Not on file Sexual Orientation Not on file COVID-19 Exposure Response Date Recorded In the last 10 days, have yo u been in contact with someone who was confirmed or suspected to have Coronavirus/COVID-19? No / Unsure 02/18/2025 9:15 AM INSPECTOR WEIGHTS AND MEASURES Last Filed Vital Signs Vital Sign Reading Time Taken Comments Blood Pressure 128/60 02/18/2025 1:56 PM INSPECTOR WEIGHTS AND MEASURES Pulse 70 02/18/2025 1:56 PM INSPECTOR WEIGHTS AND MEASURES Temperature 37.1 C (98.8 F) 02/18/2025 1:56 PM INSPECTOR WEIGHTS AND MEASURES Respiratory Rate 18 02/18/2025 1:56 PM INSPECTOR WEIGHTS AND MEASURES Oxygen Saturation 87% 02/18/2025 1:5 6 PM INSPECTOR WEIGHTS AND MEASURES After several reps of pursed lip breathing 91% Inhaled Oxygen Concentration - - Weight 116.1 kg (256 lb) 11/28/2009 4:3 9 PM CDT Height 165.1 cm (5' 5) 11/28/2009 4:39 PM CDT Body Mass Index 42.6 11/28/2009 4:39 PM CDT Plan of Treatment Health Maintenance Due Date Last Done Comments BONE DENSITY TESTING 1945 DTAP/TDAP/TD VACCINES (1 - Tdap) 11/24/1962 PNEUMOCOCCAL VACCINE 50+ (1 of 1 - PCV) 11/24/1993 ZOSTER VACCINE (1 of 2) 11/24/1993 Respiratory Syncytial Virus (RSV) Vaccine Pt: or over 60 yrs (1 - 1-dose 75+ series) 11/24/2018 DEPRESSION SCREENING 03/11/2024 MEDICARE AWV CALENDAR YEAR 2024 COVID-19 VACCINE ( season) 2024 06/13/2020, 05/30/2020 INFLUENZA VACCINE (#1) 2024 , 12/19/2018, 01/14/2018, Additional history exists HEPATITIS B VACCINE Aged Out No longe r eligible based on patient's age to complete this topic HIB VACCINE Aged Out No longer eligi ble based on patient's age to complete this topic HPV VACCINE Aged Out No longer eligi ble based on patient's age to complete this topic MENINGOCOCCAL (Group B) VACCINE SHARED DECISION-MAKING Aged Out No longer eligible based on patient's age to complete this topic MENINGOCOCCAL GROUPS A/C/Y/W VACCINE Aged Out No longer eligible based on patient's age to complete this topic Insurance [facility] MANAGED MEDICARE ADV MANAGED MEDICARE ADV Member Subscriber Plan / Payer (Ef fective for All Dates) Name:Eloisa Clinton Relation to Subscriber:Self Name:KATIA CLINTON Payer ID:[id number] (NAIC) Type:Medicare-Managed Care Address: [address] MANAGED MEDICARE ADV MANAGED MEDICARE ADV MANAGED MEDICARE ADV Care Teams Customs Guard Relationship Specialty Start Date End Date Racheal Burnham, PEARL FISHERMAN-PATHOLOGY LABORATORY AIDES TEACHER [address] [place] [id number] PCP - General Nurse Practitioner Family 02/09/25
--- NOTE | 2025-03-01 14:44 | PC.NURSE ---
spoke to cardiopulmonary rehab. will be bringing down an O2 tank for pt to take home with her
--- NOTE | 2025-03-01 15:10 | HOMEO2EVAL ---
Evaluation was performed at [facility] Home Oxygen Evaluation RC: Home Oxygen (O2) Evaluation Start: 03/01/25 15:00 Freq: Status: Active Protocol: RPE Activity Type Activity Date Activity User E-sign Co-sign Detail Recorded Client Recorded Date Recorded By Document 03/01/25 14:30 RENATO [email or web address] 03/01/25 15:03 RENATO Document 03/01/25 14:33 RENATO [email or web address] 03/01/25 15:03 RENATO Document 03/01/25 14:34 RENATO [email or web address] 03/01/25 15:03 RENATO Document 03/01/25 14:35 RENATO [email or web address] 03/01/25 15:03 RENATO Document 03/01/25 14:45 RENATO [email or web address] 03/01/25 15:03 RENATO 03/01/25 03/01/25 03/01/25 14:30 14:33 14:34 Home O2 Evaluation [Oxygen] -Test Phase Resting Exercise Exercise -Oxygen Delivery Room Air Room Air Nasal Cannula -Oxygen Flow Rate (L/min) 1 [Pulse Oximetry] -Pulse Oximetry (90-100 %) 96 85 L 85 L [Pulse Rate] -Pulse Rate (60-100 beats/min) 82 87 [Comments] -Home Oxygen Evaluation Comments [Charges] -Evaluation Charges O2 Evaluation by Pulmonary 03/01/25 03/01/25 14:35 14:45 Home O2 Evaluation [Oxygen] -Test Phase Exercise Resting -Oxygen Delivery Nasal Cannula Room Air -Oxygen Flow Rate (L/min) 2 [Pulse Oximetry] -Pulse Oximetry (90-100 %) 92 95 [Pulse Rate] -Pulse Rate (60-100 beats/min) 89 81 [Comments] -Home Oxygen Evaluation Comments PT REQUIRES 2 LITERS HOME O2 WITH ACTIVITY/ EXERTION [Charges] -Evaluation Charges
--- NOTE | 2025-03-01 16:18 | PCRCNOTE ---
Home O2 is set up with [facility]. Order, eval, facesheet, doc notes faxed. Pt given transport POC for use when d/c home, haul truck driver will deliver addtl o2 equipment once d/c. Pt has been instructed with this info as well as RN and ER
== END 2025-03-01 16:43 | disposition home or self-care (01) ==
PROVIDERS: Emergency Provider Student in an Organized Health Care Education/Training Program; PCP Nurse Practitioner Family
DX: J44.9 Chronic obstructive pulmonary disease, unspecified (principal); Z99.81 Dependence on supplemental oxygen; I10 Essential (primary) hypertension; M19.90 Unspecified osteoarthritis, unspecified site; K21.9 Gastro-esophageal reflux disease without esophagitis; G47.33 Obstructive sleep apnea (adult) (pediatric); Z96.643 Presence of artificial hip joint, bilateral; Z86.0100 Personal history of colon polyps, unspecified; Z90.49 Acquired absence of other specified parts of digestive tract; Z77.22 Contact with and (suspected) exposure to environmental tobacco smoke (acute) (chronic)
CPT/HCPCS: 99281